=== PATIENT | male | born 1950 | race African-American/Black ===

== ENCOUNTER → 2016-10-06 | Outpatient (CLI) | payer MEDICARE, OTHER ==
[2016-03-15 10:53] VITALS: BP 125/86
[~2016-10-06] MED LIST: ALBU8.5H6 IH; AMLO5TAB2 PO; ASPI-482 PO; AZIT250T6 PO; CONTRAST GIVEN MC PRN; HYDR-2678 PO; HYDR-2762 PO; HYDR12.53 PO; IOHEXOL 300 MG/ML 75 ML VIAL IV ONE; LEVO500T38 PO; METO25TA9 PO; NYST1000 SWSW; Nicotine TD; OMEP20CA9 PO; POTA10TA PO; POTA10TA12 PO; PRED-220 PO; PRED20TA PO; PRED50TA PO; PROM118S2 PO; Promethazine Hcl/Codeine PO; SILD50TA PO; SUCR1TAB29 PO; TIOT18CA IH
[2016-10-06 11:26] LABS: CREATININE 0.7 mg/dL (0.7-1.3); GFR 135.7
--- NOTE | 2016-10-06 13:14 | RAD ---
Exam performed: CT scan of the abdomen and pelvis without and with contrast, urogram protocol Clinical Indication:Benign prostate hyperplasia Date of Service:10/06/16 comparison: None available Technique: Contiguous helical acquisitions are obtained from the lung bases to the pelvis without intravenous contrast. Agent was then administered [75 cc of Omnipaque 300] antegrade acquisitions through the abdomen were obtained in portal venous phase. Limited imaging through the abdomen and pelvis were also obtained. Sagittal and coronal reformatted images were obtained and reviewed. CT abdomen findings: The noncontrast enhanced images demonstrate no evidence of urolithiasis. Scattered atheromatous aortic calcification. There is symmetric perfusion of both kidneys with symmetric excretion via both collecting systems. Simple bilateral renal cysts with the dominant 5 cm cyst in the left superior renal pole. Bilateral collecting systems and both ureters are normal in course and caliber. No areas of abnormal narrowing or dilatation seen. No filling defect is identified. The urinary bladder is partially decompressed prostatomegaly causing mass effect on the posterior aspect of the urinary bladder. The lung bases appear essentially clear. Visualized heart is normal. The liver, spleen ,gall bladder and pancreas appears unremarkable. Mild prominence of the pancreatic duct noted. Both adrenal glands and bilateral kidneys appear normal with symmetric excretion of contrast via both kidneys. The small bowel loops appear nondilated and unremarkable. There is no retroperitoneal lymphadenopathy or mass lesions. Visualized appendix is normal. No bowel related inflammatory stranding is noted. No obvious stranding is seen in the pericecal region. CT pelvis findings: The pelvic bowel loops are nondilated and unremarkable. The urinary bladder is partially decompressed with mass effect on the posterior aspect of the urinary bladder from enlarged prostate as outlined above. Interrogation of bone windows demonstrates no obvious bony abnormality. Sagittal and coronal reformatted images were obtained and reviewed which demonstrate generalized osteopenia and mild spondylotic changes.. Impression abdomen and pelvis : 1. Prostatomegaly causing mass effect on the posterior aspect of the urinary bladder. 2. Simple bilateral renal cysts. PQRS Compliance Statement: One or more of the following individualized dose reduction techniques were utilized for this examination: 1. Automated exposure control 2. Adjustment of the mA and/or kV according to patient size 3. Use of iterative reconstruction technique
== END | disposition home or self-care (01) ==
LOC: CT 10:37
PROVIDERS: ATTEND Urology
DX: N40.1 Benign prostatic hyperplasia with lower urinary tract symptoms (principal); N28.1 Cyst of kidney, acquired
CPT/HCPCS: 36415; 74178; 82565; Q9967

== ENCOUNTER → 2016-10-09 | Outpatient (CLI) | payer MEDICARE, OTHER ==
[2016-03-15 10:53] VITALS: BP 125/86
[~2016-10-09] MED LIST changes: -CONTRAST GIVEN MC PRN; -IOHEXOL 300 MG/ML 75 ML VIAL IV ONE
[2016-10-09 16:40] LABS: CREATININE 0.7 mg/dL (0.7-1.3); GFR 135.7; POTASSIUM 4.6 mmol/L (3.5-5.1)
== END | disposition home or self-care (01) ==
LOC: LAB 15:28
PROVIDERS: ATTEND Urology
DX: Z12.5 Encounter for screening for malignant neoplasm of prostate (principal); N40.1 Benign prostatic hyperplasia with lower urinary tract symptoms
CPT/HCPCS: 36415; 80048; G0103

== ENCOUNTER 2016-10-19 15:11 | Inpatient (IN) | payer MEDICARE, OTHER ==
[~2016-10-19] VITALS: Ht 175.3 cm; Wt 96.2 kg
[2016-10-19] MEDS ORDERED: PREDNISONE 20 MG TABLET PO ONE (16:00)
[2016-10-19] MEDS ORDERED: IPRATRPIUM/ALBUTEROL 0.5/2.5MG 3 ML NEBU. NEB ONE (16:00)
--- NOTE | 2016-10-19 16:15 | RAD ---
Chest, 2 views, 10/19/2016: History: Dyspnea Comparison is made to a study from 03/14/2016. The heart size and pulmonary vascularity are normal. There is tortuosity of the thoracic aorta. There is unchanged blunting of the right lateral costophrenic angle, probably due to scarring. There is flattening of hemidiaphragms compatible with hyperexpansion due to COPD. No acute infiltrate is seen. There is a vertebral fusion anomaly or old fracture again noted in the lower thoracic spine. Moderate scattered spurs are present. IMPRESSION: 1. Right basilar scarring. 2. No acute cardiopulmonary abnormality is detected.
[2016-10-19 16:26] LABS: BASO % 0 % (0-3); EOS % 1 % (0-3); HEMATOCRIT 39.4 % (39.0-53.0); HEMOGLOBIN 12.4 g/dL (13.0-17.5); LYMPH # 1.3 x10^3/uL (1.0-4.8); LYMPH % 17 % (24-48); MEAN CORPUSCULAR HEMOGLOBIN 32 pg (25-35); MEAN CORPUSCULAR HGB CONC 32 g/dL (31-37); MEAN CORPUSCULAR VOLUME 100 fL (79-100); MONO % 6 % (0-9); NEUT % 76 % (31-73); PLATELET COUNT 202 x10^3/uL (140-400); RED BLOOD COUNT 3.94 x10^6/uL (4.30-5.70); RED CELL DISTRIBUTION WIDTH 13.4 % (11.5-14.5); WHITE BLOOD COUNT 7.6 x10^3/uL (4.0-11.0)
[2016-10-19 16:39] LABS: CALCIUM 9.9 mg/dL (8.5-10.1); CREATININE 0.7 mg/dL (0.7-1.3); GFR 135.7; POTASSIUM 4.5 mmol/L (3.5-5.1)
--- NOTE | 2016-10-19 16:46 | PHYS DOC ---
Past Medical History Past Medical History: CHF, COPD, High Cholesterol, Hypertension, Other Additional Past Medical Histor: GOUT Past Surgical History: Other Additional Past Surgical Histo: colon cancer Alcohol Use: Heavy Drug Use: None Adult General Chief Complaint Chief Complaint: SHORTNESS OF BREATH HPI HPI Patient is a 66 year old male who presents with family for acute on chronic dyspnea for the past 2 weeks that is not improving after using steroids as prescribed by his primary care doctor. He has increased cough, but no sputum changes. He has rhinorrhea. He uses home oxygen at 3 L nasal cannula. He used a nebulized treatment at approximately 1300 today with some improvement in his symptoms. He denies chest pain, hemoptysis, palpitations, lightheadedness, leg pain or swelling, fever or chills, diarrhea. Review of Systems Review of Systems Constitutional: Denies fever or chills [] Eyes: Denies change in visual acuity, redness, or eye pain [] HENT: Denies nasal congestion or sore throat [] Respiratory: Denies cough or shortness of breath [] Cardiovascular: No additional information not addressed in HPI [] GI: Denies abdominal pain, nausea, vomiting, bloody stools or diarrhea [] : Denies dysuria or hematuria [] Musculoskeletal: Denies back pain or joint pain [] Integument: Denies rash or skin lesions [] Neurologic: Denies headache, focal weakness or sensory changes [] Endocrine: Denies polyuria or polydipsia [] Current Medications Current Medications Current Medications Medications (Trade) Dose Ordered Sig/Nilo Start Time Stop Time Status Last Admin Dose Admin Albuterol/ Ipratropium (Duoneb) 3 ml 1X ONCE 10/19/16 16:00 10/19/16 16:01 DC 10/19/16 16:09 3 ML Prednisone (Prednisone) 60 mg 1X ONCE 10/19/16 16:00 10/19/16 16:01 DC 10/19/16 16:20 60 MG Allergies Allergies Allergies Coded Allergies Type Severity Reaction Last Updated Verified DELIA Inhibitors Allergy Intermediate 11/19/15 Yes Physical Exam Physical Exam Constitutional: Well developed, well nourished, no acute distress, non-toxic appearance. [] HENT: Normocephalic, atraumatic, bilateral external ears normal, oropharynx moist, no oral exudates, nose normal. [] Eyes: PERRLA, EOMI, conjunctiva normal, no discharge. [] Neck: Normal range of motion, no tenderness, supple, no stridor. [] Cardiovascular:Heart rate regular rhythm [] Lungs & Thorax: Mild bilateral wheezing, breathing through pursed lips, speaking in full sentences [] Abdomen: Bowel sounds normal, soft, no tenderness. [] Skin: Warm, dry, no erythema, no rash. [] Back: No tenderness, no CVA tenderness. [] Extremities: No tenderness, ROM intact, no edema. [] Neurologic: Alert and oriented X 3, normal motor function, normal sensory function, no focal deficits noted. [] Psychologic: Affect normal, judgement normal, mood normal. [] Current Patient Data Vital Signs Vital Signs Date Time Temp Pulse Resp B/P Pulse Ox O2 Delivery O2 Flow Rate FiO2 10/19/16 16:09 98 Nasal Cannula 4.0 10/19/16 15:44 98.5 98 42 122/76 98.5 Lab Values Laboratory Tests Test 10/19/16 16:10 10/19/16 16:15 White Blood Count 7.6x10^3/uL (4.0-11.0) Red Blood Count 3.94x10^6/uL (4.30-5.70) L Hemoglobin 12.4g/dL (13.0-17.5) L Hematocrit 39.4% (39.0-53.0) Mean Corpuscular Volume 100fL (79-100) Mean Corpuscular Hemoglobin 32pg (25-35) Mean Corpuscular Hemoglobin Concent 32g/dL (31-37) Red Cell Distribution Width 13.4% (11.5-14.5) Platelet Count 202x10^3/uL (140-400) Neutrophils (%) (Auto) 76% (31-73) H Lymphocytes (%) (Auto) 17% (24-48) L Monocytes (%) (Auto) 6% (0-9) Eosinophils (%) (Auto) 1% (0-3) Basophils (%) (Auto) 0% (0-3) Neutrophils # (Auto) 5.8x10^3uL (1.8-7.7) Lymphocytes # (Auto) 1.3x10^3/uL (1.0-4.8) Monocytes # (Auto) 0.4x10^3/uL (0.0-1.1) Eosinophils # (Auto) 0.1x10^3/uL (0.0-0.7) Basophils # (Auto) 0.0x10^3/uL (0.0-0.2) Sodium Level 146mmol/L (136-145) H Potassium Level 4.5mmol/L (3.5-5.1) Chloride Level 103mmol/L (98-107) Carbon Dioxide Level 39mmol/L (21-32) H Anion Gap 4 (6-14) L Blood Urea Nitrogen 14mg/dL (8-26) Creatinine 0.7mg/dL (0.7-1.3) Estimated GFR (Cockcroft-Gault) 135.7 Glucose Level 102mg/dL (70-99) H Calcium Level 9.9mg/dL (8.5-10.1) Influenza Type A Antigen Negative (NEGATIVE) Influenza Type B Antigen Negative (NEGATIVE) Laboratory Tests 10/19/16 16:10 Laboratory Tests 10/19/16 16:10 EKG EKG EKG as interpreted by me as normal sinus rhythm, rate 100, no ST-T changes, normal intervals, no ectopy Radiology/Procedures Radiology/Procedures Chest xray as interpreted by me with no acute cardiopulmonary disease process Course & Med Decision Making Course & Med Decision Making Pertinent Labs and Imaging studies reviewed. (See chart for details) Workup is unremarkable. He is feeling better at rest after neb. Has walking desat on baseline NC with significant increase WOB and desats to mid 80s. Discussed case with Dr. Mcdonald, who will admit. Dragon Disclaimer Dragon Disclaimer This electronic medical record was generated, in whole or in part, using a voice recognition dictation system. Departure Departure Impression: Primary Impression: COPD exacerbation Disposition: ADMITTED INPATIENT Condition: STABLE Referrals: JJ GIORDANO (PCP) Rocio COX MD Oct 19, 2016 16:46
[2016-10-19 16:47] LABS: OBC FLU VALID
[2016-10-19] MEDS ORDERED: ONDANSETRON PF 4 MG/2 ML VIAL. IV PRN (17:30)
[2016-10-19] MEDS ORDERED: CEFTRIAXONE 1GM IVPB FOR OMNI 50 ML IV ONE (17:30)
[2016-10-19] MEDS ORDERED: ACETAMINOPHEN 325 MG TABLET. PO PRN (17:30)
--- NOTE | 2016-10-19 17:35 | ACF ---
Admission Forms Criteria COPD Clinical Indications for Admission to Inpatient Care (Place 'X' for any and all applicable criteria): Admission is indicated for ANY ONE of the following (1)(2)(3): [X]I. Acute exacerbation by high-risk comorbidity (e.g., pneumonia, dysrhythmia, heart failure, pleural effusion, pneumothorax) or severe underlying COPD (e.g., steroid dependent) [X]II. Inpatient admission required rather than observation care (see Chronic Obstructive Pulmonary Disease: Observation Care) because of ANY ONE of the following: [X]a) New or pre-existing signs or symptoms of COPD (eg, dyspnea or Tachypnea at rest or with minimal activity) that persist despite outpatient and observation care treatment [ ]b) New-onset hypoxemia (room air SaO2 less than 90%, PO2 less than 60 mm Hg (8.0 kPa)) that persists despite outpatient and observation care treatment [ ]c) Worsening of pre-existing hypoxemia (eg, new or increased requirement for supplemental oxygen to maintain oxygenation at baseline level) that persists despite outpatient and observation care treatment, with oxygen treatment needs performable only in acute inpatient setting [ ]d) Hypercarbia (PCO2 greater than 40 mm Hg (5.3 kPa))-induced respiratory acidosis (pH less than 7.35) that persists despite outpatient and observation care treatment [ ]e) Supplemental oxygen or respiratory treatments for over 24 hours that are performable only in acute inpatient setting [ ]f) Chest tube placement with active evacuation (e.g., suction, drainage) (5) [ ]g) Other condition, treatment or monitoring requiring inpatient admission [ ]III. Planned invasive surgical or diagnostic procedures requiring acute- care hospitalization [ ]IV. Acute respiratory failure (e.g., uncompensated hypercarbia, severe hypoxemia) [ ]V. Severe comorbid condition (e.g., severe steroid myopathy, acute vertebral fracture) that has acutely worsened pulmonary function [ ]. Confusion state, lethargy, obtundation, stupor or coma Extended stay beyond goal length of stay may be needed for (31)(32): [ ]a ) Respiratory Failure. [ ]b) Severe or persisting hypoxemia or hypercarbia [ ]c) Severe or persistent dyspnea [ ]d) Comorbidities (e.g. chronic heart failure, atrial fibrillation with rapid response, pneumonia) [ ]e) Malnutrition The original [facility] content created by [facility] has been revised. The portions of the content which have been revised are identified through the use of italic text or in bold, and [facility] has neither reviewed nor approved the modified material. All other unmodified content is copyright [facility]. Please see references footnoted in the original [facility] edition 2016 Admission Criteria Met?: Yes JOSESITO GARDNER Oct 19, 2016 17:35
[2016-10-19] MEDS ORDERED: IPRATRPIUM/ALBUTEROL 0.5/2.5MG 3 ML NEBU. NEB SCH (20:00)
[2016-10-19] MEDS ORDERED: ALBUTEROL SULFATE 2.5 MG/3 ML NEBU. NEB PRN (21:30)
[2016-10-19] MEDS ORDERED: methylPREDNISolone SOD SUCC PF 125 MG/2 ML VIAL. IV ONE (21:30)
[2016-10-19] MEDS: ENOXAPARIN 40 MG/0.4 ML DISP.SYRIN. SQ SCH (22:23)
[2016-10-19] MEDS: PROMETH/CODEINE 6.25/10MG 5 ML SYRUP. PO PRN (22:56)
[2016-10-19 23:20] VITALS: BP 106/67
[2016-10-20 03:03] VITALS: BP 114/74
--- NOTE | 2016-10-20 06:48 | EKG ---
[facility] [address] [place] [address] Test Date: 2016-10-19 Test Time: 15:21:07 Pat Name: KATARINA JAUREGUI Department: Room: 528 1 Gender: M [employer]: : 1950 Requested By: Rocio COX Order Number: [id number] Reading MD: Bijal Worthington Measurements Intervals [place] Rate: 100 P: 77 NC: 108 QRS: 72 QRSD: 82 T: 71 QT: 326 QTc: 423 Interpretive Statements SINUS RHYTHM NO SPECIFIC ECG ABNORMALITIES RI6.01 Compared to ECG 03/12/2016 01:40:22 Sinus tachycardia no longer present Electronically Signed On 10-21-2016 20:04:27 CDT by Bijal Worthington
[2016-10-20 07:40] VITALS: BP 112/69
[2016-10-20] MEDS: PANTOPRAZOLE 40 MG TABLET. PO SCH (08:19)
[2016-10-20] MEDS: POTASSIUM CHLORIDE 10 MEQ TABLET.ER. PO SCH (08:20)
[2016-10-20] MEDS: METOPROLOL SUCC 24HR ER 25 MG TAB.ER.24H. PO SCH ×2 (08:21→09:00)
[2016-10-20] MEDS: AMLODIPINE BESYLATE 5 MG TABLET PO SCH (08:22)
[2016-10-20] MEDS: HYDROCHLOROTHIAZIDE 12.5 MG CAPSULE. PO SCH (08:23)
[2016-10-20] MEDS: ASPIRIN ENTERIC COATED 81 MG TABLET.DR. PO SCH (08:23)
[2016-10-20] MEDS: NICOTINE 7MG PATCH. TD SCH (08:24)
[2016-10-20] MEDS: methylPREDNISolone SOD SUCC PF 125 MG/2 ML VIAL. IV SCH ×3 (08:24→21:36)
[2016-10-20] MEDS ORDERED: NON FORMULARY ITEM (Tiotropium Bromide (Spiriva) 18 MCG) IH SCH (09:00)
[2016-10-20] MEDS ORDERED: POTASSIUM CHLORIDE 10 MEQ PO SCH (09:00)
[2016-10-20] MEDS: IPRATRPIUM/ALBUTEROL 0.5/2.5MG 3 ML NEBU. NEB SCH ×4 (09:07→20:14)
--- NOTE | 2016-10-20 09:42 | PDOC ---
Provider Note Provider Note [id number] acute on chronic resp fail ae of copd acute bronchitis see orders SHERI LORENZANA MD Oct 20, 2016 09:42
--- NOTE | 2016-10-20 10:22 | PDOC ---
Provider Note Provider Note Pt seen.H&P dictated. #[id number] DAMIÁN BALL MD Oct 20, 2016 10:22
[2016-10-20 10:35] VITALS: BP 135/68
--- NOTE | 2016-10-20 10:56 | CONS ---
DATE OF CONSULTATION: 10/19/2016 HISTORY OF PRESENT ILLNESS: I was asked to see this 66-year-old gentleman for [id number] respiratory failure, shortness of breath, cough, wheezing, acute exacerbation of COPD. He has history of at least 80-pack years of smoking, continues to smoke about wio-clm-i-half pack per day. He is on oxygen 3 liters per minute via nasal cannula continuously. He has been followed by Dr. Go. He has had increased shortness of breath and cough for the past few days. He has clear to yellow sputum production. He has nasal congestion. He has wheezing. He has had some fever and chills. He has gastroesophageal reflux symptoms. PAST MEDICAL HISTORY: COPD, CHF, hypercholesterolemia, hypertension, gout. ALLERGIES: DELIA INHIBITORS. MEDICATIONS: Currently, he is on Solu-Medrol 60 mg IV q. 8h., bronchodilators, Rocephin, aspirin, Lovenox, hydrochlorothiazide, hydrocodone, metoprolol, nicotine patch, potassium. SOCIAL HISTORY: History of at least 64-sqfy-tzyb smoking, continues to smoke about dvw-wbw-b-half pack per day. He used to drink. FAMILY HISTORY: There is no history of lung disease. REVIEW OF SYSTEMS: As mentioned above, other systems otherwise negative. PHYSICAL EXAMINATION: GENERAL: This is an overweight gentleman, on oxygen. VITAL SIGNS: His O2 saturation is 97%, respiratory rate 18, heart rate 84, blood pressure 112/69, temperature 99.3. HEENT: Normocephalic, atraumatic. Pupils equal, round, reactive to light. Throat is clear. Nose: There is inflamed mucosa. NECK: There is no JVD, lymphadenopathy or thyromegaly. CARDIOVASCULAR: Regular rate and rhythm. PMI is nondisplaced. CHEST: Inspection is normal. LUNGS: There are diminished breath sounds and expiratory wheezing, dullness at the bases. ABDOMEN: Soft. Bowel sounds are good. There is no mass. EXTREMITIES: There is no edema. LYMPHATICS: There is no lymphadenopathy. NEUROLOGIC: He is alert and oriented x 3. SKIN: Chronic changes. LABORATORY DATA: I reviewed the following lab data. Chest x-ray shows COPD changes, bibasilar scarring. WBC 7.6, hemoglobin 12.4, platelets 202. Sodium 146, potassium 4.5, chloride 103, CO2 of 39, glucose 102, BUN 14, creatinine 0.7. Influenza A and B negative. IMPRESSION: 1. Acute on chronic respiratory failure, multifactorial in etiology. 2. Acute exacerbation of chronic obstructive pulmonary disease. 3. Acute bronchitis. 4. Hypertension. 5. Hypercholesterolemia. 6. Tobacco habituation. 7. Allergic rhinitis. 8. Gastroesophageal reflux disease. PLAN AND RECOMMENDATIONS: 1. Titrate FiO2 to keep O2 saturation 92%. 2. I had a long discussion with him regarding smoking cessation. I have advised him to stop smoking forever. 3. Continue Solu-Medrol 60 mg IV q. 12h. 4. Bronchodilator q.i.d. p.r.n. shortness of breath. 5. Add inhaled corticosteroid. 6. Start Protonix for stress ulcer prophylaxis. 7. Lovenox for DVT prophylaxis. 8. Monitor respiratory status very closely. 9. He had a CT of the chest done in 08/2015, which did not show pulmonary embolism or lung nodule. I do recommend a low dose CT of the chest. 10. Continue oxygen. 11. Findings and recommendations were discussed with the patient. He understood and agreed to proceed with the plan. I have answered all of his questions. 12. Start Flonase. Thank you very much for allowing me to participate in care of this very nice gentleman. SHERI LORENZANA M.D. : Yecenia JOB#: [id number] / [id number]
--- NOTE | 2016-10-20 11:22 | HP ---
ADMIT DATE: 10/19/2016 PATIENT'S LOCATION: [facility]. REASON FOR ADMISSION TO THE HOSPITAL: Shortness of breath, [id number] COPD exacerbation and acute bronchitis. HISTORY OF PRESENT ILLNESS: The patient is a 66-year-old male, patient of Dr. Hernandez. He has history of chronic COPD. He is on home oxygen and he also has history of hypertension, hyperlipidemia and still smokes as well as drinking problems. The patient was seen in the Dr. Hernandez's office, was given prednisone and antibiotic did not improve and came to the Emergency Room because of worsening shortness of breath. He was found to have acute COPD with exacerbation and was given IV Solu-Medrol, IV Rocephin, DuoNeb was admitted to the hospital. PAST MEDICAL HISTORY: Multiple admissions for COPD, hypertension, diabetes, DJD of the spine, anxiety and depression. PAST SURGICAL HISTORY: Had a surgery on the colon for diverticulitis. ALLERGIES: TO DELIA INHIBITORS CAUSE ANGIOEDEMA. MEDICATIONS: He is on amlodipine 5 mg, aspirin 81, Detrol 4 mg, hydrochlorothiazide 12.5, Spiriva, oxygen 2 liters, DuoNeb and omeprazole. PERSONAL HISTORY: Smoked for 50 years, still smokes. Social alcohol. Denies any drugs. FAMILY HISTORY: Hypertension. REVIEW OF SYSTEMS: CARDIAC: No chest pain. GASTROINTESTINAL: No nausea or vomiting. NEUROLOGICAL: Weakness, cough, white phlegm and wheezing. PHYSICAL EXAMINATION: GENERAL: The patient looks weaker. VITAL SIGNS: Temperature 98, pulse 98, respirations 42, blood pressure 122/76, 98% on 3 liters. HEENT: Head is atraumatic. Pupils equal. Oral cavity: No congestion. NECK: Supple. Thyroid not enlarged. JVD not elevated. CHEST: Symmetrical. CARDIOVASCULAR: S1, S2. LUNGS: Diminished breath sounds and wheezing posterior lungs. ABDOMEN: Flat, bowel sounds present, no mass palpable. EXTERNAL GENITALIA: No Heard. RECTAL: Deferred. EXTREMITIES: No calf tenderness, no edema. Pulses 1+. NEUROLOGIC: Nonfocal deficient and moves all extremities, slightly weaker. LABORATORY DATA: Shows influenza A and B was negative. White count 7, hemoglobin 12, platelets 202. Electrolytes show sodium 146, potassium 4.5, chloride 103, bicarbonate 39, BUN 14, creatinine 0.7, glucose 102. Chest x-ray, right basilar scarring, no acute abnormality. FINAL IMPRESSION: 1. Acute chronic obstructive pulmonary disease with exacerbation. 2. Acute bronchitis. 3. Hypertension. 4. Degenerative joint disease of the cervical spine. 5. General debility. 6. Smoking. PLAN: At this time, admit to hospital, IV Rocephin, IV Solu-Medrol, DuoNeb 4 times daily, pulmonary consult, PT, OT and see how the patient's condition improves. DAMIÁN BALL MD DR: CHELE/braden JOB#: [id number] / [id number] JJ Magdaleno
[2016-10-20] MEDS ORDERED: PANTOPRAZOLE 40 MG TABLET. PO SCH (11:30)
[2016-10-20] MEDS: BUDESONIDE 0.5 MG/2 ML NEBU NEB SCH ×2 (11:55→20:14)
[2016-10-20 14:05] VITALS: BP 107/67
[2016-10-20] MEDS: PROMETH/CODEINE 6.25/10MG 5 ML SYRUP. PO PRN (15:06)
[2016-10-20] MEDS: FLUTICASONE 50MCG/NASAL SPRAY 16GM BOTTLE. NS SCH (15:15)
[2016-10-20] MEDS: CEFTRIAXONE SODIUM 1 GM in IV NORMAL SALINE 50ML 50 ML IV SCH (17:50)
[2016-10-20 19:00] VITALS: BP 110/64
[2016-10-20] MEDS: HYDROCODONE/APAP 5/325MG TABLET. PO PRN (19:41)
[2016-10-20] MEDS: ENOXAPARIN 40 MG/0.4 ML DISP.SYRIN. SQ SCH (21:37)
[2016-10-20 23:00] VITALS: BP 160/86
[2016-10-21 03:00] VITALS: BP 96/60
[2016-10-21] MEDS: methylPREDNISolone SOD SUCC PF 125 MG/2 ML VIAL. IV SCH ×3 (05:54→20:43)
[2016-10-21] MEDS: PANTOPRAZOLE 40 MG TABLET. PO SCH (05:56)
[2016-10-21 06:17] LABS: BASO % 0 % (0-3); EOS % 0 % (0-3); HEMATOCRIT 35.1 % (39.0-53.0); HEMOGLOBIN 11.3 g/dL (13.0-17.5); LYMPH # 0.5 x10^3/uL (1.0-4.8); LYMPH % 3 % (24-48); MEAN CORPUSCULAR HEMOGLOBIN 32 pg (25-35); MEAN CORPUSCULAR HGB CONC 32 g/dL (31-37); MEAN CORPUSCULAR VOLUME 99 fL (79-100); MONO % 4 % (0-9); NEUT % 92 % (31-73); PLATELET COUNT 194 x10^3/uL (140-400); RED BLOOD COUNT 3.54 x10^6/uL (4.30-5.70); RED CELL DISTRIBUTION WIDTH 13.5 % (11.5-14.5); WHITE BLOOD COUNT 15.8 x10^3/uL (4.0-11.0)
[2016-10-21 06:47] LABS: ALBUMIN 2.8 g/dL (3.4-5.0); ALBUMIN/GLOBULIN RATIO 0.6 (1.0-1.7); CALCIUM 9.5 mg/dL (8.5-10.1); CREATININE 0.6 mg/dL (0.7-1.3); GFR 162.1; TOTAL BILIRUBIN 0.3 mg/dL (0.2-1.0); TOTAL PROTEIN 7.3 g/dL (6.4-8.2)
[2016-10-21 06:52] LABS: CHOLESTEROL/HDL RATIO 2.3
[2016-10-21 07:00] VITALS: BP 122/70
[2016-10-21] MEDS: BUDESONIDE 0.5 MG/2 ML NEBU NEB SCH ×2 (07:36→18:41)
[2016-10-21] MEDS: IPRATRPIUM/ALBUTEROL 0.5/2.5MG 3 ML NEBU. NEB SCH ×4 (07:36→18:41)
[2016-10-21 08:05] LABS: PLT ESTIMATE ADEQUATE (ADEQUATE)
--- NOTE | 2016-10-21 09:04 | PDOC ---
PULMONARY PROGRESS NOTES Subjective still has sig sob, maybe slightly better. has cough, hernandez, nasal congestion Vitals Vital Signs Date Time Temp Pulse Resp B/P Pulse Ox O2 Delivery O2 Flow Rate FiO2 10/21/16 07:38 99 Nasal Cannula 3.0 10/21/16 03:00 97.6 96 18 96/60 97.6 Comments ros as mentioned as above other sys otherwise neg General: Alert, Oriented X4, No acute distress Lungs: Wheezing, Other (deminished) Cardiovascular: S1, S2 Abdomen: Soft, Non-tender Extremities: No Edema Labs Laboratory Tests Test 10/19/16 16:10 10/19/16 16:15 10/21/16 06:00 White Blood Count 7.6x10^3/uL (4.0-11.0) 15.8x10^3/uL (4.0-11.0) Red Blood Count 3.94x10^6/uL (4.30-5.70) 3.54x10^6/uL (4.30-5.70) Hemoglobin 12.4g/dL (13.0-17.5) 11.3g/dL (13.0-17.5) Hematocrit 39.4% (39.0-53.0) 35.1% (39.0-53.0) Mean Corpuscular Volume 100fL (79-100) 99fL (79-100) Mean Corpuscular Hemoglobin 32pg (25-35) 32pg (25-35) Mean Corpuscular Hemoglobin Concent 32g/dL (31-37) 32g/dL (31-37) Red Cell Distribution Width 13.4% (11.5-14.5) 13.5% (11.5-14.5) Platelet Count 202x10^3/uL (140-400) 194x10^3/uL (140-400) Neutrophils (%) (Auto) 76% (31-73) 92% (31-73) Lymphocytes (%) (Auto) 17% (24-48) 3% (24-48) Monocytes (%) (Auto) 6% (0-9) 4% (0-9) Eosinophils (%) (Auto) 1% (0-3) 0% (0-3) Basophils (%) (Auto) 0% (0-3) 0% (0-3) Neutrophils # (Auto) 5.8x10^3uL (1.8-7.7) 14.6x10^3uL (1.8-7.7) Lymphocytes # (Auto) 1.3x10^3/uL (1.0-4.8) 0.5x10^3/uL (1.0-4.8) Monocytes # (Auto) 0.4x10^3/uL (0.0-1.1) 0.7x10^3/uL (0.0-1.1) Eosinophils # (Auto) 0.1x10^3/uL (0.0-0.7) 0.0x10^3/uL (0.0-0.7) Basophils # (Auto) 0.0x10^3/uL (0.0-0.2) 0.0x10^3/uL (0.0-0.2) Sodium Level 146mmol/L (136-145) 144mmol/L (136-145) Potassium Level 4.5mmol/L (3.5-5.1) 4.0mmol/L (3.5-5.1) Chloride Level 103mmol/L (98-107) 104mmol/L (98-107) Carbon Dioxide Level 39mmol/L (21-32) 35mmol/L (21-32) Anion Gap 4 (6-14) 5 (6-14) Blood Urea Nitrogen 14mg/dL (8-26) 14mg/dL (8-26) Creatinine 0.7mg/dL (0.7-1.3) 0.6mg/dL (0.7-1.3) Estimated GFR (Cockcroft-Gault) 135.7 162.1 Glucose Level 102mg/dL (70-99) 132mg/dL (70-99) Calcium Level 9.9mg/dL (8.5-10.1) 9.5mg/dL (8.5-10.1) Influenza Type A Antigen Negative (NEGATIVE) Influenza Type B Antigen Negative (NEGATIVE) Segmented Neutrophils % 90% (35-66) Band Neutrophils % 5% (0-9) Lymphocytes % 3% (24-48) Monocytes % 2% (0-10) Platelet Estimate Adequate (ADEQUATE) BUN/Creatinine Ratio 23 (6-20) Total Bilirubin 0.3mg/dL (0.2-1.0) Aspartate Amino Transf (AST/SGOT) 16U/L (15-37) Alanine Aminotransferase (ALT/SGPT) 24U/L (16-63) Alkaline Phosphatase 65U/L (46-116) Total Protein 7.3g/dL (6.4-8.2) Albumin 2.8g/dL (3.4-5.0) Albumin/Globulin Ratio 0.6 (1.0-1.7) Triglycerides Level 31mg/dL (0-150) Cholesterol Level 162mg/dL (0-200) LDL Cholesterol, Calculated 86mg/dL (0-100) VLDL Cholesterol, Calculated 6mg/dL (0-40) HDL Cholesterol 70mg/dL (40-60) Cholesterol/HDL Ratio 2.3 Thyroid Stimulating Hormone (TSH) 0.054uIU/mL (0.358-3.74) Laboratory Tests Test 10/21/16 06:00 White Blood Count 15.8x10^3/uL (4.0-11.0) Red Blood Count 3.54x10^6/uL (4.30-5.70) Hemoglobin 11.3g/dL (13.0-17.5) Hematocrit 35.1% (39.0-53.0) Mean Corpuscular Volume 99fL (79-100) Mean Corpuscular Hemoglobin 32pg (25-35) Mean Corpuscular Hemoglobin Concent 32g/dL (31-37) Red Cell Distribution Width 13.5% (11.5-14.5) Platelet Count 194x10^3/uL (140-400) Neutrophils (%) (Auto) 92% (31-73) Lymphocytes (%) (Auto) 3% (24-48) Monocytes (%) (Auto) 4% (0-9) Eosinophils (%) (Auto) 0% (0-3) Basophils (%) (Auto) 0% (0-3) Neutrophils # (Auto) 14.6x10^3uL (1.8-7.7) Lymphocytes # (Auto) 0.5x10^3/uL (1.0-4.8) Monocytes # (Auto) 0.7x10^3/uL (0.0-1.1) Eosinophils # (Auto) 0.0x10^3/uL (0.0-0.7) Basophils # (Auto) 0.0x10^3/uL (0.0-0.2) Segmented Neutrophils % 90% (35-66) Band Neutrophils % 5% (0-9) Lymphocytes % 3% (24-48) Monocytes % 2% (0-10) Platelet Estimate Adequate (ADEQUATE) Sodium Level 144mmol/L (136-145) Potassium Level 4.0mmol/L (3.5-5.1) Chloride Level 104mmol/L (98-107) Carbon Dioxide Level 35mmol/L (21-32) Anion Gap 5 (6-14) Blood Urea Nitrogen 14mg/dL (8-26) Creatinine 0.6mg/dL (0.7-1.3) Estimated GFR (Cockcroft-Gault) 162.1 BUN/Creatinine Ratio 23 (6-20) Glucose Level 132mg/dL (70-99) Calcium Level 9.5mg/dL (8.5-10.1) Total Bilirubin 0.3mg/dL (0.2-1.0) Aspartate Amino Transf (AST/SGOT) 16U/L (15-37) Alanine Aminotransferase (ALT/SGPT) 24U/L (16-63) Alkaline Phosphatase 65U/L (46-116) Total Protein 7.3g/dL (6.4-8.2) Albumin 2.8g/dL (3.4-5.0) Albumin/Globulin Ratio 0.6 (1.0-1.7) Triglycerides Level 31mg/dL (0-150) Cholesterol Level 162mg/dL (0-200) LDL Cholesterol, Calculated 86mg/dL (0-100) VLDL Cholesterol, Calculated 6mg/dL (0-40) HDL Cholesterol 70mg/dL (40-60) Cholesterol/HDL Ratio 2.3 Thyroid Stimulating Hormone (TSH) 0.054uIU/mL (0.358-3.74) Medications Active Scripts Medications Dose Route/Sig Days Date Category [Promethazine Hcl/Codeine] 5 ML Syrup 5 Ml PO PRN Q8HRS PRN 03/15/16 Rx Klor-Con M10 (Potassium Chloride) 10 Meq Tab.er.prt 10 Meq PO DAILYWBKFT 8/10/16 Rx Levaquin (Levofloxacin) 500 Mg Tablet 500 Mg PO DAILY06 03/15/16 Rx Prednisone 20 Mg Tablet 40 Mg PO DAILY 03/15/16 Rx Prednisone 10 Mg Tablet 10 Mg PO DIRECTED 11/20/15 Rx Levaquin (Levofloxacin) 500 Mg Tablet 1 Tab PO DAILY 11/20/15 Rx Metoprolol Succinate ( Xl ) (Metoprolol Succinate) 25 Mg Tab.er.24h 25 Mg PO DAILY 11/20/15 Rx [Nicotine] 1 PATCH Patch 1 Patch TD DAILY 06/23/15 Rx Lortab 5-325 mg Tablet (Hydrocodone/Acetaminophen) 1 Each Tablet 1 Each PO QIDPRN PRN 12/13/13 Reported K-Tab (Potassium Chloride) 10 Meq Tablet.er 10 Meq PO BID 12/12/13 Rx Viagra (Sildenafil Citrate) 50 Mg Tablet 50 Mg PO PRN DAILY 10/28/13 Reported Spiriva (Tiotropium [place]) 18 Mcg Cap.w.dev 18 Mcg IH DAILY 10/28/13 Reported Omeprazole 20 Mg Capsule. 20 Mg PO DAILY 10/28/13 Reported Hydrochlorothiazide Capsule (Hydrochlorothiazide) 12.5 Mg Capsule 12.5 Mg PO DAILY 10/28/13 Reported Aspir 81 (Aspirin) 81 Mg Tablet. 81 Mg PO DAILY 10/28/13 Reported Amlodipine Besylate 5 Mg Tablet 5 Mg PO DAILY 10/28/13 Reported Albuterol Sulfate Hfa Inhaler (Albuterol Sulfate) 8.5 Gm Hfa.aer.ad 90 Mcg IH PRN EVERY 4-6H 10/28/13 Reported Comments cxr reviewed, 1. Right basilar scarring. 2. No acute cardiopulmonary abnormality is detected. Impression . IMPRESSION: 1. Acute on chronic respiratory failure, multifactorial in etiology. 2. Acute exacerbation of chronic obstructive pulmonary disease. 3. Acute bronchitis. 4. Hypertension. 5. Hypercholesterolemia. 6. Tobacco habituation. 7. Allergic rhinitis. 8. Gastroesophageal reflux disease. Plan . PLAN AND RECOMMENDATIONS: 1. Titrate FiO2 to keep O2 saturation 92%. 2. I had a long discussion with him regarding smoking cessation. I have advised him to stop smoking forever. 3. Continue Solu-Medrol 60 mg IV q. 12h. 4. Bronchodilator q.i.d. p.r.n. shortness of breath. 5. inhaled corticosteroid. 6. Protonix for stress ulcer prophylaxis. 7. Lovenox for DVT prophylaxis. 8. Monitor respiratory status very closely. 9. He had a CT of the chest done in 08/2015, which did not show pulmonary embolism or lung nodule. I do recommend a low dose CT of the chest. 10. Continue oxygen. 11. Findings and recommendations were discussed with the patient. He understood and agreed to proceed with the plan. I have answered all of his questions. 12. Flonase. 13. SHERI Sharp pt, MD Oct 21, 2016 09:04
[2016-10-21] MEDS: POTASSIUM CHLORIDE 10 MEQ TABLET.ER. PO SCH (09:10)
[2016-10-21] MEDS: ASPIRIN ENTERIC COATED 81 MG TABLET.DR. PO SCH (09:10)
[2016-10-21] MEDS: FLUTICASONE 50MCG/NASAL SPRAY 16GM BOTTLE. NS SCH (09:10)
[2016-10-21] MEDS: NICOTINE 7MG PATCH. TD SCH (09:10)
[2016-10-21] MEDS: AMLODIPINE BESYLATE 5 MG TABLET PO SCH (09:13)
[2016-10-21] MEDS: HYDROCHLOROTHIAZIDE 12.5 MG CAPSULE. PO SCH (09:13)
[2016-10-21] MEDS: METOPROLOL SUCC 24HR ER 25 MG TAB.ER.24H. PO SCH (09:17)
[2016-10-21 11:00] VITALS: BP 128/60
--- NOTE | 2016-10-21 12:16 | PDOC ---
PROGRESS NOTES Subjective Subjective feeling better ,wanting to see urology for bph Objective Objective Vital Signs Date Time Temp Pulse Resp B/P Pulse Ox O2 Delivery O2 Flow Rate FiO2 10/21/16 11:51 96 Nasal Cannula 3.0 10/21/16 09:17 94 119/73 10/21/16 07:00 97.9 22 97.9 Intake and Output 10/21/16 07:00 Intake Total 2280 ml Output Total 850 ml Balance 1430 ml Intake Oral 2280 ml Output Urine Total 850 ml # Voids 1 Physical Exam Abdomen: Normal bowel sounds, Soft Heart: Regular rate, Normal S2 Extremities: No clubbing General: Alert HEENT: Atraumatic Lungs: Clear to auscultation MUSCULOSKELETAL: No swelling Neck: Supple Neuro: Normal gait Psych/Mental Status: Mental status NL Skin: No breakdown Diagnosis Problem List Problems Medical Problems: (1) COPD exacerbation Status: Acute Assessment Assessment Problems Medical Problems: (1) COPD exacerbation Status: Acute FINAL IMPRESSION: 1. Acute chronic obstructive pulmonary disease with exacerbation. 2. Acute bronchitis. 3. Hypertension. 4. Degenerative joint disease of the cervical spine. 5. General debility. 6. Smoking. 7. BPH 8.? Hyperyroidism PLAN: ct abdomen showed enlarged prostate. will check psa, urology consult. repeat thyroid functions , TSH very low At this time, admit to hospital, IV Rocephin, IV Solu-Medrol, DuoNeb 4 pulmonary consult, PT, OT see how the patient's condition improves. Problems: Plan Plan of Care Problems Medical Problems: (1) COPD exacerbation Status: Acute Comment Review of Relevant I have reviewed the following items mario (where applicable) has been applied. Labs Laboratory Tests Test 10/21/16 06:00 White Blood Count 15.8x10^3/uL (4.0-11.0) Red Blood Count 3.54x10^6/uL (4.30-5.70) Hemoglobin 11.3g/dL (13.0-17.5) Hematocrit 35.1% (39.0-53.0) Mean Corpuscular Volume 99fL (79-100) Mean Corpuscular Hemoglobin 32pg (25-35) Mean Corpuscular Hemoglobin Concent 32g/dL (31-37) Red Cell Distribution Width 13.5% (11.5-14.5) Platelet Count 194x10^3/uL (140-400) Neutrophils (%) (Auto) 92% (31-73) Lymphocytes (%) (Auto) 3% (24-48) Monocytes (%) (Auto) 4% (0-9) Eosinophils (%) (Auto) 0% (0-3) Basophils (%) (Auto) 0% (0-3) Neutrophils # (Auto) 14.6x10^3uL (1.8-7.7) Lymphocytes # (Auto) 0.5x10^3/uL (1.0-4.8) Monocytes # (Auto) 0.7x10^3/uL (0.0-1.1) Eosinophils # (Auto) 0.0x10^3/uL (0.0-0.7) Basophils # (Auto) 0.0x10^3/uL (0.0-0.2) Segmented Neutrophils % 90% (35-66) Band Neutrophils % 5% (0-9) Lymphocytes % 3% (24-48) Monocytes % 2% (0-10) Platelet Estimate Adequate (ADEQUATE) Sodium Level 144mmol/L (136-145) Potassium Level 4.0mmol/L (3.5-5.1) Chloride Level 104mmol/L (98-107) Carbon Dioxide Level 35mmol/L (21-32) Anion Gap 5 (6-14) Blood Urea Nitrogen 14mg/dL (8-26) Creatinine 0.6mg/dL (0.7-1.3) Estimated GFR (Cockcroft-Gault) 162.1 BUN/Creatinine Ratio 23 (6-20) Glucose Level 132mg/dL (70-99) Calcium Level 9.5mg/dL (8.5-10.1) Total Bilirubin 0.3mg/dL (0.2-1.0) Aspartate Amino Transf (AST/SGOT) 16U/L (15-37) Alanine Aminotransferase (ALT/SGPT) 24U/L (16-63) Alkaline Phosphatase 65U/L (46-116) Total Protein 7.3g/dL (6.4-8.2) Albumin 2.8g/dL (3.4-5.0) Albumin/Globulin Ratio 0.6 (1.0-1.7) Triglycerides Level 31mg/dL (0-150) Cholesterol Level 162mg/dL (0-200) LDL Cholesterol, Calculated 86mg/dL (0-100) VLDL Cholesterol, Calculated 6mg/dL (0-40) HDL Cholesterol 70mg/dL (40-60) Cholesterol/HDL Ratio 2.3 Thyroid Stimulating Hormone (TSH) 0.054uIU/mL (0.358-3.74) Medications Current Medications Ceftriaxone Sodium/Sodium Chloride (Rocephin/Iv Sodium Chloride 0.9% 50ml) 50 ml @ 100 mls/hr Q24H IV Last administered on 10/20/16t 17:50; Start 10/20/16 at 17:30 Montelukast Sodium (Singulair) 10 mg QHS PO ; Start 10/21/16 at 21:00 Vitals/I & O Vital Sign - Last 24 Hours 10/20/16 10/20/16 10/20/16 10/20/16 14:05 17:04 19:00 19:41 Temp 99.7 97.9 99.7 97.9 Pulse 91 91 Resp 18 B/P 107/67 110/64 Pulse Ox 94 92 94 O2 Delivery Nasal Cannula Nasal Cannula Nasal Cannula Nasal Cannula O2 Flow Rate 3.0 3.0 3.0 3.0 10/20/16 10/20/16 10/20/16 10/20/16 20:00 20:15 20:17 20:41 Resp 18 Pulse Ox 94 O2 Delivery Nasal Cannula Nasal Cannula Nasal Cannula Nasal Cannula O2 Flow Rate 3.0 3.0 3.0 3.0 10/20/16 10/21/16 10/21/16 10/21/16 23:00 03:00 07:00 07:38 Temp 97.5 97.6 97.9 97.5 97.6 97.9 Pulse 83 96 80 Resp 18 18 22 B/P 160/86 96/60 122/70 Pulse Ox 94 95 98 99 O2 Delivery Nasal Cannula Nasal Cannula Room Air Nasal Cannula O2 Flow Rate 3.0 3.0 3.0 10/21/16 10/21/16 10/21/16 10/21/16 08:00 09:13 09:17 11:51 Pulse 94 94 B/P 119/73 119/73 Pulse Ox 96 O2 Delivery Nasal Cannula Nasal Cannula O2 Flow Rate 3.0 3.0 Intake and Output 310/20/16 10/21/16 15:00 23:00 07:00 Intake Total 1200 ml 780 ml 300 ml Output Total 400 ml 450 ml Balance 800 ml 330 ml 300 ml DAMIÁN BALL MD Oct 21, 2016 12:16
[2016-10-21 14:06] LABS: FREE T4 0.78 ng/dL (0.76-1.46)
[2016-10-21 15:00] VITALS: BP 119/67
[2016-10-21] MEDS: PROMETH/CODEINE 6.25/10MG 5 ML SYRUP. PO PRN (16:25)
[2016-10-21] MEDS: CEFTRIAXONE SODIUM 1 GM in IV NORMAL SALINE 50ML 50 ML IV SCH (16:34)
[2016-10-21] MEDS: HYDROCODONE/APAP 5/325MG TABLET. PO PRN (19:17)
[2016-10-21 19:21] VITALS: BP 138/76
[2016-10-21] MEDS: MONTELUKAST SODIUM 10 MG TABLET. PO SCH (20:43)
[2016-10-21] MEDS: ENOXAPARIN 40 MG/0.4 ML DISP.SYRIN. SQ SCH (20:44)
[2016-10-21 23:11] VITALS: BP 108/70
[2016-10-22 02:19] VITALS: BP 113/70
[2016-10-22] MEDS: methylPREDNISolone SOD SUCC PF 125 MG/2 ML VIAL. IV SCH ×2 (05:28→21:05)
[2016-10-22 05:42] LABS: THYROXINE 5.2 ug/dL (4.5-12.0)
[2016-10-22 07:00] VITALS: BP 129/78
[2016-10-22] MEDS: BUDESONIDE 0.5 MG/2 ML NEBU NEB SCH ×2 (07:22→19:58)
[2016-10-22] MEDS: IPRATRPIUM/ALBUTEROL 0.5/2.5MG 3 ML NEBU. NEB SCH ×4 (07:22→19:58)
--- NOTE | 2016-10-22 08:29 | PDOC ---
PULMONARY PROGRESS NOTES Subjective sob is better. has cough. hernandez, nasal congestion, better Vitals Vital Signs Date Time Temp Pulse Resp B/P Pulse Ox O2 Delivery O2 Flow Rate FiO2 10/22/16 07:22 97 Nasal Cannula 3.0 10/22/16 02:19 98.5 78 16 113/70 98.5 Comments ros as mentioned as above other sys otherwise neg General: Alert, Oriented X4, No acute distress Lungs: Wheezing, Other (deminished) Cardiovascular: S1, S2 Abdomen: Soft, Non-tender Extremities: No Edema Labs Laboratory Tests Test 10/21/16 06:00 10/21/16 13:15 White Blood Count 15.8x10^3/uL (4.0-11.0) Red Blood Count 3.54x10^6/uL (4.30-5.70) Hemoglobin 11.3g/dL (13.0-17.5) Hematocrit 35.1% (39.0-53.0) Mean Corpuscular Volume 99fL (79-100) Mean Corpuscular Hemoglobin 32pg (25-35) Mean Corpuscular Hemoglobin Concent 32g/dL (31-37) Red Cell Distribution Width 13.5% (11.5-14.5) Platelet Count 194x10^3/uL (140-400) Neutrophils (%) (Auto) 92% (31-73) Lymphocytes (%) (Auto) 3% (24-48) Monocytes (%) (Auto) 4% (0-9) Eosinophils (%) (Auto) 0% (0-3) Basophils (%) (Auto) 0% (0-3) Neutrophils # (Auto) 14.6x10^3uL (1.8-7.7) Lymphocytes # (Auto) 0.5x10^3/uL (1.0-4.8) Monocytes # (Auto) 0.7x10^3/uL (0.0-1.1) Eosinophils # (Auto) 0.0x10^3/uL (0.0-0.7) Basophils # (Auto) 0.0x10^3/uL (0.0-0.2) Segmented Neutrophils % 90% (35-66) Band Neutrophils % 5% (0-9) Lymphocytes % 3% (24-48) Monocytes % 2% (0-10) Platelet Estimate Adequate (ADEQUATE) Sodium Level 144mmol/L (136-145) Potassium Level 4.0mmol/L (3.5-5.1) Chloride Level 104mmol/L (98-107) Carbon Dioxide Level 35mmol/L (21-32) Anion Gap 5 (6-14) Blood Urea Nitrogen 14mg/dL (8-26) Creatinine 0.6mg/dL (0.7-1.3) Estimated GFR (Cockcroft-Gault) 162.1 BUN/Creatinine Ratio 23 (6-20) Glucose Level 132mg/dL (70-99) Hemoglobin A1c 4.6% (4.8-5.6) Calcium Level 9.5mg/dL (8.5-10.1) Total Bilirubin 0.3mg/dL (0.2-1.0) Aspartate Amino Transf (AST/SGOT) 16U/L (15-37) Alanine Aminotransferase (ALT/SGPT) 24U/L (16-63) Alkaline Phosphatase 65U/L (46-116) Total Protein 7.3g/dL (6.4-8.2) Albumin 2.8g/dL (3.4-5.0) Albumin/Globulin Ratio 0.6 (1.0-1.7) Triglycerides Level 31mg/dL (0-150) Cholesterol Level 162mg/dL (0-200) LDL Cholesterol, Calculated 86mg/dL (0-100) VLDL Cholesterol, Calculated 6mg/dL (0-40) HDL Cholesterol 70mg/dL (40-60) Cholesterol/HDL Ratio 2.3 Thyroid Stimulating Hormone (TSH) 0.054uIU/mL (0.358-3.74) 0.040uIU/mL (0.358-3.74) Free Thyroxine 0.78ng/dL (0.76-1.46) Thyroxine (T4) 5.2ug/dL (4.5-12.0) Free Triiodothyronine (T3) pg/mL 1.51pg/mL (2.18-3.98) Total Triiodothyronine 63ng/dL (71-180) Laboratory Tests Test 10/21/16 13:15 Thyroid Stimulating Hormone (TSH) 0.040uIU/mL (0.358-3.74) Free Thyroxine 0.78ng/dL (0.76-1.46) Thyroxine (T4) 5.2ug/dL (4.5-12.0) Free Triiodothyronine (T3) pg/mL 1.51pg/mL (2.18-3.98) Total Triiodothyronine 63ng/dL (71-180) Medications Active Scripts Medications Dose Route/Sig Days Date Category [Promethazine Hcl/Codeine] 5 ML Syrup 5 Ml PO PRN Q8HRS PRN 03/15/16 Rx Klor-Con M10 (Potassium Chloride) 10 Meq Tab.er.prt 10 Meq PO DAILYWBKFT 03/15/16 Rx Levaquin (Levofloxacin) 500 Mg Tablet 500 Mg PO DAILY06 03/15/16 Rx Prednisone 20 Mg Tablet 40 Mg PO DAILY 03/15/16 Rx Prednisone 10 Mg Tablet 10 Mg PO DIRECTED 11/20/15 Rx Levaquin (Levofloxacin) 500 Mg Tablet 1 Tab PO DAILY 11/20/15 Rx Metoprolol Succinate ( Xl ) (Metoprolol Succinate) 25 Mg Tab.er.24h 25 Mg PO DAILY 11/20/15 Rx [Nicotine] 1 PATCH Patch 1 Patch TD DAILY 06/23/15 Rx Lortab 5-325 mg Tablet (Hydrocodone/Acetaminophen) 1 Each Tablet 1 Each PO QIDPRN PRN 12/13/13 Reported K-Tab (Potassium Chloride) 10 Meq Tablet.er 10 Meq PO BID 12/12/13 Rx Viagra (Sildenafil Citrate) 50 Mg Tablet 50 Mg PO PRN DAILY 10/28/13 Reported Spiriva (Tiotropium [place]) 18 Mcg Cap.w.dev 18 Mcg IH DAILY 10/28/13 Reported Omeprazole 20 Mg Capsule. 20 Mg PO DAILY 10/28/13 Reported Hydrochlorothiazide Capsule (Hydrochlorothiazide) 12.5 Mg Capsule 12.5 Mg PO DAILY 10/28/13 Reported Aspir 81 (Aspirin) 81 Mg Tablet.dr 81 Mg PO DAILY 10/28/13 Reported Amlodipine Besylate 5 Mg Tablet 5 Mg PO DAILY 10/28/13 Reported Albuterol Sulfate Hfa Inhaler (Albuterol Sulfate) 8.5 Gm Hfa.aer.ad 90 Mcg IH PRN EVERY 4-6H 10/28/13 Reported Comments cxr reviewed, 1. Right basilar scarring. 2. No acute cardiopulmonary abnormality is detected. Impression . IMPRESSION: 1. Acute on chronic respiratory failure, multifactorial in etiology. 2. Acute exacerbation of chronic obstructive pulmonary disease. 3. Acute bronchitis. 4. Hypertension. 5. Hypercholesterolemia. 6. Tobacco habituation. 7. Allergic rhinitis. 8. Gastroesophageal reflux disease. Plan . PLAN AND RECOMMENDATIONS: 1. Titrate FiO2 to keep O2 saturation 92%. 2. I had a long discussion with him regarding smoking cessation. I have advised him to stop smoking forever. 3. change Solu-Medrol to 40 bid 4. Bronchodilator q.i.d. p.r.n. shortness of breath. 5. inhaled corticosteroid. 6. Protonix for stress ulcer prophylaxis. 7. Lovenox for DVT prophylaxis. 8. Monitor respiratory status very closely. 9. He had a CT of the chest done in 08/2015, which did not show pulmonary embolism or lung nodule. I do recommend a low dose CT of the chest. 10. Continue oxygen. 11. Findings and recommendations were discussed with the patient. He understood and agreed to proceed with the plan. I have answered all of his questions. 12. Waynee. 13. gabby claros w SHERI Wilson MD Oct 22, 2016 08:29
[2016-10-22] MEDS: FLUTICASONE 50MCG/NASAL SPRAY 16GM BOTTLE. NS SCH (10:11)
[2016-10-22] MEDS: NICOTINE 7MG PATCH. TD SCH (10:13)
[2016-10-22] MEDS: PANTOPRAZOLE 40 MG TABLET. PO SCH (10:13)
[2016-10-22] MEDS: ASPIRIN ENTERIC COATED 81 MG TABLET.DR. PO SCH (10:13)
[2016-10-22] MEDS: HYDROCHLOROTHIAZIDE 12.5 MG CAPSULE. PO SCH (10:14)
[2016-10-22] MEDS: POTASSIUM CHLORIDE 10 MEQ TABLET.ER. PO SCH (10:14)
[2016-10-22] MEDS: AMLODIPINE BESYLATE 5 MG TABLET PO SCH (10:14)
[2016-10-22] MEDS: METOPROLOL SUCC 24HR ER 25 MG TAB.ER.24H. PO SCH (10:15)
[2016-10-22 11:59] VITALS: BP 122/78
[2016-10-22 15:00] VITALS: BP 112/77
[2016-10-22] MEDS: CEFTRIAXONE SODIUM 1 GM in IV NORMAL SALINE 50ML 50 ML IV SCH (17:56)
[2016-10-22 19:16] VITALS: BP 104/69
[2016-10-22] MEDS: MONTELUKAST SODIUM 10 MG TABLET. PO SCH (21:05)
[2016-10-22] MEDS: ENOXAPARIN 40 MG/0.4 ML DISP.SYRIN. SQ SCH (21:05)
[2016-10-22 23:14] VITALS: BP 113/59
[2016-10-23] MEDS: PROMETH/CODEINE 6.25/10MG 5 ML SYRUP. PO PRN (02:41)
[2016-10-23 03:00] VITALS: BP 109/66
[2016-10-23] MEDS: BUDESONIDE 0.5 MG/2 ML NEBU NEB SCH ×2 (06:18→19:46)
[2016-10-23] MEDS: IPRATRPIUM/ALBUTEROL 0.5/2.5MG 3 ML NEBU. NEB SCH ×4 (06:18→19:46)
[2016-10-23 07:00] VITALS: BP 120/72
[2016-10-23] MEDS: PANTOPRAZOLE 40 MG TABLET. PO SCH (07:45)
[2016-10-23] MEDS: POTASSIUM CHLORIDE 10 MEQ TABLET.ER. PO SCH (08:52)
[2016-10-23] MEDS: FLUTICASONE 50MCG/NASAL SPRAY 16GM BOTTLE. NS SCH (08:52)
[2016-10-23] MEDS: ASPIRIN ENTERIC COATED 81 MG TABLET.DR. PO SCH (08:52)
[2016-10-23] MEDS: METOPROLOL SUCC 24HR ER 25 MG TAB.ER.24H. PO SCH (08:53)
[2016-10-23] MEDS: HYDROCHLOROTHIAZIDE 12.5 MG CAPSULE. PO SCH (08:53)
[2016-10-23] MEDS: NICOTINE 7MG PATCH. TD SCH (08:54)
[2016-10-23] MEDS: methylPREDNISolone SOD SUCC PF 125 MG/2 ML VIAL. IV SCH ×2 (08:54→20:45)
[2016-10-23] MEDS: AMLODIPINE BESYLATE 5 MG TABLET PO SCH (08:54)
--- NOTE | 2016-10-23 10:01 | PDOC ---
PROGRESS NOTES Subjective Subjective no new problems Objective Objective Vital Signs Date Time Temp Pulse Resp B/P Pulse Ox O2 Delivery O2 Flow Rate FiO2 10/23/16 08:54 82 120/72 10/23/16 08:00 Nasal Cannula 3.0 10/23/16 07:00 97.9 18 97 97.9 Intake and Output 10/23/16 07:00 Intake Total 1080 ml Output Total 1375 ml Balance -295 ml Intake Oral 1030 ml IV Total 50 ml Output Urine Total 1375 ml Physical Exam Abdomen: Normal bowel sounds, Soft Heart: Regular rate, Normal S2 Extremities: No clubbing General: Alert HEENT: Atraumatic Lungs: Clear to auscultation MUSCULOSKELETAL: No swelling Neck: Supple Neuro: Normal gait Psych/Mental Status: Mental status NL Skin: No breakdown Diagnosis Problem List Problems Medical Problems: (1) COPD exacerbation Status: Acute Assessment Assessment Problems Medical Problems: (1) COPD exacerbation Status: Acute FINAL IMPRESSION: 1. Acute chronic obstructive pulmonary disease with exacerbation. 2. Acute bronchitis. 3. Hypertension. 4. Degenerative joint disease of the cervical spine. 5. General debility. 6. Smoking. 7. BPH 8.? Hyperyroidism PLAN: repeat labs ct abdomen showed enlarged prostate. will check psa, urology consult,seen in office last month. repeat thyroid functions , TSH very low At this time, admit to hospital, IV Rocephin, IV Solu-Medrol, DuoNeb 4 pulmonary consult, PT, OT see how the patient's condition improves. Problems: Plan Plan of Care Problems Medical Problems: (1) COPD exacerbation Status: Acute Comment Review of Relevant I have reviewed the following items mario (where applicable) has been applied. Medications Current Medications Methylprednisolone Sodium Succinate (Solu-Medrol 125mg Vial) 40 mg Q12HR IV Last administered on 10/23/16t 08:54; Start 10/22/16 at 21:00 Vitals/I & O Vital Sign - Last 24 Hours 10/22/16 10/22/16 10/22/16 10/22/16 10:14 10:15 11:59 12:52 Temp 97.9 97.9 Pulse 100 100 86 Resp 18 B/P 129/78 129/78 122/78 Pulse Ox 94 97 O2 Delivery Nasal Cannula Nasal Cannula O2 Flow Rate 3.0 3.0 10/22/16 10/22/16 10/22/1617 15:00 16:38 19:16 19:34 Temp 97.9 98.3 97.9 98.3 Pulse 78 74 Resp 20 B/P 112/77 104/69 Pulse Ox 96 96 96 O2 Delivery Nasal Cannula Nasal Cannula Nasal Cannula Nasal Cannula O2 Flow Rate 3.0 3.0 3.0 3.0 10/22/16 10/22/16 10/23/16 10/23/16 19:58 23:14 03:00 06:18 Temp 98.2 98.3 98.2 98.3 Pulse 82 68 Resp B/P 113/59 109/66 Pulse Ox 96 97 96 96 O2 Delivery Nasal Cannula Nasal Cannula Nasal Cannula Nasal Cannula O2 Flow Rate 3.0 3.0 3.0 3.0 10/23/16 10/23/16 10/23/16 10/23/16 07:00 08:00 08:53 08:54 Temp 97.9 97.9 Pulse 82 82 82 Resp 18 B/P 120/72 120/72 120/72 Pulse Ox 97 O2 Delivery Nasal Cannula Nasal Cannula O2 Flow Rate 3.0 3.0 Intake and Output 10/22/16 10/22/16 10/23/16 15:00 23:00 07:00 Intake Total 300 ml 50 ml 730 ml Output Total 575 ml 800 ml Balance 300 ml -525 ml -70 ml DAMIÁN BALL MD Oct 23, 2016 10:01
[2016-10-23 11:00] VITALS: BP 125/70
--- NOTE | 2016-10-23 12:15 | PDOC ---
PULMONARY PROGRESS NOTES Subjective BETTER TODAY Vitals Vital Signs Date Time Temp Pulse Resp B/P Pulse Ox O2 Delivery O2 Flow Rate FiO2 10/23/16 11:42 Nasal Cannula 3.0 10/23/16 11:00 98.0 77 18 125/70 96 98.0 General: Alert, No acute distress Lungs: Clear, Other (deminished) Cardiovascular: S1, S2 Abdomen: Soft, Non-tender Extremities: No Edema Labs Laboratory Tests Test 10/21/16 13:15 Prostate Specific Antigen 3.95ng/mL (0.00-4.00) Thyroid Stimulating Hormone (TSH) 0.040uIU/mL (0.358-3.74) Free Thyroxine 0.78ng/dL (0.76-1.46) Thyroxine (T4) 5.2ug/dL (4.5-12.0) Free Triiodothyronine (T3) pg/mL 1.51pg/mL (2.18-3.98) Total Triiodothyronine 63ng/dL (71-180) Medications Active Scripts Medications Dose Route/Sig Days Date Category [Promethazine Hcl/Codeine] 5 ML Syrup 5 Ml PO PRN Q8HRS PRN 03/15/16 Rx Klor-Con M10 (Potassium Chloride) 10 Meq Tab.er.prt 10 Meq PO DAILYWBKFT 03/15/16 Rx Levaquin (Levofloxacin) 500 Mg Tablet 500 Mg PO DAILY06 03/15/16 Rx Prednisone 20 Mg Tablet 40 Mg PO DAILY 03/15/16 Rx Prednisone 10 Mg Tablet 10 Mg PO DIRECTED 11/20/15 Rx Levaquin (Levofloxacin) 500 Mg Tablet 1 Tab PO DAILY 11/20/15 Rx Metoprolol Succinate ( Xl ) (Metoprolol Succinate) 25 Mg Tab.er.24h 25 Mg PO DAILY 11/20/15 Rx [Nicotine] 1 PATCH Patch 1 Patch TD DAILY 06/23/15 Rx Lortab 5-325 mg Tablet (Hydrocodone/Acetaminophen) 1 Each Tablet 1 Each PO QIDPRN PRN 12/13/13 Reported K-Tab (Potassium Chloride) 10 Meq Tablet.er 10 Meq PO BID 12/12/13 Rx Viagra (Sildenafil Citrate) 50 Mg Tablet 50 Mg PO PRN DAILY 10/28/13 Reported Spiriva (Tiotropium [place]) 18 Mcg Cap.w.dev 18 Mcg IH DAILY 10/28/13 Reported Omeprazole 20 Mg Capsule.dr 20 Mg PO DAILY 10/28/13 Reported Hydrochlorothiazide Capsule (Hydrochlorothiazide) 12.5 Mg Capsule 12.5 Mg PO DAILY 10/28/13 Reported Aspir 81 (Aspirin) 81 Mg Tablet.dr 81 Mg PO DAILY 10/28/13 Reported Amlodipine Besylate 5 Mg Tablet 5 Mg PO DAILY 10/28/13 Reported Albuterol Sulfate Hfa Inhaler (Albuterol Sulfate) 8.5 Gm Hfa.aer.ad 90 Mcg IH PRN EVERY 4-6H 10/28/13 Reported Comments cxr reviewed, 1. Right basilar scarring. 2. No acute cardiopulmonary abnormality is detected. Impression . IMPRESSION: 1. Acute on chronic respiratory failure, multifactorial in etiology. 2. Acute exacerbation of chronic obstructive pulmonary disease. 3. Acute bronchitis. 4. Hypertension. 5. Hypercholesterolemia. 6. Tobacco habituation. 7. Allergic rhinitis. 8. Gastroesophageal reflux disease. Plan . RESP STATUS IS IMPROVING WORK UP FOR ENLARGED PROSTATE 02 D/C SMOKING STEROIDS t DAMION THAO MD Oct 23, 2016 12:15
--- NOTE | 2016-10-23 12:18 | RAD ---
Chest, 2 views, 10/23/2016: History: Shortness of breath, COPD Comparison is made to a study from 10/19/2016. The heart is within normal limits in size. There is tortuosity of the thoracic aorta. There is hyperexpansion of the lungs compatible with COPD. There are mild scattered parenchymal scars. There is unchanged blunting of the costophrenic angles on the right, probably due to scarring. No acute infiltrate is seen. Moderate degenerative changes are present in the spine. IMPRESSION: 1. Right basilar scarring. 2. No acute abnormality is detected with no significant change since 10/19/2016.
[2016-10-23 15:00] VITALS: BP 119/71
[2016-10-23] MEDS: CEFTRIAXONE SODIUM 1 GM in IV NORMAL SALINE 50ML 50 ML IV SCH (16:52)
[2016-10-23 19:00] VITALS: BP 103/61
[2016-10-23] MEDS: MONTELUKAST SODIUM 10 MG TABLET. PO SCH (20:44)
[2016-10-23] MEDS: TAMSULOSIN 0.4 MG CAP.ER.24H. PO SCH (20:44)
[2016-10-23] MEDS: ENOXAPARIN 40 MG/0.4 ML DISP.SYRIN. SQ SCH (21:54)
[2016-10-23] MEDS: SENNOSIDES 8.6 MG TABLET PO SCH (21:54)
[2016-10-23 23:00] VITALS: BP 102/62
[2016-10-24 03:00] VITALS: BP 104/63
[2016-10-24 04:26] LABS: BASO % 0 % (0-3); EOS % 0 % (0-3); HEMATOCRIT 36.4 % (39.0-53.0); HEMOGLOBIN 11.9 g/dL (13.0-17.5); LYMPH # 0.3 x10^3/uL (1.0-4.8); LYMPH % 2 % (24-48); MEAN CORPUSCULAR HEMOGLOBIN 33 pg (25-35); MEAN CORPUSCULAR HGB CONC 33 g/dL (31-37); MEAN CORPUSCULAR VOLUME 99 fL (79-100); MONO % 6 % (0-9); NEUT % 92 % (31-73); PLATELET COUNT 203 x10^3/uL (140-400); RED BLOOD COUNT 3.67 x10^6/uL (4.30-5.70); RED CELL DISTRIBUTION WIDTH 13.5 % (11.5-14.5); WHITE BLOOD COUNT 10.9 x10^3/uL (4.0-11.0)
[2016-10-24 04:40] LABS: CALCIUM 9.1 mg/dL (8.5-10.1); CREATININE 0.8 mg/dL (0.7-1.3); GFR 116.3; POTASSIUM 3.8 mmol/L (3.5-5.1)
[2016-10-24 07:00] VITALS: BP 115/73
[2016-10-24] MEDS: IPRATRPIUM/ALBUTEROL 0.5/2.5MG 3 ML NEBU. NEB SCH ×4 (07:07→20:46)
[2016-10-24] MEDS: BUDESONIDE 0.5 MG/2 ML NEBU NEB SCH ×2 (07:07→20:46)
[2016-10-24] MEDS: PANTOPRAZOLE 40 MG TABLET. PO SCH (08:01)
[2016-10-24] MEDS: ASPIRIN ENTERIC COATED 81 MG TABLET.DR. PO SCH (08:01)
[2016-10-24] MEDS: FLUTICASONE 50MCG/NASAL SPRAY 16GM BOTTLE. NS SCH (08:02)
[2016-10-24] MEDS: METOPROLOL SUCC 24HR ER 25 MG TAB.ER.24H. PO SCH (08:02)
[2016-10-24] MEDS: HYDROCHLOROTHIAZIDE 12.5 MG CAPSULE. PO SCH (08:03)
[2016-10-24] MEDS: POTASSIUM CHLORIDE 10 MEQ TABLET.ER. PO SCH (08:03)
[2016-10-24] MEDS: AMLODIPINE BESYLATE 5 MG TABLET PO SCH (08:03)
[2016-10-24] MEDS: methylPREDNISolone SOD SUCC PF 125 MG/2 ML VIAL. IV SCH (08:04)
[2016-10-24] MEDS: SENNOSIDES 8.6 MG TABLET PO SCH ×2 (08:05→20:31)
[2016-10-24] MEDS: NICOTINE 7MG PATCH. TD SCH (08:05)
[2016-10-24] MEDS ORDERED: PREDNISONE 10 MG TABLET PO ONE (10:00)
--- NOTE | 2016-10-24 10:04 | PDOC ---
PROGRESS NOTES Subjective Subjective feeling better Objective Objective Vital Signs Date Time Temp Pulse Resp B/P Pulse Ox O2 Delivery O2 Flow Rate FiO2 10/24/16 08:18 Nasal Cannula 2.0 10/24/16 08:03 83 115/73 10/24/16 07:08 96 10/24/16 07:00 98.0 18 98.0 Intake and Output 10/24/16 07:00 Intake Total 1420 ml Output Total 1480 ml Balance -60 ml Intake Oral 1420 ml Output Urine Total 1480 ml # Voids 2 Physical Exam Abdomen: Normal bowel sounds, Soft Heart: Regular rate, Normal S2 Extremities: No clubbing General: Alert HEENT: Atraumatic Lungs: Clear to auscultation MUSCULOSKELETAL: No swelling Neck: Supple Neuro: Normal gait Psych/Mental Status: Mental status NL Skin: No breakdown Diagnosis Problem List Problems Medical Problems: (1) COPD exacerbation Status: Acute Assessment Assessment Problems Medical Problems: (1) COPD exacerbation Status: Acute FINAL IMPRESSION: 1. Acute chronic obstructive pulmonary disease with exacerbation. 2. Acute bronchitis. 3. Hypertension. 4. Degenerative joint disease of the cervical spine. 5. General debility. 6. Smoking. 7. BPH 8.? Hyperthyroidism PLAN: Change to oral meds today. possible d/c home tomorrow. repeat labs, reviewed ,low thyroid values, may need thyroid scan out pt ct abdomen showed enlarged prostate. will check psa, urology consult,seen in office last month. repeat thyroid functions , TSH very low pulmonary consult, PT, OT Problems: Plan Plan of Care Problems Medical Problems: (1) COPD exacerbation Status: Acute Comment Review of Relevant I have reviewed the following items mario (where applicable) has been applied. Labs Laboratory Tests Test 10/24/16 03:28 White Blood Count 10.9x10^3/uL (4.0-11.0) Red Blood Count 3.67x10^6/uL (4.30-5.70) Hemoglobin 11.9g/dL (13.0-17.5) Hematocrit 36.4% (39.0-53.0) Mean Corpuscular Volume 99fL (79-100) Mean Corpuscular Hemoglobin 33pg (25-35) Mean Corpuscular Hemoglobin Concent 33g/dL (31-37) Red Cell Distribution Width 13.5% (11.5-14.5) Platelet Count 203x10^3/uL (140-400) Neutrophils (%) (Auto) 92% (31-73) Lymphocytes (%) (Auto) 2% (24-48) Monocytes (%) (Auto) 6% (0-9) Eosinophils (%) (Auto) 0% (0-3) Basophils (%) (Auto) 0% (0-3) Neutrophils # (Auto) 10.0x10^3uL (1.8-7.7) Lymphocytes # (Auto) 0.3x10^3/uL (1.0-4.8) Monocytes # (Auto) 0.7x10^3/uL (0.0-1.1) Eosinophils # (Auto) 0.0x10^3/uL (0.0-0.7) Basophils # (Auto) 0.0x10^3/uL (0.0-0.2) Sodium Level 140mmol/L (136-145) Potassium Level 3.8mmol/L (3.5-5.1) Chloride Level 100mmol/L (98-107) Carbon Dioxide Level 37mmol/L (21-32) Anion Gap 3 (6-14) Blood Urea Nitrogen 16mg/dL (8-26) Creatinine 0.8mg/dL (0.7-1.3) Estimated GFR (Cockcroft-Gault) 116.3 Glucose Level 156mg/dL (70-99) Calcium Level 9.1mg/dL (8.5-10.1) Medications Current Medications Sennosides (Senna) 8.6 mg BID PO Last administered on 10/24/16 08:05; Start at 21:00 Tamsulosin HCl (Flomax) 0.4 mg QHS PO Last administered on 10/23/16 20:44; Start 10/23/16 at 21:00 Vitals/I & O Vital Sign - Last 24 Hours 10/23/16 10/23/16 10/23/16 10/23/16 11:00 11:42 15:00 19:00 Temp 98.0 97.4 98.2 98.0 97.4 98.2 Pulse 77 90 81 Resp 18 18 20 B/P 125/70 119/71 103/61 Pulse Ox 96 96 97 O2 Delivery Room Air Nasal Cannula Room Air O2 Flow Rate 3.0 3.0 10/23/16 10/23/16 10/23/16 10/23/16 19:46 19:47 20:00 23:00 Temp 98.0 98.0 Pulse 80 Resp 18 B/P 102/62 Pulse Ox 98 98 95 O2 Delivery Nasal Cannula Nasal Cannula Nasal Cannula O2 Flow Rate 3.0 3.0 3.0 10/24/16 10/24/16 10/24/16 10/24/16 03:00 07:00 07:08 08:02 Temp 97.9 98.0 97.9 98.0 Pulse 90 83 83 Resp 20 18 B/P 104/63 115/73 115/73 Pulse Ox 96 95 96 O2 Delivery Nasal Cannula Nasal Cannula O2 Flow Rate 3.0 2.0 10/24/16 10/24/16 08:03 08:18 Pulse 83 B/P 115/73 O2 Delivery Nasal Cannula O2 Flow Rate 2.0 Intake and Output 10/23/16 10/23/16 10/24/16 15:00 23:00 07:00 Intake Total 700 ml 360 ml 360 ml Output Total 1280 ml 200 ml Balance -580 ml 360 ml 160 ml DAMIÁN BALL MD Oct 24, 2016 10:03
[2016-10-24 10:41] VITALS: BP 114/74
--- NOTE | 2016-10-24 10:43 | PDOC ---
PULMONARY PROGRESS NOTES Subjective BETTER TODAY, LESS SOA Vitals Vital Signs Date Time Temp Pulse Resp B/P Pulse Ox O2 Delivery O2 Flow Rate FiO2 10/24/16 10:41 97.6 87 18 114/74 Nasal Cannula 2.5 97.6 10/24/16 07:08 96 General: Alert, No acute distress Lungs: Clear, Other (deminished) Cardiovascular: S1, S2 Abdomen: Soft, Non-tender Extremities: No Edema Labs Laboratory Tests Test 10/24/16 03:28 White Blood Count 10.9x10^3/uL (4.0-11.0) Red Blood Count 3.67x10^6/uL (4.30-5.70) Hemoglobin 11.9g/dL (13.0-17.5) Hematocrit 36.4% (39.0-53.0) Mean Corpuscular Volume 99fL (79-100) Mean Corpuscular Hemoglobin 33pg (25-35) Mean Corpuscular Hemoglobin Concent 33g/dL (31-37) Red Cell Distribution Width 13.5% (11.5-14.5) Platelet Count 203x10^3/uL (140-400) Neutrophils (%) (Auto) 92% (31-73) Lymphocytes (%) (Auto) 2% (24-48) Monocytes (%) (Auto) 6% (0-9) Eosinophils (%) (Auto) 0% (0-3) Basophils (%) (Auto) 0% (0-3) Neutrophils # (Auto) 10.0x10^3uL (1.8-7.7) Lymphocytes # (Auto) 0.3x10^3/uL (1.0-4.8) Monocytes # (Auto) 0.7x10^3/uL (0.0-1.1) Eosinophils # (Auto) 0.0x10^3/uL (0.0-0.7) Basophils # (Auto) 0.0x10^3/uL (0.0-0.2) Sodium Level 140mmol/L (136-145) Potassium Level 3.8mmol/L (3.5-5.1) Chloride Level 100mmol/L (98-107) Carbon Dioxide Level 37mmol/L (21-32) Anion Gap 3 (6-14) Blood Urea Nitrogen 16mg/dL (8-26) Creatinine 0.8mg/dL (0.7-1.3) Estimated GFR (Cockcroft-Gault) 116.3 Glucose Level 156mg/dL (70-99) Calcium Level 9.1mg/dL (8.5-10.1) Laboratory Tests Test 10/24/16 03:28 White Blood Count 10.9x10^3/uL (4.0-11.0) Red Blood Count 3.67x10^6/uL (4.30-5.70) Hemoglobin 11.9g/dL (13.0-17.5) Hematocrit 36.4% (39.0-53.0) Mean Corpuscular Volume 99fL (79-100) Mean Corpuscular Hemoglobin 33pg (25-35) Mean Corpuscular Hemoglobin Concent 33g/dL (31-37) Red Cell Distribution Width 13.5% (11.5-14.5) Platelet Count 203x10^3/uL (140-400) Neutrophils (%) (Auto) 92% (31-73) Lymphocytes (%) (Auto) 2% (24-48) Monocytes (%) (Auto) 6% (0-9) Eosinophils (%) (Auto) 0% (0-3) Basophils (%) (Auto) 0% (0-3) Neutrophils # (Auto) 10.0x10^3uL (1.8-7.7) Lymphocytes # (Auto) 0.3x10^3/uL (1.0-4.8) Monocytes # (Auto) 0.7x10^3/uL (0.0-1.1) Eosinophils # (Auto) 0.0x10^3/uL (0.0-0.7) Basophils # (Auto) 0.0x10^3/uL (0.0-0.2) Sodium Level 140mmol/L (136-145) Potassium Level 3.8mmol/L (3.5-5.1) Chloride Level 100mmol/L (98-107) Carbon Dioxide Level 37mmol/L (21-32) Anion Gap 3 (6-14) Blood Urea Nitrogen 16mg/dL (8-26) Creatinine 0.8mg/dL (0.7-1.3) Estimated GFR (Cockcroft-Gault) 116.3 Glucose Level 156mg/dL (70-99) Calcium Level 9.1mg/dL (8.5-10.1) Medications Active Scripts Medications Dose Route/Sig Days Date Category [Promethazine Hcl/Codeine] 5 ML Syrup 5 Ml PO PRN Q8HRS PRN 03/15/16 Rx Klor-Con M10 (Potassium Chloride) 10 Meq Tab.er.prt 10 Meq PO DAILYWBKFT 03/15/16 Rx Levaquin (Levofloxacin) 500 Mg Tablet 500 Mg PO DAILY06 03/15/16 Rx Prednisone 20 Mg Tablet 40 Mg PO DAILY 03/15/16 Rx Prednisone 10 Mg Tablet 10 Mg PO DIRECTED 11/20/15 Rx Levaquin (Levofloxacin) 500 Mg Tablet 1 Tab PO DAILY 11/20/15 Rx Metoprolol Succinate ( Xl ) (Metoprolol Succinate) 25 Mg Tab.er.24h 25 Mg PO DAILY 11/20/15 Rx [Nicotine] 1 PATCH Patch 1 Patch TD DAILY 06/23/15 Rx Lortab 5-325 mg Tablet (Hydrocodone/Acetaminophen) 1 Each Tablet 1 Each PO QIDPRN PRN 12/13/13 Reported K-Tab (Potassium Chloride) 10 Meq Tablet.er 10 Meq PO BID 12/12/13 Rx Viagra (Sildenafil Citrate) 50 Mg Tablet 50 Mg PO PRN DAILY 10/28/13 Reported Spiriva (Tiotropium [place]) 18 Mcg Cap.w.dev 18 Mcg IH DAILY 10/28/13 Reported Omeprazole 20 Mg Capsule. 20 Mg PO DAILY 10/28/13 Reported Hydrochlorothiazide Capsule (Hydrochlorothiazide) 12.5 Mg Capsule 12.5 Mg PO DAILY 10/28/13 Reported Aspir 81 (Aspirin) 81 Mg Tablet. 81 Mg PO DAILY 10/28/13 Reported Amlodipine Besylate 5 Mg Tablet 5 Mg PO DAILY 10/28/13 Reported Albuterol Sulfate Hfa Inhaler (Albuterol Sulfate) 8.5 Gm Hfa.aer.ad 90 Mcg IH PRN EVERY 4-6H 10/28/13 Reported Comments cxr reviewed, 1. Right basilar scarring. 2. No acute cardiopulmonary abnormality is detected. Impression . IMPRESSION: 1. Acute on chronic respiratory failure, multifactorial in etiology. 2. Acute exacerbation of chronic obstructive pulmonary disease. 3. Acute bronchitis. 4. Hypertension. 5. Hypercholesterolemia. 6. Tobacco habituation. 7. Allergic rhinitis. 8. Gastroesophageal reflux disease. Plan . RESP STATUS IS IMPROVING, DC SMOKING POSSIBLE D/C IN AM IF CONTINUES TO IMPROVE WALK DAILY 02 STEROIDS t DAMION THAO MD Oct 24, 2016 10:43
[2016-10-24] MEDS: CEFPODOXIME PROXETIL 100 MG TABLET PO SCH ×2 (10:45→20:31)
[2016-10-24 14:39] VITALS: BP 120/84
[2016-10-24] MEDS: HYDROCODONE/APAP 5/325MG TABLET. PO PRN (15:21)
[2016-10-24 19:00] VITALS: BP 121/77
[2016-10-24] MEDS: TAMSULOSIN 0.4 MG CAP.ER.24H. PO SCH (20:31)
[2016-10-24] MEDS: PROMETH/CODEINE 6.25/10MG 5 ML SYRUP. PO PRN (20:31)
[2016-10-24] MEDS: ENOXAPARIN 40 MG/0.4 ML DISP.SYRIN. SQ SCH (20:31)
[2016-10-24] MEDS: MONTELUKAST SODIUM 10 MG TABLET. PO SCH (20:31)
[2016-10-24 22:52] VITALS: BP 126/76
[2016-10-25 03:00] VITALS: BP 104/57
[2016-10-25] MEDS: BUDESONIDE 0.5 MG/2 ML NEBU NEB SCH (06:15)
[2016-10-25] MEDS: IPRATRPIUM/ALBUTEROL 0.5/2.5MG 3 ML NEBU. NEB SCH ×2 (06:15→11:36)
[2016-10-25 07:00] VITALS: BP 110/71
[2016-10-25] MEDS: POTASSIUM CHLORIDE 10 MEQ TABLET.ER. PO SCH (08:08)
[2016-10-25] MEDS: PANTOPRAZOLE 40 MG TABLET. PO SCH (08:08)
[2016-10-25] MEDS: FLUTICASONE 50MCG/NASAL SPRAY 16GM BOTTLE. NS SCH (08:08)
[2016-10-25] MEDS: ASPIRIN ENTERIC COATED 81 MG TABLET.DR. PO SCH (08:09)
[2016-10-25] MEDS: METOPROLOL SUCC 24HR ER 25 MG TAB.ER.24H. PO SCH (08:31)
[2016-10-25] MEDS: SENNOSIDES 8.6 MG TABLET PO SCH (08:31)
[2016-10-25] MEDS: CEFPODOXIME PROXETIL 100 MG TABLET PO SCH (08:32)
[2016-10-25] MEDS: NICOTINE 7MG PATCH. TD SCH (08:32)
[2016-10-25] MEDS: AMLODIPINE BESYLATE 5 MG TABLET PO SCH (08:32)
[2016-10-25] MEDS: HYDROCHLOROTHIAZIDE 12.5 MG CAPSULE. PO SCH (08:32)
[2016-10-25] MEDS ORDERED: PREDNISONE 20 MG TABLET PO SCH (09:00)
--- NOTE | 2016-10-25 09:43 | PDOC ---
PULMONARY PROGRESS NOTES Subjective BETTER TODAY, LESS SOA Vitals Vital Signs Date Time Temp Pulse Resp B/P Pulse Ox O2 Delivery O2 Flow Rate FiO2 10/25/16 08:32 88 110/71 10/25/16 07:00 98.0 24 96 Nasal Cannula 2.5 98.0 General: Alert, No acute distress Lungs: Clear, Other (deminished) Cardiovascular: S1, S2 Abdomen: Soft, Non-tender Extremities: No Edema Labs Laboratory Tests Test 10/24/16 03:28 White Blood Count 10.9x10^3/uL (4.0-11.0) Red Blood Count 3.67x10^6/uL (4.30-5.70) Hemoglobin 11.9g/dL (13.0-17.5) Hematocrit 36.4% (39.0-53.0) Mean Corpuscular Volume 99fL (79-100) Mean Corpuscular Hemoglobin 33pg (25-35) Mean Corpuscular Hemoglobin Concent 33g/dL (31-37) Red Cell Distribution Width 13.5% (11.5-14.5) Platelet Count 203x10^3/uL (140-400) Neutrophils (%) (Auto) 92% (31-73) Lymphocytes (%) (Auto) 2% (24-48) Monocytes (%) (Auto) 6% (0-9) Eosinophils (%) (Auto) 0% (0-3) Basophils (%) (Auto) 0% (0-3) Neutrophils # (Auto) 10.0x10^3uL (1.8-7.7) Lymphocytes # (Auto) 0.3x10^3/uL (1.0-4.8) Monocytes # (Auto) 0.7x10^3/uL (0.0-1.1) Eosinophils # (Auto) 0.0x10^3/uL (0.0-0.7) Basophils # (Auto) 0.0x10^3/uL (0.0-0.2) Sodium Level 140mmol/L (136-145) Potassium Level 3.8mmol/L (3.5-5.1) Chloride Level 100mmol/L (98-107) Carbon Dioxide Level 37mmol/L (21-32) Anion Gap 3 (6-14) Blood Urea Nitrogen 16mg/dL (8-26) Creatinine 0.8mg/dL (0.7-1.3) Estimated GFR (Cockcroft-Gault) 116.3 Glucose Level 156mg/dL (70-99) Calcium Level 9.1mg/dL (8.5-10.1) Medications Active Scripts Medications Dose Route/Sig Days Date Category [Promethazine Hcl/Codeine] 5 ML Syrup 5 Ml PO PRN Q8HRS PRN 03/15/16 Rx Klor-Con M10 (Potassium Chloride) 10 Meq Tab.er.prt 10 Meq PO DAILYWBKFT 03/15/16 Rx Levaquin (Levofloxacin) 500 Mg Tablet 500 Mg PO DAILY06 03/15/16 Rx Prednisone 20 Mg Tablet 40 Mg PO DAILY 03/15/16 Rx Prednisone 10 Mg Tablet 10 Mg PO DIRECTED 11/20/15 Rx Levaquin (Levofloxacin) 500 Mg Tablet 1 Tab PO DAILY 11/20/15 Rx Metoprolol Succinate ( Xl ) (Metoprolol Succinate) 25 Mg Tab.er.24h 25 Mg PO DAILY 11/20/15 Rx [Nicotine] 1 PATCH Patch 1 Patch TD DAILY 06/23/15 Rx Lortab 5-325 mg Tablet (Hydrocodone/Acetaminophen) 1 Each Tablet 1 Each PO QIDPRN PRN 12/13/13 Reported K-Tab (Potassium Chloride) 10 Meq Tablet.er 10 Meq PO BID 12/12/13 Rx Viagra (Sildenafil Citrate) 50 Mg Tablet 50 Mg PO PRN DAILY 10/28/13 Reported Spiriva (Tiotropium [place]) 18 Mcg Cap.w.dev 18 Mcg IH DAILY 10/28/13 Reported Omeprazole 20 Mg Capsule. 20 Mg PO DAILY 10/28/13 Reported Hydrochlorothiazide Capsule (Hydrochlorothiazide) 12.5 Mg Capsule 12.5 Mg PO DAILY 10/28/13 Reported Aspir 81 (Aspirin) 81 Mg Tablet. 81 Mg PO DAILY 10/28/13 Reported Amlodipine Besylate 5 Mg Tablet 5 Mg PO DAILY 10/28/13 Reported Albuterol Sulfate Hfa Inhaler (Albuterol Sulfate) 8.5 Gm Hfa.aer.ad 90 Mcg IH PRN EVERY 4-6H 10/28/13 Reported Comments cxr reviewed, 1. Right basilar scarring. 2. No acute cardiopulmonary abnormality is detected. Impression . IMPRESSION: 1. Acute on chronic respiratory failure, multifactorial in etiology. 2. Acute exacerbation of chronic obstructive pulmonary disease. 3. Acute bronchitis. 4. Hypertension. 5. Hypercholesterolemia. 6. Tobacco habituation. 7. Allergic rhinitis. 8. Gastroesophageal reflux disease. Plan . RESP STATUS IS IMPROVING, DC SMOKING POSSIBLE D/C IN AM IF CONTINUES TO IMPROVE WALK DAILY 02 STEROIDS DAMION Veras MD Oct 25, 2016 09:43
--- NOTE | 2016-10-25 10:28 | PDOC ---
PROGRESS NOTES Subjective Subjective feeling better ,anxious to go home Objective Objective Vital Signs Date Time Temp Pulse Resp B/P Pulse Ox O2 Delivery O2 Flow Rate FiO2 10/25/16 08:32 88 110/71 10/25/16 07:00 98.0 24 96 Nasal Cannula 2.5 98.0 Intake and Output 10/25/16 07:00 Intake Total 2060 ml Output Total 1500 ml Balance 560 ml Intake Oral 2060 ml Output Urine Total 1500 ml Physical Exam Abdomen: Normal bowel sounds, Soft Heart: Regular rate, Normal S2 Extremities: No clubbing General: Alert HEENT: Atraumatic Lungs: Clear to auscultation MUSCULOSKELETAL: No swelling Neck: Supple Neuro: Normal gait Psych/Mental Status: Mental status NL Skin: No breakdown Diagnosis Problem List Problems Medical Problems: (1) COPD exacerbation Status: Acute Assessment Assessment Problems Medical Problems: (1) COPD exacerbation Status: Acute FINAL IMPRESSION: 1. Acute chronic obstructive pulmonary disease with exacerbation. 2. Acute bronchitis. 3. Hypertension. 4. Degenerative joint disease of the cervical spine. 5. General debility. 6. Smoking. 7. BPH 8.? Hyperthyroidism PLAN: Change to oral meds yesterday. d/c home today. walker for home use repeat labs, reviewed ,low thyroid values, may need thyroid scan out pt ct abdomen showed enlarged prostate. will check psa, urology consult,seen in office last month. repeat thyroid functions , TSH very low pulmonary consult, PT, OT Problems: Plan Plan of Care Problems Medical Problems: (1) COPD exacerbation Status: Acute Comment Review of Relevant I have reviewed the following items mario (where applicable) has been applied. Medications Current Medications Prednisone (Prednisone) 40 mg DAILY PO Last administered on 10/25/16t 08:31; Start 10/25/16 at 09:00 Vitals/I & O Vital Sign - Last 24 Hours 10/24/16 10/24/16 10/24/16 10/24/16 10:41 11:09 14:39 15:21 Temp 97.6 98.4 97.6 98.4 Pulse 87 96 Resp 18 18 B/P 114/74 120/84 Pulse Ox 93 O2 Delivery Nasal Cannula Nasal Cannula Nasal Cannula Room Air O2 Flow Rate 2.5 2.0 2.5 10/24/16 10/24/16 10/24/16 10/24/16 15:27 19:00 20:00 20:47 Temp 97.9 97.9 Pulse 88 Resp 18 B/P 121/77 Pulse Ox 91 95 O2 Delivery Nasal Cannula Nasal Cannula Nasal Cannula Nasal Cannula O2 Flow Rate 3.0 2.5 3.0 3.0 10/24/16 10/24/16 10/25/16 10/25/16 20:47 22:52 03:00 06:15 Temp 97.8 97.7 97.8 97.7 Pulse 88 81 Resp 20 20 B/P 126/76 104/57 Pulse Ox 95 92 93 96 O2 Delivery Nasal Cannula Nasal Cannula Nasal Cannula Nasal Cannula O2 Flow Rate 3.0 2.5 2.5 3.0 10/25/16 10/25/16 10/25/16 07:00 08:31 08:32 Temp 98.0 98.0 Pulse 88 88 88 Resp 24 B/P 110/71 110/71 110/71 Pulse Ox 96 O2 Delivery Nasal Cannula O2 Flow Rate 2.5 Intake and Output 10/24/16 10/24/16 10/25/16 15:00 23:00 07:00 Intake Total 660 ml 680 ml 720 ml Output Total 450 ml 1050 ml Balance 210 ml 680 ml -330 ml DAMIÁN BALL MD Oct 25, 2016 10:28
[2016-10-25] MEDS ORDERED: CEFP200T PO (10:30)
[2016-10-25] MEDS ORDERED: PRED50TA PO (10:31)
[2016-10-25 11:00] VITALS: BP 114/78
--- NOTE | 2016-10-26 21:23 | PDOC ---
Provider Note Provider Note Discharge summary dictated. #[id number] DAMIÁN BALL MD Oct 26, 2016 21:23
--- NOTE | 2016-10-26 21:45 | DS ---
DATE OF DISCHARGE: 10/25/2016 ATTENDING PHYSICIAN: Dr. Ball. PRIMARY PHYSICIAN: Dr. Hernandez. REASON FOR ADMISSION TO THE HOSPITAL: COPD with acute exacerbation. CONSULTATIONS: Dr. Gallegos, Pulmonology. PROCEDURES: none COMPLICATIONS: None. HOSPITAL COURSE: The patient is a 66-year-old male, patient of Dr. Hernandez, history of chronic COPD on home oxygen, nebulizer at home. Has been in and out of hospitals. Has been on high dose of prednisone in the past. He was having shortness of breath with wheezing, came to the Emergency Room, was given IV Solu-Medrol, oxygen, breathing treatments and antibiotics. Chest x-ray was negative for any acute infiltrations. The patient had low thyroid, low T4 and TSH; I am not sure if secondary to his illness, being on steroids, repeat labs as outpatient. On the whole, the patient's condition improved. He was seen by Pulmonology, Physical Therapy, and the patient was discharged on . FINAL DIAGNOSES: 1. Chronic obstructive pulmonary disease with acute exacerbation. 2. Chronic obstructive pulmonary disease with hypoxia. 3. Hypertension. 4. Benign prostatic hyperplasia. 5. Hyperlipidemia. 6. Low thyroid values 7. Smoking addiction The patient is discharged home with walker. He has oxygen at home and nebulizer at home. Tapering dose of prednisone as well as antibiotics. The patient is up-to-date on flu and pneumonia shots. Smoking counseling was done. He was given nicotine patch daily for a month. DAMIÁN BALL MD DR: CHELE/braden JOB#: [id number] / [id number] JJ Magdaleno VINAYA MD [facility]
== END 2016-10-25 13:02 | disposition home or self-care (01) | DRG 189 ==
LOC: ER 15:11 → ED HOLD 17:00 → ER 18:29 → 5 NORTH 19:56
PROVIDERS: ADMIT Internal Medicine; ATTEND Internal Medicine
DX: J96.20 Acute and chronic respiratory failure, unspecified whether with hypoxia or hypercapnia (principal); J44.0 Chronic obstructive pulmonary disease with (acute) lower respiratory infection; J44.1 Chronic obstructive pulmonary disease with (acute) exacerbation; J20.9 Acute bronchitis, unspecified; E05.90 Thyrotoxicosis, unspecified without thyrotoxic crisis or storm; E11.9 Type 2 diabetes mellitus without complications; F41.9 Anxiety disorder, unspecified; F32.9 Major depressive disorder, single episode, unspecified; I11.0 Hypertensive heart disease with heart failure; E78.5 Hyperlipidemia, unspecified; E78.00 Pure hypercholesterolemia, unspecified; I50.9 Heart failure, unspecified; J30.9 Allergic rhinitis, unspecified; K21.9 Gastro-esophageal reflux disease without esophagitis; M10.9 Gout, unspecified; M47.812 Spondylosis without myelopathy or radiculopathy, cervical region; N40.0 Benign prostatic hyperplasia without lower urinary tract symptoms; Z88.8 Allergy status to other drugs, medicaments and biological substances; Z71.6 Tobacco abuse counseling; Z85.038 Personal history of other malignant neoplasm of large intestine; Z99.81 Dependence on supplemental oxygen; Z82.49 Family history of ischemic heart disease and other diseases of the circulatory system
CPT/HCPCS: 36415; 71020; 80048; 80053; 80061; 83036; 84436; 84439; 84443; 84480; 84481; 85007; 85027; 87804; 93005; 94250; 94640; 94760; 96365; G0103; J0690; J0696; J1650; J2930; J7512; J7620; 97110; 97116; 99285-25

== ENCOUNTER → 2016-11-07 | Outpatient (CLI) | payer MEDICARE, OTHER ==
[2016-10-25 11:00] VITALS: BP 114/78
[~2016-11-07] MED LIST changes: +CEFP200T PO
--- NOTE | 2016-11-07 11:15 | RAD ---
Exam: PA and lateral chest radiograph History: Pneumonia, COPD. Comparison: 10/19/2016. Findings: Cardiac silhouette is at the upper limits of normal. Tortuosity of the aorta is seen. There is evidence of right basilar scarring, similar to previous study. There is also evidence of some volume loss involving the right lung with mild mediastinal shift to the right. No pneumothorax or pleural effusion is seen. There is a mild patchy infiltrate seen in the left lower lung field on the frontal view. This may be localized to the left lower lobe. Finding of the diaphragm is compatible with obstructive lung disease. Impression: Patchy left lower lobe infiltrate.
== END | disposition home or self-care (01) ==
LOC: RAD 10:43
PROVIDERS: ATTEND Internal Medicine
DX: J44.9 Chronic obstructive pulmonary disease, unspecified (principal); J18.9 Pneumonia, unspecified organism; R91.8 Other nonspecific abnormal finding of lung field
CPT/HCPCS: 71020

== ENCOUNTER 2016-11-26 21:14 | Inpatient (IN) | payer MEDICARE, OTHER ==
[~2016-11-26] VITALS: Ht 170.2 cm; Wt 95.3 kg
[~2016-11-26 21:14] MED LIST changes: -NYST1000 SWSW; +NYST100054 SWSW
[2016-11-26] MEDS ORDERED: ALBUTEROL SULFATE 2.5 MG/3 ML NEBU. ONE (21:26)
[2016-11-26] MEDS ORDERED: IPRATRPIUM/ALBUTEROL 0.5/2.5MG 3 ML NEBU. ONE (21:27)
[2016-11-26 21:38] LABS: BASO % 0 % (0-3); EOS % 0 % (0-3); HEMATOCRIT 39.5 % (39.0-53.0); HEMOGLOBIN 12.9 g/dL (13.0-17.5); LYMPH # 0.8 x10^3/uL (1.0-4.8); LYMPH % 6 % (24-48); MEAN CORPUSCULAR HEMOGLOBIN 33 pg (25-35); MEAN CORPUSCULAR HGB CONC 33 g/dL (31-37); MEAN CORPUSCULAR VOLUME 100 fL (79-100); MONO % 6 % (0-9); NEUT % 88 % (31-73); PLATELET COUNT 327 x10^3/uL (140-400); RED BLOOD COUNT 3.96 x10^6/uL (4.30-5.70); RED CELL DISTRIBUTION WIDTH 13.9 % (11.5-14.5); WHITE BLOOD COUNT 14.4 x10^3/uL (4.0-11.0)
[2016-11-26] MEDS ORDERED: methylPREDNISolone SOD SUCC PF 125 MG/2 ML VIAL. IV ONE (21:45)
[2016-11-26] MEDS ORDERED: fentaNYL PF VIAL 100 MCG/2 ML VIAL IV PRN (21:45)
[2016-11-26 21:52] LABS: CALCIUM 9.5 mg/dL (8.5-10.1); CREATININE 0.8 mg/dL (0.7-1.3); GFR 116.3; POTASSIUM 4.2 mmol/L (3.5-5.1)
[2016-11-26 21:58] LABS: PLT ESTIMATE ADEQUATE (ADEQUATE)
--- NOTE | 2016-11-26 22:11 | PHYS DOC ---
Past Medical History Past Medical History: CHF, COPD, High Cholesterol, Hypertension, Other Additional Past Medical Histor: GOUT Past Surgical History: Other Additional Past Surgical Histo: colon cancer Alcohol Use: Heavy Drug Use: None Adult General Chief Complaint Chief Complaint: DYSPNEA/RESPIRATOY DISTRESS HPI HPI Patient is a 66 year old male with COPD who presents by EMS for respiratory distress. Notes dyspnea for the past week or so. He got home from [facility] today after 1 week admit. States he had prednisone, levaquin, and nebs there. He also had a CT chest with contrast. States he is taking home meds as prescribed and using nebulizer at home. Had progressive return of dyspnea and worsening of cough since home despite nebs and chronic home NC at 3-4L. He denies changes in sputum color or amount. He denies chest pain, hemoptysis, leg pain or swelling, abdominal pain, n/v, f/c, myalgia, rhinorrhea. EMS placed him on CPAP due to respiratory distress at home. Review of Systems Review of Systems Constitutional: Denies fever or chills [] Eyes: Denies change in visual acuity, redness, or eye pain [] HENT: Denies nasal congestion or sore throat [] Respiratory: Has cough and shortness of breath [] Cardiovascular: No additional information not addressed in HPI [] GI: Denies abdominal pain, nausea, vomiting, bloody stools or diarrhea [] : Denies dysuria or hematuria [] Musculoskeletal: Denies back pain or joint pain [] Integument: Denies rash or skin lesions [] Neurologic: Denies headache, focal weakness or sensory changes [] Endocrine: Denies polyuria or polydipsia [] Current Medications Current Medications Current Medications Medications (Trade) Dose Ordered Sig/Nilo Start Time Stop Time Status Last Admin Dose Admin Albuterol Sulfate (Ventolin Neb Soln) 2.5 mg STK-MED ONCE 11/26/16 21:26 11/26/16 21:27 DC Albuterol/ Ipratropium (Duoneb) 3 ml STK-MED ONCE 11/26/16 21:27 11/26/16 21:28 DC Fentanyl Citrate (Fentanyl 2ml Vial) 25 mcg PRN Q15MIN PRN 11/26/16 21:45 11/27/16 21:44 11/26/16 21:44 25 MCG Methylprednisolone Sodium Succinate (Solu-Medrol 125mg Vial) 125 mg 1X ONCE 11/26/16 21:45 11/26/16 21:46 DC 11/26/16 21:44 125 MG Allergies Allergies Allergies Coded Allergies Type Severity Reaction Last Updated Verified DELIA Inhibitors Allergy Intermediate 11/19/15 Yes Physical Exam Physical Exam Constitutional: Well developed, well nourished, mild distress, non-toxic appearance. [] HENT: Normocephalic, atraumatic, bilateral external ears normal, oropharynx moist, no oral exudates, nose normal. [] Eyes: PERRLA, EOMI. [] Neck: Normal range of motion, supple, no stridor. [] Cardiovascular: Regular tachycardia [] Lungs & Thorax: Diminished bilaterally with faint wheezing, slightly increased work of breathing. BiPAP in place [] Abdomen: Bowel sounds normal, soft, no tenderness. [] Skin: Warm, dry, no erythema, no rash. [] Back: Normal range of motion. [] Extremities: No tenderness, ROM intact, 2+ lower extremity edema bilaterally, compression stockings in place, no palpable cord. [] Neurologic: Alert and oriented X 3, normal motor function, normal sensory function, no focal deficits noted. [] Psychologic: Affect normal, judgement normal, mood normal. [] Current Patient Data Vital Signs Vital Signs Date Time Temp Pulse Resp B/P Pulse Ox O2 Delivery O2 Flow Rate FiO2 11/26/16 21:45 99 Nasal Cannula 4.0 11/26/16 21:44 28 11/26/16 21:26 98.6 136 163/93 98.6 Lab Values Laboratory Tests Test 11/26/16 21:15 White Blood Count 14.4x10^3/uL (4.0-11.0) H Red Blood Count 3.96x10^6/uL (4.30-5.70) L Hemoglobin 12.9g/dL (13.0-17.5) L Hematocrit 39.5% (39.0-53.0) Mean Corpuscular Volume 100fL (79-100) Mean Corpuscular Hemoglobin 33pg (25-35) Mean Corpuscular Hemoglobin Concent 33g/dL (31-37) Red Cell Distribution Width 13.9% (11.5-14.5) Platelet Count 327x10^3/uL (140-400) Neutrophils (%) (Auto) 88% (31-73) H Lymphocytes (%) (Auto) 6% (24-48) L Monocytes (%) (Auto) 6% (0-9) Eosinophils (%) (Auto) 0% (0-3) Basophils (%) (Auto) 0% (0-3) Neutrophils # (Auto) 12.6x10^3uL (1.8-7.7) H Lymphocytes # (Auto) 0.8x10^3/uL (1.0-4.8) L Monocytes # (Auto) 0.9x10^3/uL (0.0-1.1) Eosinophils # (Auto) 0.0x10^3/uL (0.0-0.7) Basophils # (Auto) 0.0x10^3/uL (0.0-0.2) Segmented Neutrophils % 91% (35-66) H Band Neutrophils % 1% (0-9) Lymphocytes % 4% (24-48) L Monocytes % 4% (0-10) Platelet Estimate Adequate (ADEQUATE) Sodium Level 145mmol/L (136-145) Potassium Level 4.2mmol/L (3.5-5.1) Chloride Level 100mmol/L (98-107) Carbon Dioxide Level 43mmol/L (21-32) H Anion Gap 2 (6-14) L Blood Urea Nitrogen 18mg/dL (8-26) Creatinine 0.8mg/dL (0.7-1.3) Estimated GFR (Cockcroft-Gault) 116.3 Glucose Level 154mg/dL (70-99) H Calcium Level 9.5mg/dL (8.5-10.1) Troponin I Quantitative < 0.017ng/mL (0.000-0.055) RV-Dph-T-Type Natriuretic Peptide 36pg/mL (0-124) Laboratory Tests 11/26/16 21:15 Laboratory Tests 11/26/16 21:15 EKG EKG EKG as interpreted by me as sinus tachycardia, rate 1:30, no ST-T changes, normal intervals, no ectopy Radiology/Procedures Radiology/Procedures Chest xray as interpreted by me with no acute cardiopulmonary disease process Course & Med Decision Making Course & Med Decision Making Pertinent Labs and Imaging studies reviewed. (See chart for details) He was changed to BiPAP upon arrival here. He was speaking in sentences and felt comfortable on BiPAP. ABG shows acute on chronic resp acidosis that is well compensated, so gave trial off of BiPAP. He did well for a short time, then was placed back on BiPAP due to increasing respiratory effort and dyspnea. He then was comfortable again. Workup is otherwise unremarkable. Levaquin and steroid given for COPD exacerbation. He will be admitted for acute on chronic respiratory failure. Discussed case with Dr. Mcdonald, who will admit. Neurology consult placed. Dragon Disclaimer Dragon Disclaimer This electronic medical record was generated, in whole or in part, using a voice recognition dictation system. Critical Care Time Critical care time was 40 minutes exclusive of procedures. Departure Departure Impression: Primary Impression: Respiratory failure Additional Impression: COPD exacerbation Disposition: ADMITTED INPATIENT Condition: CRITICAL Referrals: JJ GIORDANO (PCP) Problem Qualifiers Primary Impression: Respiratory failure Chronicity: acute on chronic Respiratory failure complication: hypoxia and hypercapnia Qualified Code: J96.21 - Acute and chronic respiratory failure with hypoxia Rocio COX MD Nov 26, 2016 22:11
[2016-11-26] MEDS ORDERED: LEVOFLOXACIN PER PHARMACY MC PRN (22:30)
[2016-11-26] MEDS ORDERED: ONDANSETRON PF 4 MG/2 ML VIAL. IV PRN (22:30)
[2016-11-26] MEDS ORDERED: IV NORMAL SALINE 1000ML BAG 1,000 ML IV SCH (22:30)
[2016-11-26] MEDS ORDERED: ACETAMINOPHEN 325 MG TABLET. PO PRN (22:30)
--- NOTE | 2016-11-26 22:54 | ACF ---
Admission Forms Criteria RESPIRATORY FAILURE [facility] Clinical Indications for Admission to Inpatient Care (Place 'X' for any and all applicable criteria): Hospital admission is needed for appropriate care of the patient because of acute respiratory failure or insufficiency as indicated by ANY ONE of the following(1)(2)(3)(4)(5)(6)(7)(8): [X]I. Mechanical ventilation needed (acute invasive or noninvasive) [ ]II. Severe ventilation deficit as indicated by ANY ONE of the following (9) [ ]a) Respiratory acidosis (pH less than 7.32 and partial pressure of carbon dioxide greater than 40 mm Hg (5.3 kPa)) [ ]b) Partial pressure of carbon dioxide greater than 44 mm Hg (5.9 kPa ) (new) [ ]c) Airflow measurements less than 25% of predicted (eg, peak expiratory flow rate less than 100 L/minute) [ ]d) Forced vital capacity less than 15 mL/kg of ideal body weight, or 50% decrease in vital capacity from baseline [ ]III. Noncardiac pulmonary edema not resolving with rapid emergency treatment (8) [ ]IV. Severe respiratory distress as indicated by ANY ONE of the following: [ ]a) Severe tachypnea (respiratory rate greater than 30, greater than 45 for 6-month-old, greater than 60 for ) [ ]b) Severe hypoxemia (partial pressure of oxygen less than 50 mm Hg ( 6.7 kPa) on greater than 50% oxygen or partial pressure of oxygen to FIO2 ratio less than 200) [ ]c) Mental status deterioration from respiratory disease [ ]V. Airway obstruction or inadequate protection [A](10)(11) The original [employer] content created by [employer] has been revised. The portions of the content which have been revised are identified through the use of italic text or in bold, and [employer] has neither reviewed nor approved the modified material. All other unmodified content is copyright [employer]. Please see references footnoted in the original [employer] edition 2016 Admission Criteria Met?: Yes ESTEBAN SOMMER Nov 26, 2016 22:54
[2016-11-26 23:20] VITALS: BP 135/82
[2016-11-27] VITALS (11 sets, daily range): BP systolic 96–132; BP diastolic 56–79
--- NOTE | 2016-11-27 00:24 | EKG ---
[facility] [address] [place] [address] Test Date: 2016-11-26 Test Time: 21:16:16 Pat Name: KATARINA JAUREGUI Department: Room: 105 1 Gender: Male Scale Installer: : 1950 Requested By: Rocio COX Order Number: [id number] Reading MD: Rod Montez Measurements Intervals [place] Rate: 130 P: 73 SC: 86 QRS: 86 QRSD: 96 T: 59 QT: 278 QTc: 415 Interpretive Statements SINUS TACHYCARDIA BASELINE ARTIFACT NON-SPECIFIC ST/T CHANGES Electronically Signed On 11-28-2016 15:38:19 CDT by Rod Montez
[2016-11-27] MEDS: fentaNYL PF VIAL 100 MCG/2 ML VIAL IV PRN ×2 (00:35→06:27)
[2016-11-27 06:09] LABS: BASE EXCESS COOX 14 mmol/L (-3-3); FIO2 COOX 36; HCO3 COOX 44 mmol/L (21-28); PCO2 COOX 90 mmHg (35-46); PH COOX 7.31 (7.35-7.45); PO2 COOX 106 mmHg (65-108); SAT O2 COOX 97 % (92-99)
[2016-11-27] MEDS ORDERED: IPRATRPIUM/ALBUTEROL 0.5/2.5MG 3 ML NEBU. NEB SCH (08:00)
--- NOTE | 2016-11-27 08:35 | RAD ---
Portable chest, 11/26/2016: History: Dyspnea Comparison is made to a study from 11/07/2016. The AP view is rotated with lordotic patient positioning. The heart size and pulmonary vascularity are within normal limits. There is tortuosity of the thoracic aorta. There is chronic blunting of the right lateral costophrenic angle, likely due to scarring. No definite pulmonary infiltrate is seen. IMPRESSION: 1. Right basilar chronic pleural thickening compatible with scarring. 2. Suboptimal exam demonstrating no acute abnormality.
[2016-11-27 08:44] LABS: HCO3 ABG 41 mmol/L (21-28); PH ABG 7.33 (7.35-7.45); PO2 ABG 82 mmHg (65-108); SAT O2 ABG 95 % (92-99)
[2016-11-27 09:04] LABS: FIO2 ABG 36; PCO2 ABG 79 mmHg (35-46)
[2016-11-27] MEDS: POTASSIUM CHLORIDE 10 MEQ TABLET.ER. PO SCH ×3 (10:00→17:31)
[2016-11-27] MEDS: METOPROLOL SUCC 24HR ER 25 MG TAB.ER.24H. PO SCH (10:00)
[2016-11-27] MEDS: HYDROCHLOROTHIAZIDE 12.5 MG CAPSULE. PO SCH (10:00)
--- NOTE | 2016-11-27 10:02 | PDOC ---
Provider Note Provider Note Pt seen,H&P dictated. #[id number] DAMIÁN BALL MD Nov 27, 2016 10:02
[2016-11-27] MEDS: methylPREDNISolone SOD SUCC PF 125 MG/2 ML VIAL. IV SCH ×3 (10:16→21:50)
[2016-11-27] MEDS: ASPIRIN ENTERIC COATED 81 MG TABLET.DR. PO SCH (10:16)
[2016-11-27] MEDS: amLODIPine BESYLATE 5 MG TABLET PO SCH (10:17)
[2016-11-27] MEDS ORDERED: FUROSEMIDE 40 MG/4 ML VIAL. IVP ONE (10:30)
--- NOTE | 2016-11-27 10:32 | PDOC ---
Provider Note Provider Note dictated LEE WALKER MD Nov 27, 2016 10:32
[2016-11-27] MEDS: ENOXAPARIN 40 MG/0.4 ML SYRINGE. SQ SCH (10:41)
[2016-11-27] MEDS: PANTOPRAZOLE 40 MG TABLET.DR. PO SCH (10:42)
[2016-11-27] MEDS: NICOTINE 7MG PATCH. TD SCH (11:03)
--- NOTE | 2016-11-27 12:10 | CONS ---
DATE OF CONSULTATION: PULMONARY CONSULTATION ATTENDING PHYSICIAN: Dr. Mcdonald. REASON FOR CONSULTATION: Respiratory distress. HISTORY OF PRESENT ILLNESS: The patient is very well known to us. He is a 66-year-old male with history of end-stage COPD with chronic respiratory failure, was recently discharged from after he was admitted for a week for a COPD exacerbation and respiratory tract infection. The patient was discharged on oral Levaquin and oral prednisone. He was brought back to the hospital with complaint of increasing dyspnea. He also had some lower extremity swelling. Has a mild nonproductive cough. No fever, no chills, no chest pains. No headache, no nausea, vomiting, or diarrhea. The chest x-ray was reviewed. He has chronic pleural thickening on the right lower lobe. No obvious pneumonia seen. His arterial blood gases were abnormal with a pH of 7.31, pCO2 ---- and pO2 106 on 36% FIO2, was placed on BiPAP and now , pCO2 of 79, pO2 82 with a bicarbonate of 41 on 36% FIO2. He feels comfortable. PAST MEDICAL HISTORY: History of end-stage COPD with chronic respiratory failure with recently quit tobacco 3 weeks ago, history of dyslipidemia, hypertension, CHF, gout, and colon cancer. PAST SURGICAL HISTORY: No recent surgeries. ALLERGIES: DELIA INHIBITORS. MEDICATIONS: All reviewed as listed in the MRAD including DuoNebs, steroids, and Levaquin. REVIEW OF SYSTEMS: Twelve-point systems obtained, pertinent positives discussed in history of present illness, otherwise noncontributory. All systems that were negative were reviewed as well. SOCIAL HISTORY: Has a long history of tobacco use for 35-40 years. PHYSICAL EXAMINATION: GENERAL: He is comfortable. VITAL SIGNS: Blood pressure 121/73, pulse ox is 99% on 4 liters, afebrile. HEENT: Sclerae nonicteric. NECK: Supple. LUNGS: With faint expiratory wheezes. CARDIOVASCULAR: Regular rate and rhythm. ABDOMEN: Soft, obese. EXTREMITIES: Bilateral pitting edema. LABORATORY DATA: Reviewed. ABGs as discussed in history of present illness. BUN is 18, creatinine 0.8. White cell count 14.4, hemoglobin 12.9 and platelets 327. IMPRESSION: 1. Pjply-qm-wgkzlki hypercapnic respiratory failure secondary to acute exacerbation of chronic obstructive pulmonary disease. 2. Acute exacerbation of chronic obstructive pulmonary disease triggered by qmnuv-je-jcddcrm cor pulmonale. 3. Abnormal chest x-ray with chronic right pleural thickening. No evidence of congestive heart failure. 4. Lower extremity edema related to qotqx-lu-hiyjzpw cor pulmonale. RECOMMENDATIONS: 1. Continue with present BiPAP qhs and p.r.n. during the day. 2. Avoid hyperoxia. I will reduce the oxygen down to 2 liters and repeat ABGs in few hours. 3. Continue with DuoNeb. 4. Continue with steroids. 5. DVT prophylaxis with Lovenox. 6. Continue with Levaquin as initiated in the ER. 7. The patient can be transferred to the floor. Discussed with RN and RT. cct 37 min LEE WALKER MD DR: ELMA/braden JOB#: [id number] / [id number] CHIRAG
[2016-11-27] MEDS: IPRATRPIUM/ALBUTEROL 0.5/2.5MG 3 ML NEBU. NEB SCH ×3 (12:33→19:52)
[2016-11-27 13:17] LABS: HCO3 ABG 41 mmol/L (21-28); PH ABG 7.44 (7.35-7.45); SAT O2 ABG 80 % (92-99)
[2016-11-27 13:31] LABS: FIO2 ABG 21; PO2 ABG < 42 mmHg (65-108)
--- NOTE | 2016-11-27 14:17 | HP ---
ADMIT DATE: 11/26/2016 PATIENT LOCATION: [facility] REASON FOR ADMISSION TO THE HOSPITAL: COPD with acute exacerbation. HISTORY OF PRESENT ILLNESS: The patient is a 66-year-old male, patient know to us with history of COPD. The patient was admitted to [facility] last week. In fact, he was discharged after 5-6 days at and he was discharged yesterday, Sunday, around noon time. By the evening, he got progressively worse with shortness of breath as well as pain in the back of the shoulders, came to the Emergency Room. He was very tight in the chest, labored, and was put on BiPAP, was admitted to the ICU. The patient states he had a CT scan not too long ago in the . We will try to get the records. PAST MEDICAL HISTORY: History of severe COPD and states he is on oxygen 24 hours daily, has a breathing machine at home, history of hypertension, hyperlipidemia, diastolic heart failure, gout, colon cancer. PAST SURGICAL HISTORY: Had abdominal surgery for colon cancer, part of the colon removed. He also had DJD of the cervical spine. ALLERGIES: DELIA INHIBITORS CAUSING ANGIOEDEMA. MEDICATIONS AT HOME: The patient is on amlodipine 5 mg daily, aspirin 81 mg daily, hydrochlorothiazide 12.5 daily, hydrocodone 5/325 q. 6, metoprolol 25 mg daily, omeprazole 20 mg daily, potassium 10 mEq twice daily, Spiriva 18 mcg daily once a day inhaler, Nicoderm patch 1 daily, Phenergan with codeine, cough syrup. He was on tapering dose of prednisone and antibiotic Vantin. He has oxygen 3 liters and he also has DuoNeb 4 times daily. PERSONAL HISTORY: He continues to smoke, one-third of pack smoked for at least 30-40 years. Denies alcohol. Denies street drugs or use of pain medications. REVIEW OF SYMPTOMS: RESPIRATORY: The patient says he has short of breath, but the patient is eating his breakfast pretty good without any shortness of breath. CHEST: No pain. LUNGS: No sputum. GASTROINTESTINAL: No nausea or vomiting. Rest of 14-system was reviewed and negative. PHYSICAL EXAMINATION: VITAL SIGNS: At the time of admission shows a temperature 98, pulse of 136, respirations 28, blood pressure 163/93, 100% on BiPAP. HEENT: Head is atraumatic. Pupils equal. Oral cavity: No congestion. NECK: Supple. Thyroid not enlarged. JVD not elevated. CHEST: COPD pattern. CARDIOVASCULAR: S1, S2. RESPIRATORY: Wheezing posterior lungs. ABDOMEN: Soft. No mass palpable. Scar of previous surgery. EXTERNAL GENITALIA: No Heard. RECTAL: Deferred. EXTREMITIES: No calf tenderness, no edema. Pulses 1+. NEUROLOGIC: Cranial nerves intact. Power 5/5 in all extremities. LABORATORY DATA: Shows a white count of 14, hemoglobin 13, platelets 327. Electrolytes show sodium 145, potassium 4.2, chloride 100, bicarbonate 43, BUN 18, creatinine 0.8, glucose 154. BNP, troponin was negative. Blood gas shows pH of 7.31, pCO2 of 90, pO2 of 106, bicarbonate 44, base 14, FiO2 36, 97% saturation. Chest x-ray, scarring, no acute infiltrates. EKG done, report is pending. FINAL IMPRESSION: 1. Chronic obstructive pulmonary disease with acute exacerbation. 2. Acute respiratory failure requiring BiPAP. 3. Hypertension. 4. Hyperlipidemia. 5. Smoking history. 6. History of colon cancer in the past and the patient was recently discharged yesterday from , had an extensive workup done including CT scan. Plan at this time to admit to hospital, placed on BiPAP, oxygen, IV Levaquin and DuoNeb 4 times daily, IV Solu-Medrol and80 mg q. 8 hours, get the reports from . Pulmonary consult and continue DVT prophylaxis with Lovenox. DAMIÁN BALL MD DR: CHELE/braden JOB#: [id number] / [id number] JJ Magdaleno
[2016-11-27] MEDS: PROMETH/CODEINE 6.25/10MG 5 ML SYRUP. PO PRN (21:50)
[2016-11-28] VITALS (7 sets, daily range): BP systolic 100–136; BP diastolic 52–80
[2016-11-28] MEDS: ALBUTEROL SULFATE 2.5 MG/3 ML NEBU. NEB PRN ×2 (00:05→03:05)
[2016-11-28] MEDS: PANTOPRAZOLE 40 MG TABLET.DR. PO SCH (06:11)
[2016-11-28] MEDS: PROMETH/CODEINE 6.25/10MG 5 ML SYRUP. PO PRN (06:11)
[2016-11-28] MEDS: methylPREDNISolone SOD SUCC PF 125 MG/2 ML VIAL. IV SCH ×3 (06:11→20:13)
[2016-11-28 07:15] LABS: BASO % 0 % (0-3); EOS % 0 % (0-3); HEMATOCRIT 35.9 % (39.0-53.0); HEMOGLOBIN 11.3 g/dL (13.0-17.5); LYMPH # 0.2 x10^3/uL (1.0-4.8); LYMPH % 2 % (24-48); MEAN CORPUSCULAR HEMOGLOBIN 32 pg (25-35); MEAN CORPUSCULAR HGB CONC 31 g/dL (31-37); MEAN CORPUSCULAR VOLUME 101 fL (79-100); MONO % 5 % (0-9); NEUT % 93 % (31-73); PLATELET COUNT 256 x10^3/uL (140-400); RED BLOOD COUNT 3.54 x10^6/uL (4.30-5.70); RED CELL DISTRIBUTION WIDTH 13.7 % (11.5-14.5); WHITE BLOOD COUNT 16.4 x10^3/uL (4.0-11.0)
[2016-11-28 07:24] LABS: CALCIUM 9.1 mg/dL (8.5-10.1); CREATININE 0.7 mg/dL (0.7-1.3); GFR 135.7; POTASSIUM 3.7 mmol/L (3.5-5.1)
[2016-11-28] MEDS: IPRATRPIUM/ALBUTEROL 0.5/2.5MG 3 ML NEBU. NEB SCH ×4 (08:57→19:37)
[2016-11-28] MEDS ORDERED: NON FORMULARY ITEM (Tiotropium Bromide (Spiriva) 18 MCG) IH SCH (09:00)
[2016-11-28] MEDS: METOPROLOL SUCC 24HR ER 25 MG TAB.ER.24H. PO SCH (09:00)
[2016-11-28] MEDS: POTASSIUM CHLORIDE 10 MEQ TABLET.ER. PO SCH (09:14)
[2016-11-28] MEDS: ASPIRIN ENTERIC COATED 81 MG TABLET.DR. PO SCH (09:15)
[2016-11-28] MEDS: NICOTINE 7MG PATCH. TD SCH (09:16)
[2016-11-28] MEDS: amLODIPine BESYLATE 5 MG TABLET PO SCH (09:16)
[2016-11-28] MEDS: HYDROCHLOROTHIAZIDE 12.5 MG CAPSULE. PO SCH (09:16)
--- NOTE | 2016-11-28 09:49 | PDOC ---
PROGRESS NOTES Subjective Subjective feels better today Objective Objective Vital Signs Date Time Temp Pulse Resp B/P Pulse Ox O2 Delivery O2 Flow Rate FiO2 11/28/16 09:16 96 116/72 11/28/16 08:40 92 Nasal Cannula 2.0 11/28/16 04:00 98.3 22 98.3 Intake and Output 11/28/16 07:00 Intake Total 540 ml Output Total 501 ml Balance 39 ml Intake Oral 540 ml Output Urine Total 500 ml Stool Total 1 ml Physical Exam Abdomen: Normal bowel sounds, Soft Heart: Regular rate, Normal S1 Extremities: No clubbing General: Alert, Cooperative Lungs: Other (wheezing lungs) MUSCULOSKELETAL: No swelling Neck: Supple Neuro: Normal speech Psych/Mental Status: Mental status NL Skin: No breakdown Diagnosis Problem List Problems Medical Problems: (1) COPD exacerbation Status: Acute (2) Respiratory failure Status: Acute Assessment Assessment Problems Medical Problems: (1) COPD exacerbation Status: Acute (2) Respiratory failure Status: Acute FINAL IMPRESSION: 1. Chronic obstructive pulmonary disease with acute exacerbation. 2. Acute respiratory failure requiring BiPAP. 3. Hypertension. 4. Hyperlipidemia. 5. Smoking history. 6. History of colon cancer. PLAN: solumedrol tid iv duoneb qid+prn iv levaquin cxr -ve Bipap prn patient was recently discharged yesterday from , had an extensive workup done including CT scan. Plan at this time to admit to hospital, placed on BiPAP, oxygen, IV Levaquin and DuoNeb 4 times daily, IV Solu-Medrol and80 mg q. 8 hours, get the reports from . Pulmonary consult and continue DVT prophylaxis with Lovenox. Problems: Plan Plan of Care Problems Medical Problems: (1) COPD exacerbation Status: Acute (2) Respiratory failure Status: Acute Comment Review of Relevant I have reviewed the following items mario (where applicable) has been applied. Labs Laboratory Tests Test 11/27/16 12:54 11/28/16 06:35 O2 Saturation 80% (92-99) Arterial Blood pH 7.44 (7.35-7.45) Arterial Blood pCO2 at Patient Temp 61mmHg (35-46) Arterial Blood pO2 at Patient Temp < 42mmHg (65-108) Arterial Blood HCO3 41mmol/L (21-28) Arterial Blood Base Excess 14mmol/L (-3-3) FiO2 21 White Blood Count 16.4x10^3/uL (4.0-11.0) Red Blood Count 3.54x10^6/uL (4.30-5.70) Hemoglobin 11.3g/dL (13.0-17.5) Hematocrit 35.9% (39.0-53.0) Mean Corpuscular Volume 101fL (79-100) Mean Corpuscular Hemoglobin 32pg (25-35) Mean Corpuscular Hemoglobin Concent 31g/dL (31-37) Red Cell Distribution Width 13.7% (11.5-14.5) Platelet Count 256x10^3/uL (140-400) Neutrophils (%) (Auto) 93% (31-73) Lymphocytes (%) (Auto) 2% (24-48) Monocytes (%) (Auto) 5% (0-9) Eosinophils (%) (Auto) 0% (0-3) Basophils (%) (Auto) 0% (0-3) Neutrophils # (Auto) 15.3x10^3uL (1.8-7.7) Lymphocytes # (Auto) 0.2x10^3/uL (1.0-4.8) Monocytes # (Auto) 0.9x10^3/uL (0.0-1.1) Eosinophils # (Auto) 0.0x10^3/uL (0.0-0.7) Basophils # (Auto) 0.0x10^3/uL (0.0-0.2) Sodium Level 142mmol/L (136-145) Potassium Level 3.7mmol/L (3.5-5.1) Chloride Level 100mmol/L (98-107) Carbon Dioxide Level 40mmol/L (21-32) Anion Gap 2 (6-14) Blood Urea Nitrogen 20mg/dL (8-26) Creatinine 0.7mg/dL (0.7-1.3) Estimated GFR (Cockcroft-Gault) 135.7 Glucose Level 142mg/dL (70-99) Calcium Level 9.1mg/dL (8.5-10.1) Medications Current Medications Albuterol Sulfate (Ventolin Neb Soln) 2.5 mg PRN Q4HRS PRN NEB SHORTNESS OF BREATH Last administered on 11/28/16 03:05; Start 11/28/16 at 00:15 Albuterol/ Ipratropium (Duoneb) 3 ml RTQID NEB Last administered on 11/28/16 08:57; Start 11/27/16 at 12:00 Amlodipine Besylate (Norvasc) 5 mg DAILY PO Last administered on 11/28/16 09: 16; Start 11/27/16 at 10:00 Aspirin (Ecotrin) 81 mg DAILY PO Last administered on 11/28/16 09:15; Start at 10:00 Enoxaparin Sodium (Lovenox 40mg Syringe) 40 mg Q24H SQ ; Start 11/27/16 at 11:00 Furosemide (Lasix) 40 mg 1X ONCE IVP Last administered on 11/27/16 10:58; Start 11/27/16 at 10:30; Stop 11/27/16 at 10:34; Status DC Hydrochlorothiazide (Microzide) 12.5 mg DAILY PO Last administered on 09:16; Start 11/27/16 at 10:00 Metoprolol Succinate (Toprol Xl) 25 mg DAILY PO ; Start 11/27/16 at 10:00 Nicotine (Nicoderm Cq 7mg) 1 patch DAILY TD Last administered on 11/28/16 09: 16; Start 11/27/16 at 10:00 Non-Formulary Medication 18 mcg DAILY IH ; Start 11/28/16 at 09:00; Stop at 09:00; Status DC Pantoprazole Sodium (Protonix) 40 mg DAILYAC PO Last administered on 11/28/16 06:11; Start 11/27/16 at 11:30 Potassium Chloride (Klor-Con) 10 meq BIDWMEALS PO Last administered on 17:31; Start 11/27/16 at 10:00; Stop 11/27/16 at 18:30; Status DC Potassium Chloride (Klor-Con) 10 meq DAILYWBKFT PO Last administered on 09:14; Start 11/27/16 at 10:00 Vitals/I & O Vital Sign - Last 24 Hours 11/27/16 11/27/16 11/27/16 11/27/16 10:17 11:00 12:33 15:00 Temp 98.4 98.1 98.4 98.1 Pulse 91 93 89 Resp 20 B/P 121/73 126/73 132/79 Pulse Ox 94 95 O2 Delivery Nasal Cannula Nasal Cannula Nasal Cannula O2 Flow Rate 2.0 2.0 2.0 11/27/16 11/27/16 11/27/16 11/27/16 15:20 19:00 19:54 20:14 Temp 98.3 98.3 Pulse 88 Resp 18 B/P 122/76 Pulse Ox 96 94 94 O2 Delivery Nasal Cannula Nasal Cannula Nasal Cannula O2 Flow Rate 2.0 2.0 2.0 2.0 11/27/16 11/28/16 11/28/16 11/28/16 23:00 00:01 03:04 04:00 Temp 98.3 98.3 98.3 98.3 Pulse 86 88 Resp B/P 98/56 112/73 Pulse Ox 96 96 99 O2 Delivery Nasal Cannula BiPAP/CPAP BiPAP/CPAP Nasal Cannula O2 Flow Rate 2.0 2.0 11/28/16 11/28/16 11/28/16 05:23 08:40 09:16 Pulse 96 B/P 116/72 Pulse Ox 92 O2 Delivery BiPAP/CPAP Nasal Cannula O2 Flow Rate 2.0 Intake and Output 11/27/16 11/27/16 11/28/16 15:00 23:00 07:00 Intake Total 360 ml 180 ml Output Total 501 ml Balance -141 ml 180 ml DAMIÁN BALL MD Nov 28, 2016 09:49
[2016-11-28] MEDS: ENOXAPARIN 40 MG/0.4 ML SYRINGE. SQ SCH (11:00)
--- NOTE | 2016-11-28 15:11 | RAD ---
Exam: PA and lateral chest radiograph History: COPD. Comparison: 11/26/2016. Findings: Cardiomediastinal silhouette is within normal limits for size. Bilateral lung nance are free of focal infiltrate. No pleural effusion is seen. Chronic right basilar pleural thickening/scarring is similar to previous study. Emphysematous changes of lungs are seen. Impression: No acute cardiopulmonary process.
[2016-11-28] MEDS: HYDROCODONE/APAP 5/325MG TABLET. PO PRN (15:15)
--- NOTE | 2016-11-28 15:33 | PDOC ---
PULMONARY PROGRESS NOTES Subjective pt feels better Vitals Vital Signs Date Time Temp Pulse Resp B/P Pulse Ox O2 Delivery O2 Flow Rate FiO2 11/28/16 15:15 Nasal Cannula 3.0 11/28/16 13:56 98.9 87 21 100/52 97 98.9 ROS: No Nausea, No Chest Pain General: Alert, No acute distress Lungs: Other (poor airflow no crackles) Cardiovascular: S1, S2 Abdomen: Soft, Non-tender Neuro Exam: Alert Extremities: No Edema Skin: Warm Labs Laboratory Tests Test 11/26/16 21:15 11/26/16 21:39 11/27/16 01:11 11/27/16 08:55 White Blood Count 14.4x10^3/uL (4.0-11.0) Red Blood Count 3.96x10^6/uL (4.30-5.70) Hemoglobin 12.9g/dL (13.0-17.5) Hematocrit 39.5% (39.0-53.0) Mean Corpuscular Volume 100fL (79-100) Mean Corpuscular Hemoglobin 33pg (25-35) Mean Corpuscular Hemoglobin Concent 33g/dL (31-37) Red Cell Distribution Width 13.9% (11.5-14.5) Platelet Count 327x10^3/uL (140-400) Neutrophils (%) (Auto) 88% (31-73) Lymphocytes (%) (Auto) 6% (24-48) Monocytes (%) (Auto) 6% (0-9) Eosinophils (%) (Auto) 0% (0-3) Basophils (%) (Auto) 0% (0-3) Neutrophils # (Auto) 12.6x10^3uL (1.8-7.7) Lymphocytes # (Auto) 0.8x10^3/uL (1.0-4.8) Monocytes # (Auto) 0.9x10^3/uL (0.0-1.1) Eosinophils # (Auto) 0.0x10^3/uL (0.0-0.7) Basophils # (Auto) 0.0x10^3/uL (0.0-0.2) Segmented Neutrophils % 91% (35-66) Band Neutrophils % 1% (0-9) Lymphocytes % 4% (24-48) Monocytes % 4% (0-10) Platelet Estimate Adequate (ADEQUATE) Sodium Level 145mmol/L (136-145) Potassium Level 4.2mmol/L (3.5-5.1) Chloride Level 100mmol/L (98-107) Carbon Dioxide Level 43mmol/L (21-32) Anion Gap 2 (6-14) Blood Urea Nitrogen 18mg/dL (8-26) Creatinine 0.8mg/dL (0.7-1.3) Estimated GFR (Cockcroft-Gault) 116.3 Glucose Level 154mg/dL (70-99) Calcium Level 9.5mg/dL (8.5-10.1) Troponin I Quantitative < 0.017ng/mL (0.000-0.055) FG-Pca-Y-Type Natriuretic Peptide 36pg/mL (0-124) O2 Saturation 97% (92-99) 95% (92-99) Arterial Blood pH 7.31 (7.35-7.45) 7.33 (7.35-7.45) Arterial Blood pCO2 at Patient Temp 90mmHg (35-46) 79mmHg (35-46) Arterial Blood pO2 at Patient Temp 106mmHg (65-108) 82mmHg (65-108) Arterial Blood HCO3 44mmol/L (21-28) 41mmol/L (21-28) Arterial Blood Base Excess 14mmol/L (-3-3) 12mmol/L (-3-3) FiO2 36 36 Nasal Screen MRSA (PCR) Negative (Negative) Test 11/27/16 12:54 11/28/16 06:35 O2 Saturation 80% (92-99) Arterial Blood pH 7.44 (7.35-7.45) Arterial Blood pCO2 at Patient Temp 61mmHg (35-46) Arterial Blood pO2 at Patient Temp < 42mmHg (65-108) Arterial Blood HCO3 41mmol/L (21-28) Arterial Blood Base Excess 14mmol/L (-3-3) FiO2 21 White Blood Count 16.4x10^3/uL (4.0-11.0) Red Blood Count 3.54x10^6/uL (4.30-5.70) Hemoglobin 11.3g/dL (13.0-17.5) Hematocrit 35.9% (39.0-53.0) Mean Corpuscular Volume 101fL (79-100) Mean Corpuscular Hemoglobin 32pg (25-35) Mean Corpuscular Hemoglobin Concent 31g/dL (31-37) Red Cell Distribution Width 13.7% (11.5-14.5) Platelet Count 256x10^3/uL (140-400) Neutrophils (%) (Auto) 93% (31-73) Lymphocytes (%) (Auto) 2% (24-48) Monocytes (%) (Auto) 5% (0-9) Eosinophils (%) (Auto) 0% (0-3) Basophils (%) (Auto) 0% (0-3) Neutrophils # (Auto) 15.3x10^3uL (1.8-7.7) Lymphocytes # (Auto) 0.2x10^3/uL (1.0-4.8) Monocytes # (Auto) 0.9x10^3/uL (0.0-1.1) Eosinophils # (Auto) 0.0x10^3/uL (0.0-0.7) Basophils # (Auto) 0.0x10^3/uL (0.0-0.2) Sodium Level 142mmol/L (136-145) Potassium Level 3.7mmol/L (3.5-5.1) Chloride Level 100mmol/L (98-107) Carbon Dioxide Level 40mmol/L (21-32) Anion Gap 2 (6-14) Blood Urea Nitrogen 20mg/dL (8-26) Creatinine 0.7mg/dL (0.7-1.3) Estimated GFR (Cockcroft-Gault) 135.7 Glucose Level 142mg/dL (70-99) Calcium Level 9.1mg/dL (8.5-10.1) Laboratory Tests Test 11/28/16 06:35 White Blood Count 16.4x10^3/uL (4.0-11.0) Red Blood Count 3.54x10^6/uL (4.30-5.70) Hemoglobin 11.3g/dL (13.0-17.5) Hematocrit 35.9% (39.0-53.0) Mean Corpuscular Volume 101fL (79-100) Mean Corpuscular Hemoglobin 32pg (25-35) Mean Corpuscular Hemoglobin Concent 31g/dL (31-37) Red Cell Distribution Width 13.7% (11.5-14.5) Platelet Count 256x10^3/uL (140-400) Neutrophils (%) (Auto) 93% (31-73) Lymphocytes (%) (Auto) 2% (24-48) Monocytes (%) (Auto) 5% (0-9) Eosinophils (%) (Auto) 0% (0-3) Basophils (%) (Auto) 0% (0-3) Neutrophils # (Auto) 15.3x10^3uL (1.8-7.7) Lymphocytes # (Auto) 0.2x10^3/uL (1.0-4.8) Monocytes # (Auto) 0.9x10^3/uL (0.0-1.1) Eosinophils # (Auto) 0.0x10^3/uL (0.0-0.7) Basophils # (Auto) 0.0x10^3/uL (0.0-0.2) Sodium Level 142mmol/L (136-145) Potassium Level 3.7mmol/L (3.5-5.1) Chloride Level 100mmol/L (98-107) Carbon Dioxide Level 40mmol/L (21-32) Anion Gap 2 (6-14) Blood Urea Nitrogen 20mg/dL (8-26) Creatinine 0.7mg/dL (0.7-1.3) Estimated GFR (Cockcroft-Gault) 135.7 Glucose Level 142mg/dL (70-99) Calcium Level 9.1mg/dL (8.5-10.1) Medications Active Scripts Medications Dose Route/Sig Days Date Category Prednisone 50 Mg Tablet 1 Tab PO DAILY 10/25/16 Rx Cefpodoxime Proxetil 200 Mg Tablet 1 Tab PO BID 10/25/16 Rx [Promethazine Hcl/Codeine] 5 ML Syrup 5 Ml PO PRN Q8HRS PRN 03/15/16 Rx Klor-Con M10 (Potassium Chloride) 10 Meq Tab.er.prt 10 Meq PO DAILYWBKFT 03/15/16 Rx Prednisone 20 Mg Tablet 40 Mg PO DAILY 03/15/16 Rx Metoprolol Succinate ( Xl ) (Metoprolol Succinate) 25 Mg Tab.er.24h 25 Mg PO DAILY 11/20/15 Rx [Nicotine] 1 PATCH Patch 1 Patch TD DAILY 06/23/15 Rx Lortab 5-325 mg Tablet (Hydrocodone/Acetaminophen) 1 Each Tablet 1 Each PO QIDPRN PRN 12/13/13 Reported K-Tab (Potassium Chloride) 10 Meq Tablet.er 10 Meq PO BID 12/12/13 Rx Viagra (Sildenafil Citrate) 50 Mg Tablet 50 Mg PO PRN DAILY 10/28/13 Reported Spiriva (Tiotropium Sabin) 18 Mcg Cap.w.dev 18 Mcg IH DAILY 10/28/13 Reported Omeprazole 20 Mg Capsule. 20 Mg PO DAILY 10/28/13 Reported Hydrochlorothiazide Capsule (Hydrochlorothiazide) 12.5 Mg Capsule 12.5 Mg PO DAILY 10/28/13 Reported Aspir 81 (Aspirin) 81 Mg Tablet. 81 Mg PO DAILY 10/28/13 Reported Amlodipine Besylate 5 Mg Tablet 5 Mg PO DAILY 10/28/13 Reported Albuterol Sulfate Hfa Inhaler (Albuterol Sulfate) 8.5 Gm Hfa.aer.ad 90 Mcg IH PRN EVERY 4-6H 10/28/13 Reported Impression . 1. Vuoqa-qi-ttcnveb hypercapnic respiratory failure secondary to acute exacerbation of chronic obstructive pulmonary disease. 2. Acute exacerbation of chronic obstructive pulmonary disease triggered by kyuzz-yt-nbhpqzc cor pulmonale. 3. Abnormal chest x-ray with chronic right pleural thickening. No evidence of congestive heart failure. 4. Lower extremity edema related to cyygo-jj-ilhmtqi cor pulmonale. Plan . answered lots of questions pt to avoid salt 1. Continue with present BiPAP qhs and p.r.n. during the day. 2. Avoid hyperoxia. 3. Continue with DuoNeb. 4. Continue with steroids. 5. DVT prophylaxis with Lovenox. 6. may d/c antibx soon DAMION THAO MD Nov 28, 2016 15:33
[2016-11-28] MEDS: ALPRAZolam 0.25 MG TABLET PO PRN (17:09)
[2016-11-28] MEDS: AZELASTINE NASAL SPRAY 30ML BOTTLE. NS SCH (20:13)
[2016-11-29 03:00] VITALS: BP 112/65
[2016-11-29] MEDS: HYDROCODONE/APAP 5/325MG TABLET. PO PRN ×3 (04:22→20:24)
[2016-11-29] MEDS: methylPREDNISolone SOD SUCC PF 125 MG/2 ML VIAL. IV SCH (05:38)
[2016-11-29 06:19] LABS: BASO % 0 % (0-3); EOS % 0 % (0-3); HEMATOCRIT 35.9 % (39.0-53.0); HEMOGLOBIN 11.4 g/dL (13.0-17.5); LYMPH # 0.2 x10^3/uL (1.0-4.8); LYMPH % 1 % (24-48); MEAN CORPUSCULAR HEMOGLOBIN 33 pg (25-35); MEAN CORPUSCULAR HGB CONC 32 g/dL (31-37); MEAN CORPUSCULAR VOLUME 102 fL (79-100); MONO % 6 % (0-9); NEUT % 93 % (31-73); PLATELET COUNT 259 x10^3/uL (140-400); RED BLOOD COUNT 3.51 x10^6/uL (4.30-5.70); RED CELL DISTRIBUTION WIDTH 14.1 % (11.5-14.5)
[2016-11-29 06:36] LABS: CALCIUM 9.4 mg/dL (8.5-10.1); CREATININE 0.7 mg/dL (0.7-1.3); GFR 135.7; POTASSIUM 3.9 mmol/L (3.5-5.1)
[2016-11-29] MEDS: IPRATRPIUM/ALBUTEROL 0.5/2.5MG 3 ML NEBU. NEB SCH ×4 (07:19→18:07)
[2016-11-29 07:55] VITALS: BP 124/76
[2016-11-29] MEDS: HYDROCHLOROTHIAZIDE 12.5 MG CAPSULE. PO SCH (08:34)
[2016-11-29] MEDS: amLODIPine BESYLATE 5 MG TABLET PO SCH (08:34)
[2016-11-29] MEDS: METOPROLOL SUCC 24HR ER 25 MG TAB.ER.24H. PO SCH (08:34)
[2016-11-29] MEDS: ASPIRIN ENTERIC COATED 81 MG TABLET.DR. PO SCH (08:34)
[2016-11-29] MEDS: PANTOPRAZOLE 40 MG TABLET.DR. PO SCH (08:34)
[2016-11-29] MEDS: AZELASTINE NASAL SPRAY 30ML BOTTLE. NS SCH ×2 (08:35→20:24)
[2016-11-29] MEDS: POTASSIUM CHLORIDE 10 MEQ TABLET.ER. PO SCH (08:35)
[2016-11-29] MEDS: NICOTINE 7MG PATCH. TD SCH (08:35)
--- NOTE | 2016-11-29 09:59 | PDOC ---
PROGRESS NOTES Subjective Subjective feeling better, leg swelling Objective Objective Vital Signs Date Time Temp Pulse Resp B/P Pulse Ox O2 Delivery O2 Flow Rate FiO2 11/29/16 08:34 81 124/76 11/29/16 08:15 Nasal Cannula 2.0 11/29/16 07:55 98.1 18 97 98.1 Intake and Output 11/29/16 06:59 Intake Total 850 ml Output Total 800 ml Balance 50 ml Intake Oral 750 ml IV Total 100 ml Output Urine Total 800 ml # Voids 2 Physical Exam Abdomen: Normal bowel sounds, Soft Heart: Regular rate, Normal S1 Extremities: No clubbing General: Alert, Cooperative Lungs: Other (wheezing lungs) MUSCULOSKELETAL: No swelling Neck: Supple Neuro: Normal speech Psych/Mental Status: Mental status NL Skin: No breakdown Diagnosis Problem List Problems Medical Problems: (1) COPD exacerbation Status: Acute (2) Respiratory failure Status: Acute Assessment Assessment Problems Medical Problems: (1) COPD exacerbation Status: Acute (2) Respiratory failure Status: Acute FINAL IMPRESSION:edema legs 1. Chronic obstructive pulmonary disease with acute exacerbation. 2. Acute respiratory failure requiring BiPAP. 3. Hypertension. 4. Hyperlipidemia. 5. Smoking history. 6. History of colon cancer. PLAN:inc Hctz to 25 mg solumedrol tid iv , dec to 40 mg duoneb qid+prn iv levaquin cxr -ve Bipap prn snu screen. patient was recently discharged yesterday from , had an extensive workup done including CT scan. Plan at this time to admit to hospital, placed on BiPAP, oxygen, IV Levaquin and DuoNeb 4 times daily, IV Solu-Medrol and80 mg q. 8 hours, get the reports from . Pulmonary consult and continue DVT prophylaxis with Lovenox. Problems: Plan Plan of Care Problems Medical Problems: (1) COPD exacerbation Status: Acute (2) Respiratory failure Status: Acute Comment Review of Relevant I have reviewed the following items mario (where applicable) has been applied. Labs Laboratory Tests Test 11/29/16 05:40 White Blood Count 16.0x10^3/uL (4.0-11.0) Red Blood Count 3.51x10^6/uL (4.30-5.70) Hemoglobin 11.4g/dL (13.0-17.5) Hematocrit 35.9% (39.0-53.0) Mean Corpuscular Volume 102fL (79-100) Mean Corpuscular Hemoglobin 33pg (25-35) Mean Corpuscular Hemoglobin Concent 32g/dL (31-37) Red Cell Distribution Width 14.1% (11.5-14.5) Platelet Count 259x10^3/uL (140-400) Neutrophils (%) (Auto) 93% (31-73) Lymphocytes (%) (Auto) 1% (24-48) Monocytes (%) (Auto) 6% (0-9) Eosinophils (%) (Auto) 0% (0-3) Basophils (%) (Auto) 0% (0-3) Neutrophils # (Auto) 14.9x10^3uL (1.8-7.7) Lymphocytes # (Auto) 0.2x10^3/uL (1.0-4.8) Monocytes # (Auto) 0.9x10^3/uL (0.0-1.1) Eosinophils # (Auto) 0.0x10^3/uL (0.0-0.7) Basophils # (Auto) 0.0x10^3/uL (0.0-0.2) Sodium Level 144mmol/L (136-145) Potassium Level 3.9mmol/L (3.5-5.1) Chloride Level 102mmol/L (98-107) Carbon Dioxide Level 41mmol/L (21-32) Anion Gap 1 (6-14) Blood Urea Nitrogen 20mg/dL (8-26) Creatinine 0.7mg/dL (0.7-1.3) Estimated GFR (Cockcroft-Gault) 135.7 Glucose Level 131mg/dL (70-99) Calcium Level 9.4mg/dL (8.5-10.1) Medications Current Medications Alprazolam (Xanax) 0.25 mg PRN Q8HRS PRN PO ANXIETY / AGITATION Last administered on 11/28/16 17:09; Start 11/28/16 at 17:00 Azelastine HCl (Astelin) 2 spray BID NS Last administered on 11/29/16 08:35; Start 11/28/16 at 21:00 Vitals/I & O Vital Sign - Last 24 Hours 11/28/16 11/28/16 11/28/16 4/25/17 11:00 12:55 13:56 15:00 Temp 98.9 98.9 98.9 98.9 98.9 98.9 Pulse 87 87 83 Resp 21 21 20 B/P 100/52 100/52 110/63 Pulse Ox 97 98 97 95 O2 Delivery Nasal Cannula Nasal Cannula Nasal Cannula Nasal Cannula O2 Flow Rate 2.0 2.0 2.0 2.0 11/28/16 11/28/16 11/28/16 11/28/16 15:09 15:15 19:00 19:40 Temp 97.5 97.5 Pulse 96 Resp 18 B/P 126/71 Pulse Ox 96 96 O2 Delivery Nasal Cannula Nasal Cannula Nasal Cannula Nasal Cannula O2 Flow Rate 2.0 3.0 2.0 2.0 11/28/16 11/28/16 11/28/16 11/29/16 20:00 20:00 23:00 01:03 Temp 98.1 98.1 Pulse 97 Resp B/P 136/80 Pulse Ox 94 95 O2 Delivery Nasal Cannula Nasal Cannula BiPAP/CPAP O2 Flow Rate 2.0 2.0 2.0 11/29/16 11/29/16 11/29/16 11/29/16 03:00 03:00 04:22 05:22 Temp 97.5 97.5 Pulse 76 Resp 18 B/P 112/65 Pulse Ox 94 94 94 O2 Delivery BiPAP/CPAP BiPAP/CPAP Nasal Cannula Nasal Cannula O2 Flow Rate 2.0 2.0 11/29/16 11/29/16 11/29/16 11/29/16 07:19 07:55 08:15 08:34 Temp 98.1 98.1 Pulse 81 81 Resp 18 B/P 124/76 124/76 Pulse Ox 96 97 O2 Delivery Nasal Cannula Nasal Cannula Nasal Cannula O2 Flow Rate 2.0 2.0 2.0 11/29/16 08:34 Pulse 81 B/P 124/76 Intake and Output 11/28/16 11/28/16 11/29/16 14:59 22:59 06:59 Intake Total 500 ml 250 ml 100 ml Output Total 800 ml Balance 500 ml 250 ml -700 ml DAMIÁN BALL MD Nov 29, 2016 09:59
[2016-11-29 10:58] VITALS: BP 110/65
[2016-11-29] MEDS: ENOXAPARIN 40 MG/0.4 ML SYRINGE. SQ SCH (11:00)
[2016-11-29] MEDS: methylPREDNISolone SOD SUCC PF 40 MG/ML VIAL. IV SCH ×2 (13:45→20:24)
[2016-11-29 14:47] VITALS: BP 126/76
--- NOTE | 2016-11-29 17:38 | PDOC ---
PULMONARY PROGRESS NOTES Subjective pt feels better Vitals Vital Signs Date Time Temp Pulse Resp B/P Pulse Ox O2 Delivery O2 Flow Rate FiO2 11/29/16 16:11 Nasal Cannula 2.0 11/29/16 14:50 98 11/29/16 14:47 99.1 88 20 126/76 99.1 ROS: No Nausea, No Chest Pain General: Alert, No acute distress Lungs: Other (poor airflow no crackles) Cardiovascular: S1, S2 Abdomen: Soft, Non-tender Neuro Exam: Alert Extremities: No Edema Skin: Warm Labs Laboratory Tests Test 11/28/16 06:35 11/29/16 05:40 White Blood Count 16.4x10^3/uL (4.0-11.0) 16.0x10^3/uL (4.0-11.0) Red Blood Count 3.54x10^6/uL (4.30-5.70) 3.51x10^6/uL (4.30-5.70) Hemoglobin 11.3g/dL (13.0-17.5) 11.4g/dL (13.0-17.5) Hematocrit 35.9% (39.0-53.0) 35.9% (39.0-53.0) Mean Corpuscular Volume 101fL (79-100) 102fL (79-100) Mean Corpuscular Hemoglobin 32pg (25-35) 33pg (25-35) Mean Corpuscular Hemoglobin Concent 31g/dL (31-37) 32g/dL (31-37) Red Cell Distribution Width 13.7% (11.5-14.5) 14.1% (11.5-14.5) Platelet Count 256x10^3/uL (140-400) 259x10^3/uL (140-400) Neutrophils (%) (Auto) 93% (31-73) 93% (31-73) Lymphocytes (%) (Auto) 2% (24-48) 1% (24-48) Monocytes (%) (Auto) 5% (0-9) 6% (0-9) Eosinophils (%) (Auto) 0% (0-3) 0% (0-3) Basophils (%) (Auto) 0% (0-3) 0% (0-3) Neutrophils # (Auto) 15.3x10^3uL (1.8-7.7) 14.9x10^3uL (1.8-7.7) Lymphocytes # (Auto) 0.2x10^3/uL (1.0-4.8) 0.2x10^3/uL (1.0-4.8) Monocytes # (Auto) 0.9x10^3/uL (0.0-1.1) 0.9x10^3/uL (0.0-1.1) Eosinophils # (Auto) 0.0x10^3/uL (0.0-0.7) 0.0x10^3/uL (0.0-0.7) Basophils # (Auto) 0.0x10^3/uL (0.0-0.2) 0.0x10^3/uL (0.0-0.2) Sodium Level 142mmol/L (136-145) 144mmol/L (136-145) Potassium Level 3.7mmol/L (3.5-5.1) 3.9mmol/L (3.5-5.1) Chloride Level 100mmol/L (98-107) 102mmol/L (98-107) Carbon Dioxide Level 40mmol/L (21-32) 41mmol/L (21-32) Anion Gap 2 (6-14) 1 (6-14) Blood Urea Nitrogen 20mg/dL (8-26) 20mg/dL (8-26) Creatinine 0.7mg/dL (0.7-1.3) 0.7mg/dL (0.7-1.3) Estimated GFR (Cockcroft-Gault) 135.7 135.7 Glucose Level 142mg/dL (70-99) 131mg/dL (70-99) Calcium Level 9.1mg/dL (8.5-10.1) 9.4mg/dL (8.5-10.1) Laboratory Tests Test 11/29/16 05:40 White Blood Count 16.0x10^3/uL (4.0-11.0) Red Blood Count 3.51x10^6/uL (4.30-5.70) Hemoglobin 11.4g/dL (13.0-17.5) Hematocrit 35.9% (39.0-53.0) Mean Corpuscular Volume 102fL (79-100) Mean Corpuscular Hemoglobin 33pg (25-35) Mean Corpuscular Hemoglobin Concent 32g/dL (31-37) Red Cell Distribution Width 14.1% (11.5-14.5) Platelet Count 259x10^3/uL (140-400) Neutrophils (%) (Auto) 93% (31-73) Lymphocytes (%) (Auto) 1% (24-48) Monocytes (%) (Auto) 6% (0-9) Eosinophils (%) (Auto) 0% (0-3) Basophils (%) (Auto) 0% (0-3) Neutrophils # (Auto) 14.9x10^3uL (1.8-7.7) Lymphocytes # (Auto) 0.2x10^3/uL (1.0-4.8) Monocytes # (Auto) 0.9x10^3/uL (0.0-1.1) Eosinophils # (Auto) 0.0x10^3/uL (0.0-0.7) Basophils # (Auto) 0.0x10^3/uL (0.0-0.2) Sodium Level 144mmol/L (136-145) Potassium Level 3.9mmol/L (3.5-5.1) Chloride Level 102mmol/L (98-107) Carbon Dioxide Level 41mmol/L (21-32) Anion Gap 1 (6-14) Blood Urea Nitrogen 20mg/dL (8-26) Creatinine 0.7mg/dL (0.7-1.3) Estimated GFR (Cockcroft-Gault) 135.7 Glucose Level 131mg/dL (70-99) Calcium Level 9.4mg/dL (8.5-10.1) Medications Active Scripts Medications Dose Route/Sig Days Date Category Prednisone 50 Mg Tablet 1 Tab PO DAILY 10/25/16 Rx Cefpodoxime Proxetil 200 Mg Tablet 1 Tab PO BID 10/25/16 Rx [Promethazine Hcl/Codeine] 5 ML Syrup 5 Ml PO PRN Q8HRS PRN 03/15/16 Rx Klor-Con M10 (Potassium Chloride) 10 Meq Tab.er.prt 10 Meq PO DAILYWBKFT 03/15/16 Rx Prednisone 20 Mg Tablet 40 Mg PO DAILY 03/15/16 Rx Metoprolol Succinate ( Xl ) (Metoprolol Succinate) 25 Mg Tab.er.24h 25 Mg PO DAILY 11/20/15 Rx [Nicotine] 1 PATCH Patch 1 Patch TD DAILY 06/23/15 Rx Lortab 5-325 mg Tablet (Hydrocodone/Acetaminophen) 1 Each Tablet 1 Each PO QIDPRN PRN 12/13/13 Reported K-Tab (Potassium Chloride) 10 Meq Tablet.er 10 Meq PO BID 12/12/13 Rx Viagra (Sildenafil Citrate) 50 Mg Tablet 50 Mg PO PRN DAILY 10/28/13 Reported Spiriva (Tiotropium [place]) 18 Mcg Cap.w.dev 18 Mcg IH DAILY 10/28/13 Reported Omeprazole 20 Mg Capsule. 20 Mg PO DAILY 10/28/13 Reported Hydrochlorothiazide Capsule (Hydrochlorothiazide) 12.5 Mg Capsule 12.5 Mg PO DAILY 10/28/13 Reported Aspir 81 (Aspirin) 81 Mg Tablet. 81 Mg PO DAILY 10/28/13 Reported Amlodipine Besylate 5 Mg Tablet 5 Mg PO DAILY 10/28/13 Reported Albuterol Sulfate Hfa Inhaler (Albuterol Sulfate) 8.5 Gm Hfa.aer.ad 90 Mcg IH PRN EVERY 4-6H 10/28/13 Reported Impression . 1. Rpsuj-in-innqyzj hypercapnic respiratory failure secondary to acute exacerbation of chronic obstructive pulmonary disease. 2. Acute exacerbation of chronic obstructive pulmonary disease triggered by [id number] cor pulmonale. 3. Abnormal chest x-ray with chronic right pleural thickening. No evidence of congestive heart failure. 4. Lower extremity edema related to hyazr-py-kphkbwp cor pulmonale. Plan . PT FEELS BETTER LESS SOA CONTINUE THE SAME, D/C ANTIBX 1. Continue with present BiPAP qhs and p.r.n. during the day. 2. Avoid hyperoxia. 3. Continue with DuoNeb. 4. Continue with steroids. 5. DVT prophylaxis with Lovenox. DAMION THAO MD Nov 29, 2016 17:38
[2016-11-29 19:00] VITALS: BP 124/72
[2016-11-29 23:00] VITALS: BP 128/83
[2016-11-30 03:00] VITALS: BP 122/75
[2016-11-30] MEDS: PANTOPRAZOLE 40 MG TABLET.DR. PO SCH (05:08)
[2016-11-30] MEDS: HYDROCODONE/APAP 5/325MG TABLET. PO PRN ×2 (05:08→20:05)
[2016-11-30] MEDS: ALPRAZolam 0.25 MG TABLET PO PRN (05:08)
[2016-11-30] MEDS: methylPREDNISolone SOD SUCC PF 40 MG/ML VIAL. IV SCH ×3 (05:09→22:26)
[2016-11-30 07:00] VITALS: BP 145/76
[2016-11-30] MEDS: IPRATRPIUM/ALBUTEROL 0.5/2.5MG 3 ML NEBU. NEB SCH ×4 (07:48→20:34)
[2016-11-30] MEDS: HYDROCHLOROTHIAZIDE 25 MG TABLET PO SCH (09:17)
[2016-11-30] MEDS: ASPIRIN ENTERIC COATED 81 MG TABLET.DR. PO SCH (09:17)
[2016-11-30] MEDS: NICOTINE 7MG PATCH. TD SCH (09:18)
[2016-11-30] MEDS: METOPROLOL SUCC 24HR ER 25 MG TAB.ER.24H. PO SCH (09:18)
[2016-11-30] MEDS: AZELASTINE NASAL SPRAY 30ML BOTTLE. NS SCH ×2 (09:18→20:04)
[2016-11-30] MEDS: POTASSIUM CHLORIDE 10 MEQ TABLET.ER. PO SCH (09:18)
[2016-11-30] MEDS: amLODIPine BESYLATE 5 MG TABLET PO SCH (09:18)
--- NOTE | 2016-11-30 09:49 | PDOC ---
PROGRESS NOTES Subjective Subjective c/o neck pain and shoulder muscle spasm Objective Objective Vital Signs Date Time Temp Pulse Resp B/P Pulse Ox O2 Delivery O2 Flow Rate FiO2 11/30/16 09:18 93 145/76 11/30/16 07:50 98 Nasal Cannula 2.0 11/30/16 07:00 98.1 18 98.1 Intake and Output 11/30/16 07:00 Intake Total 1280 ml Output Total 1200 ml Balance 80 ml Intake Oral 1280 ml Output Urine Total 1200 ml # Voids 3 # Bowel Movements 1 Physical Exam Abdomen: Normal bowel sounds, Soft Heart: Regular rate, Normal S1 Extremities: No clubbing General: Alert, Cooperative Lungs: Other (wheezing lungs) MUSCULOSKELETAL: No swelling, Other (cervical spine muscle spasm) Neck: Supple Neuro: Normal speech Psych/Mental Status: Mental status NL Skin: No breakdown Diagnosis Problem List Problems Medical Problems: (1) COPD exacerbation Status: Acute (2) Respiratory failure Status: Acute Assessment Assessment Problems Medical Problems: (1) COPD exacerbation Status: Acute (2) Respiratory failure Status: Acute FINAL IMPRESSION: Neck pain ,ch disc disease edema legs 1. Chronic obstructive pulmonary disease with acute exacerbation. 2. Acute respiratory failure requiring BiPAP. 3. Hypertension. 4. Hyperlipidemia. 5. Smoking history. 6. History of colon cancer. PLAN: MRI cervical spine. pain clinic consult epidural shots?. inc Hctz to 25 mg solumedrol tid iv , dec to 40 mg duoneb qid+prn iv levaquin cxr -ve Bipap prn snu screen. May need BIPAP machine for home use. patient was recently discharged yesterday from , had an extensive workup done including CT scan. Plan at this time to admit to hospital, placed on BiPAP, oxygen, IV Levaquin and DuoNeb 4 times daily, IV Solu-Medrol and80 mg q. 8 hours, get the reports from . Pulmonary consult and continue DVT prophylaxis with Lovenox. Problems: Plan Plan of Care Problems Medical Problems: (1) COPD exacerbation Status: Acute (2) Respiratory failure Status: Acute Comment Review of Relevant I have reviewed the following items mario (where applicable) has been applied. Medications Current Medications Hydrochlorothiazide (Hydrodiuril) 25 mg DAILY PO Last administered on t 09:17; Start 11/30/16 at 09:00 Methylprednisolone Sodium Succinate (Solu-Medrol 40mg Vial) 40 mg Q8HRS IV Last administered on 11/30/16 05:09; Start 11/29/16 at 14:00 Vitals/I & O Vital Sign - Last 24 Hours 11/29/16 11/29/16 11/29/16 11/29/16 10:56 10:58 14:47 14:50 Temp 97.5 99.1 97.5 99.1 Pulse 82 88 Resp 20 20 B/P 110/65 126/76 Pulse Ox 97 97 97 98 O2 Delivery Nasal Cannula Nasal Cannula Nasal Cannula Nasal Cannula O2 Flow Rate 2.0 2.0 2.0 2.0 11/29/16 11/29/16 11/29/16 11/29/16 16:11 18:08 19:00 19:55 Temp 98.2 98.2 Pulse 91 Resp 18 B/P 124/72 Pulse Ox 90 O2 Delivery Nasal Cannula Nasal Cannula Nasal Cannula Nasal Cannula O2 Flow Rate 2.0 2.0 2.0 2.0 11/29/16 11/29/16 11/29/16 11/30/16 19:55 20:24 23:00 00:38 Temp 97.5 97.5 Pulse 87 Resp 18 B/P 128/83 Pulse Ox 98 90 95 O2 Delivery Nasal Cannula Nasal Cannula BiPAP/CPAP O2 Flow Rate 2.0 2.0 2.0 11/30/16 11/30/16 11/30/16 11/30/16 03:00 03:24 05:08 06:08 Temp 96.8 96.8 Pulse 71 Resp 18 B/P 122/75 Pulse Ox 96 96 96 O2 Delivery BiPAP/CPAP BiPAP/CPAP Nasal Cannula Nasal Cannula O2 Flow Rate 2.0 2.0 11/30/16 11/30/16 11/30/16 11/30/16 07:00 07:50 09:18 09:18 Temp 98.1 98.1 Pulse 93 93 93 Resp 18 B/P 145/76 145/76 145/76 Pulse Ox 95 98 O2 Delivery Room Air Nasal Cannula O2 Flow Rate 2.0 Intake and Output 11/29/16 11/29/16 11/30/16 15:00 23:00 07:00 Intake Total 720 ml 560 ml Output Total 150 ml 150 ml 900 ml Balance 570 ml 410 ml -900 ml DAMIÁN BALL MD Nov 30, 2016 09:49
[2016-11-30] MEDS: ENOXAPARIN 40 MG/0.4 ML SYRINGE. SQ SCH (11:00)
[2016-11-30 11:30] VITALS: BP 141/75
[2016-11-30] MEDS ORDERED: GADOBUTROL 10 MMOL/10 ML VIAL IV ONE (12:45)
--- NOTE | 2016-11-30 13:09 | PDOC ---
SUBJECTIVE Subjective shortness of breath and neck pain OBJECTIVE Objective 66 y.o. male with shortness of breath and neck pain Vital Signs Vital Signs Date Time Temp Pulse Resp B/P Pulse Ox O2 Delivery O2 Flow Rate FiO2 11/30/16 11:30 97.9 82 18 141/75 95 Nasal Cannula 97.9 11/30/16 11:28 97 Nasal Cannula 2.0 11/30/16 09:18 93 145/76 11/30/16 09:18 93 145/76 11/30/16 08:30 Nasal Cannula 2.0 11/30/16 07:50 98 Nasal Cannula 2.0 11/30/16 07:00 98.1 93 18 145/76 95 Room Air 98.1 11/30/16 06:08 96 Nasal Cannula 2.0 11/30/16 05:08 96 Nasal Cannula 2.0 11/30/16 03:24 BiPAP/CPAP 11/30/16 03:00 96.8 71 18 122/75 96 BiPAP/CPAP 96.8 11/30/16 00:38 95 BiPAP/CPAP 11/29/16 23:00 97.5 87 18 128/83 90 Nasal Cannula 2.0 97.5 11/29/16 20:24 98 Nasal Cannula 2.0 11/29/16 19:55 2.0 11/29/16 19:55 Nasal Cannula 2.0 11/29/16 19:00 98.2 91 18 124/72 90 Nasal Cannula 2.0 98.2 11/29/16 18:08 Nasal Cannula 2.0 11/29/16 16:11 Nasal Cannula 2.0 11/29/16 14:50 98 Nasal Cannula 2.0 11/29/16 14:47 99.1 88 20 126/76 97 Nasal Cannula 2.0 99.1 I & O Intake and Output 11/30/16 07:00 Intake Total 1280 ml Output Total 1200 ml Balance 80 ml Intake Oral 1280 ml Output Urine Total 1200 ml # Voids 3 # Bowel Movements 1 ASSESSMENT/PLAN Assessment/Plan Chronic neck pain with MRI showing DDD multi levels-control with oral analgesics as inpatient. May pursue [facility] as outpt. if desired Shoulder pain - REC: P.T. Problems: JOANNA GUTIERREZ MD Nov 30, 2016 13:09
--- NOTE | 2016-11-30 13:09 | RAD ---
PROCEDURE Cervical spine MRI with and without contrast. HISTORY Pain. TECHNIQUE Multiplanar and multi sequence magnetic resonance imaging of the cervical spine was performed prior to and following the administration 10 cc Gadavist intravenous contrast. COMPARISON CT dated 12/11/2013 an MRI dated 02/15/2007. FINDINGS The exam is limited due to motion. There is straightening of cervical lordosis. There is minimal retrolisthesis of C3 on C4. There is chronic mild decreased vertebral body height at C5 and C6. There prominent associated Schmorl's nodes at these levels. There is endplate remodeling with disc space narrowing and Schmorl's node formation at multiple additional levels. No spinal cord lesion is seen, with evaluation limited due to motion. No enhancing lesion is seen. The skullbase and posterior fossa are unremarkable. At C2-C3, there is a minimal disc bulge and endplate remodeling. There is mild facet arthropathy. There is mild left foraminal stenosis. At C3-C4, there is a right lateral predominant disc bulge and endplate remodeling. There is right uncovertebral arthropathy. There is moderate right foraminal stenosis. There is flattening of the ventral aspect of the spinal cord with mild central canal stenosis measuring 8.9 mm in anterior-posterior dimension. At C4-C5, there is a minimal disc bulge and endplate remodeling. There is uncovertebral arthropathy. There is mild facet arthropathy. There is mild bilateral foraminal stenosis. There is flattening of the ventral aspect of the spinal cord with no significant central canal stenosis. At C5-C6, there is a left posterior lateral predominant disc bulge and endplate remodeling. There is mild left facet arthropathy. There is uncovertebral arthropathy. There is no stenosis. At C6-C7, there is a diffuse disc bulge and endplate osteophytosis. There is uncovertebral arthropathy. There is moderate right and umie-ac-acdizdvu left foraminal stenosis. IMPRESSION 1. Limited exam due to motion. 2. Multilevel degenerative change throughout the cervical spine, resulting in stenosis as described above. Electronically signed by: Danii Hendricks (Nov 30, 2016 13:08:04)
[2016-11-30 14:10] LABS: PCO2 ABG 61 mmHg (35-46)
[2016-11-30 15:36] VITALS: BP 117/68
[2016-11-30 19:00] VITALS: BP 137/71
--- NOTE | 2016-11-30 20:02 | PDOC ---
PULMONARY PROGRESS NOTES Subjective pt feels better Vitals Vital Signs Date Time Temp Pulse Resp B/P Pulse Ox O2 Delivery O2 Flow Rate FiO2 11/30/16 16:34 97 Nasal Cannula 2.0 11/30/16 15:36 98.6 78 16 117/68 98.6 ROS: No Nausea, No Chest Pain General: Alert, No acute distress Lungs: Other (poor airflow no crackles) Cardiovascular: S1, S2 Abdomen: Soft, Non-tender Neuro Exam: Alert Extremities: No Edema Skin: Warm Labs Laboratory Tests Test 11/29/16 05:40 White Blood Count 16.0x10^3/uL (4.0-11.0) Red Blood Count 3.51x10^6/uL (4.30-5.70) Hemoglobin 11.4g/dL (13.0-17.5) Hematocrit 35.9% (39.0-53.0) Mean Corpuscular Volume 102fL (79-100) Mean Corpuscular Hemoglobin 33pg (25-35) Mean Corpuscular Hemoglobin Concent 32g/dL (31-37) Red Cell Distribution Width 14.1% (11.5-14.5) Platelet Count 259x10^3/uL (140-400) Neutrophils (%) (Auto) 93% (31-73) Lymphocytes (%) (Auto) 1% (24-48) Monocytes (%) (Auto) 6% (0-9) Eosinophils (%) (Auto) 0% (0-3) Basophils (%) (Auto) 0% (0-3) Neutrophils # (Auto) 14.9x10^3uL (1.8-7.7) Lymphocytes # (Auto) 0.2x10^3/uL (1.0-4.8) Monocytes # (Auto) 0.9x10^3/uL (0.0-1.1) Eosinophils # (Auto) 0.0x10^3/uL (0.0-0.7) Basophils # (Auto) 0.0x10^3/uL (0.0-0.2) Sodium Level 144mmol/L (136-145) Potassium Level 3.9mmol/L (3.5-5.1) Chloride Level 102mmol/L (98-107) Carbon Dioxide Level 41mmol/L (21-32) Anion Gap 1 (6-14) Blood Urea Nitrogen 20mg/dL (8-26) Creatinine 0.7mg/dL (0.7-1.3) Estimated GFR (Cockcroft-Gault) 135.7 Glucose Level 131mg/dL (70-99) Calcium Level 9.4mg/dL (8.5-10.1) Medications Active Scripts Medications Dose Route/Sig Days Date Category Prednisone 50 Mg Tablet 1 Tab PO DAILY 10/25/16 Rx Cefpodoxime Proxetil 200 Mg Tablet 1 Tab PO BID 10/25/16 Rx [Promethazine Hcl/Codeine] 5 ML Syrup 5 Ml PO PRN Q8HRS PRN 03/15/16 Rx Klor-Con M10 (Potassium Chloride) 10 Meq Tab.er.prt 10 Meq PO DAILYWBKFT 03/15/16 Rx Prednisone 20 Mg Tablet 40 Mg PO DAILY 03/15/16 Rx Metoprolol Succinate ( Xl ) (Metoprolol Succinate) 25 Mg Tab.er.24h 25 Mg PO DAILY 11/20/15 Rx [Nicotine] 1 PATCH Patch 1 Patch TD DAILY 06/23/15 Rx Lortab 5-325 mg Tablet (Hydrocodone/Acetaminophen) 1 Each Tablet 1 Each PO QIDPRN PRN 12/13/13 Reported K-Tab (Potassium Chloride) 10 Meq Tablet.er 10 Meq PO BID 12/12/13 Rx Viagra (Sildenafil Citrate) 50 Mg Tablet 50 Mg PO PRN DAILY 10/28/13 Reported Spiriva (Tiotropium [place]) 18 Mcg Cap.w.dev 18 Mcg IH DAILY 10/28/13 Reported Omeprazole 20 Mg Capsule. 20 Mg PO DAILY 10/28/13 Reported Hydrochlorothiazide Capsule (Hydrochlorothiazide) 12.5 Mg Capsule 12.5 Mg PO DAILY 10/28/13 Reported Aspir 81 (Aspirin) 81 Mg Tablet. 81 Mg PO DAILY 10/28/13 Reported Amlodipine Besylate 5 Mg Tablet 5 Mg PO DAILY 10/28/13 Reported Albuterol Sulfate Hfa Inhaler (Albuterol Sulfate) 8.5 Gm Hfa.aer.ad 90 Mcg IH PRN EVERY 4-6H 10/28/13 Reported Impression . 1. Fyipb-bb-rxtszre hypercapnic respiratory failure secondary to acute exacerbation of chronic obstructive pulmonary disease. 2. Acute exacerbation of chronic obstructive pulmonary disease triggered by fqbmv-yh-tmhpzju cor pulmonale. 3. Abnormal chest x-ray with chronic right pleural thickening. No evidence of congestive heart failure. 4. Lower extremity edema related to [id number]-vd-[id number] cor pulmonale. Plan . PT FEELS BETTER LESS SOA, OK TO D/C IN AM FOLLOW UP IN OFFICE, MAY BENEFIT FROM PUL REHAB CONTINUE THE SAME, D/C ANTIBX 1. Continue with present BiPAP qhs and p.r.n. during the day. 2. Avoid hyperoxia. 3. Continue with DuoNeb. 4. Continue with steroids. 5. DVT prophylaxis with Lovenox. DAMION THAO MD Nov 30, 2016 20:02
[2016-11-30 23:00] VITALS: BP 108/66
[2016-12-01 03:00] VITALS: BP 111/71
[2016-12-01] MEDS: PANTOPRAZOLE 40 MG TABLET.DR. PO SCH (06:14)
[2016-12-01 06:18] LABS: BASO % 0 % (0-3); EOS % 0 % (0-3); HEMATOCRIT 36.1 % (39.0-53.0); HEMOGLOBIN 11.5 g/dL (13.0-17.5); LYMPH # 0.2 x10^3/uL (1.0-4.8); LYMPH % 1 % (24-48); MEAN CORPUSCULAR HEMOGLOBIN 33 pg (25-35); MEAN CORPUSCULAR HGB CONC 32 g/dL (31-37); MEAN CORPUSCULAR VOLUME 102 fL (79-100); MONO % 6 % (0-9); NEUT % 92 % (31-73); PLATELET COUNT 249 x10^3/uL (140-400); RED BLOOD COUNT 3.54 x10^6/uL (4.30-5.70); RED CELL DISTRIBUTION WIDTH 13.6 % (11.5-14.5); WHITE BLOOD COUNT 13.9 x10^3/uL (4.0-11.0)
[2016-12-01 06:42] LABS: BLOOD UREA NITROGEN 19 mg/dL (8-26); CALCIUM 9.2 mg/dL (8.5-10.1); CARBON DIOXIDE 43 mmol/L (21-32); CHLORIDE 98 mmol/L (98-107); CREATININE 0.7 mg/dL (0.7-1.3); GFR 135.7; GLUCOSE 150 mg/dL (70-99); POTASSIUM 4.2 mmol/L (3.5-5.1); SODIUM 139 mmol/L (136-145)
[2016-12-01 07:48] VITALS: BP 118/70
[2016-12-01] MEDS: IPRATRPIUM/ALBUTEROL 0.5/2.5MG 3 ML NEBU. NEB SCH ×5 (08:13→20:07)
[2016-12-01] MEDS: AZELASTINE NASAL SPRAY 30ML BOTTLE. NS SCH ×2 (09:00→21:00)
--- NOTE | 2016-12-01 09:07 | PDOC ---
Provider Note Provider Note Med Onc consult 1. Compression fractures - ordered skeletal survey, SPEP, TAMIR, free light chains 2. Anemia - labs ordered see dictation MANDY SOL MD Dec 01, 2016 09:07
[2016-12-01] MEDS: POTASSIUM CHLORIDE 10 MEQ TABLET.ER. PO SCH (09:42)
[2016-12-01] MEDS: ASPIRIN ENTERIC COATED 81 MG TABLET.DR. PO SCH (09:43)
[2016-12-01] MEDS: HYDROCHLOROTHIAZIDE 25 MG TABLET PO SCH (09:43)
[2016-12-01] MEDS: amLODIPine BESYLATE 5 MG TABLET PO SCH (09:44)
[2016-12-01] MEDS: predniSONE 10 MG TABLET PO SCH (09:45)
[2016-12-01] MEDS: METOPROLOL SUCC 24HR ER 25 MG TAB.ER.24H. PO SCH (09:46)
[2016-12-01] MEDS: NICOTINE 7MG PATCH. TD SCH (09:47)
--- NOTE | 2016-12-01 10:33 | PDOC ---
PROGRESS NOTES Subjective Subjective swelling lower extremities,gaining weight Objective Objective Vital Signs Date Time Temp Pulse Resp B/P Pulse Ox O2 Delivery O2 Flow Rate FiO2 12/01/16 09:46 76 118/70 12/01/16 08:13 98 Nasal Cannula 3.0 12/01/16 07:48 97.9 18 97.9 Intake and Output 12/01/16 07:00 Intake Total 480 ml Output Total 775 ml Balance -295 ml Intake Oral 480 ml Output Urine Total 775 ml # Voids 2 Physical Exam Abdomen: Normal bowel sounds, Soft Heart: Regular rate, Normal S1 Extremities: No clubbing General: Alert, Cooperative Lungs: Other (wheezing lungs) MUSCULOSKELETAL: No swelling, Other (cervical spine muscle spasm) Neck: Supple Neuro: Normal speech Psych/Mental Status: Mental status NL Skin: No breakdown COMMENT 2+ edema lower legs Diagnosis Problem List Problems Medical Problems: (1) COPD exacerbation Status: Acute (2) Respiratory failure Status: Acute Assessment Assessment Problems Medical Problems: (1) COPD exacerbation Status: Acute (2) Respiratory failure Status: Acute FINAL IMPRESSION: diastolic heart failure Neck pain ,ch disc disease edema legs 1. Chronic obstructive pulmonary disease with acute exacerbation. 2. Acute respiratory failure requiring BiPAP. 3. Hypertension. 4. Hyperlipidemia. 5. Smoking history. 6. History of colon cancer. PLAN:ECHO for LVF. hematology consult r/o myeloma MRI cervical spine c4-5 mild compression and DJD. pain clinic consult epidural shots?. IV lasix+pot. venous doppler legs today solumedrol tid iv , prednisone to 40 mg duoneb qid+prn /dc levaquin cxr -ve Bipap prn snu screen. May need BIPAP machine for home use. Problems: Plan Plan of Care Problems Medical Problems: (1) COPD exacerbation Status: Acute (2) Respiratory failure Status: Acute Comment Review of Relevant I have reviewed the following items mario (where applicable) has been applied. Labs Laboratory Tests Test 12/01/16 06:00 White Blood Count 13.9x10^3/uL (4.0-11.0) Red Blood Count 3.54x10^6/uL (4.30-5.70) Hemoglobin 11.5g/dL (13.0-17.5) Hematocrit 36.1% (39.0-53.0) Mean Corpuscular Volume 102fL (79-100) Mean Corpuscular Hemoglobin 33pg (25-35) Mean Corpuscular Hemoglobin Concent 32g/dL (31-37) Red Cell Distribution Width 13.6% (11.5-14.5) Platelet Count 249x10^3/uL (140-400) Neutrophils (%) (Auto) 92% (31-73) Lymphocytes (%) (Auto) 1% (24-48) Monocytes (%) (Auto) 6% (0-9) Eosinophils (%) (Auto) 0% (0-3) Basophils (%) (Auto) 0% (0-3) Neutrophils # (Auto) 12.9x10^3uL (1.8-7.7) Lymphocytes # (Auto) 0.2x10^3/uL (1.0-4.8) Monocytes # (Auto) 0.9x10^3/uL (0.0-1.1) Eosinophils # (Auto) 0.0x10^3/uL (0.0-0.7) Basophils # (Auto) 0.0x10^3/uL (0.0-0.2) Sodium Level 139mmol/L (136-145) Potassium Level 4.2mmol/L (3.5-5.1) Chloride Level 98mmol/L (98-107) Carbon Dioxide Level 43mmol/L (21-32) Anion Gap (6-14) Blood Urea Nitrogen 19mg/dL (8-26) Creatinine 0.7mg/dL (0.7-1.3) Estimated GFR (Cockcroft-Gault) 135.7 Glucose Level 150mg/dL (70-99) Calcium Level 9.2mg/dL (8.5-10.1) Medications Current Medications Gadobutrol (Gadavist) 9 mmol 1X ONCE IV Last administered on 11/30/16 12:59; Start 11/30/16 at 12:45; Stop 11/30/16 at 12:46; Status DC Prednisone (Prednisone) 50 mg DAILY PO Last administered on 12/01/16 09:45; Start 12/01/16 at 09:00 Vitals/I & O Vital Sign - Last 24 Hours 11/30/16 11/30/16 11/30/16 11/30/16 11:28 11:30 15:36 16:34 Temp 97.9 98.6 97.9 98.6 Pulse 82 78 Resp 18 16 B/P 141/75 117/68 Pulse Ox 97 95 93 97 O2 Delivery Nasal Cannula Nasal Cannula Nasal Cannula Nasal Cannula O2 Flow Rate 2.0 2.0 2.0 11/30/16 11/30/16 11/30/16 11/30/16 19:00 20:00 20:05 20:33 Temp 97.9 97.9 Pulse 81 Resp 18 20 B/P 137/71 Pulse Ox 93 97 96 O2 Delivery Nasal Cannula Nasal Cannula Nasal Cannula Nasal Cannula O2 Flow Rate 2.0 2.0 2.0 2.0 11/30/16 11/30/16 12/01/16 12/01/16 21:05 23:00 03:00 07:48 Temp 97.7 97.5 97.9 97.7 97.5 97.9 Pulse 79 86 76 Resp 18 18 18 18 B/P 108/66 111/71 118/70 Pulse Ox 97 97 97 96 O2 Delivery Nasal Cannula Nasal Cannula Nasal Cannula Nasal Cannula O2 Flow Rate 2.0 2.0 2.0 2.0 12/01/16 12/01/16 12/01/16 08:13 09:44 09:46 Pulse 76 76 B/P 118/70 118/70 Pulse Ox 98 O2 Delivery Nasal Cannula O2 Flow Rate 3.0 Intake and Output 11/30/16 11/30/16 12/01/16 15:00 23:00 07:00 Intake Total 480 ml Output Total 400 ml 375 ml Balance 480 ml -400 ml -375 ml DAMIÁN BALL MD Dec 01, 2016 10:33
[2016-12-01 10:37] VITALS: BP 113/69
[2016-12-01] MEDS ORDERED: POTASSIUM CHLORIDE 20 MEQ TABLET.ER. PO ONE (11:00)
[2016-12-01 11:43] LABS: % SAT IRON 58 % (15-34); IRON,SERUM 149 ug/dL (65-175)
[2016-12-01 11:53] LABS: FOLATE 9.14 ng/ml (3.2-20.0)
--- NOTE | 2016-12-01 12:36 | PDOC2 ---
NELIA ARANA [employer]PERVIS[employer] 12/01/16 1236: CARDIAC CONSULT DATE OF CONSULT Date of Consult DATE: 12/01/16 TIME: 12:20 REASON FOR CONSULT Reason for Consult: CHF REFERRING PHYSICIAN Referring Physician: Harry SOURCE Source: Chart review, Patient HISTORY OF PRESENT ILLNESS HISTORY OF PRESENT ILLNESS This is a 66 yo AA male admitted for complains of SOA. Reports that he has been SOA in the last 1-2 weeks and has been having increasing productive cough with white sputum. He is positive for orthopnea and his legs have became more swollen. Denies any chest pain, palpitations or dizziness. Verbalized compliance with his medications. Denies any prior VTE, CAD but significant for COPD and did no quit smoking tobacco till 2 weeks ago. He uses O2 consistely at home about 3 L but does not use any CPAP device and is not known for any diagnosis of sleep apnea. Complins of back pain but no leg pain in relation to his leg swelling. PAST MEDICAL HISTORY Past Medical History Cardiovascular: HTN, Hyperlipidemia, Cor Pulmonale, CHF, NSVT Pulmonary: COPD (with home O2) CENTRAL NERVOUS SYSTEM: Other (no pertinent hx) GI: GERD, hiatal hernia Heme/Onc: Cancer (colon), Anemia Hepatobiliary: No pertinent hx Psych: Addictions Musculoskeletal: Osteoarthritis, Other (chronic neck pain), compression fractures Rheumatologic: Gout Infectious disease: No pertinent hx ENT: No pertinent hx Renal/: Left renal cyst Endocrine: No pertinent hx Dermatology: No pertinent hx PAST SURGICAL HISTORY Past Surgical History: Colon Resection FAMILY HISTORY Family History noncontributory SOCIAL HISTORY Social History Smoke: 1 pack per day ALCOHOL: heavy Drugs: None Lives: with Family CURRENT MEDICATIONS CURRENT MEDICATIONS Current Medications Medications (Trade) Dose Ordered Sig/Nilo Route PRN Reason Start Time Stop Time Status Last Admin Dose Admin Prednisone (Prednisone) 50 mg DAILY PO 12/01/16 09:00 12/01/16 09:45 Gadobutrol (Gadavist) 9 mmol 1X ONCE IV 11/30/16 12:45 11/30/16 12:46 DC 11/30/16 12:59 ALLERGIES ALLERGIES: Coded Allergies: DELIA Inhibitors (Verified Allergy, Intermediate, 11/19/15) ROS Review of System 14 point ROS evaluated with pertinent positives noted per HPI PHYSICAL EXAM General: Alert, Oriented X3, Cooperative, No acute distress HEENT: Atraumatic, Mucous membr. moist/pink Lungs: Other (diminished bases with faint diffuse wheeze) Extremities: No cyanosis, Other (3+ bilateral LE pitting edema) Skin: No breakdown, No significant lesion Neuro: Normal speech, Sensation intact Psych/Mental Status: Mental status NL, Other (irritable) MUSCULOSKELETAL: Osteoarthritic changes both hands VITALS VITALS Vital Signs Date Time Temp Pulse Resp B/P Pulse Ox O2 Delivery O2 Flow Rate FiO2 12/01/16 10:37 98.1 74 18 113/69 98 Nasal Cannula 2.0 98.1 LABS Lab: Laboratory Tests Test 12/01/16 06:00 12/01/16 10:55 White Blood Count 13.9x10^3/uL (4.0-11.0) Red Blood Count 3.54x10^6/uL (4.30-5.70) Hemoglobin 11.5g/dL (13.0-17.5) Hematocrit 36.1% (39.0-53.0) Mean Corpuscular Volume 102fL (79-100) Mean Corpuscular Hemoglobin 33pg (25-35) Mean Corpuscular Hemoglobin Concent 32g/dL (31-37) Red Cell Distribution Width 13.6% (11.5-14.5) Platelet Count 249x10^3/uL (140-400) Neutrophils (%) (Auto) 92% (31-73) Lymphocytes (%) (Auto) 1% (24-48) Monocytes (%) (Auto) 6% (0-9) Eosinophils (%) (Auto) 0% (0-3) Basophils (%) (Auto) 0% (0-3) Neutrophils # (Auto) 12.9x10^3uL (1.8-7.7) Lymphocytes # (Auto) 0.2x10^3/uL (1.0-4.8) Monocytes # (Auto) 0.9x10^3/uL (0.0-1.1) Eosinophils # (Auto) 0.0x10^3/uL (0.0-0.7) Basophils # (Auto) 0.0x10^3/uL (0.0-0.2) Sodium Level 139mmol/L (136-145) Potassium Level 4.2mmol/L (3.5-5.1) Chloride Level 98mmol/L (98-107) Carbon Dioxide Level 43mmol/L (21-32) Anion Gap (6-14) Blood Urea Nitrogen 19mg/dL (8-26) Creatinine 0.7mg/dL (0.7-1.3) Estimated GFR (Cockcroft-Gault) 135.7 Glucose Level 150mg/dL (70-99) Calcium Level 9.2mg/dL (8.5-10.1) Reticulocyte Count (auto) 0.7% (0.5-2.5) Iron Level 149ug/dL (65-175) Total Iron Binding Capacity 259ug/dL (250-450) Iron Saturation 58% (15-34) Ferritin 392ng/mL (26-388) Vitamin B12 Level 478pg/mL (247-911) Serum Folate 9.14ng/ml (3.2-20.0) ECHOCARDIOGRAM ECHOCARDIOGRAM <Conclusion> Technically difficult study. Lumason echo contrast used. The left ventricular systolic function is normal. The Ejection Fraction is estimated at 65-70%. There is normal LV segmental wall motion. Trace tricuspid valve regurgitation. There is no evidence of significant pericardial effusion. DATE: 11/18/15 3329 ASSESSMENT/PLAN ASSESSMENT/PLAN 1. AECOPD/Cor pulmonale: pulmonary following. Improved. 2. Acute respiratory failure: mainly pulmonary involvement with notable moderate pulmonary HTN. Suspect sleep apnea. EF and wall motion normal. Pro NT BNP 36 suggesting no acute CHF 3. HTN: controlled 4. HLP 5. Macrocytic anemia with hx of heavy ETOH use. Hemonc following 6. Tobaccoism: quit 2 weeks ago 7. Probable venous insufficiency 8. Secondary hypothyroidism? low levels on T3 and TSH on 10/2016, defer to PCP Recommendations 1. Smoking cessation. Currently denies ETOH 2. Follow pulmonary recommendations 3. Compression stockings 4. Agree with low dose lasix therapy 5. No further cardiac testing at this time Problems: MONTSE STONE MD 12/01/16 190: CARDIAC CONSULT ALLERGIES ALLERGIES: Coded Allergies: DELIA Inhibitors (Verified Allergy, Intermediate, 11/19/15) ASSESSMENT/PLAN ASSESSMENT/PLAN Patient seen and examined. Agree with above nurse practitioner noted. 66-year-old male has been admitted to the hospital with COPD exacerbation. He was noted to have lower extremity edema and therefore cardiology was consulted for possible heart failure. Patient at baseline has had significant progressive dyspnea. He denies any chest pain. On examination he does have significant 2-3+ pitting edema bilaterally. There is incongruence between his physical exam and laboratory studies with a BNP of less than 100. Patient likely has venous insufficiency and mild acute on chronic diastolic heart failure. Agree with gentle diuresis. Outpatient evaluation for venous reflux studies. Supportive care from a cardiac standpoint. We will follow along. Problems: NELIA ARANA APRN Dec 01, 2016 12:36 MONTSE STONE MD Dec 01, 2016 19:02
--- NOTE | 2016-12-01 13:25 | RAD ---
Bilateral lower extremity venous ultrasound, 12/01/2016 History: Bilateral leg swelling Duplex evaluation of the deep veins in the lower extremities was performed including grayscale, color-flow and spectral Doppler analysis. The femoral and popliteal veins demonstrate normal compressibility and normal responses to distal augmentation maneuvers. Color imaging of those vessels shows no evidence of intraluminal clot. The visualized deep veins in both calves are patent. IMPRESSION: There is no sonographic evidence of deep vein thrombosis in either lower extremity.
[2016-12-01] MEDS: FUROSEMIDE 20 MG/2 ML VIAL. IVP SCH ×2 (13:45→16:24)
[2016-12-01] MEDS: ENOXAPARIN 40 MG/0.4 ML SYRINGE. SQ SCH (13:48)
--- NOTE | 2016-12-01 13:59 | RAD ---
Metastatic skeletal survey, 12/01/2016: History: Vertebral compression fractures Multiple views of the bony skeleton were obtained. There is generalized bony demineralization. The following findings are delineated. 1. An AP view of the chest reveals an old healed fracture of the left sixth rib posteriorly. No destructive bony lesion is seen. There is pleural-parenchymal scarring in the right base. 2. A lateral view of the skull demonstrates several small venous lakes. No definite destructive lesion is seen. 3. AP and lateral views of the cervical spine demonstrates mild loss of height of the C5 and C6 vertebral bodies. There are moderate scattered degenerative changes. No bone destruction is evident. Calcific plaquing is present at the carotid bifurcations. 4. AP and lateral views of the thoracic and lumbar spine demonstrate mild loss of height of multiple thoracic vertebral bodies, of indeterminate ages. There is a severe old vertebral compression fracture at approximately the T9 level. There are moderate scattered spurs. No destructive bony lesion is seen. 5. AP view of the pelvis reveals no fracture or destructive bony lesion. 6. AP views of both femurs and lower legs reveal no fracture or destructive bony lesion. There are scattered arterial calcifications. There is a wire-like radiopaque foreign body in the soft tissues along the medial aspect of the right lower leg. 7. AP views of both humeri and forearms reveal patchy bony demineralization. No focal destructive process is seen. IMPRESSION: 1. Demineralization. 2. Numerous vertebral compression deformities of indeterminate ages. 3. No destructive bony lesion is delineated.
[2016-12-01 14:50] VITALS: BP 121/75
--- NOTE | 2016-12-01 15:06 | CARD ---
APPROVED REPORT EXAM: Two-dimensional and M-mode echocardiogram with Doppler and color Doppler. Other Information Quality : AverageHR: 73bpm Rhythm : NSR INDICATION Congestive Heart Failure 2D DIMENSIONS RVDd2.9 (2.9-3.5cm)Left Atrium(2D)2.7 (1.6-4.0cm) IVSd0.8 (0.7-1.1cm)Aortic Root(2D)2.8 (2.0-3.7cm) LVDd5.7 (3.9-5.9cm)LVOT Diameter2.2 (1.8-2.4cm) PWd0.9 (0.7-1.1cm)LVDs3.9 (2.5-4.0cm) FS (%) 31.9 %SV96.2 ml LVEF(%)59.3 (>50%) Aortic Valve AoV Peak Baljinder.144.8cm/sAoV VTI24.4cm AO Peak GR.8.4mmHgLVOT Peak Baljinder.119.3cm/s LVOT VTI 23.34cmAO Mean GR.4mmHg USAMA (VMAX)3.76ox7OAV (VTI)3.57cm2 Mitral Valve MV E Dwasknab16.7cm/sMV DECEL NQAG795pg MV A Ifrgkdsv75.3cm/sMV RVG31ze E/A Ratio0.9MVA (PHT)3.66cm2 TDI E/Lateral E'5.7E/Medial E'8.6 Tricuspid Valve TR P. Gvjniaez559si/sRAP RUGOIKAQ79nuIg TR Peak Gr.35yyOgQNDU23ijVb LEFT VENTRICLE The left ventricle is normal size. There is normal left ventricular wall thickness. Left ventricle sy stolic function is grossly normal.The Ejection Fraction is 55-60%. Wall motion is grossly normal, ove rall not well visualized. Transmitral Doppler flow pattern is Grade I-abnormal relaxation pattern. Th ere is no ventricular septal defect visualized. RIGHT VENTRICLE The right ventricle is normal size. The right ventricular systolic function is normal. ATRIA The left atrium size is normal. The right atrium size is normal. The interatrial septum is intact wit h no evidence for an atrial septal defect or patent foramen ovale as noted on 2-D or Doppler imaging. AORTIC VALVE The aortic valve is not well visualized but appears to be functioning normally by Doppler interrogati on. Doppler and Color Flow revealed no significant aortic regurgitation. There is no significant aort ic valvular stenosis. MITRAL VALVE Not well visualized. There is no mitral valve stenosis. Doppler and Color Flow revealed no mitral srikanth ve regurgitation noted. TRICUSPID VALVE The tricuspid valve is normal in structure and function. Doppler and Color Flow revealed trace tricus pid regurgitation. The PA pressure was estimated at 43 mmHg. There is mild pulmonary hypertension. Th ere is no tricuspid valve stenosis. PULMONIC VALVE The pulmonic valve is not well visualized but appears to be functioning normally by Doppler interroga tion. Doppler and Color Flow revealed no pulmonic valvular regurgitation. There is no pulmonic valvul ar stenosis. GREAT VESSELS The aortic root is normal in size. The ascending aorta is normal in size. The IVC is dilated and rosa apses <50% with inspiration. PERICARDIAL EFFUSION There is no pleural effusion. There is no evidence of significant pericardial effusion. Critical Notification Critical Value: No <Conclusion> Left ventricle systolic function is grossly normal.The Ejection Fraction is 55-60%. Wall motion is grossly normal, overall not well visualized. Doppler and Color Flow revealed trace tricuspid regurgitation. The PA pressure was estimated at 43 mm Hg. There is mild pulmonary hypertension.
[2016-12-01 17:07] LABS: ALBUMIN 2.7 g/dL (3.4-5.0); DIRECT BILIRUBIN 0.1 mg/dL (0.0-0.2); TOTAL BILIRUBIN 0.4 mg/dL (0.2-1.0); TOTAL PROTEIN 5.9 g/dL (6.4-8.2)
[2016-12-01] MEDS: HYDROCODONE/APAP 5/325MG TABLET. PO PRN (19:42)
[2016-12-01 19:44] VITALS: BP 114/80
[2016-12-01] MEDS ORDERED: ONDANSETRON PF 4 MG/2 ML VIAL. IV PRN (21:00)
[2016-12-01 23:47] VITALS: BP 122/76
--- NOTE | 2016-12-02 01:01 | CONS ---
DATE OF CONSULTATION: 12/01/2016 REQUESTING PHYSICIAN: Dr. Salas Mcdonald. REASON FOR CONSULTATION: Compression fractures, anemia and to evaluate for multiple myeloma. HISTORY OF PRESENT ILLNESS: The patient is a 66-year-old -[place] gentleman who has a history of COPD and he was admitted to [facility] on 11/26/2016 with worsening shortness of breath and he was admitted for management of acute exacerbation of COPD. He also reported having back pain and hence he underwent cervical spine MRI on 11/30/2016 that revealed chronic mild compression deformities of C5 and C6. Degenerative changes have slightly progressed. In addition, he was noted to have anemia with a hemoglobin of 12.9 on 11/26/2016 and hence I was consulted for further evaluation of possible multiple myeloma. The patient denies any loss of weight or loss of appetite. No fevers, chills or night sweats. No hematemesis, melena, hematochezia. No hemoptysis or hematuria. PAST MEDICAL HISTORY: COPD. He is on oxygen 24 hours a day, hypertension, hyperlipidemia, diastolic heart failure, gout, history of colon cancer in 1996. PAST SURGICAL HISTORY: Colon cancer surgery. No history of chemotherapy. SOCIAL HISTORY: He started smoking at the age of 11. He quit smoking in November 2016. He has smoked 1-1/2 pack a day on an average. FAMILY HISTORY: Negative for multiple myeloma. REVIEW OF SYSTEMS: A 14-point review of system was performed. Pertinent positives are mentioned in the history of present illness. Rest of the system review is negative. PHYSICAL EXAMINATION: GENERAL APPEARANCE: The patient is a 66-year-old -[place] gentleman who is in no acute cardiorespiratory distress. VITAL SIGNS: Blood pressure 113/69, temperature 98.1. HEENT: Head, atraumatic, normocephalic. Eyes, no icterus. NECK: Supple. CHEST: Bilaterally symmetrical. No crepitations or rhonchi heard. HEART: S1, S2 normal. ABDOMEN: Soft, nontender. CENTRAL NERVOUS SYSTEM: No focal neurological deficits. LYMPHATICS: No lymphadenopathy. SKIN: No rashes. PSYCHOLOGIC: Mood and affect are appropriate. MUSCULOSKELETAL: No joint effusions. LABORATORY DATA: WBC 13.9, hemoglobin 11.5, platelet count 249, reticulocyte count 0.7. Creatinine 0.7, calcium 9.2, iron 149, TIBC 259, iron saturation 58, ferritin 392, B12 of 478, folic acid 9.14. RADIOLOGICAL STUDIES: Cervical spine MRI on 11/30/2016 revealed chronic mild compression deformities of C5 and C6. Metastatic series on 12/01/2016 revealed numerous vertebral compression deformities of indeterminate age. There is no evidence of destructive bone lesions. There is evidence of demineralization. Ultrasound of the lower extremity on 12/01/2016 is negative for DVT. IMPRESSION AND PLAN: 1. Multiple spine compression deformities. There is no evidence of destructive lesions noted. In view of associated anemia and his complaints of back pain, I will proceed with further workup for multiple myeloma. I will obtain serum protein electrophoresis, serum free light chains and immunofixation. If the above results are negative, then I would not pursue with a bone marrow biopsy. If there are any further abnormalities, then a bone marrow biopsy would be helpful. 2. Exacerbation of chronic obstructive pulmonary disease, management per Pulmonary Medicine. 3. Colon cancer in 1996. There is no clinical evidence of recurrence. He has had a CT scan of the abdomen and pelvis on 10/06/2016, was negative for malignancy. He has evidence of prostatomegaly. Chest x-ray on 10/26/2016 does not reveal any evidence of metastatic disease. I discussed with Dr. Mcdonald. MANDY SOL MD DR: JOE/braden JOB#: [id number] / [id number] [place]
[2016-12-02] MEDS: PROMETH/CODEINE 6.25/10MG 5 ML SYRUP. PO PRN (03:22)
[2016-12-02 03:59] VITALS: BP 92/61
[2016-12-02] MEDS: PANTOPRAZOLE 40 MG TABLET.DR. PO SCH (06:26)
[2016-12-02 07:00] VITALS: BP 105/66
[2016-12-02] MEDS: IPRATRPIUM/ALBUTEROL 0.5/2.5MG 3 ML NEBU. NEB SCH ×4 (08:24→19:33)
[2016-12-02] MEDS: POTASSIUM CHLORIDE 20 MEQ TABLET.ER. PO SCH (08:41)
[2016-12-02] MEDS: FUROSEMIDE 20 MG/2 ML VIAL. IVP SCH (08:41)
[2016-12-02] MEDS: ASPIRIN ENTERIC COATED 81 MG TABLET.DR. PO SCH (08:41)
[2016-12-02] MEDS: amLODIPine BESYLATE 5 MG TABLET PO SCH (08:42)
[2016-12-02] MEDS: HYDROCHLOROTHIAZIDE 25 MG TABLET PO SCH (08:42)
[2016-12-02] MEDS: NICOTINE 7MG PATCH. TD SCH (08:43)
[2016-12-02] MEDS: METOPROLOL SUCC 24HR ER 25 MG TAB.ER.24H. PO SCH (08:43)
[2016-12-02] MEDS: predniSONE 10 MG TABLET PO SCH (08:43)
[2016-12-02] MEDS: AZELASTINE NASAL SPRAY 30ML BOTTLE. NS SCH ×2 (08:52→20:26)
[2016-12-02] MEDS: HYDROCODONE/APAP 5/325MG TABLET. PO PRN ×2 (08:55→20:26)
[2016-12-02 10:42] VITALS: BP 98/61
[2016-12-02] MEDS: ENOXAPARIN 40 MG/0.4 ML SYRINGE. SQ SCH (11:00)
--- NOTE | 2016-12-02 11:58 | PDOC ---
IM PROGRESS NOTES- Subjective Subjective No dyspnea,dizziness.still has nausea. Objective Vitals Vital Signs Date Time Temp Pulse Resp B/P Pulse Ox O2 Delivery O2 Flow Rate FiO2 12/02/16 11:43 Nasal Cannula 3.0 12/02/16 11:29 94 12/02/16 10:42 98.2 77 20 98/61 98.2 Input & Output Intake and Output 12/02/16 07:00 Intake Total 720 ml Output Total 3150 ml Balance -2430 ml Intake Oral 720 ml Output Urine Total 3150 ml # Voids 2 # Bowel Movements 1 Physical Exam Physical Exam General appearance - alert,ill appearing, and in moderate distress and oriented to person, place, and time Mental Status - alert, oriented to person, place, and time, affect appropriate to mood Head - normal Chest - decreased air entry Heart - S1 and S2 normal Abdomen - soft, nontender, nondistended, no masses or organomegaly Neurological - alert and oriented Musculoskeletal - no muscular tenderness noted Extremities - no pedal edema Skin - warm and dry Labs Laboratory Tests Test 12/01/16 06:00 12/01/16 10:55 White Blood Count 13.9x10^3/uL (4.0-11.0) Red Blood Count 3.54x10^6/uL (4.30-5.70) Hemoglobin 11.5g/dL (13.0-17.5) Hematocrit 36.1% (39.0-53.0) Mean Corpuscular Volume 102fL (79-100) Mean Corpuscular Hemoglobin 33pg (25-35) Mean Corpuscular Hemoglobin Concent 32g/dL (31-37) Red Cell Distribution Width 13.6% (11.5-14.5) Platelet Count 249x10^3/uL (140-400) Neutrophils (%) (Auto) 92% (31-73) Lymphocytes (%) (Auto) 1% (24-48) Monocytes (%) (Auto) 6% (0-9) Eosinophils (%) (Auto) 0% (0-3) Basophils (%) (Auto) 0% (0-3) Neutrophils # (Auto) 12.9x10^3uL (1.8-7.7) Lymphocytes # (Auto) 0.2x10^3/uL (1.0-4.8) Monocytes # (Auto) 0.9x10^3/uL (0.0-1.1) Eosinophils # (Auto) 0.0x10^3/uL (0.0-0.7) Basophils # (Auto) 0.0x10^3/uL (0.0-0.2) Sodium Level 139mmol/L (136-145) Potassium Level 4.2mmol/L (3.5-5.1) Chloride Level 98mmol/L (98-107) Carbon Dioxide Level 43mmol/L (21-32) Anion Gap (6-14) Blood Urea Nitrogen 19mg/dL (8-26) Creatinine 0.7mg/dL (0.7-1.3) Estimated GFR (Cockcroft-Gault) 135.7 Glucose Level 150mg/dL (70-99) Calcium Level 9.2mg/dL (8.5-10.1) Reticulocyte Count (auto) 0.7% (0.5-2.5) Iron Level 149ug/dL (65-175) Total Iron Binding Capacity 259ug/dL (250-450) Iron Saturation 58% (15-34) Ferritin 392ng/mL (26-388) Total Bilirubin 0.4mg/dL (0.2-1.0) Direct Bilirubin 0.1mg/dL (0.0-0.2) Aspartate Amino Transf (AST/SGOT) 20U/L (15-37) Alanine Aminotransferase (ALT/SGPT) 56U/L (16-63) Alkaline Phosphatase 119U/L (46-116) Total Protein 5.9g/dL (6.4-8.2) Albumin 2.7g/dL (3.4-5.0) Vitamin B12 Level 478pg/mL (247-911) Serum Folate 9.14ng/ml (3.2-20.0) Meds Current Medications Ondansetron HCl (Zofran) 4 mg PRN Q6HRS PRN IV NAUSEA/VOMITING; Start 12/01/16 at 21:00 Potassium Chloride (Klor-Con) 20 meq [id number] PO Last administered on t 08:41; Start 12/02/16 at 08:00 Assessment Assessment Problems Medical Problems: (1) COPD exacerbation Status: Acute (2) Respiratory failure Status: Acute FINAL IMPRESSION: diastolic heart failure Neck pain ,ch disc disease edema legs 1. Chronic obstructive pulmonary disease with acute exacerbation. 2. Acute respiratory failure requiring BiPAP. 3. Hypertension. 4. Hyperlipidemia. 5. Smoking history. 6. History of colon cancer. PLAN:ECHO for LVF. hematology consult r/o myeloma MRI cervical spine c4-5 mild compression and DJD. pain clinic consult epidural shots?. IV lasix+pot. venous doppler legs today solumedrol tid iv , prednisone to 40 mg duoneb qid+prn /dc levaquin cxr -ve Bipap prn snu screen. May need BIPAP machine for home use. Nausea- IV Zofran. Hypotension- BP 92/61- monitor. Plan Plan For more details regarding further plans, please refer to the orders. ZARINA DAVILA MD Dec 02, 2016 11:58
--- NOTE | 2016-12-02 12:03 | PDOC ---
Provider Note Provider Note Noted BP. Will stop amlodipine and lasix IVP for now Start lasix 40mg daily tomorrow. Compression socks. Supportive care. Would not diurese aggressively at this time. MONTSE STONE MD Dec 02, 2016 12:03
[2016-12-02] MEDS: ALPRAZolam 0.25 MG TABLET PO PRN (13:32)
[2016-12-02 13:35] LABS: GLUCOSE 167 mg/dL (70-99)
[2016-12-02 13:36] LABS: BLOOD UREA NITROGEN 20 mg/dL (8-26); CARBON DIOXIDE > 45 mmol/L (21-32); CHLORIDE 96 mmol/L (98-107); CREATININE 0.8 mg/dL (0.7-1.3); GFR 116.3; POTASSIUM 3.4 mmol/L (3.5-5.1); SODIUM 141 mmol/L (136-145)
[2016-12-02 15:00] VITALS: BP 87/42
[2016-12-02 19:00] VITALS: BP 112/69
[2016-12-02 23:00] VITALS: BP 119/70
--- NOTE | 2016-12-03 00:10 | CONS ---
DATE OF CONSULTATION: 12/01/2016 REASON FOR CONSULTATION: Cervical spine compression fracture. HISTORY OF PRESENT ILLNESS: The patient is a pleasant 66-year-old man who was admitted to the hospital for an exacerbation of COPD. While in the hospital, he complained of significant neck pain along with pain in his shoulders and an MRI of the cervical spine was obtained and I was consulted. The patient gives a long history of problems with neck pain. He says the pain is in the posterior neck. It is on both sides. He also notices pain in both of his shoulders. The pain is increased with activities. It is decreased with rest. He feels that he is never pain free and would like a stronger pain medication. PAST MEDICAL HISTORY: History of severe COPD and relates that he take oxygen 24 hours per day. History of hypertension, hyperlipidemia, cardiac history, gout, history of colon cancer. PAST SURGICAL HISTORY: Includes abdominal surgery for colon cancer. MEDICATIONS: See the MRAD. They are noncontributory. ALLERGIES: DELIA inhibitors which are associated with angioedema. PERSONAL HISTORY: He is a smoker, a third of a pack per day for the last 30-40 years. Denies alcohol use. REVIEW OF SYSTEMS: A 12-point was performed and the pertinent findings involved his shortness of breath and problems of COPD. PHYSICAL EXAMINATION: GENERAL: He is supine in bed. Head of bed is elevated about 30 degrees. He is alert, pleasant and cooperative, sitting at the bedside. MUSCULOSKELETAL: With palpation over the posterior cervical region, there was mild tenderness in both cervical paraspinal muscles with slightly restricted range of motion in all directions. NEUROLOGICAL: His strength was 5/5 in upper and lower extremities bilaterally. His sensory examination was unremarkable in both lower extremities bilaterally to light touch. Reflexes were trace and symmetric without pathologic reflexes. There was full range of motion of upper and lower extremities bilaterally. LABORATORY DATA: I reviewed an MRI of the cervical spine. On that study, there is evidence of mild chronic compression fracture of C5 and C6. I did not see significant central canal stenosis at any level although there was mild flattening of the ventral aspect of the spinal cord at C4-C5 and a mild central canal stenosis at C3-C4. There is moderately severe diffuse cervical spondylosis. ASSESSMENT AND PLAN: This patient had cervical spondylosis and pain. I do not see a surgical problem. I would recommend his treatment with physical therapy and/or cervical epidural steroid injection. I see that he has been seen by the pain clinic and I agree with that recommendation. Additionally, the patient may require a long-term analgesic pain medicine that help him control his neck pain. I discussed all this with him. I appreciate very much you asking me to see him. LETITIA IGNACIO MD DR: CARMEN/braden JOB#: [id number] / [id number]
[2016-12-03] MEDS: HYDROCODONE/APAP 5/325MG TABLET. PO PRN ×3 (02:51→14:23)
[2016-12-03 03:00] VITALS: BP 101/65
[2016-12-03] MEDS: IPRATRPIUM/ALBUTEROL 0.5/2.5MG 3 ML NEBU. NEB SCH ×4 (05:25→20:07)
[2016-12-03 07:00] VITALS: BP_SYST 92; BP_SYST 96; BP_DIAS 56; BP_DIAS 57
[2016-12-03] MEDS: ASPIRIN ENTERIC COATED 81 MG TABLET.DR. PO SCH (07:44)
[2016-12-03] MEDS: POTASSIUM CHLORIDE 20 MEQ TABLET.ER. PO SCH ×3 (07:44→17:06)
[2016-12-03] MEDS: PANTOPRAZOLE 40 MG TABLET.DR. PO SCH (07:44)
[2016-12-03] MEDS: predniSONE 10 MG TABLET PO SCH (07:44)
[2016-12-03] MEDS: ALPRAZolam 0.25 MG TABLET PO PRN (07:45)
[2016-12-03] MEDS: NICOTINE 7MG PATCH. TD SCH (07:45)
[2016-12-03] MEDS: FUROSEMIDE 40 MG TABLET. PO SCH (09:00)
[2016-12-03] MEDS: METOPROLOL SUCC 24HR ER 25 MG TAB.ER.24H. PO SCH (09:00)
[2016-12-03] MEDS: HYDROCHLOROTHIAZIDE 25 MG TABLET PO SCH (09:00)
[2016-12-03 09:55] LABS: BASO % 0 % (0-3); EOS % 0 % (0-3); HEMATOCRIT 36.9 % (39.0-53.0); HEMOGLOBIN 12.2 g/dL (13.0-17.5); LYMPH # 0.5 x10^3/uL (1.0-4.8); LYMPH % 3 % (24-48); MEAN CORPUSCULAR HEMOGLOBIN 33 pg (25-35); MEAN CORPUSCULAR HGB CONC 33 g/dL (31-37); MEAN CORPUSCULAR VOLUME 100 fL (79-100); MONO % 6 % (0-9); NEUT % 91 % (31-73); PLATELET COUNT 221 x10^3/uL (140-400); RED BLOOD COUNT 3.69 x10^6/uL (4.30-5.70); RED CELL DISTRIBUTION WIDTH 13.8 % (11.5-14.5); WHITE BLOOD COUNT 16.4 x10^3/uL (4.0-11.0)
[2016-12-03 10:18] LABS: ALBUMIN 2.6 g/dL (3.4-5.0); ALBUMIN/GLOBULIN RATIO 0.8 (1.0-1.7); ALK PHOS 84 U/L (46-116); ALT (SGPT) 48 U/L (16-63); AST (SGOT) 19 U/L (15-37); BLOOD UREA NITROGEN 19 mg/dL (8-26); BUN/CREATININE RATIO 32 (6-20); CALCIUM 8.8 mg/dL (8.5-10.1); CARBON DIOXIDE 43 mmol/L (21-32); CHLORIDE 96 mmol/L (98-107); CREATININE 0.6 mg/dL (0.7-1.3); GFR 162.1; GLUCOSE 183 mg/dL (70-99); POTASSIUM 3.4 mmol/L (3.5-5.1); SODIUM 137 mmol/L (136-145); TOTAL BILIRUBIN 0.6 mg/dL (0.2-1.0); TOTAL PROTEIN 5.9 g/dL (6.4-8.2)
[2016-12-03 11:00] VITALS: BP 109/66
[2016-12-03] MEDS: ENOXAPARIN 40 MG/0.4 ML SYRINGE. SQ SCH (11:00)
[2016-12-03] MEDS: AZELASTINE NASAL SPRAY 30ML BOTTLE. NS SCH ×2 (11:20→20:58)
--- NOTE | 2016-12-03 12:52 | PDOC ---
IM PROGRESS NOTES- Subjective Subjective No dyspnea,dizziness. Nausea better.c/o back pain,leg pain.Pain meds not helping. Objective Vitals Vital Signs Date Time Temp Pulse Resp B/P Pulse Ox O2 Delivery O2 Flow Rate FiO2 12/03/16 11:19 94 Nasal Cannula 3.0 12/03/16 11:00 97.5 104 20 109/66 97.5 Input & Output Intake and Output 12/03/16 07:00 Intake Total 540 ml Output Total 900 ml Balance -360 ml Intake Oral 540 ml Output Urine Total 900 ml # Voids 2 # Bowel Movements 2 Physical Exam Physical Exam General appearance - alert,ill appearing, and in mild distress and oriented to person, place, and time Mental Status - alert, oriented to person, place, and time, affect appropriate to mood Head - normal Chest - decreased air entry Heart - S1 and S2 normal Abdomen - soft, nontender, nondistended, no masses or organomegaly Neurological - alert and oriented Musculoskeletal - Lss pine tenderness- more on rt side Extremities - ++ pedal edema Skin - warm and dry Labs Laboratory Tests Test 12/02/16 12:40 12/03/16 09:45 Sodium Level 141mmol/L (136-145) 137mmol/L (136-145) Potassium Level 3.4mmol/L (3.5-5.1) 3.4mmol/L (3.5-5.1) Chloride Level 96mmol/L (98-107) 96mmol/L (98-107) Carbon Dioxide Level > 45mmol/L (21-32) 43mmol/L (21-32) Anion Gap (6-14) (6-14) Blood Urea Nitrogen 20mg/dL (8-26) 19mg/dL (8-26) Creatinine 0.8mg/dL (0.7-1.3) 0.6mg/dL (0.7-1.3) Estimated GFR (Cockcroft-Gault) 116.3 162.1 Glucose Level 167mg/dL (70-99) 183mg/dL (70-99) Calcium Level 9.0mg/dL (8.5-10.1) 8.8mg/dL (8.5-10.1) White Blood Count 16.4x10^3/uL (4.0-11.0) Red Blood Count 3.69x10^6/uL (4.30-5.70) Hemoglobin 12.2g/dL (13.0-17.5) Hematocrit 36.9% (39.0-53.0) Mean Corpuscular Volume 100fL (79-100) Mean Corpuscular Hemoglobin 33pg (25-35) Mean Corpuscular Hemoglobin Concent 33g/dL (31-37) Red Cell Distribution Width 13.8% (11.5-14.5) Platelet Count 221x10^3/uL (140-400) Neutrophils (%) (Auto) 91% (31-73) Lymphocytes (%) (Auto) 3% (24-48) Monocytes (%) (Auto) 6% (0-9) Eosinophils (%) (Auto) 0% (0-3) Basophils (%) (Auto) 0% (0-3) Neutrophils # (Auto) 14.8x10^3uL (1.8-7.7) Lymphocytes # (Auto) 0.5x10^3/uL (1.0-4.8) Monocytes # (Auto) 1.0x10^3/uL (0.0-1.1) Eosinophils # (Auto) 0.1x10^3/uL (0.0-0.7) Basophils # (Auto) 0.0x10^3/uL (0.0-0.2) BUN/Creatinine Ratio 32 (6-20) Total Bilirubin 0.6mg/dL (0.2-1.0) Aspartate Amino Transf (AST/SGOT) 19U/L (15-37) Alanine Aminotransferase (ALT/SGPT) 48U/L (16-63) Alkaline Phosphatase 84U/L (46-116) Total Protein 5.9g/dL (6.4-8.2) Albumin 2.6g/dL (3.4-5.0) Albumin/Globulin Ratio 0.8 (1.0-1.7) Laboratory Tests Test 12/03/16 09:45 White Blood Count 16.4x10^3/uL (4.0-11.0) Red Blood Count 3.69x10^6/uL (4.30-5.70) Hemoglobin 12.2g/dL (13.0-17.5) Hematocrit 36.9% (39.0-53.0) Mean Corpuscular Volume 100fL (79-100) Mean Corpuscular Hemoglobin 33pg (25-35) Mean Corpuscular Hemoglobin Concent 33g/dL (31-37) Red Cell Distribution Width 13.8% (11.5-14.5) Platelet Count 221x10^3/uL (140-400) Neutrophils (%) (Auto) 91% (31-73) Lymphocytes (%) (Auto) 3% (24-48) Monocytes (%) (Auto) 6% (0-9) Eosinophils (%) (Auto) 0% (0-3) Basophils (%) (Auto) 0% (0-3) Neutrophils # (Auto) 14.8x10^3uL (1.8-7.7) Lymphocytes # (Auto) 0.5x10^3/uL (1.0-4.8) Monocytes # (Auto) 1.0x10^3/uL (0.0-1.1) Eosinophils # (Auto) 0.1x10^3/uL (0.0-0.7) Basophils # (Auto) 0.0x10^3/uL (0.0-0.2) Sodium Level 137mmol/L (136-145) Potassium Level 3.4mmol/L (3.5-5.1) Chloride Level 96mmol/L (98-107) Carbon Dioxide Level 43mmol/L (21-32) Anion Gap (6-14) Blood Urea Nitrogen 19mg/dL (8-26) Creatinine 0.6mg/dL (0.7-1.3) Estimated GFR (Cockcroft-Gault) 162.1 BUN/Creatinine Ratio 32 (6-20) Glucose Level 183mg/dL (70-99) Calcium Level 8.8mg/dL (8.5-10.1) Total Bilirubin 0.6mg/dL (0.2-1.0) Aspartate Amino Transf (AST/SGOT) 19U/L (15-37) Alanine Aminotransferase (ALT/SGPT) 48U/L (16-63) Alkaline Phosphatase 84U/L (46-116) Total Protein 5.9g/dL (6.4-8.2) Albumin 2.6g/dL (3.4-5.0) Albumin/Globulin Ratio 0.8 (1.0-1.7) Meds Current Medications Furosemide (Lasix) 40 mg DAILY PO ; Start 12/03/16 at 09:00 Potassium Chloride (Klor-Con) 20 meq BIDWMEALS PO Last administered on t 11:19; Start 12/03/16 at 11:00 Assessment Assessment Problems Medical Problems: (1) COPD exacerbation Status: Acute (2) Respiratory failure Status: Acute FINAL IMPRESSION: diastolic heart failure Neck pain ,ch disc disease edema legs 1. Chronic obstructive pulmonary disease with acute exacerbation. 2. Acute respiratory failure requiring BiPAP. 3. Hypertension. 4. Hyperlipidemia. 5. Smoking history. 6. History of colon cancer. PLAN:ECHO for LVF. hematology consult r/o myeloma MRI cervical spine c4-5 mild compression and DJD. pain clinic consult epidural shots?. IV lasix+pot. venous doppler legs today solumedrol tid iv , prednisone to 40 mg duoneb qid+prn /dc levaquin cxr -ve Bipap prn snu screen. May need BIPAP machine for home use. Nausea- IV Zofran. Hypotension- improving. Hypokalemia- K 3.4- replace. D/w - hold off on diuretics and gave IV fluids yesterday . Back,leg pain- consult . Plan Plan For more details regarding further plans, please refer to the orders. ZARINA DAVILA MD Dec 03, 2016 12:52
--- NOTE | 2016-12-03 14:20 | PDOC ---
PULMONARY PROGRESS NOTES Subjective pt feels better Vitals Vital Signs Date Time Temp Pulse Resp B/P Pulse Ox O2 Delivery O2 Flow Rate FiO2 12/03/16 12:19 94 Nasal Cannula 3.0 12/03/16 11:00 97.5 104 20 109/66 97.5 ROS: No Nausea, No Chest Pain General: Alert, No acute distress Lungs: Other (poor airflow no crackles) Cardiovascular: S1, S2 Abdomen: Soft, Non-tender Neuro Exam: Alert Extremities: No Edema Skin: Warm Labs Laboratory Tests Test 12/02/16 12:40 12/03/16 09:45 Sodium Level 141mmol/L (136-145) 137mmol/L (136-145) Potassium Level 3.4mmol/L (3.5-5.1) 3.4mmol/L (3.5-5.1) Chloride Level 96mmol/L (98-107) 96mmol/L (98-107) Carbon Dioxide Level > 45mmol/L (21-32) 43mmol/L (21-32) Anion Gap (6-14) (6-14) Blood Urea Nitrogen 20mg/dL (8-26) 19mg/dL (8-26) Creatinine 0.8mg/dL (0.7-1.3) 0.6mg/dL (0.7-1.3) Estimated GFR (Cockcroft-Gault) 116.3 162.1 Glucose Level 167mg/dL (70-99) 183mg/dL (70-99) Calcium Level 9.0mg/dL (8.5-10.1) 8.8mg/dL (8.5-10.1) White Blood Count 16.4x10^3/uL (4.0-11.0) Red Blood Count 3.69x10^6/uL (4.30-5.70) Hemoglobin 12.2g/dL (13.0-17.5) Hematocrit 36.9% (39.0-53.0) Mean Corpuscular Volume 100fL (79-100) Mean Corpuscular Hemoglobin 33pg (25-35) Mean Corpuscular Hemoglobin Concent 33g/dL (31-37) Red Cell Distribution Width 13.8% (11.5-14.5) Platelet Count 221x10^3/uL (140-400) Neutrophils (%) (Auto) 91% (31-73) Lymphocytes (%) (Auto) 3% (24-48) Monocytes (%) (Auto) 6% (0-9) Eosinophils (%) (Auto) 0% (0-3) Basophils (%) (Auto) 0% (0-3) Neutrophils # (Auto) 14.8x10^3uL (1.8-7.7) Lymphocytes # (Auto) 0.5x10^3/uL (1.0-4.8) Monocytes # (Auto) 1.0x10^3/uL (0.0-1.1) Eosinophils # (Auto) 0.1x10^3/uL (0.0-0.7) Basophils # (Auto) 0.0x10^3/uL (0.0-0.2) BUN/Creatinine Ratio 32 (6-20) Total Bilirubin 0.6mg/dL (0.2-1.0) Aspartate Amino Transf (AST/SGOT) 19U/L (15-37) Alanine Aminotransferase (ALT/SGPT) 48U/L (16-63) Alkaline Phosphatase 84U/L (46-116) Total Protein 5.9g/dL (6.4-8.2) Albumin 2.6g/dL (3.4-5.0) Albumin/Globulin Ratio 0.8 (1.0-1.7) Laboratory Tests Test 12/03/16 09:45 White Blood Count 16.4x10^3/uL (4.0-11.0) Red Blood Count 3.69x10^6/uL (4.30-5.70) Hemoglobin 12.2g/dL (13.0-17.5) Hematocrit 36.9% (39.0-53.0) Mean Corpuscular Volume 100fL (79-100) Mean Corpuscular Hemoglobin 33pg (25-35) Mean Corpuscular Hemoglobin Concent 33g/dL (31-37) Red Cell Distribution Width 13.8% (11.5-14.5) Platelet Count 221x10^3/uL (140-400) Neutrophils (%) (Auto) 91% (31-73) Lymphocytes (%) (Auto) 3% (24-48) Monocytes (%) (Auto) 6% (0-9) Eosinophils (%) (Auto) 0% (0-3) Basophils (%) (Auto) 0% (0-3) Neutrophils # (Auto) 14.8x10^3uL (1.8-7.7) Lymphocytes # (Auto) 0.5x10^3/uL (1.0-4.8) Monocytes # (Auto) 1.0x10^3/uL (0.0-1.1) Eosinophils # (Auto) 0.1x10^3/uL (0.0-0.7) Basophils # (Auto) 0.0x10^3/uL (0.0-0.2) Sodium Level 137mmol/L (136-145) Potassium Level 3.4mmol/L (3.5-5.1) Chloride Level 96mmol/L (98-107) Carbon Dioxide Level 43mmol/L (21-32) Anion Gap (6-14) Blood Urea Nitrogen 19mg/dL (8-26) Creatinine 0.6mg/dL (0.7-1.3) Estimated GFR (Cockcroft-Gault) 162.1 BUN/Creatinine Ratio 32 (6-20) Glucose Level 183mg/dL (70-99) Calcium Level 8.8mg/dL (8.5-10.1) Total Bilirubin 0.6mg/dL (0.2-1.0) Aspartate Amino Transf (AST/SGOT) 19U/L (15-37) Alanine Aminotransferase (ALT/SGPT) 48U/L (16-63) Alkaline Phosphatase 84U/L (46-116) Total Protein 5.9g/dL (6.4-8.2) Albumin 2.6g/dL (3.4-5.0) Albumin/Globulin Ratio 0.8 (1.0-1.7) Medications Active Scripts Medications Dose Route/Sig Days Date Category Prednisone 50 Mg Tablet 1 Tab PO DAILY 10/25/16 Rx Cefpodoxime Proxetil 200 Mg Tablet 1 Tab PO BID 10/25/16 Rx [Promethazine Hcl/Codeine] 5 ML Syrup 5 Ml PO PRN Q8HRS PRN 03/15/16 Rx Klor-Con M10 (Potassium Chloride) 10 Meq Tab.er.prt 10 Meq PO DAILYWBKFT 03/15/16 Rx Prednisone 20 Mg Tablet 40 Mg PO DAILY 03/15/16 Rx Metoprolol Succinate ( Xl ) (Metoprolol Succinate) 25 Mg Tab.er.24h 25 Mg PO DAILY 11/20/15 Rx [Nicotine] 1 PATCH Patch 1 Patch TD DAILY 06/23/15 Rx Lortab 5-325 mg Tablet (Hydrocodone/Acetaminophen) 1 Each Tablet 1 Each PO QIDPRN PRN 12/13/13 Reported K-Tab (Potassium Chloride) 10 Meq Tablet.er 10 Meq PO BID 12/12/13 Rx Viagra (Sildenafil Citrate) 50 Mg Tablet 50 Mg PO PRN DAILY 10/28/13 Reported Spiriva (Tiotropium [place]) 18 Mcg Cap.w.dev 18 Mcg IH DAILY 10/28/13 Reported Omeprazole 20 Mg Capsule.dr 20 Mg PO DAILY 10/28/13 Reported Hydrochlorothiazide Capsule (Hydrochlorothiazide) 12.5 Mg Capsule 12.5 Mg PO DAILY 10/28/13 Reported Aspir 81 (Aspirin) 81 Mg Tablet.dr 81 Mg PO DAILY 10/28/13 Reported Amlodipine Besylate 5 Mg Tablet 5 Mg PO DAILY 10/28/13 Reported Albuterol Sulfate Hfa Inhaler (Albuterol Sulfate) 8.5 Gm Hfa.aer.ad 90 Mcg IH PRN EVERY 4-6H 10/28/13 Reported Impression . 1. Onvxx-dy-pcbezbq hypercapnic respiratory failure secondary to acute exacerbation of chronic obstructive pulmonary disease. 2. Acute exacerbation of chronic obstructive pulmonary disease triggered by yceyj-in-qiyrstn cor pulmonale. 3. Abnormal chest x-ray with chronic right pleural thickening. No evidence of congestive heart failure. 4. Lower extremity edema related to iilmk-dl-jlnqveo cor pulmonale. Plan . PT FEELS BETTER LESS SOA, OK TO D/C FROM PULMONARY STANDPOINT SLEEP STUDY OUTPT FOLLOW UP IN OFFICE, MAY BENEFIT FROM PUL REHAB CONTINUE THE SAME, D/C ANTIBX 1. Continue with present BiPAP qhs and p.r.n. during the day. 2. Avoid hyperoxia. 3. Continue with DuoNeb. 4. Continue with steroids. 5. DVT prophylaxis with Lovenox. DAMION THAO MD Dec 03, 2016 14:20
[2016-12-03] MEDS: PROMETH/CODEINE 6.25/10MG 5 ML SYRUP. PO PRN (14:23)
[2016-12-03 15:00] VITALS: BP 100/66
[2016-12-03] MEDS: CALCIUM CARBONATE 500 MG TAB.CHEW PO PRN ×2 (17:05→23:31)
[2016-12-03 19:00] VITALS: BP 112/74
[2016-12-03 23:00] VITALS: BP 99/66
[2016-12-04] MEDS: CALCIUM CARBONATE 500 MG TAB.CHEW PO PRN ×2 (02:58→13:13)
[2016-12-04 04:09] LABS: ALBUMIN 2.5 g/dL (3.4-5.0); ALBUMIN/GLOBULIN RATIO 0.7 (1.0-1.7); CALCIUM 9.2 mg/dL (8.5-10.1); CREATININE 0.7 mg/dL (0.7-1.3); GFR 135.7; POTASSIUM 3.8 mmol/L (3.5-5.1); TOTAL BILIRUBIN 0.5 mg/dL (0.2-1.0); TOTAL PROTEIN 6.1 g/dL (6.4-8.2)
[2016-12-04] MEDS: PANTOPRAZOLE 40 MG TABLET.DR. PO SCH (06:13)
[2016-12-04] MEDS: IPRATRPIUM/ALBUTEROL 0.5/2.5MG 3 ML NEBU. NEB SCH ×2 (06:24→12:18)
[2016-12-04 07:00] VITALS: BP 125/73
[2016-12-04] MEDS: HYDROCODONE/APAP 5/325MG TABLET. PO PRN (07:27)
[2016-12-04] MEDS: ALBUTEROL SULFATE 2.5 MG/3 ML NEBU. NEB PRN (08:05)
[2016-12-04] MEDS: POTASSIUM CHLORIDE 20 MEQ TABLET.ER. PO SCH ×2 (08:37)
[2016-12-04] MEDS: HYDROCHLOROTHIAZIDE 25 MG TABLET PO SCH (08:37)
[2016-12-04] MEDS: predniSONE 10 MG TABLET PO SCH (08:37)
[2016-12-04] MEDS: ASPIRIN ENTERIC COATED 81 MG TABLET.DR. PO SCH (08:38)
[2016-12-04] MEDS: FUROSEMIDE 40 MG TABLET. PO SCH (08:38)
[2016-12-04] MEDS: NICOTINE 7MG PATCH. TD SCH (08:39)
[2016-12-04] MEDS: AZELASTINE NASAL SPRAY 30ML BOTTLE. NS SCH (08:39)
[2016-12-04] MEDS: METOPROLOL SUCC 24HR ER 25 MG TAB.ER.24H. PO SCH (08:45)
--- NOTE | 2016-12-04 09:33 | PDOC ---
PROGRESS NOTES Subjective Subjective c/c - f/u of compression deformities Objective Objective Vital Signs Date Time Temp Pulse Resp B/P Pulse Ox O2 Delivery O2 Flow Rate FiO2 12/04/16 08:45 44 12/04/16 08:44 Nasal Cannula 2.0 12/04/16 08:05 95 12/04/16 07:27 20 12/03/16 23:00 98.0 99/66 98.0 Intake and Output 12/04/16 07:00 Intake Total 2810 ml Output Total 2175 ml Balance 635 ml Intake Oral 2810 ml Output Urine Total 2175 ml # Voids 5 Physical Exam Heart: Normal S1, Normal S2 General: Alert, Oriented X3 Lungs: Clear to auscultation Assessment Assessment Problems Medical Problems: (1) COPD exacerbation Status: Acute (2) Respiratory failure Status: Acute IMPRESSION AND PLAN: 1. Multiple spine compression deformities. There is no evidence of destructive lesions noted. In view of associated anemia and his complaints of back pain, I will proceed with further workup for multiple myeloma. I will obtain serum protein electrophoresis, serum free light chains and immunofixation. If the above results are negative, then I would not pursue with a bone marrow biopsy. If there are any further abnormalities, then a bone marrow biopsy would be helpful. He has been on steroids for COPD which could be the likely etiology. Results still pending. 2. Exacerbation of chronic obstructive pulmonary disease, management per Pulmonary Medicine. 3. Colon cancer in 1996. There is no clinical evidence of recurrence. He has had a CT scan of the abdomen and pelvis on 10/06/2016, was negative for malignancy. He has evidence of prostatomegaly. Chest x-ray on 10/26/2016 does not reveal any evidence of metastatic disease. 4. Anemia - Iron/B12 unremarkable. I discussed with Dr. Mcdonald. Comment Review of Relevant I have reviewed the following items mario (where applicable) has been applied. Labs Laboratory Tests Test 12/02/16 12:40 12/03/16 09:45 12/04/16 03:23 Sodium Level 141mmol/L (136-145) 137mmol/L (136-145) 138mmol/L (136-145) Potassium Level 3.4mmol/L (3.5-5.1) 3.4mmol/L (3.5-5.1) 3.8mmol/L (3.5-5.1) Chloride Level 96mmol/L (98-107) 96mmol/L (98-107) 99mmol/L (98-107) Carbon Dioxide Level > 45mmol/L (21-32) 43mmol/L (21-32) 41mmol/L (21-32) Anion Gap (6-14) (6-14) -2 (6-14) Blood Urea Nitrogen 20mg/dL (8-26) 19mg/dL (8-26) 15mg/dL (8-26) Creatinine 0.8mg/dL (0.7-1.3) 0.6mg/dL (0.7-1.3) 0.7mg/dL (0.7-1.3) Estimated GFR (Cockcroft-Gault) 116.3 162.1 135.7 Glucose Level 167mg/dL (70-99) 183mg/dL (70-99) 85mg/dL (70-99) Calcium Level 9.0mg/dL (8.5-10.1) 8.8mg/dL (8.5-10.1) 9.2mg/dL (8.5-10.1) White Blood Count 16.4x10^3/uL (4.0-11.0) Red Blood Count 3.69x10^6/uL (4.30-5.70) Hemoglobin 12.2g/dL (13.0-17.5) Hematocrit 36.9% (39.0-53.0) Mean Corpuscular Volume 100fL (79-100) Mean Corpuscular Hemoglobin 33pg (25-35) Mean Corpuscular Hemoglobin Concent 33g/dL (31-37) Red Cell Distribution Width 13.8% (11.5-14.5) Platelet Count 221x10^3/uL (140-400) Neutrophils (%) (Auto) 91% (31-73) Lymphocytes (%) (Auto) 3% (24-48) Monocytes (%) (Auto) 6% (0-9) Eosinophils (%) (Auto) 0% (0-3) Basophils (%) (Auto) 0% (0-3) Neutrophils # (Auto) 14.8x10^3uL (1.8-7.7) Lymphocytes # (Auto) 0.5x10^3/uL (1.0-4.8) Monocytes # (Auto) 1.0x10^3/uL (0.0-1.1) Eosinophils # (Auto) 0.1x10^3/uL (0.0-0.7) Basophils # (Auto) 0.0x10^3/uL (0.0-0.2) BUN/Creatinine Ratio 32 (6-20) 21 (6-20) Total Bilirubin 0.6mg/dL (0.2-1.0) 0.5mg/dL (0.2-1.0) Aspartate Amino Transf (AST/SGOT) 19U/L (15-37) 18U/L (15-37) Alanine Aminotransferase (ALT/SGPT) 48U/L (16-63) 39U/L (16-63) Alkaline Phosphatase 84U/L (46-116) 91U/L (46-116) Total Protein 5.9g/dL (6.4-8.2) 6.1g/dL (6.4-8.2) Albumin 2.6g/dL (3.4-5.0) 2.5g/dL (3.4-5.0) Albumin/Globulin Ratio 0.8 (1.0-1.7) 0.7 (1.0-1.7) Laboratory Tests Test 12/03/16 09:45 12/04/16 03:23 White Blood Count 16.4x10^3/uL (4.0-11.0) Red Blood Count 3.69x10^6/uL (4.30-5.70) Hemoglobin 12.2g/dL (13.0-17.5) Hematocrit 36.9% (39.0-53.0) Mean Corpuscular Volume 100fL (79-100) Mean Corpuscular Hemoglobin 33pg (25-35) Mean Corpuscular Hemoglobin Concent 33g/dL (31-37) Red Cell Distribution Width 13.8% (11.5-14.5) Platelet Count 221x10^3/uL (140-400) Neutrophils (%) (Auto) 91% (31-73) Lymphocytes (%) (Auto) 3% (24-48) Monocytes (%) (Auto) 6% (0-9) Eosinophils (%) (Auto) 0% (0-3) Basophils (%) (Auto) 0% (0-3) Neutrophils # (Auto) 14.8x10^3uL (1.8-7.7) Lymphocytes # (Auto) 0.5x10^3/uL (1.0-4.8) Monocytes # (Auto) 1.0x10^3/uL (0.0-1.1) Eosinophils # (Auto) 0.1x10^3/uL (0.0-0.7) Basophils # (Auto) 0.0x10^3/uL (0.0-0.2) Sodium Level 137mmol/L (136-145) 138mmol/L (136-145) Potassium Level 3.4mmol/L (3.5-5.1) 3.8mmol/L (3.5-5.1) Chloride Level 96mmol/L (98-107) 99mmol/L (98-107) Carbon Dioxide Level 43mmol/L (21-32) 41mmol/L (21-32) Anion Gap (6-14) -2 (6-14) Blood Urea Nitrogen 19mg/dL (8-26) 15mg/dL (8-26) Creatinine 0.6mg/dL (0.7-1.3) 0.7mg/dL (0.7-1.3) Estimated GFR (Cockcroft-Gault) 162.1 135.7 BUN/Creatinine Ratio 32 (6-20) 21 (6-20) Glucose Level 183mg/dL (70-99) 85mg/dL (70-99) Calcium Level 8.8mg/dL (8.5-10.1) 9.2mg/dL (8.5-10.1) Total Bilirubin 0.6mg/dL (0.2-1.0) 0.5mg/dL (0.2-1.0) Aspartate Amino Transf (AST/SGOT) 19U/L (15-37) 18U/L (15-37) Alanine Aminotransferase (ALT/SGPT) 48U/L (16-63) 39U/L (16-63) Alkaline Phosphatase 84U/L (46-116) 91U/L (46-116) Total Protein 5.9g/dL (6.4-8.2) 6.1g/dL (6.4-8.2) Albumin 2.6g/dL (3.4-5.0) 2.5g/dL (3.4-5.0) Albumin/Globulin Ratio 0.8 (1.0-1.7) 0.7 (1.0-1.7) Medications Current Medications Albuterol Sulfate (Ventolin Neb Soln) 2.5 mg STK-MED ONCE .ROUTE ; Start at 21:26; Stop 11/26/16 at 21:27; Status DC Albuterol/ Ipratropium (Duoneb) 3 ml STK-MED ONCE .ROUTE ; Start 11/26/16 at 21: 27; Stop 11/26/16 at 21:28; Status DC Methylprednisolone Sodium Succinate (Solu-Medrol 125mg Vial) 125 mg 1X ONCE IV Last administered on 11/26/16 21:44; Start 11/26/16 at 21:45; Stop 11/26/16 at 21:46; Status DC Fentanyl Citrate (Fentanyl 2ml Vial) 25 mcg PRN Q15MIN PRN IV PAIN GREATER THAN 3/10 Last administered on 11/26/16 21:44; Start 11/26/16 at 21:45; Stop at 18:28; Status DC Ondansetron HCl (Zofran) 4 mg PRN Q8HRS PRN IV NAUSEA/VOMITING; Start 11/26/16 at 22:30; Stop 11/27/16 at 22:29; Status DC Fentanyl Citrate 50 mcg 50 mcg PRN Q2HR PRN IV PAIN Last administered on 06:27; Start 11/26/16 at 22:30; Stop 11/27/16 at 22:29; Status DC Sodium Chloride (Iv Sodium Chloride 0.9% 1000ml Bag) 1,000 ml @ 75 mls/hr [id number] IV Last administered on 11/27/16 00:18; Start 11/26/16 at 22:30; Stop 11/27/16 at 10:43; Status DC Acetaminophen (Tylenol) 650 mg PRN Q4HRS PRN PO FEVER; Start 11/26/16 at 22:30 ; Stop 11/27/16 at 22:29; Status DC Albuterol/ Ipratropium (Duoneb) 3 ml RTQID NEB Last administered on 11/27/16 08:29; Start 11/27/16 at 08:00; Stop 11/27/16 at 09:39; Status DC Levofloxacin/ Dextrose 1 each 1 each PRN DAILY PRN MC SEE COMMENTS; Start 11/26 at 22:30; Stop 11/30/16 at 12:52; Status DC Levofloxacin/ Dextrose (LEVAQUIN 500mg PREMIX) 100 ml @ 100 mls/hr Q24H IV Last administered on 11/28/16 23:11; Start 11/26/16 at 23:00; Stop 11/29/16 at 14:14; Status DC Methylprednisolone Sodium Succinate (Solu-Medrol 125mg Vial) 80 mg Q8HRS IV Last administered on 11/29/16 05:38; Start 11/27/16 at 09:15; Stop 11/29/16 at 09:58; Status DC Amlodipine Besylate (Norvasc) 5 mg DAILY PO Last administered on 12/02/16 08: 42; Start 11/27/16 at 10:00; Stop 12/02/16 at 12:03; Status DC Aspirin (Ecotrin) 81 mg DAILY PO Last administered on 12/04/16 08:38; Start at 10:00 Hydrochlorothiazide (Microzide) 12.5 mg DAILY PO Last administered on 08:34; Start 11/27/16 at 10:00; Stop 11/29/16 at 09:58; Status DC Acetaminophen/ Hydrocodone Bitart (Lortab 5/325) 1 tab QIDPRN PRN PO PAIN Last administered on 12/04/16 07:27; Start 11/27/16 at 09:15 Metoprolol Succinate (Toprol Xl) 25 mg DAILY PO Last administered on 12/02/16 08:43; Start 11/27/16 at 10:00 Potassium Chloride (Klor-Con) 10 meq DAILYWBKFT PO Last administered on 09:42; Start 11/27/16 at 10:00; Stop 12/01/16 at 10:33; Status DC Pantoprazole Sodium (Protonix) 40 mg DAILYAC PO Last administered on 12/04/16 06:13; Start 11/27/16 at 11:30 Potassium Chloride (Klor-Con) 10 meq BIDWMEALS PO Last administered on 17:31; Start 11/27/16 at 10:00; Stop 11/27/16 at 18:30; Status DC Non-Formulary Medication 18 mcg DAILY IH ; Start 11/28/16 at 09:00; Stop at 09:00; Status DC Nicotine (Nicoderm Cq 7mg) 1 patch DAILY TD Last administered on 12/04/16 08:39 ; Start 11/27/16 at 10:00 Promethazine HCl/ Codeine (Phenergan With Codeine) 5 ml PRN Q8HRS PRN PO COUGH Last administered on 12/03/16 14:23; Start 11/27/16 at 09:45 Albuterol/ Ipratropium (Duoneb) 3 ml RTQID NEB Last administered on 12/04/16 06 :24; Start 11/27/16 at 12:00 Enoxaparin Sodium (Lovenox 40mg Syringe) 40 mg Q24H SQ Last administered on 13:48; Start 11/27/16 at 11:00 Furosemide (Lasix) 40 mg 1X ONCE IVP Last administered on 11/27/16 10:58; Start 11/27/16 at 10:30; Stop 11/27/16 at 10:34; Status DC Albuterol Sulfate (Ventolin Neb Soln) 2.5 mg PRN Q4HRS PRN NEB SHORTNESS OF BREATH Last administered on 12/04/16 08:05; Start 11/28/16 at 00:15 Alprazolam (Xanax) 0.25 mg PRN Q8HRS PRN PO ANXIETY / AGITATION Last administered on 12/03/16 07:45; Start 11/28/16 at 17:00 Azelastine HCl (Astelin) 2 spray BID NS Last administered on 12/04/16 08:39; Start 11/28/16 at 21:00 Hydrochlorothiazide (Hydrodiuril) 25 mg DAILY PO Last administered on 12/04/16 08:37; Start 11/30/16 at 09:00 Methylprednisolone Sodium Succinate (Solu-Medrol 40mg Vial) 40 mg Q8HRS IV Last administered on 11/30/16 22:26; Start 11/29/16 at 14:00; Stop 11/30/16 at 23:00; Status DC Prednisone (Prednisone) 50 mg DAILY PO Last administered on 12/04/16 08:37; Start 12/01/16 at 09:00 Gadobutrol (Gadavist) 9 mmol 1X ONCE IV Last administered on 11/30/16 12:59; Start 11/30/16 at 12:45; Stop 11/30/16 at 12:46; Status DC Furosemide (Lasix) 20 mg BID92 IVP Last administered on 12/02/16 08:41; Start 12/01/16 at 11:00; Stop 12/02/16 at 12:03; Status DC Potassium Chloride (Klor-Con) 20 meq DAILYWBKFT PO Last administered on 08:37; Start 12/02/16 at 08:00 Potassium Chloride (Klor-Con) 20 meq 1X ONCE PO Last administered on 13:46; Start 12/01/16 at 11:00; Stop 12/01/16 at 11:01; Status DC Ondansetron HCl (Zofran) 4 mg PRN Q6HRS PRN IV NAUSEA/VOMITING; Start 12/01/16 at 21:00 Furosemide (Lasix) 40 mg DAILY PO Last administered on 12/04/16 08:38; Start at 09:00 Potassium Chloride (Klor-Con) 20 meq BIDWMEALS PO Last administered on 08:37; Start 12/03/16 at 11:00 Calcium Carbonate/ Glycine (Tums) 500 mg PRN AFTMEALHC PRN PO INDIGESTION Last administered on 12/04/16 02:58; Start 12/03/16 at 17:00 Active Scripts Active Prednisone 50 Mg Tablet 1 Tab PO DAILY Cefpodoxime Proxetil 200 Mg Tablet 1 Tab PO BID [Promethazine Hcl/Codeine] 5 ML Syrup 5 Ml PO PRN Q8HRS PRN Klor-Con M10 (Potassium Chloride) 10 Meq Tab.er.prt 10 Meq PO DAILYWBKFT Prednisone 20 Mg Tablet 40 Mg PO DAILY Metoprolol Succinate ( Xl ) (Metoprolol Succinate) 25 Mg Tab.er.24h 25 Mg PO DAILY [Nicotine] 1 PATCH Patch 1 Patch TD DAILY K-Tab (Potassium Chloride) 10 Meq Tablet.er 10 Meq PO BID Reported Lortab 5-325 mg Tablet (Hydrocodone/Acetaminophen) 1 Each Tablet 1 Each PO QIDPRN PRN Viagra (Sildenafil Citrate) 50 Mg Tablet 50 Mg PO PRN DAILY Spiriva (Tiotropium [place]) 18 Mcg Cap.w.dev 18 Mcg IH DAILY Omeprazole 20 Mg Capsule. 20 Mg PO DAILY Hydrochlorothiazide Capsule (Hydrochlorothiazide) 12.5 Mg Capsule 12.5 Mg PO DAILY Aspir 81 (Aspirin) 81 Mg Tablet. 81 Mg PO DAILY Amlodipine Besylate 5 Mg Tablet 5 Mg PO DAILY Albuterol Sulfate Hfa Inhaler (Albuterol Sulfate) 8.5 Gm Hfa.aer.ad 90 Mcg IH PRN EVERY 4-6H Vitals/I & O Vital Sign - Last 24 Hours 12/03/16 12/03/16 12/03/16 12/03/16 10:49 11:00 11:19 14:23 Temp 97.5 97.5 Pulse 104 Resp 20 B/P 109/66 Pulse Ox 94 93 94 94 O2 Delivery Nasal Cannula Nasal Cannula Nasal Cannula Nasal Cannula O2 Flow Rate 3.0 2.0 3.0 3.0 12/03/16 12/03/16 12/03/16 12/03/16 15:00 15:13 15:23 19:00 Temp 97.8 97.7 97.8 97.7 Pulse 97 87 Resp 20 20 B/P 100/66 112/74 Pulse Ox 97 100 100 94 O2 Delivery Nasal Cannula Nasal Cannula Nasal Cannula O2 Flow Rate 2.0 3.0 2.0 12/03/16 12/03/16 12/03/16 12/03/16 20:00 20:07 21:36 21:48 Pulse Ox 97 100 O2 Delivery Nasal Cannula Nasal Cannula BiPAP/CPAP O2 Flow Rate 2.0 2.0 3.0 12/03/16 12/03/16 12/04/16 12/04/16 21:49 23:00 06:28 07:27 Temp 98.0 98.0 Pulse 83 Resp 20 20 B/P 99/66 Pulse Ox 99 97 97 O2 Delivery Nasal Cannula Nasal Cannula Nasal Cannula O2 Flow Rate 3.0 2.0 2.0 2.0 12/04/16 12/04/16 12/04/16 08:05 08:44 08:45 Pulse 44 Pulse Ox 95 O2 Delivery Nasal Cannula Nasal Cannula O2 Flow Rate 2.0 2.0 Intake and Output 12/03/16 12/03/16 12/04/16 15:00 23:00 07:00 Intake Total 900 ml 1200 ml 710 ml Output Total 425 ml 1750 ml Balance 900 ml 775 ml -1040 ml MANDY SOL MD December 04, 2016 09:33
--- NOTE | 2016-12-04 09:48 | PDOC ---
PULMONARY PROGRESS NOTES Subjective pt feels better Vitals Vital Signs Date Time Temp Pulse Resp B/P Pulse Ox O2 Delivery O2 Flow Rate FiO2 12/04/16 08:45 44 12/04/16 08:44 Nasal Cannula 2.0 12/04/16 08:05 95 12/04/16 07:27 20 12/04/16 07:00 98.1 125/73 98.1 ROS: No Nausea, No Chest Pain General: Alert, No acute distress Lungs: Other (poor airflow no crackles) Cardiovascular: S1, S2 Abdomen: Soft, Non-tender Neuro Exam: Alert Extremities: No Edema Skin: Warm Labs Laboratory Tests Test 12/02/16 12:40 12/03/16 09:45 12/04/16 03:23 Sodium Level 141mmol/L (136-145) 137mmol/L (136-145) 138mmol/L (136-145) Potassium Level 3.4mmol/L (3.5-5.1) 3.4mmol/L (3.5-5.1) 3.8mmol/L (3.5-5.1) Chloride Level 96mmol/L (98-107) 96mmol/L (98-107) 99mmol/L (98-107) Carbon Dioxide Level > 45mmol/L (21-32) 43mmol/L (21-32) 41mmol/L (21-32) Anion Gap (6-14) (6-14) -2 (6-14) Blood Urea Nitrogen 20mg/dL (8-26) 19mg/dL (8-26) 15mg/dL (8-26) Creatinine 0.8mg/dL (0.7-1.3) 0.6mg/dL (0.7-1.3) 0.7mg/dL (0.7-1.3) Estimated GFR (Cockcroft-Gault) 116.3 162.1 135.7 Glucose Level 167mg/dL (70-99) 183mg/dL (70-99) 85mg/dL (70-99) Calcium Level 9.0mg/dL (8.5-10.1) 8.8mg/dL (8.5-10.1) 9.2mg/dL (8.5-10.1) White Blood Count 16.4x10^3/uL (4.0-11.0) Red Blood Count 3.69x10^6/uL (4.30-5.70) Hemoglobin 12.2g/dL (13.0-17.5) Hematocrit 36.9% (39.0-53.0) Mean Corpuscular Volume 100fL (79-100) Mean Corpuscular Hemoglobin 33pg (25-35) Mean Corpuscular Hemoglobin Concent 33g/dL (31-37) Red Cell Distribution Width 13.8% (11.5-14.5) Platelet Count 221x10^3/uL (140-400) Neutrophils (%) (Auto) 91% (31-73) Lymphocytes (%) (Auto) 3% (24-48) Monocytes (%) (Auto) 6% (0-9) Eosinophils (%) (Auto) 0% (0-3) Basophils (%) (Auto) 0% (0-3) Neutrophils # (Auto) 14.8x10^3uL (1.8-7.7) Lymphocytes # (Auto) 0.5x10^3/uL (1.0-4.8) Monocytes # (Auto) 1.0x10^3/uL (0.0-1.1) Eosinophils # (Auto) 0.1x10^3/uL (0.0-0.7) Basophils # (Auto) 0.0x10^3/uL (0.0-0.2) BUN/Creatinine Ratio 32 (6-20) 21 (6-20) Total Bilirubin 0.6mg/dL (0.2-1.0) 0.5mg/dL (0.2-1.0) Aspartate Amino Transf (AST/SGOT) 19U/L (15-37) 18U/L (15-37) Alanine Aminotransferase (ALT/SGPT) 48U/L (16-63) 39U/L (16-63) Alkaline Phosphatase 84U/L (46-116) 91U/L (46-116) Total Protein 5.9g/dL (6.4-8.2) 6.1g/dL (6.4-8.2) Albumin 2.6g/dL (3.4-5.0) 2.5g/dL (3.4-5.0) Albumin/Globulin Ratio 0.8 (1.0-1.7) 0.7 (1.0-1.7) Laboratory Tests Test 12/04/16 03:23 Sodium Level 138mmol/L (136-145) Potassium Level 3.8mmol/L (3.5-5.1) Chloride Level 99mmol/L (98-107) Carbon Dioxide Level 41mmol/L (21-32) Anion Gap -2 (6-14) Blood Urea Nitrogen 15mg/dL (8-26) Creatinine 0.7mg/dL (0.7-1.3) Estimated GFR (Cockcroft-Gault) 135.7 BUN/Creatinine Ratio 21 (6-20) Glucose Level 85mg/dL (70-99) Calcium Level 9.2mg/dL (8.5-10.1) Total Bilirubin 0.5mg/dL (0.2-1.0) Aspartate Amino Transf (AST/SGOT) 18U/L (15-37) Alanine Aminotransferase (ALT/SGPT) 39U/L (16-63) Alkaline Phosphatase 91U/L (46-116) Total Protein 6.1g/dL (6.4-8.2) Albumin 2.5g/dL (3.4-5.0) Albumin/Globulin Ratio 0.7 (1.0-1.7) Medications Active Scripts Medications Dose Route/Sig Days Date Category Prednisone 50 Mg Tablet 1 Tab PO DAILY 10/25/16 Rx Cefpodoxime Proxetil 200 Mg Tablet 1 Tab PO BID 10/25/16 Rx [Promethazine Hcl/Codeine] 5 ML Syrup 5 Ml PO PRN Q8HRS PRN 03/15/16 Rx Klor-Con M10 (Potassium Chloride) 10 Meq Tab.er.prt 10 Meq PO DAILYWBKFT 03/15/16 Rx Prednisone 20 Mg Tablet 40 Mg PO DAILY 03/15/16 Rx Metoprolol Succinate ( Xl ) (Metoprolol Succinate) 25 Mg Tab.er.24h 25 Mg PO DAILY 11/20/15 Rx [Nicotine] 1 PATCH Patch 1 Patch TD DAILY 06/23/15 Rx Lortab 5-325 mg Tablet (Hydrocodone/Acetaminophen) 1 Each Tablet 1 Each PO QIDPRN PRN 12/13/13 Reported K-Tab (Potassium Chloride) 10 Meq Tablet.er 10 Meq PO BID 12/12/13 Rx Viagra (Sildenafil Citrate) 50 Mg Tablet 50 Mg PO PRN DAILY 10/28/13 Reported Spiriva (Tiotropium [place]) 18 Mcg Cap.w.dev 18 Mcg IH DAILY 10/28/13 Reported Omeprazole 20 Mg Capsule.dr 20 Mg PO DAILY 10/28/13 Reported Hydrochlorothiazide Capsule (Hydrochlorothiazide) 12.5 Mg Capsule 12.5 Mg PO DAILY 10/28/13 Reported Aspir 81 (Aspirin) 81 Mg Tablet.dr 81 Mg PO DAILY 10/28/13 Reported Amlodipine Besylate 5 Mg Tablet 5 Mg PO DAILY 10/28/13 Reported Albuterol Sulfate Hfa Inhaler (Albuterol Sulfate) 8.5 Gm Hfa.aer.ad 90 Mcg IH PRN EVERY 4-6H 10/28/13 Reported Impression . 1. Xrmqm-[id number] hypercapnic respiratory failure secondary to acute exacerbation of chronic obstructive pulmonary disease. 2. Acute exacerbation of chronic obstructive pulmonary disease triggered by [id number] cor pulmonale. 3. Abnormal chest x-ray with chronic right pleural thickening. No evidence of congestive heart failure. 4. Lower extremity edema related to [id number] cor pulmonale. Plan . PT FEELS BETTER LESS SOA, OK TO D/C FROM PULMONARY STANDPOINT SLEEP STUDY OUTPT FOLLOW UP IN OFFICE, MAY BENEFIT FROM PUL REHAB 2. Avoid hyperoxia. 3. Continue with DuoNeb. 4. Continue with steroids. 5. DVT prophylaxis with Lovenox. LEE WALKER MD December 04, 2016 09:48
--- NOTE | 2016-12-04 10:12 | PDOC ---
PROGRESS NOTES Subjective Subjective GERD symptoms Objective Objective Vital Signs Date Time Temp Pulse Resp B/P Pulse Ox O2 Delivery O2 Flow Rate FiO2 12/04/16 08:45 44 12/04/16 08:44 Nasal Cannula 2.0 12/04/16 08:05 95 12/04/16 07:27 20 12/04/16 07:00 98.1 125/73 98.1 Intake and Output 12/04/16 07:00 Intake Total 2810 ml Output Total 2175 ml Balance 635 ml Intake Oral 2810 ml Output Urine Total 2175 ml # Voids 5 Physical Exam Abdomen: Normal bowel sounds, Soft Heart: Normal S1, Normal S2 Extremities: No cyanosis, Other (3+ bilateral LE pitting edema) General: Alert, Oriented X3 HEENT: Atraumatic, Mucous membr. moist/pink Lungs: Clear to auscultation MUSCULOSKELETAL: Osteoarthritic changes both hands Neck: Supple Neuro: Normal speech, Sensation intact Psych/Mental Status: Mental status NL, Other (irritable) Skin: No breakdown, No significant lesion COMMENT 1+ edema lower legs Diagnosis Problem List Problems Medical Problems: (1) COPD exacerbation Status: Acute (2) Respiratory failure Status: Acute Assessment Assessment Problems Medical Problems: (1) COPD exacerbation Status: Acute (2) Respiratory failure Status: Acute FINAL IMPRESSION: diastolic heart failure, ECHO 60 % ejf, pul htn Neck pain ,ch disc disease edema legs improving 1. Chronic obstructive pulmonary disease with acute exacerbation. 2. Acute respiratory failure requiring BiPAP. 3. Hypertension. 4. Hyperlipidemia. 5. Smoking history. 6. History of colon cancer. PLAN:ECHO for LVF 60 5 ejf. hematology consult r/o myeloma, so far neg MRI cervical spine c4-5 mild compression and DJD. pain clinic consult epidural shots?. po lasix+pot. venous doppler legs neg for dvt prednisone to 50 mg, taper dosed evry 3 days duoneb qid+prn dc levaquin cxr -ve Bipap prn snu screen. May need BIPAP machine for home use. Problems: Plan Plan of Care Problems Medical Problems: (1) COPD exacerbation Status: Acute (2) Respiratory failure Status: Acute Comment Review of Relevant I have reviewed the following items mario (where applicable) has been applied. Labs Laboratory Tests Test 12/04/16 03:23 Sodium Level 138mmol/L (136-145) Potassium Level 3.8mmol/L (3.5-5.1) Chloride Level 99mmol/L (98-107) Carbon Dioxide Level 41mmol/L (21-32) Anion Gap -2 (6-14) Blood Urea Nitrogen 15mg/dL (8-26) Creatinine 0.7mg/dL (0.7-1.3) Estimated GFR (Cockcroft-Gault) 135.7 BUN/Creatinine Ratio 21 (6-20) Glucose Level 85mg/dL (70-99) Calcium Level 9.2mg/dL (8.5-10.1) Total Bilirubin 0.5mg/dL (0.2-1.0) Aspartate Amino Transf (AST/SGOT) 18U/L (15-37) Alanine Aminotransferase (ALT/SGPT) 39U/L (16-63) Alkaline Phosphatase 91U/L (46-116) Total Protein 6.1g/dL (6.4-8.2) Albumin 2.5g/dL (3.4-5.0) Albumin/Globulin Ratio 0.7 (1.0-1.7) Medications Current Medications Calcium Carbonate/ Glycine (Tums) 500 mg PRN AFTMEALHC PRN PO INDIGESTION Last administered on 12/04/16 02:58; Start 12/03/16 at 17:00 Potassium Chloride (Klor-Con) 20 meq BIDWMEALS PO Last administered on 08:37; Start 12/03/16 at 11:00 Vitals/I & O Vital Sign - Last 24 Hours 12/03/16 12/03/16 12/03/16 12/03/16 10:49 11:00 11:19 14:23 Temp 97.5 97.5 Pulse 104 Resp 20 B/P 109/66 Pulse Ox 94 93 94 94 O2 Delivery Nasal Cannula Nasal Cannula Nasal Cannula Nasal Cannula O2 Flow Rate 3.0 2.0 3.0 3.0 12/03/16 12/03/16 12/03/16 12/03/16 15:00 15:13 15:23 19:00 Temp 97.8 97.7 97.8 97.7 Pulse 97 87 Resp 20 20 B/P 100/66 112/74 Pulse Ox 97 100 100 94 O2 Delivery Nasal Cannula Nasal Cannula Nasal Cannula O2 Flow Rate 2.0 3.0 2.0 12/03/16 12/03/16 12/03/16 12/03/16 20:00 20:07 21:36 21:48 Pulse Ox 97 100 O2 Delivery Nasal Cannula Nasal Cannula BiPAP/CPAP O2 Flow Rate 2.0 2.0 3.0 12/03/16 12/03/16 12/04/16 12/04/16 21:49 23:00 06:28 07:00 Temp 98.0 98.1 98.0 98.1 Pulse 83 44 Resp 20 20 B/P 99/66 125/73 Pulse Ox 99 97 91 O2 Delivery Nasal Cannula Nasal Cannula Nasal Cannula O2 Flow Rate 3.0 2.0 2.0 2.0 12/04/16 12/04/16 12/04/16 12/04/16 07:27 08:05 08:44 08:45 Pulse 44 Resp 20 Pulse Ox 97 95 O2 Delivery Nasal Cannula Nasal Cannula Nasal Cannula O2 Flow Rate 2.0 2.0 2.0 Intake and Output 12/03/16 12/03/16 12/04/16 15:00 23:00 07:00 Intake Total 900 ml 1200 ml 710 ml Output Total 425 ml 1750 ml Balance 900 ml 775 ml -1040 ml DAMIÁN BALL MD December 04, 2016 10:12
--- NOTE | 2016-12-04 10:18 | PDOC ---
Provider Note Provider Note Discharge summary dictated. #[id number] DAMIÁN BALL MD December 04, 2016 10:18
[2016-12-04] MEDS ORDERED: LIDOCAINE (700MG/PATCH) PATCH. TD SCH (10:30)
[2016-12-04] MEDS: ENOXAPARIN 40 MG/0.4 ML SYRINGE. SQ SCH (11:39)
[2016-12-04 15:24] LABS: KAPPA LAMBDA RATIO 11.18 (0.26-1.65)
--- NOTE | 2016-12-04 21:38 | DS ---
DATE OF DISCHARGE: 12/04/2016 PATIENT'S LOCATION: [facility]. REASON FOR ADMISSION TO THE HOSPITAL: COPD with acute exacerbation. CONSULTATIONS: Dr. Go, Pulmonology; Dr. Montez, Cardiology; Dr. Maynard, Hematology; Dr. Lott, Neurosurgery. PROCEDURES DONE: 1. Echocardiogram. 2. Venous Doppler. 3. MRI of the cervical spine. HOSPITAL COURSE: The patient is a 66-year-old male with history of chronic COPD on home oxygen, has been in and out of the hospital; he actually was discharged from in the morning and came to [place]. He was there for a week and when he came in, he was short of breath. He was CO2 retention with acute respiratory failure. He was placed on BiPAP, was admitted to the ICU, was seen by Pulmonology, was given IV Solu-Medrol, Levaquin, oxygen and breathing treatment. The patient's condition improved. He was weaned off BiPAP and his pCO2 was coming down. The patient was having lot of neck pain, had MRI of the cervical spine which shows C5 and C6, there is a disk bulge, osteophyte and mild compression of the C5 vertebra and C6 vertebra and patient was seen by Neurosurgery and Pain clinic. Neurosurgery does not feel any surgical intervention needed. Pain clinic recommended epidural shots if things does not improve down the road. The patient was seen by Hematology to make sure there is no underlying skeletal disease causing the problem. The patient had a serum protein electrophoresis as well as the urine electrophoresis, so the results are still pending. He had a skeletal survey which shows some compression deformities of the C5-C6 as well as T9. The patient had swelling in lower extremities, had a Doppler that was negative for DVT, had echocardiogram, shows good ejection fraction 60% with slight increase in pulmonary hypertension secondary to COPD. On the whole, patient's condition improved. It was felt that he could be discharged to [facility] level for rehabilitation and pulmonary rehabilitation and then probably go home, they will be going for 1-2 weeks. FINAL DIAGNOSES: 1. Acute chronic obstructive pulmonary disease with exacerbation. 2. Acute respiratory failure with CO2 retention with respiratory acidosis. 3. Right heart failure secondary to cor pulmonale. 4. C5-C6 degenerative joint disease spine as well as some mild compression. 5. Hypertension. 6. Smoking correction. 7. History of colon cancer in the remote, 20 years ago. PLAN: At this time, this patient was [facility], See MRAD for discharge medications. His intermission coordinator prognosis is poor secondary to end-stage lung disease. DAMIÁN BALL MD DR: CHELE/braden JOB#: [id number] / [id number] JJ Magdaleno
--- NOTE | 2016-12-05 08:55 | CONS ---
DATE OF CONSULTATION: 12/04/2016 ATTENDING PHYSICIAN: Dr. Mcdonald. The patient was seen at the request of Dr. Mcdonald for rehab evaluation. HISTORY OF PRESENT ILLNESS: This is a 66-year-old male with chronic obstructive pulmonary disease, oxygen dependent, was admitted to [facility] a week prior to the present hospitalization on 11/26/2016 and discharged home on 11/25/2016. He had increasing shortness of breath as well as pain in his shoulder blade area, was admitted through the Emergency Room. He felt very tight in his chest with labored breathing and he was put on BiPAP and admitted to ICU. The patient needs a BiPAP for home use, but he has never gone through sleep study to get one. Also with known hypertension, hyperlipidemia, diastolic heart failure, gouty arthritis, carcinoma of colon, status post surgery, part of the colon removed. He had radiological studies, which revealed degenerative disk disease and degenerative joint disease of cervical vertebrae and chronic mild compression deformities of C5 and C6. He also has had mild central canal spinal stenosis at C3-C4 and moderate to mild neural foraminal compromise at several levels. The patient denies any tingling or numbness sensation in the extremities. His main complaint is shoulder blade area pain and swelling of his feet and legs and shortness of breath with continued cough and expectoration. He is being transferred to [facility] for continued care. PHYSICAL EXAMINATION: The patient on physical examination today revealed a middle-aged male. He is in moderate distress from his shortness of breath, using oxygen by nasal cannula. The patient had pain with limited movements of his cervical spine ____ spasm and tenderness to palpation over cervical paraspinal and posterior shoulder girdle muscles. He had 5/5 grade muscle strength in his extremities. Deep tendon reflexes are 1-2+ and symmetrical with absent ankle jerks. He had equal perception of touch and pinprick sensation bilaterally. He gets tired easily, but he is independent with bed mobility and transfers and walks using a roller walker. He had significant edema of his feet and legs. No calf tenderness noted. ASSESSMENT: Mobility and self-care limitation in a patient with chronic obstructive pulmonary disease with recent exacerbation, chronic neck and shoulder area pain without ____ cervical or thoracic radiculopathy with some degree of cervical spinal stenosis, congestive heart failure, history of hypertension, hyperlipidemia, gouty arthritis, carcinoma of colon, status post partial resection. RECOMMENDATIONS: Agree with the plan for transfer to penitentiary care unit for continued care ____ to help ease his foot and leg edema. Dr. Mcdonald, I appreciate asking me to participate in the care of this interesting patient. I will be glad to follow him with you as needed for the rehabilitation. GRIFFIN RODRIGUEZ MD DR: KANG/rbaden JOB#: [id number] / [id number]
[2016-12-06 08:28] LABS: ALPHA 1 0.1 g/dL (0.0-0.4); ALPHA 2 0.5 g/dL (0.4-1.0); BETA 0.8 g/dL (0.7-1.3); GAMMA 1.2 g/dL (0.4-1.8); M-SPIKE 0.7 g/dL (Not Observed); PROTEIN TOTAL 5.6 g/dL (6.0-8.5)
[2016-12-06 08:28] LABS: IMMUNOGLOBULIN A 100 mg/dL (61-437); IMMUNOGLOBULIN G 1219 mg/dL (700-1600); IMMUNOGLOBULIN M 26 mg/dL (20-172)
== END 2016-12-04 13:20 | DRG 189 ==
LOC: ER 21:14 → 1 WEST ICU 22:10 → 5 NORTH 11-27 11:20
PROVIDERS: ADMIT Internal Medicine; ATTEND Internal Medicine
PROC: 5A09357 Assistance with Respiratory Ventilation, Less than 24 Consecutive Hours, Continuous Positive Airway Pressure (ICD-10-PCS; principal; 2016-11-26)
DX: J96.22 Acute and chronic respiratory failure with hypercapnia (principal); J44.1 Chronic obstructive pulmonary disease with (acute) exacerbation; E87.2 Acidosis; M48.50XA Collapsed vertebra, not elsewhere classified, site unspecified, initial encounter for fracture; I47.2 Ventricular tachycardia; E78.5 Hyperlipidemia, unspecified; E78.00 Pure hypercholesterolemia, unspecified; D53.9 Nutritional anemia, unspecified; F17.210 Nicotine dependence, cigarettes, uncomplicated; G89.29 Other chronic pain; I11.0 Hypertensive heart disease with heart failure; I27.2 Other secondary pulmonary hypertension; I27.81 Cor pulmonale (chronic); M10.9 Gout, unspecified; K21.9 Gastro-esophageal reflux disease without esophagitis; N40.0 Benign prostatic hyperplasia without lower urinary tract symptoms; M47.812 Spondylosis without myelopathy or radiculopathy, cervical region; M19.90 Unspecified osteoarthritis, unspecified site; M54.9 Dorsalgia, unspecified; Z85.038 Personal history of other malignant neoplasm of large intestine; Z99.81 Dependence on supplemental oxygen
CPT/HCPCS: 36415; 36600; 71010; 71020; 72156; 77075; 80048; 80053; 80076; 82607; 82728; 82746; 82805; 83520; 83540; 83550; 83880; 84165; 84484; 85007; 85027; 85045; 86334; 87641; 93005; 93306; 93970; 94250; 94640; 94644; 94660; 94760; 96374; 96375; A9585; J1650; J1940; J1956; J2920; J2930; J3010; J7030; J7512; J7620; 97110; 97116; 97530; 97535; 99291-25

== ENCOUNTER 2017-06-29 12:02 | Inpatient (IN) | payer MEDICARE, OTHER ==
[~2017-06-29] VITALS: Ht 172.7 cm; Wt 85.0 kg
[~2017-06-29 12:02] MED LIST changes: -LEVO500T38 PO; +LEVO500T59 PO; +METO-239 PO; -METO25TA9 PO; -SUCR1TAB29 PO; +SUCR1TAB35 PO
[2017-06-29] MEDS ORDERED: FUROSEMIDE 40 MG/4 ML VIAL. IVP ONE (12:30)
[2017-06-29] MEDS ORDERED: IPRATRPIUM/ALBUTEROL 0.5/2.5MG 3 ML NEBU. NEB ONE ×3 (12:30)
[2017-06-29] MEDS ORDERED: NITROGLYCERIN OINT 1 GM PACKET. TP ONE (12:30)
[2017-06-29] MEDS ORDERED: ONDANSETRON PF 4 MG/2 ML VIAL. IV ONE (12:30)
[2017-06-29] MEDS ORDERED: ASPIRIN CHEWABLE 81 MG TABLET. PO ONE (12:30)
[2017-06-29] MEDS ORDERED: methylPREDNISolone SOD SUCC PF 125 MG/2 ML VIAL. IV ONE (12:30)
--- NOTE | 2017-06-29 12:31 | EKG ---
[facility] [address] [place] [address] Test Date: 2017-06-29 Test Time: 12:12:37 Pat Name: YAMILET JAUREGUI Department: Room: Gender: M Equal Opportunity Assistant: : [id number] Requested By: EDITH HURTADO Order Number: [id number] Reading MD: Dennis Luis Measurements Intervals Beatrice Rate: 106 P: MD: QRS: 69 QRSD: 90 T: 70 QT: 332 QTc: 443 Interpretive Statements SINUS TACHYCARDIA Electronically Signed On 07-09-2017 14:11:30 LOG YARD DERRICK OPERATOR by Dennis Luis
--- NOTE | 2017-06-29 12:37 | RAD ---
EXAM: Chest one view. HISTORY: Shortness of breath. COMPARISON: 12/01/2016. FINDINGS: A frontal view of the chest is obtained. Blunting of the right costophrenic angle appears chronic and likely represent scarring. Hyperinflation suggests chronic obstructive pulmonary disease. There are no confluent infiltrates. There is no pneumothorax or clear pleural effusion. The heart is not enlarged. IMPRESSION: 1. Stable right basilar scarring. Correlate for chronic obstructive pulmonary disease.
[2017-06-29 12:38] LABS: BASO % 0 % (0-3); EOS % 3 % (0-3); HEMATOCRIT 42.6 % (39.0-53.0); HEMOGLOBIN 13.7 g/dL (13.0-17.5); LYMPH # 1.7 x10^3/uL (1.0-4.8); LYMPH % 20 % (24-48); MEAN CORPUSCULAR HEMOGLOBIN 31 pg (25-35); MEAN CORPUSCULAR HGB CONC 32 g/dL (31-37); MEAN CORPUSCULAR VOLUME 97 fL (79-100); MONO % 8 % (0-9); NEUT % 69 % (31-73); PLATELET COUNT 238 x10^3/uL (140-400); RED BLOOD COUNT 4.41 x10^6/uL (4.30-5.70); RED CELL DISTRIBUTION WIDTH 13.4 % (11.5-14.5); WHITE BLOOD COUNT 8.6 x10^3/uL (4.0-11.0)
[2017-06-29 12:51] LABS: CALCIUM 10.1 mg/dL (8.5-10.1); CREATININE 0.7 mg/dL (0.7-1.3); GFR 135.7; POTASSIUM 3.6 mmol/L (3.5-5.1)
[2017-06-29 13:04] LABS: ALBUMIN/GLOBULIN RATIO 0.5 (1.0-1.7); TOTAL PROTEIN 9.5 g/dL (6.4-8.2)
[2017-06-29] MEDS ORDERED: ACETAMINOPHEN 325 MG TABLET. PO PRN (13:15)
[2017-06-29] MEDS ORDERED: ONDANSETRON PF 4 MG/2 ML VIAL. IV PRN (13:15)
[2017-06-29] MEDS ORDERED: fentaNYL PF VIAL 100 MCG/2 ML VIAL IV PRN (13:15)
[2017-06-29] MEDS ORDERED: NITROGLYCERIN SUBLINGUAL 0.4 MG BOTTLE OF 25. SL PRN (13:15)
[2017-06-29 13:26] LABS: TOTAL BILIRUBIN 0.2 mg/dL (0.2-1.0)
[2017-06-29 15:30] VITALS: BP 108/67
[2017-06-29] MEDS: IPRATRPIUM/ALBUTEROL 0.5/2.5MG 3 ML NEBU. NEB SCH ×2 (16:49→20:20)
[2017-06-29 17:03] LABS: HCO3 ABG 37 mmol/L (21-28); PH ABG 7.24 (7.35-7.45); PO2 ABG 62 mmHg (65-108); SAT O2 ABG 88 % (92-99)
[2017-06-29 17:21] LABS: PCO2 ABG 88 mmHg (35-46)
[2017-06-29] MEDS ORDERED: NON FORMULARY ITEM (Sildenafil Citrate (Viagra) 50 MG) PO SCH (18:30)
--- NOTE | 2017-06-29 18:30 | PDOC ---
PULMONARY PROGRESS NOTES Vitals Vital Signs Date Time Temp Pulse Resp B/P (MAP) Pulse Ox O2 Delivery O2 Flow Rate FiO2 06/29/17 18:00 92 06/29/17 17:54 Nasal Cannula 4.0 06/29/17 15:30 97.8 101 20 108/67 (81) 97.8 General: Alert, No acute distress Lungs: Other Cardiovascular: S1, S2 Abdomen: Soft, Non-tender Extremities: No Edema Labs Laboratory Tests Test 06/29/17 12:25 06/29/17 16:50 White Blood Count 8.6 x10^3/uL (4.0-11.0) Red Blood Count 4.41 x10^6/uL (4.30-5.70) Hemoglobin 13.7 g/dL (13.0-17.5) Hematocrit 42.6 % (39.0-53.0) Mean Corpuscular Volume 97 fL (79-100) Mean Corpuscular Hemoglobin 31 pg (25-35) Mean Corpuscular Hemoglobin Concent 32 g/dL (31-37) Red Cell Distribution Width 13.4 % (11.5-14.5) Platelet Count 238 x10^3/uL (140-400) Neutrophils (%) (Auto) 69 % (31-73) Lymphocytes (%) (Auto) 20 % (24-48) Monocytes (%) (Auto) 8 % (0-9) Eosinophils (%) (Auto) 3 % (0-3) Basophils (%) (Auto) 0 % (0-3) Neutrophils # (Auto) 6.0 x10^3uL (1.8-7.7) Lymphocytes # (Auto) 1.7 x10^3/uL (1.0-4.8) Monocytes # (Auto) 0.7 x10^3/uL (0.0-1.1) Eosinophils # (Auto) 0.2 x10^3/uL (0.0-0.7) Basophils # (Auto) 0.0 x10^3/uL (0.0-0.2) Sodium Level 140 mmol/L (136-145) Potassium Level 3.6 mmol/L (3.5-5.1) Chloride Level 101 mmol/L (98-107) Carbon Dioxide Level 36 mmol/L (21-32) Anion Gap 3 (6-14) Blood Urea Nitrogen 12 mg/dL (8-26) Creatinine 0.7 mg/dL (0.7-1.3) Estimated GFR (Cockcroft-Gault) 135.7 BUN/Creatinine Ratio 17 (6-20) Glucose Level 126 mg/dL (70-99) Lactic Acid Level 1.4 mmol/L (0.4-2.0) Calcium Level 10.1 mg/dL (8.5-10.1) Total Bilirubin 0.2 mg/dL (0.2-1.0) Aspartate Amino Transf (AST/SGOT) 21 U/L (15-37) Alanine Aminotransferase (ALT/SGPT) 25 U/L (16-63) Alkaline Phosphatase 98 U/L (46-116) Troponin I Quantitative < 0.017 ng/mL (0.000-0.055) UR-Aks-I-Type Natriuretic Peptide 14 pg/mL (0-124) Total Protein 9.5 g/dL (6.4-8.2) Albumin 3.0 g/dL (3.4-5.0) Albumin/Globulin Ratio 0.5 (1.0-1.7) O2 Saturation 88 % (92-99) Arterial Blood pH 7.24 (7.35-7.45) Arterial Blood pCO2 at Patient Temp 88 mmHg (35-46) Arterial Blood pO2 at Patient Temp 62 mmHg (65-108) Arterial Blood HCO3 37 mmol/L (21-28) Arterial Blood Base Excess 6 mmol/L (-3-3) FiO2 3 lpm nc Laboratory Tests Test 06/29/17 12:25 06/29/17 16:50 White Blood Count 8.6 x10^3/uL (4.0-11.0) Red Blood Count 4.41 x10^6/uL (4.30-5.70) Hemoglobin 13.7 g/dL (13.0-17.5) Hematocrit 42.6 % (39.0-53.0) Mean Corpuscular Volume 97 fL (79-100) Mean Corpuscular Hemoglobin 31 pg (25-35) Mean Corpuscular Hemoglobin Concent 32 g/dL (31-37) Red Cell Distribution Width 13.4 % (11.5-14.5) Platelet Count 238 x10^3/uL (140-400) Neutrophils (%) (Auto) 69 % (31-73) Lymphocytes (%) (Auto) 20 % (24-48) Monocytes (%) (Auto) 8 % (0-9) Eosinophils (%) (Auto) 3 % (0-3) Basophils (%) (Auto) 0 % (0-3) Neutrophils # (Auto) 6.0 x10^3uL (1.8-7.7) Lymphocytes # (Auto) 1.7 x10^3/uL (1.0-4.8) Monocytes # (Auto) 0.7 x10^3/uL (0.0-1.1) Eosinophils # (Auto) 0.2 x10^3/uL (0.0-0.7) Basophils # (Auto) 0.0 x10^3/uL (0.0-0.2) Sodium Level 140 mmol/L (136-145) Potassium Level 3.6 mmol/L (3.5-5.1) Chloride Level 101 mmol/L (98-107) Carbon Dioxide Level 36 mmol/L (21-32) Anion Gap 3 (6-14) Blood Urea Nitrogen 12 mg/dL (8-26) Creatinine 0.7 mg/dL (0.7-1.3) Estimated GFR (Cockcroft-Gault) 135.7 BUN/Creatinine Ratio 17 (6-20) Glucose Level 126 mg/dL (70-99) Lactic Acid Level 1.4 mmol/L (0.4-2.0) Calcium Level 10.1 mg/dL (8.5-10.1) Total Bilirubin 0.2 mg/dL (0.2-1.0) Aspartate Amino Transf (AST/SGOT) 21 U/L (15-37) Alanine Aminotransferase (ALT/SGPT) 25 U/L (16-63) Alkaline Phosphatase 98 U/L (46-116) Troponin I Quantitative < 0.017 ng/mL (0.000-0.055) NK-Soy-L-Type Natriuretic Peptide 14 pg/mL (0-124) Total Protein 9.5 g/dL (6.4-8.2) Albumin 3.0 g/dL (3.4-5.0) Albumin/Globulin Ratio 0.5 (1.0-1.7) O2 Saturation 88 % (92-99) Arterial Blood pH 7.24 (7.35-7.45) Arterial Blood pCO2 at Patient Temp 88 mmHg (35-46) Arterial Blood pO2 at Patient Temp 62 mmHg (65-108) Arterial Blood HCO3 37 mmol/L (21-28) Arterial Blood Base Excess 6 mmol/L (-3-3) FiO2 3 lpm nc Medications Active Scripts Medications Dose Route/Sig Max Daily Dose Days Date Category Prednisone 50 Mg Tablet 1 Tab PO DAILY 10/25/16 Rx Cefpodoxime Proxetil 200 Mg Tablet 1 Tab PO BID 10/25/16 Rx [Promethazine Hcl/Codeine] 5 ML Syrup 5 Ml PO PRN Q8HRS PRN 03/15/16 Rx Klor-Con M10 (Potassium Chloride) 10 Meq Tab.er.prt 10 Meq PO DAILYWBKFT 03/15/16 Rx Prednisone 20 Mg Tablet 40 Mg PO DAILY 03/15/16 Rx Metoprolol Succinate ( Xl ) (Metoprolol Succinate) 25 Mg Tab.er.24h 25 Mg PO DAILY 11/20/15 Rx [Nicotine] 1 PATCH Patch 1 Patch TD DAILY 06/23/15 Rx Lortab 5-325 mg Tablet (Hydrocodone/Acetaminophen) 1 Each Tablet 1 Each PO QIDPRN PRN 12/13/13 Reported K-Tab (Potassium Chloride) 10 Meq Tablet.er 10 Meq PO BID 12/12/13 Rx Viagra (Sildenafil Citrate) 50 Mg Tablet 50 Mg PO PRN DAILY 10/28/13 Reported Spiriva (Tiotropium [place]) 18 Mcg Cap.w.dev 18 Mcg IH DAILY 10/28/13 Reported Omeprazole 20 Mg Capsule. 20 Mg PO DAILY 10/28/13 Reported Hydrochlorothiazide Capsule (Hydrochlorothiazide) 12.5 Mg Capsule 12.5 Mg PO DAILY 10/28/13 Reported Aspir 81 (Aspirin) 81 Mg Tablet. 81 Mg PO DAILY 10/28/13 Reported Amlodipine Besylate 5 Mg Tablet 5 Mg PO DAILY 10/28/13 Reported Albuterol Sulfate Hfa Inhaler (Albuterol Sulfate) 8.5 Gm Hfa.aer.ad 90 Mcg IH PRN EVERY 4-6H 10/28/13 Reported Impression . a/c resp failure aecopd see DAMION Cordon MD Jun 29, 2017 18:30
[2017-06-29] MEDS ORDERED: ALBUTEROL SULFATE 2.5 MG/3 ML NEBU. NEB PRN (18:45)
[2017-06-29 18:52] VITALS: BP 111/71
[2017-06-29] MEDS ORDERED: PROMETH/CODEINE 6.25/10MG 5 ML SYRUP. PO PRN (19:00)
[2017-06-29] MEDS: ENOXAPARIN 40 MG/0.4 ML SYRINGE. SQ SCH (20:39)
--- NOTE | 2017-06-29 20:54 | CONS ---
DATE OF CONSULTATION: 06/29/2017 ATTENDING PHYSICIAN: Salas Mcdonald MD REASON FOR CONSULTATION: The patient seen in pulmonary consultation at the request of Dr. Mcdonald for increasing shortness of air, respiratory failure requiring noninvasive ventilation with BiPAP. HISTORY OF PRESENT ILLNESS: The patient is a 66-year-old well known to me and continues to smoke. He also has underlying hypertension, colon cancer, presented with a 2-3 day history of increasing shortness of breath. He ate some ham yesterday for Thanksgiving. Lower extremity edema. No cough productive of discolored sputum. He is normally on 2 liters of oxygen at home, 3 with exertion. He continues to smoke. No chest pain. No pressure. No fever, chills or night sweats. PAST MEDICAL HISTORY: Chronic respiratory failure, COPD of the emphysematous type, hypertension, colon cancer and alcoholism. PAST SURGICAL HISTORY: No recent major surgeries. MEDICATIONS: List was reviewed. ALLERGIES: DELIA INHIBITORS. SOCIAL HISTORY: He continues to smoke. REVIEW OF SYSTEMS: As indicated above, otherwise, a 10-point system was reviewed and negative. CURRENT MEDICATION: List was likewise reviewed. PHYSICAL EXAMINATION: VITAL SIGNS: Stable. O2 saturation was greater than 92%. He is currently on BiPAP. HEENT: Eyes, the sclerae were nonicteric. NECK: Jugular venous distention was elevated. LUNGS: Crackles bilaterally with no wheezes. CARDIOVASCULAR: Regular rate and rhythm with S1, S2, no S3. ABDOMEN: Soft, nontender and nondistended. EXTREMITIES: No clubbing, cyanosis, some edema. NEUROLOGIC: The patient was awake, alert and following commands. A detailed neuro exam was not performed. LABORATORY DATA: Reviewed. White count was normal. Hemoglobin and hematocrit were normal. Platelet count was not elevated. BNP was 14. Albumin was 3.0. Arterial blood gas; pH of 7.24, PaCO2 88 and pO2 62. IMPRESSION: 1. Acute on chronic respiratory failure. 2. Acute exacerbation of chronic obstructive pulmonary disease. 3. Chest x-ray was reviewed. There was no evidence of vascular congestion. PLAN: 1. Continue BiPAP. 2. Steroids and antibiotics. 3. DVT prophylaxis. 4. Nebulized treatments. I do appreciate the privilege in sharing in the patient's care. Total cumulative critical care time of 35 minutes. DAMION THAO MD DR: Travon JOB#: [id number] / [id number]
[2017-06-29] MEDS ORDERED: POTASSIUM CHLORIDE 10 MEQ PO SCH (21:00)
[2017-06-29] MEDS: methylPREDNISolone SOD SUCC PF 125 MG/2 ML VIAL. IV SCH (21:30)
[2017-06-29 23:00] VITALS: BP 99/67
[2017-06-30] VITALS (7 sets, daily range): BP systolic 86–119; BP diastolic 49–71
[2017-06-30 05:03] LABS: BASO % 0 % (0-3); EOS % 0 % (0-3); HEMATOCRIT 37.6 % (39.0-53.0); HEMOGLOBIN 12.1 g/dL (13.0-17.5); LYMPH # 0.6 x10^3/uL (1.0-4.8); LYMPH % 7 % (24-48); MEAN CORPUSCULAR HEMOGLOBIN 32 pg (25-35); MEAN CORPUSCULAR HGB CONC 32 g/dL (31-37); MEAN CORPUSCULAR VOLUME 98 fL (79-100); MONO % 4 % (0-9); NEUT % 89 % (31-73); PLATELET COUNT 216 x10^3/uL (140-400); RED BLOOD COUNT 3.86 x10^6/uL (4.30-5.70); RED CELL DISTRIBUTION WIDTH 13.5 % (11.5-14.5); WHITE BLOOD COUNT 8.3 x10^3/uL (4.0-11.0)
[2017-06-30] MEDS: methylPREDNISolone SOD SUCC PF 125 MG/2 ML VIAL. IV SCH ×3 (05:27→20:35)
[2017-06-30 05:45] LABS: ALBUMIN 2.6 g/dL (3.4-5.0); ALBUMIN/GLOBULIN RATIO 0.4 (1.0-1.7); GFR 89.9; POTASSIUM 5.2 mmol/L (3.5-5.1); TOTAL BILIRUBIN 0.2 mg/dL (0.2-1.0); TOTAL PROTEIN 8.4 g/dL (6.4-8.2)
--- NOTE | 2017-06-30 06:28 | PHYS DOC ---
Past Medical History Past Medical History: Cancer, CHF, COPD, High Cholesterol, Hypertension, Other Additional Past Medical Histor: GOUT, COLON CA, ENLARGED PROSTATE Past Surgical History: Colectomy Additional Past Surgical Histo: colon cancer Alcohol Use: Heavy Drug Use: None Adult General Chief Complaint Chief Complaint: SHORTNESS OF BREATH HPI HPI Patient is a 66 year old gentleman who has a history significant for hypertension, CHF, COPD who presents here today complaining of shortness of breath that's been progressing for the last 3 days. Patient denies any history of diabetes liver kidney pals. Patient denies any history of coronary disease. Patient has no prior abdominal or chest surgeries. Patient reports that he has had a history of colon surgery in this incident past and admits to having a colon resection over 10 years ago. Patient presents here today secondary to a productive cough that is blood-tinged. Patient reports usually uses 3 L of O2 by nasal cannula at home. Upon arrival to the ER the patient's pulse ox was 74% on 3 L. Patient was pretty tachypneic upon arrival to the ER as well. Patient has any fevers shakes chills. Patient has a nausea vomiting or diarrhea. Patient has any abdominal pain or chest discomfort other than some reproducible pain when he takes a deep breath in or coughs. Patient denies any lower extremity edema. Patient denies any orthopnea or PND. Patient does admit to increased dyspnea on exertion. Patient's primary care physician is Dr. Giordano. Review of systems: Constitutional: Denies fever or chills Eyes: Denies change in visual acuity, redness, or eye pain HENT: Denies nasal congestion or sore throat Respiratory: Complains shortness of breath All other systems were reviewed and found to be within normal limits, except as documented in this note. Physical exam: Constitutional: Well developed, well nourished, moderate to severe respiratory distress upon arrival with accessory muscle use., non-toxic appearance. HENT: Normocephalic, atraumatic, bilateral external ears normal, nose normal. Eyes: PERRLA, EOMI, conjunctiva normal, no discharge. Neck: Normal range of motion, no tenderness, supple, no stridor. Cardiovascular: Tachycardic Lungs & Thorax: Diffuse inspiratory and expiratory wheezing with diminished breath sounds bilaterally. No rales. Positive sternocleidomastoid muscle use. Tachypnea. Abdomen: No abdominal distention. Skin: Warm, dry, no erythema, no rash. Back: Normal spinal curvature Extremities: No tenderness, no cyanosis, no clubbing, ROM intact, no edema. Neurologic: Alert and oriented X 3, normal motor function, normal sensory function, no focal deficits noted. Psychologic: Affect normal, judgement normal, mood normal. Patient's ER physical exam was most unremarkable: Significant dyspnea upon arrival. Patient's pulse ox was 74% upon arrival to the ER which is hypoxic. Upon increasing him from 3 L to 4 L to patient's pulse ox became 88-90%. Patient did report he felt much better after the increased O2 supplied to him. EKG reveals: Sinus tach with nonspecific ST-T wave abnormalities. No evidence of ST elevation [place]. As interpreted by ER physician. Chest x-ray as interpreted by ER physician reveals: Normal heart size. Question infiltrate left lower lobe. ABG reveals pH of 7.24. PCO2 of 88. PO2 of 62. Bicarbonate 37. This seems consistent with a picture of respiratory acidosis. Assessment and plan: 1. COPD exacerbation with acute on chronic respiratory acidosis. This is a 4- year-old gentleman with history significant for CHF and COPD who presents here today complaining of increasing shortness of breath with a blood-tinged productive cough. Patient's chest x-rays approval for possible pneumonia. Patient's symptoms are consistent with an acute exacerbation of chronic bronchitis with possible early infiltrate on his x-ray. Upon arrival to the ER the patient was extremely tachypneic. The patient's pulse ox was 74% on 3 L nasal cannula which is his baseline O2. Patient with increased to 4 L with resultant pulse ox of 88% with significant improvement in patient's symptoms. While in the ER patient received multiple albuterol and Atrovent treatments. Patient received IV SoluMedrol. Patient was started on empiric antibiotics and his symptoms and the possibility of pneumonia. Patient's ABG at 4:50 PM reveals a pH of 7.24 PCO2 of 88. Given the patient's clinical presentation, and a significant improvement that he's had on the increased O2 to 4 L and improving he's had with sign Medrol and DuoNeb's I feel that we can hold off BiPAP at this time and see how he does over the course of the evening. Patient reports that he feels significantly improved and is able speak in full sentences after the treatment. Given his history to of 88 I feel that this is likely an improvement from his presentation. We did not get an ABG unfortunately upon his arrival to the ER so unable to assess the trend of his PCO2. Patient's been monitored in the ED for several hours after arrival and continues to do well. Patient initially was for the ICU however given his significant improvement and feel the patient can be downgraded to GMf/telemetry. Case has been discussed with Dr. Montgomery and he requested admission to Dr. cunha service with consultation to Dr. De. Critical care time of 35 minutes were utilizing a treatment and management of this patient's COPD and respiratory failure. Possible pneumonia, respiratory acidosis. Current Medications Current Medications Current Medications Medications (Trade) Dose Ordered Sig/Nilo Start Time Stop Time Status Last Admin Dose Admin Albuterol/ Ipratropium (Duoneb) 3 ml 1X ONCE 06/29/17 12:30 06/29/17 12:31 DC 06/29/17 13:28 3 ML Aspirin (Children'S Aspirin) 324 mg 1X ONCE 06/29/17 12:30 06/29/17 12:31 DC 06/29/17 12:37 243 MG Furosemide (Lasix) 40 mg 1X ONCE 06/29/17 12:30 06/29/17 12:31 DC Methylprednisolone Sodium Succinate (SOLU-Medrol 125MG VIAL) 125 mg 1X ONCE 06/29/17 12:30 06/29/17 12:31 DC 06/29/17 12:39 125 MG Nitroglycerin (Nitro-Bid Oint) 1 inch 1X ONCE 06/29/17 12:30 06/29/17 12:31 DC 06/29/17 12:43 1 INCH Ondansetron HCl (Zofran) 4 mg 1X ONCE 06/29/17 12:30 06/29/17 12:31 DC 06/29/17 12:38 4 MG Allergies Allergies Allergies Coded Allergies Type Severity Reaction Last Updated Verified DELIA Inhibitors Allergy Intermediate 11/19/15 Yes Current Patient Data Vital Signs Vital Signs Date Time Temp Pulse Resp B/P (MAP) Pulse Ox O2 Delivery O2 Flow Rate FiO2 06/29/17 12:43 95 95/66 06/29/17 12:40 26 95 Nasal Cannula 4.0 06/29/17 12:10 98.6 98.6 Lab Values Laboratory Tests Test 06/29/17 12:25 White Blood Count 8.6 x10^3/uL (4.0-11.0) Red Blood Count 4.41 x10^6/uL (4.30-5.70) Hemoglobin 13.7 g/dL (13.0-17.5) Hematocrit 42.6 % (39.0-53.0) Mean Corpuscular Volume 97 fL (79-100) Mean Corpuscular Hemoglobin 31 pg (25-35) Mean Corpuscular Hemoglobin Concent 32 g/dL (31-37) Red Cell Distribution Width 13.4 % (11.5-14.5) Platelet Count 238 x10^3/uL (140-400) Neutrophils (%) (Auto) 69 % (31-73) Lymphocytes (%) (Auto) 20 % (24-48) L Monocytes (%) (Auto) 8 % (0-9) Eosinophils (%) (Auto) 3 % (0-3) Basophils (%) (Auto) 0 % (0-3) Neutrophils # (Auto) 6.0 x10^3uL (1.8-7.7) Lymphocytes # (Auto) 1.7 x10^3/uL (1.0-4.8) Monocytes # (Auto) 0.7 x10^3/uL (0.0-1.1) Eosinophils # (Auto) 0.2 x10^3/uL (0.0-0.7) Basophils # (Auto) 0.0 x10^3/uL (0.0-0.2) Sodium Level 140 mmol/L (136-145) Potassium Level 3.6 mmol/L (3.5-5.1) Chloride Level 101 mmol/L (98-107) Carbon Dioxide Level 36 mmol/L (21-32) H Anion Gap 3 (6-14) L Blood Urea Nitrogen 12 mg/dL (8-26) Creatinine 0.7 mg/dL (0.7-1.3) Estimated GFR (Cockcroft-Gault) 135.7 BUN/Creatinine Ratio 17 (6-20) Glucose Level 126 mg/dL (70-99) H Lactic Acid Level 1.4 mmol/L (0.4-2.0) Calcium Level 10.1 mg/dL (8.5-10.1) Total Bilirubin 0.2 mg/dL (0.2-1.0) Aspartate Amino Transferase (AST) 21 U/L (15-37) Alanine Aminotransferase (ALT) 25 U/L (16-63) Alkaline Phosphatase 98 U/L (46-116) Troponin I Quantitative < 0.017 ng/mL (0.000-0.055) JF-Ogy-F-Type Natriuretic Peptide 14 pg/mL (0-124) Total Protein 9.5 g/dL (6.4-8.2) H Albumin 3.0 g/dL (3.4-5.0) L Albumin/Globulin Ratio 0.5 (1.0-1.7) L Laboratory Tests 06/29/17 12:25 Laboratory Tests 06/29/17 12:25 EKG EKG [] Radiology/Procedures Radiology/Procedures [] Course & Med Decision Making Course & Med Decision Making Pertinent Labs and Imaging studies reviewed. (See chart for details) [] Dragon Disclaimer Dragon Disclaimer This electronic medical record was generated, in whole or in part, using a voice recognition dictation system. Departure Departure Impression: Primary Impression: Respiratory failure Additional Impressions: LLL pneumonia COPD exacerbation Disposition: ADMITTED INPATIENT Admitting Physician: Yoon Montgomery Condition: GUARDED Referrals: JJ GIORDANO (PCP) Problem Qualifiers EDITH HURTADO MD Jun 30, 2017 06:28
[2017-06-30] MEDS ORDERED: POTASSIUM CHLORIDE 10 MEQ TABLET.ER. PO SCH (08:00)
[2017-06-30] MEDS: IPRATRPIUM/ALBUTEROL 0.5/2.5MG 3 ML NEBU. NEB SCH ×4 (08:13→19:34)
[2017-06-30] MEDS: PANTOPRAZOLE 40 MG TABLET.DR. PO SCH (08:35)
[2017-06-30] MEDS: ASPIRIN ENTERIC COATED 81 MG TABLET.DR. PO SCH (08:35)
[2017-06-30] MEDS: NICOTINE 7MG PATCH. TD SCH (08:35)
[2017-06-30] MEDS: hydroCHLOROthiazide 12.5 MG CAPSULE PO SCH (08:41)
[2017-06-30] MEDS: amLODIPine BESYLATE 5 MG TABLET PO SCH (08:41)
[2017-06-30] MEDS: METOPROLOL SUCC 24HR ER 25 MG TAB.ER.24H. PO SCH (08:42)
[2017-06-30 09:03] LABS: PLT ESTIMATE ADEQUATE (ADEQUATE)
--- NOTE | 2017-06-30 09:15 | CONS ---
DATE OF CONSULTATION: 06/30/2017 REASON FOR CONSULTATION: Dyspnea. HISTORY OF PRESENT ILLNESS: The patient is a pleasant 66-year-old man who comes into the hospital in the setting of progressive dyspnea over the course of the last 3-4 days. Of note, he was admitted to the hospital in November of 2016 with a COPD exacerbation with acute hypercapnic respiratory failure, at which time he underwent cardiac evaluation for lower extremity edema. His evaluation at that time did not reveal any significant cardiac pathology and he was suspected to have venous insufficiency and treated conservatively. The patient currently denies any chest pain, but has had progressive sinus symptoms and cough and some blood tinged sputum, which ultimately worsened and upon arrival to the ER, he was noted to be hypoxic with a pulse ox of 79%. His ABG was consistent with respiratory acidosis with a pCO2 about 88%. The patient then subsequently was started on BiPAP therapy and has improved overnight. His initial EKG did not reveal any acute pathology. PAST MEDICAL HISTORY: 1. COPD. 2. Hypertension. 3. Dyslipidemia. 4. Possible prior history of nonsustained ventricular tachycardia. 5. GERD and hiatal hernia. 6. Colon cancer and history of anemia. FAMILY HISTORY: Noncontributory. SOCIAL HISTORY: The patient continues to smoke. 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 Denies any illicit drug use. ALLERGIES: To DELIA INHIBITORS. CURRENT CARDIOVASCULAR MEDICATIONS: Amlodipine 5 mg daily, aspirin 81 mg daily, hydrochlorothiazide 12.5 mg daily, metoprolol 25 mg daily. REVIEW OF SYSTEMS: Negative for 10 out of 14 systems reviewed, unless otherwise mentioned above in HPI. PHYSICAL EXAMINATION: VITAL SIGNS: Afebrile, 78, 22, 86/49. BiPAP settings 98% on 16/6 of BiPAP. GENERAL: He is alert and oriented, in mild distress from tachypnea. HEAD AND NECK: Unremarkable. CARDIAC: Regular rate and rhythm without any murmurs, rubs or gallops. Distant heart sounds. LUNGS: Severely decreased breath sounds bilaterally. ABDOMEN: Soft, nontender, nondistended. EXTREMITIES: No significant clubbing, cyanosis or edema with 2+ radial and 1+ dorsalis pedis pulses. NEUROLOGIC: No focal deficits. MUSCULOSKELETAL: No obvious trauma. DIAGNOSTIC STUDIES: Labs: Potassium 5.2, creatinine 1.0, cardiac enzymes negative x 3. Chest x-ray reveals mild scarring and consistent with a history of COPD, otherwise no significant edema. Echocardiogram from November 2016 reveals normal LV systolic function without any significant regurgitation and minimal pulmonary hypertension. IMPRESSION: 1. Acute exacerbation of chronic obstructive pulmonary disease with hypercapnic respiratory failure. 2.. Minimal dyslipidemia. RECOMMENDATIONS: 1. At the present time, I agree with holding his diuretic, hydrochlorothiazide as well as his metoprolol. Continue to monitor given his hypotension. 2. Treatment of COPD per primary team. 3. No aggressive cardiac testing necessary at this time in light of the fact that he has no significant EKG changes and negative biomarkers. His BNP is within normal limits, not consistent with any acute heart failure. Thank you for this consultation. MONTSE STONE MD DR: JENNIFER/braden JOB#: [id number] / [id number] [place]
--- NOTE | 2017-06-30 12:33 | PDOC ---
Provider Note Provider Note Pt seen.H&P dictated. #[id number] DAMIÁN BALL MD Jun 30, 2017 12:33
--- NOTE | 2017-06-30 13:09 | HP ---
ADMIT DATE: 06/29/2017 ATTENDING PHYSICIAN: Dr. Ball. PRIMARY CARE PHYSICIAN: Dr. Hernandez. PATIENT LOCATION: 506. REASON FOR ADMISSION TO THE HOSPITAL: Shortness of breath, COPD with exacerbation. HISTORY OF PRESENT ILLNESS: The patient is a 66-year-old male, patient of Dr. Hernandez, who has a history of COPD, hypertension and hyperlipidemia and he was having shortness of breath. He came to the Emergency Room. Chest x-ray was negative, with slightly CO2 retention. He was given breathing treatment. The patient is on oxygen 3 L at home. His pulse ox was 74% on 3 liters and he was admitted to the hospital with acute exacerbation of COPD. PAST MEDICAL HISTORY: History of COPD, hypertension, hyperlipidemia, colon cancer, mild CHF, prostate problems and gout. PAST SURGICAL HISTORY: Colon surgery for colon cancer. ALLERGIES: ALLERGY TO DELIA INHIBITORS, CAUSES A COUGH. MEDICATIONS AT HOME: The patient is on DuoNebs 4 times daily, he is on amlodipine 5 mg daily, aspirin 81 mg daily, hydrochlorothiazide 12.5 daily, hydrocodone for pain, metoprolol 25 mg daily, omeprazole 20 mg daily, potassium 10 mEq twice a day, Viagra p.r.n., Spiriva 18 mcg daily, NicoDerm patch and promethazine with codeine. PERSONAL HISTORY: He smoked for 40 years, still smokes 2-3 cigarettes daily. Denies alcohol. He is on chronic pain medications. He is up-to-date on flu and pneumonia shots. REVIEW OF SYMPTOMS: CONSTITUTIONAL: He has a cough. Had developed a boil on the right side of the neck, has some green phlegm and sinus problems. GASTROINTESTINAL: No nausea or vomiting. NEUROLOGIC: No weakness. The rest of the 14 systems was reviewed and negative. PHYSICAL EXAMINATION: VITAL SIGNS: On examination, at the time of admission, shows a temperature 98, pulse 112, respirations 26, blood pressure 136/79 and 74% on 3 liters. HEENT: Head is atraumatic. Pupils equal. Oral cavity, slight congestion. NECK: Supple. Thyroid not enlarged. JVD not elevated. There is a small boil on the right side of the neck, which is 1 cm. CHEST: Symmetrical, COPD pattern. CARDIOVASCULAR: S1, S2. LUNGS: Diminished breath sounds, occasional wheezing. ABDOMEN: Soft. Bowel sounds present. No mass palpable. EXTERNAL GENITALIA: No Heard. RECTAL: Deferred. EXTREMITIES: No calf tenderness. No edema. Pulses are 1+. NEUROLOGICAL EXAMINATION: Cranial nerves are intact. Power 5/5 in the extremities. LABORATORY DATA: Shows a white count of 8, hemoglobin 13 and platelets 238,000. Electrolytes show sodium 140, potassium 3.6, chloride 101, bicarbonate 36, BUN 12 and creatinine 0.7. LFTs were normal. BNP was 14. Lactic acid 1.4. Troponin was negative. Blood gas shows pH of 7.24, pCO2 of 88, saturation 88 on 3 liters and bicarbonate is 37. Chest x-ray, scarring, no acute infiltrations. EKG negative for ischemia. FINAL IMPRESSION: 1. Acute chronic obstructive pulmonary disease with exacerbation. 2. Small boil on the right side of the neck. 3. Sinusitis. 4. History of colon cancer, hypertension and hyperlipidemia. 5. Actively smoking. PLAN: Plan at this time was to admit to the hospital, IV Levaquin, oxygen, breathing treatments, DuoNebs, IV Solu-Medrol, DVT prevention and see how the patient's condition improves and again counseling was done about stop smoking. The patient is up-to-date on flu and pneumonia shots. The patient is placed on BiPAP at the present time and that is helping him in his breathing. DAMIÁN BALL MD DR: CHELE/braden JOB#: [id number] / [id number] JJ Magdaleno
--- NOTE | 2017-06-30 14:52 | PDOC ---
PULMONARY PROGRESS NOTES Subjective PT OFF BIPAP FEELS BETTER LESS SOA Vitals Vital Signs Date Time Temp Pulse Resp B/P (MAP) Pulse Ox O2 Delivery O2 Flow Rate FiO2 06/30/17 11:38 100 06/30/17 11:37 BiPAP/CPAP 06/30/17 11:00 97.7 82 20 114/68 (83) 12.0 97.7 ROS: No Nausea, No Chest Pain, No Abdominal Pain, No Increase Cough General: Alert, No acute distress Lungs: Clear, Crackles Cardiovascular: S1, S2 Abdomen: Soft, Non-tender Neuro Exam: Alert Extremities: No Edema Skin: Warm Labs Laboratory Tests Test 06/29/17 12:25 06/29/17 16:50 06/29/17 19:00 06/30/17 01:10 White Blood Count 8.6 x10^3/uL (4.0-11.0) Red Blood Count 4.41 x10^6/uL (4.30-5.70) Hemoglobin 13.7 g/dL (13.0-17.5) Hematocrit 42.6 % (39.0-53.0) Mean Corpuscular Volume 97 fL (79-100) Mean Corpuscular Hemoglobin 31 pg (25-35) Mean Corpuscular Hemoglobin Concent 32 g/dL (31-37) Red Cell Distribution Width 13.4 % (11.5-14.5) Platelet Count 238 x10^3/uL (140-400) Neutrophils (%) (Auto) 69 % (31-73) Lymphocytes (%) (Auto) 20 % (24-48) Monocytes (%) (Auto) 8 % (0-9) Eosinophils (%) (Auto) 3 % (0-3) Basophils (%) (Auto) 0 % (0-3) Neutrophils # (Auto) 6.0 x10^3uL (1.8-7.7) Lymphocytes # (Auto) 1.7 x10^3/uL (1.0-4.8) Monocytes # (Auto) 0.7 x10^3/uL (0.0-1.1) Eosinophils # (Auto) 0.2 x10^3/uL (0.0-0.7) Basophils # (Auto) 0.0 x10^3/uL (0.0-0.2) Sodium Level 140 mmol/L (136-145) Potassium Level 3.6 mmol/L (3.5-5.1) Chloride Level 101 mmol/L (98-107) Carbon Dioxide Level 36 mmol/L (21-32) Anion Gap 3 (6-14) Blood Urea Nitrogen 12 mg/dL (8-26) Creatinine 0.7 mg/dL (0.7-1.3) Estimated GFR (Cockcroft-Gault) 135.7 BUN/Creatinine Ratio 17 (6-20) Glucose Level 126 mg/dL (70-99) Lactic Acid Level 1.4 mmol/L (0.4-2.0) Calcium Level 10.1 mg/dL (8.5-10.1) Total Bilirubin 0.2 mg/dL (0.2-1.0) Aspartate Amino Transf (AST/SGOT) 21 U/L (15-37) Alanine Aminotransferase (ALT/SGPT) 25 U/L (16-63) Alkaline Phosphatase 98 U/L (46-116) Troponin I Quantitative < 0.017 ng/mL (0.000-0.055) < 0.017 ng/mL (0.000-0.055) < 0.017 ng/mL (0.000-0.055) CG-Buk-K-Type Natriuretic Peptide 14 pg/mL (0-124) Total Protein 9.5 g/dL (6.4-8.2) Albumin 3.0 g/dL (3.4-5.0) Albumin/Globulin Ratio 0.5 (1.0-1.7) O2 Saturation 88 % (92-99) Arterial Blood pH 7.24 (7.35-7.45) Arterial Blood pCO2 at Patient Temp 88 mmHg (35-46) Arterial Blood pO2 at Patient Temp 62 mmHg (65-108) Arterial Blood HCO3 37 mmol/L (21-28) Arterial Blood Base Excess 6 mmol/L (-3-3) FiO2 3 lpm nc Test 06/30/17 03:50 White Blood Count 8.3 x10^3/uL (4.0-11.0) Red Blood Count 3.86 x10^6/uL (4.30-5.70) Hemoglobin 12.1 g/dL (13.0-17.5) Hematocrit 37.6 % (39.0-53.0) Mean Corpuscular Volume 98 fL (79-100) Mean Corpuscular Hemoglobin 32 pg (25-35) Mean Corpuscular Hemoglobin Concent 32 g/dL (31-37) Red Cell Distribution Width 13.5 % (11.5-14.5) Platelet Count 216 x10^3/uL (140-400) Neutrophils (%) (Auto) 89 % (31-73) Lymphocytes (%) (Auto) 7 % (24-48) Monocytes (%) (Auto) 4 % (0-9) Eosinophils (%) (Auto) 0 % (0-3) Basophils (%) (Auto) 0 % (0-3) Neutrophils # (Auto) 7.3 x10^3uL (1.8-7.7) Lymphocytes # (Auto) 0.6 x10^3/uL (1.0-4.8) Monocytes # (Auto) 0.3 x10^3/uL (0.0-1.1) Eosinophils # (Auto) 0.0 x10^3/uL (0.0-0.7) Basophils # (Auto) 0.0 x10^3/uL (0.0-0.2) Segmented Neutrophils % 84 % (35-66) Band Neutrophils % 5 % (0-9) Lymphocytes % 9 % (24-48) Monocytes % 2 % (0-10) Platelet Estimate Adequate (ADEQUATE) Sodium Level 139 mmol/L (136-145) Potassium Level 5.2 mmol/L (3.5-5.1) Chloride Level 103 mmol/L (98-107) Carbon Dioxide Level 36 mmol/L (21-32) Anion Gap 0 (6-14) Blood Urea Nitrogen 22 mg/dL (8-26) Creatinine 1.0 mg/dL (0.7-1.3) Estimated GFR (Cockcroft-Gault) 89.9 BUN/Creatinine Ratio 22 (6-20) Glucose Level 119 mg/dL (70-99) Calcium Level 9.0 mg/dL (8.5-10.1) Total Bilirubin 0.2 mg/dL (0.2-1.0) Aspartate Amino Transf (AST/SGOT) 16 U/L (15-37) Alanine Aminotransferase (ALT/SGPT) 22 U/L (16-63) Alkaline Phosphatase 85 U/L (46-116) Total Protein 8.4 g/dL (6.4-8.2) Albumin 2.6 g/dL (3.4-5.0) Albumin/Globulin Ratio 0.4 (1.0-1.7) Laboratory Tests Test 06/29/17 16:50 06/29/17 19:00 06/30/17 01:10 06/30/17 03:50 O2 Saturation 88 % (92-99) Arterial Blood pH 7.24 (7.35-7.45) Arterial Blood pCO2 at Patient Temp 88 mmHg (35-46) Arterial Blood pO2 at Patient Temp 62 mmHg (65-108) Arterial Blood HCO3 37 mmol/L (21-28) Arterial Blood Base Excess 6 mmol/L (-3-3) FiO2 3 lpm nc Troponin I Quantitative < 0.017 ng/mL (0.000-0.055) < 0.017 ng/mL (0.000-0.055) White Blood Count 8.3 x10^3/uL (4.0-11.0) Red Blood Count 3.86 x10^6/uL (4.30-5.70) Hemoglobin 12.1 g/dL (13.0-17.5) Hematocrit 37.6 % (39.0-53.0) Mean Corpuscular Volume 98 fL (79-100) Mean Corpuscular Hemoglobin 32 pg (25-35) Mean Corpuscular Hemoglobin Concent 32 g/dL (31-37) Red Cell Distribution Width 13.5 % (11.5-14.5) Platelet Count 216 x10^3/uL (140-400) Neutrophils (%) (Auto) 89 % (31-73) Lymphocytes (%) (Auto) 7 % (24-48) Monocytes (%) (Auto) 4 % (0-9) Eosinophils (%) (Auto) 0 % (0-3) Basophils (%) (Auto) 0 % (0-3) Neutrophils # (Auto) 7.3 x10^3uL (1.8-7.7) Lymphocytes # (Auto) 0.6 x10^3/uL (1.0-4.8) Monocytes # (Auto) 0.3 x10^3/uL (0.0-1.1) Eosinophils # (Auto) 0.0 x10^3/uL (0.0-0.7) Basophils # (Auto) 0.0 x10^3/uL (0.0-0.2) Segmented Neutrophils % 84 % (35-66) Band Neutrophils % 5 % (0-9) Lymphocytes % 9 % (24-48) Monocytes % 2 % (0-10) Platelet Estimate Adequate (ADEQUATE) Sodium Level 139 mmol/L (136-145) Potassium Level 5.2 mmol/L (3.5-5.1) Chloride Level 103 mmol/L (98-107) Carbon Dioxide Level 36 mmol/L (21-32) Anion Gap 0 (6-14) Blood Urea Nitrogen 22 mg/dL (8-26) Creatinine 1.0 mg/dL (0.7-1.3) Estimated GFR (Cockcroft-Gault) 89.9 BUN/Creatinine Ratio 22 (6-20) Glucose Level 119 mg/dL (70-99) Calcium Level 9.0 mg/dL (8.5-10.1) Total Bilirubin 0.2 mg/dL (0.2-1.0) Aspartate Amino Transf (AST/SGOT) 16 U/L (15-37) Alanine Aminotransferase (ALT/SGPT) 22 U/L (16-63) Alkaline Phosphatase 85 U/L (46-116) Total Protein 8.4 g/dL (6.4-8.2) Albumin 2.6 g/dL (3.4-5.0) Albumin/Globulin Ratio 0.4 (1.0-1.7) Medications Active Scripts Medications Dose Route/Sig Max Daily Dose Days Date Category Prednisone 50 Mg Tablet 1 Tab PO DAILY 10/25/16 Rx Cefpodoxime Proxetil 200 Mg Tablet 1 Tab PO BID 10/25/16 Rx [Promethazine Hcl/Codeine] 5 ML Syrup 5 Ml PO PRN Q8HRS PRN 03/15/16 Rx Klor-Con M10 (Potassium Chloride) 10 Meq Tab.er.prt 10 Meq PO DAILYWBKFT 03/15/16 Rx Prednisone 20 Mg Tablet 40 Mg PO DAILY 03/15/16 Rx Metoprolol Succinate ( Xl ) (Metoprolol Succinate) 25 Mg Tab.er.24h 25 Mg PO DAILY 11/20/15 Rx [Nicotine] 1 PATCH Patch 1 Patch TD DAILY 06/23/15 Rx Lortab 5-325 mg Tablet (Hydrocodone/Acetaminophen) 1 Each Tablet 1 Each PO QIDPRN PRN 12/13/13 Reported K-Tab (Potassium Chloride) 10 Meq Tablet.er 10 Meq PO BID 12/12/13 Rx Viagra (Sildenafil Citrate) 50 Mg Tablet 50 Mg PO PRN DAILY 10/28/13 Reported Spiriva (Tiotropium [place]) 18 Mcg Cap.w.dev 18 Mcg IH DAILY 10/28/13 Reported Omeprazole 20 Mg Capsule.dr 20 Mg PO DAILY 10/28/13 Reported Hydrochlorothiazide Capsule (Hydrochlorothiazide) 12.5 Mg Capsule 12.5 Mg PO DAILY 10/28/13 Reported Aspir 81 (Aspirin) 81 Mg Tablet.dr 81 Mg PO DAILY 10/28/13 Reported Amlodipine Besylate 5 Mg Tablet 5 Mg PO DAILY 10/28/13 Reported Albuterol Sulfate Hfa Inhaler (Albuterol Sulfate) 8.5 Gm Hfa.aer.ad 90 Mcg IH PRN EVERY 4-6H 10/28/13 Reported Impression . 1. Acute on chronic respiratory failure. 2. Acute exacerbation of chronic obstructive pulmonary disease. 3. Chest x-ray was reviewed. There was no evidence of vascular congestion. 4. Tobacco dependence Plan . see oders pt instructed on d/c smoking 1. PRN BiPAP. 2. Steroids and antibiotics. 3. DVT prophylaxis. 4. Nebulized treatments. DAMION THAO MD Jun 30, 2017 14:52
[2017-06-30] MEDS ORDERED: SODIUM CHLORIDE 0.65% NASAL SPRAY 45ML BOTTLE. NS PRN ×2 (17:45)
[2017-06-30] MEDS: HYDROcodone/APAP 5/325MG 1 TAB TABLET PO PRN (20:34)
[2017-06-30] MEDS: LACTOBACILLUS RHAMNOSUS GG 1 CAPSULE. PO SCH (20:34)
[2017-06-30] MEDS: ENOXAPARIN 40 MG/0.4 ML SYRINGE. SQ SCH (20:35)
[2017-07-01 03:00] VITALS: BP 114/68
[2017-07-01 06:04] LABS: BASO % 0 % (0-3); EOS % 0 % (0-3); HEMATOCRIT 38.4 % (39.0-53.0); HEMOGLOBIN 12.2 g/dL (13.0-17.5); LYMPH # 0.6 x10^3/uL (1.0-4.8); LYMPH % 4 % (24-48); MEAN CORPUSCULAR HEMOGLOBIN 31 pg (25-35); MEAN CORPUSCULAR HGB CONC 32 g/dL (31-37); MEAN CORPUSCULAR VOLUME 97 fL (79-100); MONO % 7 % (0-9); NEUT % 89 % (31-73); PLATELET COUNT 233 x10^3/uL (140-400); RED BLOOD COUNT 3.96 x10^6/uL (4.30-5.70)
[2017-07-01] MEDS: methylPREDNISolone SOD SUCC PF 125 MG/2 ML VIAL. IV SCH ×2 (06:07→20:51)
[2017-07-01 06:12] LABS: CALCIUM 9.3 mg/dL (8.5-10.1); CREATININE 0.7 mg/dL (0.7-1.3); GFR 135.7; POTASSIUM 4.3 mmol/L (3.5-5.1)
[2017-07-01 07:00] VITALS: BP 115/72
[2017-07-01] MEDS: IPRATRPIUM/ALBUTEROL 0.5/2.5MG 3 ML NEBU. NEB SCH ×4 (07:41→19:52)
[2017-07-01] MEDS: hydroCHLOROthiazide 12.5 MG CAPSULE PO SCH ×2 (08:11→08:18)
[2017-07-01] MEDS: LACTOBACILLUS RHAMNOSUS GG 1 CAPSULE. PO SCH ×2 (08:12→20:50)
[2017-07-01] MEDS: PANTOPRAZOLE 40 MG TABLET.DR. PO SCH (08:12)
[2017-07-01] MEDS: NICOTINE 7MG PATCH. TD SCH (08:12)
[2017-07-01] MEDS: METOPROLOL SUCC 24HR ER 25 MG TAB.ER.24H. PO SCH (08:12)
[2017-07-01] MEDS: ASPIRIN ENTERIC COATED 81 MG TABLET.DR. PO SCH (08:12)
[2017-07-01] MEDS: amLODIPine BESYLATE 5 MG TABLET PO SCH (08:17)
[2017-07-01] MEDS ORDERED: NON FORMULARY ITEM (Tiotropium Bromide (Spiriva) 18 MCG) IH SCH (09:00)
--- NOTE | 2017-07-01 10:12 | PDOC ---
PULMONARY PROGRESS NOTES Subjective PT OFF BIPAP FEELS BETTER LESS SOA Vitals Vital Signs Date Time Temp Pulse Resp B/P (MAP) Pulse Ox O2 Delivery O2 Flow Rate FiO2 07/01/17 08:17 87 115/72 07/01/17 08:00 Nasal Cannula 3.0 07/01/17 07:41 95 07/01/17 07:00 97.9 20 97.9 ROS: No Nausea, No Chest Pain, No Abdominal Pain, No Increase Cough General: Alert, No acute distress Lungs: Clear, Crackles Cardiovascular: S1, S2 Abdomen: Soft, Non-tender Neuro Exam: Alert Extremities: No Edema Skin: Warm Labs Laboratory Tests Test 06/29/17 12:25 06/29/17 16:50 06/29/17 19:00 06/30/17 01:10 White Blood Count 8.6 x10^3/uL (4.0-11.0) Red Blood Count 4.41 x10^6/uL (4.30-5.70) Hemoglobin 13.7 g/dL (13.0-17.5) Hematocrit 42.6 % (39.0-53.0) Mean Corpuscular Volume 97 fL (79-100) Mean Corpuscular Hemoglobin 31 pg (25-35) Mean Corpuscular Hemoglobin Concent 32 g/dL (31-37) Red Cell Distribution Width 13.4 % (11.5-14.5) Platelet Count 238 x10^3/uL (140-400) Neutrophils (%) (Auto) 69 % (31-73) Lymphocytes (%) (Auto) 20 % (24-48) Monocytes (%) (Auto) 8 % (0-9) Eosinophils (%) (Auto) 3 % (0-3) Basophils (%) (Auto) 0 % (0-3) Neutrophils # (Auto) 6.0 x10^3uL (1.8-7.7) Lymphocytes # (Auto) 1.7 x10^3/uL (1.0-4.8) Monocytes # (Auto) 0.7 x10^3/uL (0.0-1.1) Eosinophils # (Auto) 0.2 x10^3/uL (0.0-0.7) Basophils # (Auto) 0.0 x10^3/uL (0.0-0.2) Sodium Level 140 mmol/L (136-145) Potassium Level 3.6 mmol/L (3.5-5.1) Chloride Level 101 mmol/L (98-107) Carbon Dioxide Level 36 mmol/L (21-32) Anion Gap 3 (6-14) Blood Urea Nitrogen 12 mg/dL (8-26) Creatinine 0.7 mg/dL (0.7-1.3) Estimated GFR (Cockcroft-Gault) 135.7 BUN/Creatinine Ratio 17 (6-20) Glucose Level 126 mg/dL (70-99) Lactic Acid Level 1.4 mmol/L (0.4-2.0) Calcium Level 10.1 mg/dL (8.5-10.1) Total Bilirubin 0.2 mg/dL (0.2-1.0) Aspartate Amino Transf (AST/SGOT) 21 U/L (15-37) Alanine Aminotransferase (ALT/SGPT) 25 U/L (16-63) Alkaline Phosphatase 98 U/L (46-116) Troponin I Quantitative < 0.017 ng/mL (0.000-0.055) < 0.017 ng/mL (0.000-0.055) < 0.017 ng/mL (0.000-0.055) LL-Lnv-O-Type Natriuretic Peptide 14 pg/mL (0-124) Total Protein 9.5 g/dL (6.4-8.2) Albumin 3.0 g/dL (3.4-5.0) Albumin/Globulin Ratio 0.5 (1.0-1.7) O2 Saturation 88 % (92-99) Arterial Blood pH 7.24 (7.35-7.45) Arterial Blood pCO2 at Patient Temp 88 mmHg (35-46) Arterial Blood pO2 at Patient Temp 62 mmHg (65-108) Arterial Blood HCO3 37 mmol/L (21-28) Arterial Blood Base Excess 6 mmol/L (-3-3) FiO2 3 lpm nc Test 06/30/17 03:50 07/01/17 05:10 White Blood Count 8.3 x10^3/uL (4.0-11.0) 14.0 x10^3/uL (4.0-11.0) Red Blood Count 3.86 x10^6/uL (4.30-5.70) 3.96 x10^6/uL (4.30-5.70) Hemoglobin 12.1 g/dL (13.0-17.5) 12.2 g/dL (13.0-17.5) Hematocrit 37.6 % (39.0-53.0) 38.4 % (39.0-53.0) Mean Corpuscular Volume 98 fL (79-100) 97 fL (79-100) Mean Corpuscular Hemoglobin 32 pg (25-35) 31 pg (25-35) Mean Corpuscular Hemoglobin Concent 32 g/dL (31-37) 32 g/dL (31-37) Red Cell Distribution Width 13.5 % (11.5-14.5) 13.0 % (11.5-14.5) Platelet Count 216 x10^3/uL (140-400) 233 x10^3/uL (140-400) Neutrophils (%) (Auto) 89 % (31-73) 89 % (31-73) Lymphocytes (%) (Auto) 7 % (24-48) 4 % (24-48) Monocytes (%) (Auto) 4 % (0-9) 7 % (0-9) Eosinophils (%) (Auto) 0 % (0-3) 0 % (0-3) Basophils (%) (Auto) 0 % (0-3) 0 % (0-3) Neutrophils # (Auto) 7.3 x10^3uL (1.8-7.7) 12.5 x10^3uL (1.8-7.7) Lymphocytes # (Auto) 0.6 x10^3/uL (1.0-4.8) 0.6 x10^3/uL (1.0-4.8) Monocytes # (Auto) 0.3 x10^3/uL (0.0-1.1) 0.9 x10^3/uL (0.0-1.1) Eosinophils # (Auto) 0.0 x10^3/uL (0.0-0.7) 0.0 x10^3/uL (0.0-0.7) Basophils # (Auto) 0.0 x10^3/uL (0.0-0.2) 0.0 x10^3/uL (0.0-0.2) Segmented Neutrophils % 84 % (35-66) Band Neutrophils % 5 % (0-9) Lymphocytes % 9 % (24-48) Monocytes % 2 % (0-10) Platelet Estimate Adequate (ADEQUATE) Sodium Level 139 mmol/L (136-145) 140 mmol/L (136-145) Potassium Level 5.2 mmol/L (3.5-5.1) 4.3 mmol/L (3.5-5.1) Chloride Level 103 mmol/L (98-107) 103 mmol/L (98-107) Carbon Dioxide Level 36 mmol/L (21-32) 34 mmol/L (21-32) Anion Gap 0 (6-14) 3 (6-14) Blood Urea Nitrogen 22 mg/dL (8-26) 17 mg/dL (8-26) Creatinine 1.0 mg/dL (0.7-1.3) 0.7 mg/dL (0.7-1.3) Estimated GFR (Cockcroft-Gault) 89.9 135.7 BUN/Creatinine Ratio 22 (6-20) Glucose Level 119 mg/dL (70-99) 123 mg/dL (70-99) Calcium Level 9.0 mg/dL (8.5-10.1) 9.3 mg/dL (8.5-10.1) Total Bilirubin 0.2 mg/dL (0.2-1.0) Aspartate Amino Transf (AST/SGOT) 16 U/L (15-37) Alanine Aminotransferase (ALT/SGPT) 22 U/L (16-63) Alkaline Phosphatase 85 U/L (46-116) Total Protein 8.4 g/dL (6.4-8.2) Albumin 2.6 g/dL (3.4-5.0) Albumin/Globulin Ratio 0.4 (1.0-1.7) Laboratory Tests Test 07/01/17 05:10 White Blood Count 14.0 x10^3/uL (4.0-11.0) Red Blood Count 3.96 x10^6/uL (4.30-5.70) Hemoglobin 12.2 g/dL (13.0-17.5) Hematocrit 38.4 % (39.0-53.0) Mean Corpuscular Volume 97 fL (79-100) Mean Corpuscular Hemoglobin 31 pg (25-35) Mean Corpuscular Hemoglobin Concent 32 g/dL (31-37) Red Cell Distribution Width 13.0 % (11.5-14.5) Platelet Count 233 x10^3/uL (140-400) Neutrophils (%) (Auto) 89 % (31-73) Lymphocytes (%) (Auto) 4 % (24-48) Monocytes (%) (Auto) 7 % (0-9) Eosinophils (%) (Auto) 0 % (0-3) Basophils (%) (Auto) 0 % (0-3) Neutrophils # (Auto) 12.5 x10^3uL (1.8-7.7) Lymphocytes # (Auto) 0.6 x10^3/uL (1.0-4.8) Monocytes # (Auto) 0.9 x10^3/uL (0.0-1.1) Eosinophils # (Auto) 0.0 x10^3/uL (0.0-0.7) Basophils # (Auto) 0.0 x10^3/uL (0.0-0.2) Sodium Level 140 mmol/L (136-145) Potassium Level 4.3 mmol/L (3.5-5.1) Chloride Level 103 mmol/L (98-107) Carbon Dioxide Level 34 mmol/L (21-32) Anion Gap 3 (6-14) Blood Urea Nitrogen 17 mg/dL (8-26) Creatinine 0.7 mg/dL (0.7-1.3) Estimated GFR (Cockcroft-Gault) 135.7 Glucose Level 123 mg/dL (70-99) Calcium Level 9.3 mg/dL (8.5-10.1) Medications Active Scripts Medications Dose Route/Sig Max Daily Dose Days Date Category Prednisone 50 Mg Tablet 1 Tab PO DAILY 10/25/16 Rx Cefpodoxime Proxetil 200 Mg Tablet 1 Tab PO BID 10/25/16 Rx [Promethazine Hcl/Codeine] 5 ML Syrup 5 Ml PO PRN Q8HRS PRN 03/15/16 Rx Klor-Con M10 (Potassium Chloride) 10 Meq Tab.er.prt 10 Meq PO DAILYWBKFT 03/15/16 Rx Prednisone 20 Mg Tablet 40 Mg PO DAILY 03/15/16 Rx Metoprolol Succinate ( Xl ) (Metoprolol Succinate) 25 Mg Tab.er.24h 25 Mg PO DAILY 11/20/15 Rx [Nicotine] 1 PATCH Patch 1 Patch TD DAILY 06/23/15 Rx Lortab 5-325 mg Tablet (Hydrocodone/Acetaminophen) 1 Each Tablet 1 Each PO QIDPRN PRN 12/13/13 Reported K-Tab (Potassium Chloride) 10 Meq Tablet.er 10 Meq PO BID 12/12/13 Rx Viagra (Sildenafil Citrate) 50 Mg Tablet 50 Mg PO PRN DAILY 10/28/13 Reported Spiriva (Tiotropium [place]) 18 Mcg Cap.w.dev 18 Mcg IH DAILY 10/28/13 Reported Omeprazole 20 Mg Capsule. 20 Mg PO DAILY 10/28/13 Reported Hydrochlorothiazide Capsule (Hydrochlorothiazide) 12.5 Mg Capsule 12.5 Mg PO DAILY 10/28/13 Reported Aspir 81 (Aspirin) 81 Mg Tablet.dr 81 Mg PO DAILY 10/28/13 Reported Amlodipine Besylate 5 Mg Tablet 5 Mg PO DAILY 10/28/13 Reported Albuterol Sulfate Hfa Inhaler (Albuterol Sulfate) 8.5 Gm Hfa.aer.ad 90 Mcg IH PRN EVERY 4-6H 10/28/13 Reported Impression . 1. Acute on chronic respiratory failure. 2. Acute exacerbation of chronic obstructive pulmonary disease. 3. Chest x-ray was reviewed. There was no evidence of vascular congestion. 4. Tobacco dependence Plan . PT BETTER CONTINUE THE SAME pt instructed on d/c smoking 1. PRN BiPAP. 2. Steroids and antibiotics. 3. DVT prophylaxis. 4. Nebulized treatments. DAMION THAO MD Jul 01, 2017 10:12
[2017-07-01 11:09] VITALS: BP 116/56
--- NOTE | 2017-07-01 11:21 | PDOC ---
PROGRESS NOTES Subjective Subjective feels better today, boil rt neck Objective Objective Vital Signs Date Time Temp Pulse Resp B/P (MAP) Pulse Ox O2 Delivery O2 Flow Rate FiO2 07/01/17 11:16 Nasal Cannula 3.0 07/01/17 11:09 98.1 89 20 116/56 (76) 91 98.1 Intake and Output 07/01/17 07:00 Intake Total 880 ml Output Total 1050 ml Balance -170 ml Intake Oral 880 ml Output Urine Total 1050 ml Physical Exam Abdomen: Normal bowel sounds, Soft Heart: Regular rate, Normal S1, Normal S2 Extremities: No clubbing General: Alert, Cooperative HEENT: Atraumatic Lungs: Clear to auscultation MUSCULOSKELETAL: Osteoarthritic changes both hands Neck: Supple Neuro: Normal speech Psych/Mental Status: Mental status NL Skin: Other (boil 1 cm rt neck) Diagnosis Problem List Problems Medical Problems: (1) COPD exacerbation Status: Acute (2) Respiratory failure Status: Acute Assessment Assessment Problems Medical Problems: (1) COPD exacerbation Status: Acute (2) Respiratory failure Status: Acute FINAL IMPRESSION: 1. Acute chronic obstructive pulmonary disease with exacerbation. 2. Small boil on the right side of the neck. 3. Sinusitis. 4. History of colon cancer, hypertension and hyperlipidemia. 5. Actively smoking. PLAN: improving iv steroids for copd surgical consult for boil for I&D smoking counseling done/nicoderm patch Plan at this time was to admit to the hospital, IV Levaquin, oxygen, breathing treatments, DuoNebs, IV Solu-Medrol, DVT prevention and see how the patient's condition improves and again counseling was done about stop smoking. The patient is up-to-date on flu and pneumonia shots. The patient is placed on BiPAP at the present time and that is helping him in his breathing. Problems: Plan Plan of Care Problems Medical Problems: (1) COPD exacerbation Status: Acute (2) Respiratory failure Status: Acute Comment Review of Relevant I have reviewed the following items mario (where applicable) has been applied. Labs Laboratory Tests Test 07/01/17 05:10 White Blood Count 14.0 x10^3/uL (4.0-11.0) Red Blood Count 3.96 x10^6/uL (4.30-5.70) Hemoglobin 12.2 g/dL (13.0-17.5) Hematocrit 38.4 % (39.0-53.0) Mean Corpuscular Volume 97 fL (79-100) Mean Corpuscular Hemoglobin 31 pg (25-35) Mean Corpuscular Hemoglobin Concent 32 g/dL (31-37) Red Cell Distribution Width 13.0 % (11.5-14.5) Platelet Count 233 x10^3/uL (140-400) Neutrophils (%) (Auto) 89 % (31-73) Lymphocytes (%) (Auto) 4 % (24-48) Monocytes (%) (Auto) 7 % (0-9) Eosinophils (%) (Auto) 0 % (0-3) Basophils (%) (Auto) 0 % (0-3) Neutrophils # (Auto) 12.5 x10^3uL (1.8-7.7) Lymphocytes # (Auto) 0.6 x10^3/uL (1.0-4.8) Monocytes # (Auto) 0.9 x10^3/uL (0.0-1.1) Eosinophils # (Auto) 0.0 x10^3/uL (0.0-0.7) Basophils # (Auto) 0.0 x10^3/uL (0.0-0.2) Sodium Level 140 mmol/L (136-145) Potassium Level 4.3 mmol/L (3.5-5.1) Chloride Level 103 mmol/L (98-107) Carbon Dioxide Level 34 mmol/L (21-32) Anion Gap 3 (6-14) Blood Urea Nitrogen 17 mg/dL (8-26) Creatinine 0.7 mg/dL (0.7-1.3) Estimated GFR (Cockcroft-Gault) 135.7 Glucose Level 123 mg/dL (70-99) Calcium Level 9.3 mg/dL (8.5-10.1) Medications Current Medications Albuterol/ Ipratropium (Duoneb) 3 ml RTQID NEB Last administered on 07/01/17 11:14; Start 06/30/17 at 16:00 Lactobacillus Rhamnosus (Culturelle) 1 cap BID PO Last administered on 08:12; Start 06/30/17 at 21:00 Non-Formulary Medication 18 mcg DAILY IH ; Start 07/01/17 at 09:00; Stop 07/01 at 09:00; Status DC Sodium Chloride (Saline Mist Nasal) 1 lelia PRN Q1HR PRN NS NASAL CONGESTION Last administered on 06/30/17t 20:34; Start 06/30/17 at 17:45 Sodium Chloride (Saline Mist Nasal) 1 lelia PRN Q1HR PRN NS NASAL CONGESTION; Start 06/30/17 at 17:45; Status UNV Vitals/I & O Vital Sign - Last 24 Hours 06/30/17 06/30/17 06/30/17 06/30/17 11:37 11:38 15:00 15:06 Temp 97.9 97.9 Pulse 87 Resp 20 B/P (MAP) 119/71 (87) Pulse Ox 100 100 91 O2 Delivery BiPAP/CPAP Nasal Cannula Nasal Cannula O2 Flow Rate 12.0 3.0 06/30/17 06/30/17 06/30/17 06/30/17 19:00 19:36 19:36 20:34 Temp 98.7 98.7 Pulse 86 B/P (MAP) 97/58 (71) Pulse Ox 90 88 88 O2 Delivery Nasal Cannula Nasal Cannula Nasal Cannula Nasal Cannula O2 Flow Rate 3.0 2.0 3.0 2.0 06/30/17 06/30/17 07/01/17 07/01/17 21:34 22:49 03:00 07:00 Temp 98.3 98.3 97.9 98.3 98.3 97.9 Pulse 101 89 87 Resp 20 20 B/P (MAP) 105/57 (73) 114/68 (83) 115/72 (86) Pulse Ox 88 92 93 95 O2 Delivery Nasal Cannula Nasal Cannula Nasal Cannula Nasal Cannula O2 Flow Rate 2.0 2.0 3.0 3.0 07/01/17 07/01/17 07/01/17 07/01/17 07:41 08:00 08:12 08:17 Pulse 87 87 B/P (MAP) 115/72 115/72 Pulse Ox 95 O2 Delivery Nasal Cannula Nasal Cannula O2 Flow Rate 3.0 3.0 07/01/17 07/01/17 11:09 11:16 Temp 98.1 98.1 Pulse 89 Resp 20 B/P (MAP) 116/56 (76) Pulse Ox 91 O2 Delivery Nasal Cannula Nasal Cannula O2 Flow Rate 3.0 3.0 Intake and Output 06/30/17 06/30/17 07/01/17 15:00 23:00 07:00 Intake Total 520 ml 360 ml Output Total 250 ml 200 ml 600 ml Balance 270 ml -200 ml -240 ml DAMIÁN BALL MD Jul 01, 2017 11:21
[2017-07-01 15:00] VITALS: BP 104/59
[2017-07-01] MEDS: HYDROcodone/APAP 5/325MG 1 TAB TABLET PO PRN (16:38)
[2017-07-01 19:00] VITALS: BP 111/68
[2017-07-01 23:00] VITALS: BP 96/56
[2017-07-02 03:24] VITALS: BP 115/73
[2017-07-02 07:00] VITALS: BP 113/65
[2017-07-02] MEDS: IPRATRPIUM/ALBUTEROL 0.5/2.5MG 3 ML NEBU. NEB SCH ×4 (08:01→20:08)
[2017-07-02] MEDS: methylPREDNISolone SOD SUCC PF 125 MG/2 ML VIAL. IV SCH (09:00)
--- NOTE | 2017-07-02 09:37 | PDOC ---
PULMONARY PROGRESS NOTES Subjective FEELS BETTER Vitals Vital Signs Date Time Temp Pulse Resp B/P (MAP) Pulse Ox O2 Delivery O2 Flow Rate FiO2 07/02/17 07:15 97 Nasal Cannula 3.0 07/02/17 07:00 97.9 70 19 113/65 (81) 97.9 ROS: No Nausea, No Chest Pain, No Abdominal Pain, No Increase Cough General: Alert, No acute distress Lungs: Other (poor air entry) Cardiovascular: S1, S2 Abdomen: Soft, Non-tender Neuro Exam: Alert Extremities: No Edema Skin: Warm Labs Laboratory Tests Test 07/01/17 05:10 White Blood Count 14.0 x10^3/uL (4.0-11.0) Red Blood Count 3.96 x10^6/uL (4.30-5.70) Hemoglobin 12.2 g/dL (13.0-17.5) Hematocrit 38.4 % (39.0-53.0) Mean Corpuscular Volume 97 fL (79-100) Mean Corpuscular Hemoglobin 31 pg (25-35) Mean Corpuscular Hemoglobin Concent 32 g/dL (31-37) Red Cell Distribution Width 13.0 % (11.5-14.5) Platelet Count 233 x10^3/uL (140-400) Neutrophils (%) (Auto) 89 % (31-73) Lymphocytes (%) (Auto) 4 % (24-48) Monocytes (%) (Auto) 7 % (0-9) Eosinophils (%) (Auto) 0 % (0-3) Basophils (%) (Auto) 0 % (0-3) Neutrophils # (Auto) 12.5 x10^3uL (1.8-7.7) Lymphocytes # (Auto) 0.6 x10^3/uL (1.0-4.8) Monocytes # (Auto) 0.9 x10^3/uL (0.0-1.1) Eosinophils # (Auto) 0.0 x10^3/uL (0.0-0.7) Basophils # (Auto) 0.0 x10^3/uL (0.0-0.2) Sodium Level 140 mmol/L (136-145) Potassium Level 4.3 mmol/L (3.5-5.1) Chloride Level 103 mmol/L (98-107) Carbon Dioxide Level 34 mmol/L (21-32) Anion Gap 3 (6-14) Blood Urea Nitrogen 17 mg/dL (8-26) Creatinine 0.7 mg/dL (0.7-1.3) Estimated GFR (Cockcroft-Gault) 135.7 Glucose Level 123 mg/dL (70-99) Calcium Level 9.3 mg/dL (8.5-10.1) Medications Active Scripts Medications Dose Route/Sig Max Daily Dose Days Date Category Prednisone 50 Mg Tablet 1 Tab PO DAILY 10/25/16 Rx Cefpodoxime Proxetil 200 Mg Tablet 1 Tab PO BID 10/25/16 Rx [Promethazine Hcl/Codeine] 5 ML Syrup 5 Ml PO PRN Q8HRS PRN 03/15/16 Rx Klor-Con M10 (Potassium Chloride) 10 Meq Tab.er.prt 10 Meq PO DAILYWBKFT 03/15/16 Rx Prednisone 20 Mg Tablet 40 Mg PO DAILY 03/15/16 Rx Metoprolol Succinate ( Xl ) (Metoprolol Succinate) 25 Mg Tab.er.24h 25 Mg PO DAILY 11/20/15 Rx [Nicotine] 1 PATCH Patch 1 Patch TD DAILY 06/23/15 Rx Lortab 5-325 mg Tablet (Hydrocodone/Acetaminophen) 1 Each Tablet 1 Each PO QIDPRN PRN 12/13/13 Reported K-Tab (Potassium Chloride) 10 Meq Tablet.er 10 Meq PO BID 12/12/13 Rx Viagra (Sildenafil Citrate) 50 Mg Tablet 50 Mg PO PRN DAILY 10/28/13 Reported Spiriva (Tiotropium Ahmeek) 18 Mcg Cap.w.dev 18 Mcg IH DAILY 10/28/13 Reported Omeprazole 20 Mg Capsule.dr 20 Mg PO DAILY 10/28/13 Reported Hydrochlorothiazide Capsule (Hydrochlorothiazide) 12.5 Mg Capsule 12.5 Mg PO DAILY 10/28/13 Reported Aspir 81 (Aspirin) 81 Mg Tablet.dr 81 Mg PO DAILY 10/28/13 Reported Amlodipine Besylate 5 Mg Tablet 5 Mg PO DAILY 10/28/13 Reported Albuterol Sulfate Hfa Inhaler (Albuterol Sulfate) 8.5 Gm Hfa.aer.ad 90 Mcg IH PRN EVERY 4-6H 10/28/13 Reported Impression . 1. Acute on chronic hypercapnic respiratory failure. clinically better 2. Acute exacerbation of chronic obstructive pulmonary disease. 3. Chest x-ray was reviewed. There was no evidence of vascular congestion. 4. Tobacco dependence Plan . PT BETTER pt instructed on d/c smoking 1. PRN BiPAP. 2. Steroids taper/ antibiotics. 3. DVT prophylaxis. 4. Nebulized treatments. 5. repeat ABG today LEE WALKER MD Jul 02, 2017 09:37
--- NOTE | 2017-07-02 10:07 | PDOC ---
PROGRESS NOTES Subjective Subjective feeling good Objective Objective Vital Signs Date Time Temp Pulse Resp B/P (MAP) Pulse Ox O2 Delivery O2 Flow Rate FiO2 07/02/17 08:00 Nasal Cannula 3.0 07/02/17 07:15 97 07/02/17 07:00 97.9 70 19 113/65 (81) 97.9 Intake and Output 07/02/17 07:00 Intake Total 800 ml Output Total 900 ml Balance -100 ml Intake Oral 700 ml IV Total 100 ml Output Urine Total 900 ml # Bowel Movements 2 Physical Exam Abdomen: Normal bowel sounds, Soft Heart: Regular rate, Normal S1, Normal S2 Extremities: No clubbing General: Alert, Cooperative HEENT: Atraumatic Lungs: Clear to auscultation MUSCULOSKELETAL: Osteoarthritic changes both hands Neck: Supple Neuro: Normal speech Psych/Mental Status: Mental status NL Skin: Other (boil 1 cm rt neck) COMMENT boil neck Diagnosis Problem List Problems Medical Problems: (1) COPD exacerbation Status: Acute (2) Respiratory failure Status: Acute Assessment Assessment Problems Medical Problems: (1) COPD exacerbation Status: Acute (2) Respiratory failure Status: Acute FINAL IMPRESSION: 1. Acute chronic obstructive pulmonary disease with exacerbation. 2. Small boil on the right side of the neck. 3. Sinusitis. 4. History of colon cancer, hypertension and hyperlipidemia. 5. Actively smoking. PLAN: I&D today. improving po steroids for copd. home tomorrow. surgical consult for boil for I&D smoking counseling done/nicoderm patch Plan at this time was to admit to the hospital, IV Levaquin, oxygen, breathing treatments, DuoNebs, IV Solu-Medrol, DVT prevention and see how the patient's condition improves and again counseling was done about stop smoking. The patient is up-to-date on flu and pneumonia shots. The patient is placed on BiPAP at the present time and that is helping him in his breathing. Problems: Plan Plan of Care Problems Medical Problems: (1) COPD exacerbation Status: Acute (2) Respiratory failure Status: Acute Comment Review of Relevant I have reviewed the following items mario (where applicable) has been applied. Medications Current Medications Methylprednisolone Sodium Succinate (SOLU-Medrol 125MG VIAL) 60 mg BID IV Last administered on 07/01/17t 20:51; Start 07/01/17 at 21:00 Vitals/I & O Vital Sign - Last 24 Hours 07/01/17 07/01/17 07/01/17 07/01/17 11:09 11:16 15:00 16:20 Temp 98.1 97.9 98.1 97.9 Pulse 89 82 Resp 20 20 B/P (MAP) 116/56 (76) 104/59 (74) Pulse Ox 91 93 92 O2 Delivery Nasal Cannula Nasal Cannula Nasal Cannula Nasal Cannula O2 Flow Rate 3.0 3.0 3.0 3.0 07/01/17 07/01/17 07/01/17 07/01/17 16:38 17:38 19:00 19:52 Temp 97.6 97.6 Pulse 78 Resp 20 B/P (MAP) 111/68 (82) Pulse Ox 97 94 O2 Delivery Nasal Cannula Nasal Cannula Nasal Cannula Nasal Cannula O2 Flow Rate 3.0 07/01/17 07/01/17 07/02/17 07/02/17 20:50 23:00 03:24 07:00 Temp 97.0 97.8 97.9 97.0 97.8 97.9 Pulse 83 78 70 Resp 20 20 19 B/P (MAP) 96/56 (69) 115/73 (87) 113/65 (81) Pulse Ox 96 94 97 O2 Delivery Nasal Cannula Nasal Cannula Nasal Cannula Nasal Cannula O2 Flow Rate 3.0 07/02/17 07/02/17 07:15 08:00 Pulse Ox 97 O2 Delivery Nasal Cannula Nasal Cannula O2 Flow Rate 3.0 3.0 Intake and Output 07/01/17 07/01/17 07/02/17 15:00 23:00 07:00 Intake Total 350 ml 450 ml Output Total 200 ml 300 ml 400 ml Balance 150 ml 150 ml -400 ml DAMIÁN BALL MD Jul 02, 2017 10:07
[2017-07-02] MEDS ORDERED: LIDOCAINE 1%/EPI 1:100,000 20 ML VIAL. ONE (10:29)
[2017-07-02] MEDS ORDERED: LIDOCAINE 1%/EPI 1:100,000 20 ML VIAL. INJ ONE (10:44)
--- NOTE | 2017-07-02 11:05 | PDOC ---
SURGICAL PROGRESS NOTE Subjective Op Note: surgeon........................................Sandeep Pre op diag...................................Mass right neck Post op diag.................................same Anesthesia..................................1% Lidocaine with epi Procedure....................................excision tumor right neck Blood loss...................................5cc Fluids.........................................none Drains........................................none Condition...................................satisfactory Vital Signs Vital Signs Date Time Temp Pulse Resp B/P (MAP) Pulse Ox O2 Delivery O2 Flow Rate FiO2 07/02/17 08:00 Nasal Cannula 3.0 07/02/17 07:15 97 07/02/17 07:00 97.9 70 19 113/65 (81) 97.9 I&O Intake and Output 07/02/17 06:59 Intake Total 800 ml Output Total 900 ml Balance -100 ml Intake Oral 700 ml IV Total 100 ml Output Urine Total 900 ml # Bowel Movements 2 Labs Laboratory Tests Test 07/01/17 05:10 White Blood Count 14.0 x10^3/uL (4.0-11.0) Red Blood Count 3.96 x10^6/uL (4.30-5.70) Hemoglobin 12.2 g/dL (13.0-17.5) Hematocrit 38.4 % (39.0-53.0) Mean Corpuscular Volume 97 fL (79-100) Mean Corpuscular Hemoglobin 31 pg (25-35) Mean Corpuscular Hemoglobin Concent 32 g/dL (31-37) Red Cell Distribution Width 13.0 % (11.5-14.5) Platelet Count 233 x10^3/uL (140-400) Neutrophils (%) (Auto) 89 % (31-73) Lymphocytes (%) (Auto) 4 % (24-48) Monocytes (%) (Auto) 7 % (0-9) Eosinophils (%) (Auto) 0 % (0-3) Basophils (%) (Auto) 0 % (0-3) Neutrophils # (Auto) 12.5 x10^3uL (1.8-7.7) Lymphocytes # (Auto) 0.6 x10^3/uL (1.0-4.8) Monocytes # (Auto) 0.9 x10^3/uL (0.0-1.1) Eosinophils # (Auto) 0.0 x10^3/uL (0.0-0.7) Basophils # (Auto) 0.0 x10^3/uL (0.0-0.2) Sodium Level 140 mmol/L (136-145) Potassium Level 4.3 mmol/L (3.5-5.1) Chloride Level 103 mmol/L (98-107) Carbon Dioxide Level 34 mmol/L (21-32) Anion Gap 3 (6-14) Blood Urea Nitrogen 17 mg/dL (8-26) Creatinine 0.7 mg/dL (0.7-1.3) Estimated GFR (Cockcroft-Gault) 135.7 Glucose Level 123 mg/dL (70-99) Calcium Level 9.3 mg/dL (8.5-10.1) Problem List Problems Medical Problems: (1) COPD exacerbation Status: Acute (2) Respiratory failure Status: Acute Problems: ALMA EVANS MD Jul 02, 2017 11:05
[2017-07-02 11:53] LABS: HCO3 ABG 40 mmol/L (21-28); PH ABG 7.38 (7.35-7.45); PO2 ABG 78 mmHg (65-108); SAT O2 ABG 96 % (92-99)
[2017-07-02 11:54] LABS: PCO2 ABG 69 mmHg (35-46)
--- NOTE | 2017-07-02 12:00 | OP ---
DATE OF SURGERY: INDICATIONS: I was asked to see this patient by Dr. Mcdonald because of a mass of the right neck. The patient states that it has resolved, but is still there and is not tender. He had been placed on antibiotics also. As there was no evidence of infection, we were not going to drain the abscess, but he wanted it removed and I thought it could be removed without difficulties and as such we proceeded. SURGEON: Aguilar Evans MD PREOPERATIVE DIAGNOSIS: Mass, right neck. POSTOPERATIVE DIAGNOSIS: Mass, right neck. ANESTHESIA: 1% lidocaine with epinephrine. PROCEDURE: Excision mass, right neck. TECHNIQUE: Under local anesthesia using 1% lidocaine with epinephrine, we anesthetized the area around this 3 cm mass. The mass was 3 cm, but to get around it the incision had to be a little more. We followed the skin lines, made a fusiform incision, taking the skin, the mass and the deeper structures in the subcutaneous. We did this with a 15 blade. We then used Metzenbaum scissors to cut away the mass from the underlying structures, making certain not to injure the veins and other vessels there. The mass was completely then sent to the lab and removed totally. The resultant defect bled, but was controlled with pressure as the patient had refused Lovenox. The 4-0 Vicryl interrupted sutures were used to approximate the deeper structures and 5-0 nylon was used to close the skin. The procedure was then terminated as sterile dressings were applied. BLOOD LOSS: Probably 3-5 mL. FLUIDS GIVEN: None. DRAINS: None. CONDITION OF THE PATIENT: Satisfactory as he is returned to his room. AGUILAR EVANS MD DR: JENNA/nts JOB#: [id number] / [id number] Salas Martin MD [facility]
[2017-07-02] MEDS: DOXYCYCLINE HYCLATE 100 MG TABLET PO SCH ×2 (12:40→21:10)
[2017-07-02] MEDS: METOPROLOL SUCC 24HR ER 25 MG TAB.ER.24H. PO SCH (12:40)
[2017-07-02] MEDS: LACTOBACILLUS RHAMNOSUS GG 1 CAPSULE. PO SCH ×2 (12:40→21:10)
[2017-07-02] MEDS: HYDROcodone/APAP 5/325MG 1 TAB TABLET PO PRN ×3 (12:41→23:26)
[2017-07-02] MEDS: hydroCHLOROthiazide 12.5 MG CAPSULE PO SCH (12:41)
[2017-07-02] MEDS: ASPIRIN ENTERIC COATED 81 MG TABLET.DR. PO SCH (12:41)
[2017-07-02] MEDS: amLODIPine BESYLATE 5 MG TABLET PO SCH (12:41)
[2017-07-02] MEDS: PANTOPRAZOLE 40 MG TABLET.DR. PO SCH (12:41)
[2017-07-02] MEDS: NICOTINE 7MG PATCH. TD SCH (12:41)
[2017-07-02 15:00] VITALS: BP 94/68
[2017-07-02 19:00] VITALS: BP 91/62
--- NOTE | 2017-07-02 19:02 | CONS ---
DATE OF CONSULTATION: HISTORY OF PRESENT ILLNESS: The patient was admitted to the hospital, has a long history of chronic obstructive pulmonary disease and other medical problems. Dr. Mcdonald called me because he had an abscess of his right neck. Apparently, this had ruptured and had a cyst or something there for a while. He states it was not bothering him now and I thought it did not need to be drained. It was about 1 x 3 cm in size, soft, not infected and there was no drainage. He wished to have it removed and being on antibiotic, we proceed to totally excise the area. The chest was clear with decreased breath sounds and he does have chronic obstructive pulmonary disease, and heart was unremarkable. The mass was about 1 x 3 cm in the transverse area of the mid right lower neck. You could tell whatever was going on was resolving, there was no tenderness, no pain and no drainage. Per conversation with him, he decided he wanted to have it removed as draining it would not treat it and it had already drained. As such, we will proceed. He understands the risks, has refused Lovenox and therefore bleeding should not be a problem. We will proceed. IMPRESSION: Mass, right neck, chronic obstructive pulmonary disease and possible hypertension and possible arteriosclerotic heart disease. ALMA EVANS MD DR: JENNA/braden JOB#: [id number] / [id number] [place]
[2017-07-02 22:49] VITALS: BP 93/58
[2017-07-02] MEDS ORDERED: MAG HYDROX/ALUMINUM HYD/SIMETH 30 ML ORAL.SUSP PO PRN (23:45)
[2017-07-03 03:00] VITALS: BP 92/52
[2017-07-03 07:00] VITALS: BP 89/57
[2017-07-03] MEDS: IPRATRPIUM/ALBUTEROL 0.5/2.5MG 3 ML NEBU. NEB SCH ×2 (07:49→11:11)
[2017-07-03] MEDS: PANTOPRAZOLE 40 MG TABLET.DR. PO SCH (08:52)
[2017-07-03] MEDS: LACTOBACILLUS RHAMNOSUS GG 1 CAPSULE. PO SCH (08:52)
[2017-07-03] MEDS: ASPIRIN ENTERIC COATED 81 MG TABLET.DR. PO SCH (08:53)
[2017-07-03] MEDS: amLODIPine BESYLATE 5 MG TABLET PO SCH (08:53)
[2017-07-03] MEDS: hydroCHLOROthiazide 12.5 MG CAPSULE PO SCH (08:53)
[2017-07-03] MEDS: METOPROLOL SUCC 24HR ER 25 MG TAB.ER.24H. PO SCH (08:54)
[2017-07-03] MEDS: NICOTINE 7MG PATCH. TD SCH (08:55)
[2017-07-03] MEDS: DOXYCYCLINE HYCLATE 100 MG TABLET PO SCH (08:55)
[2017-07-03] MEDS ORDERED: predniSONE 20 MG TABLET PO SCH (09:00)
--- NOTE | 2017-07-03 10:16 | PDOC ---
PROGRESS NOTES Subjective Subjective did not sleep well,had mass removed from neck yesterday Objective Objective Vital Signs Date Time Temp Pulse Resp B/P (MAP) Pulse Ox O2 Delivery O2 Flow Rate FiO2 07/03/17 08:54 76 89/57 07/03/17 07:51 98 Nasal Cannula 3.0 07/03/17 07:00 98.6 20 98.6 Intake and Output 07/03/17 07:00 Intake Total 920 ml Output Total 1200 ml Balance -280 ml Intake Oral 920 ml Output Urine Total 1200 ml # Bowel Movements 1 Physical Exam Abdomen: Normal bowel sounds, Soft Heart: Regular rate, Normal S1, Normal S2 Extremities: No clubbing General: Alert, Cooperative HEENT: Atraumatic Lungs: Clear to auscultation MUSCULOSKELETAL: Osteoarthritic changes both hands Neck: Supple Neuro: Normal speech Psych/Mental Status: Mental status NL Skin: Other (boil 1 cm rt neck) COMMENT dressing neck Diagnosis Problem List Problems Medical Problems: (1) COPD exacerbation Status: Acute (2) Respiratory failure Status: Acute Assessment Assessment Problems Medical Problems: (1) COPD exacerbation Status: Acute (2) Respiratory failure Status: Acute FINAL IMPRESSION: 1. Acute chronic obstructive pulmonary disease with exacerbation. 2. Small boil on the right side of the neck. 3. Sinusitis. 4. History of colon cancer, hypertension and hyperlipidemia. 5. Actively smoking. PLAN: d/c home today on prednisone 50 mg daily, doxycycine 100 mg po bid x7 days mass removed from neck 3 cm yesterday. po steroids for copd. home tomorrow. surgical consult for boil for I&D smoking counseling done/NicoDerm patch The patient is up-to-date on flu and pneumonia shots. Problems: Plan Plan of Care Problems Medical Problems: (1) COPD exacerbation Status: Acute (2) Respiratory failure Status: Acute Comment Review of Relevant I have reviewed the following items mario (where applicable) has been applied. Labs Laboratory Tests Test 07/02/17 12:00 O2 Saturation 96 % (92-99) Arterial Blood pH 7.38 (7.35-7.45) Arterial Blood pCO2 at Patient Temp 69 mmHg (35-46) Arterial Blood pO2 at Patient Temp 78 mmHg (65-108) Arterial Blood HCO3 40 mmol/L (21-28) Arterial Blood Base Excess 12 mmol/L (-3-3) FiO2 32.0 Medications Current Medications Al Hydroxide/Mg Hydroxide (Mylanta Plus Xs) 30 ml PRN Q2HR PRN PO HEARTBURN / GAS Last administered on 07/02/17 23:38; Start 07/02/17 at 23:45 Doxycycline Hyclate (Vibra-Tab) 100 mg BID PO Last administered on 07/03/17 08:55; Start 07/02/17 at 11:00 Lidocaine/ Epinephrine (Xylocaine 1%-Epi 1:100,000) 20 ml STK-MED ONCE .ROUTE ; Start 07/02/17 at 10:29; Stop 07/02/17 at 12:45; Status DC Lidocaine/ Epinephrine (Xylocaine 1%-Epi 1:100,000) 20 ml STK-MED ONCE INJ Last administered on 07/02/17 10:44; Start 07/02/17 at 10:44; Stop 07/02/17 at 10:46; Status DC Prednisone (Prednisone) 50 mg DAILY PO Last administered on 07/03/17 08:54; Start 07/03/17 at 09:00 Vitals/I & O Vital Sign - Last 24 Hours 07/02/17 07/02/17 07/02/17 07/02/17 11:48 12:40 12:41 12:41 Pulse 70 70 B/P (MAP) 113/65 113/65 O2 Delivery Nasal Cannula Nasal Cannula O2 Flow Rate 3.0 07/02/17 07/02/17 07/02/17 07/02/17 15:00 15:16 17:46 19:00 Temp 98.6 98.6 98.6 98.6 Pulse 73 80 Resp 18 18 B/P (MAP) 94/68 (77) 91/62 (72) Pulse Ox 98 97 O2 Delivery Nasal Cannula Nasal Cannula Nasal Cannula Nasal Cannula O2 Flow Rate 4.0 3.0 4.0 07/02/17 07/02/17 07/02/17 07/02/17 20:00 20:09 22:49 23:26 Temp 98.4 98.4 Pulse 82 Resp 18 18 B/P (MAP) 93/58 (70) Pulse Ox 98 94 94 O2 Delivery Nasal Cannula Nasal Cannula Nasal Cannula Nasal Cannula O2 Flow Rate 3.0 3.0 4.0 4.0 07/03/17 07/03/17 07/03/17 07/03/17 00:26 03:00 07:00 07:51 Temp 97.9 98.6 97.9 98.6 Pulse 68 76 Resp 18 20 20 B/P (MAP) 92/52 (65) 89/57 (68) Pulse Ox 94 90 94 98 O2 Delivery Nasal Cannula Nasal Cannula Nasal Cannula Nasal Cannula O2 Flow Rate 4.0 4.0 4.0 3.0 07/03/17 07/03/17 08:53 08:54 Pulse 76 76 B/P (MAP) 89/57 89/57 Intake and Output 07/02/17 07/02/17 07/03/17 15:00 23:00 07:00 Intake Total 920 ml Output Total 700 ml 500 ml Balance 220 ml -500 ml DAMIÁN BALL MD Jul 03, 2017 10:16
[2017-07-03] MEDS ORDERED: DOXY100C2 PO (10:19)
--- NOTE | 2017-07-03 10:28 | PDOC ---
SURGICAL PROGRESS NOTE Subjective POD #1 Doing well with dressing in tact and wound without compilation. Likely home today per the medical team. I will follow ing the office or make house call to followup in 7-10 days. Patient informed and will let me know if he can not get to the office. Vital Signs Vital Signs Date Time Temp Pulse Resp B/P (MAP) Pulse Ox O2 Delivery O2 Flow Rate FiO2 07/03/17 08:54 76 89/57 07/03/17 07:51 98 Nasal Cannula 3.0 07/03/17 07:00 98.6 20 98.6 I&O Intake and Output 07/03/17 07:00 Intake Total 920 ml Output Total 1200 ml Balance -280 ml Intake Oral 920 ml Output Urine Total 1200 ml # Bowel Movements 1 Labs Laboratory Tests Test 07/02/17 12:00 O2 Saturation 96 % (92-99) Arterial Blood pH 7.38 (7.35-7.45) Arterial Blood pCO2 at Patient Temp 69 mmHg (35-46) Arterial Blood pO2 at Patient Temp 78 mmHg (65-108) Arterial Blood HCO3 40 mmol/L (21-28) Arterial Blood Base Excess 12 mmol/L (-3-3) FiO2 32.0 Laboratory Tests Test 07/02/17 12:00 O2 Saturation 96 % (92-99) Arterial Blood pH 7.38 (7.35-7.45) Arterial Blood pCO2 at Patient Temp 69 mmHg (35-46) Arterial Blood pO2 at Patient Temp 78 mmHg (65-108) Arterial Blood HCO3 40 mmol/L (21-28) Arterial Blood Base Excess 12 mmol/L (-3-3) FiO2 32.0 Problem List Problems Medical Problems: (1) COPD exacerbation Status: Acute (2) Respiratory failure Status: Acute Problems: ALMA EVANS MD Jul 03, 2017 10:28
[2017-07-03 10:57] VITALS: BP 100/56
--- NOTE | 2017-07-03 11:37 | PDOC ---
PULMONARY PROGRESS NOTES Subjective FEELS BETTER Vitals Vital Signs Date Time Temp Pulse Resp B/P (MAP) Pulse Ox O2 Delivery O2 Flow Rate FiO2 07/03/17 11:12 Nasal Cannula 3.0 07/03/17 10:57 98.5 90 20 100/56 (71) 95 98.5 ROS: No Nausea, No Chest Pain, No Abdominal Pain, No Increase Cough General: Alert, No acute distress Lungs: Other (poor air entry) Cardiovascular: S1, S2 Abdomen: Soft, Non-tender Neuro Exam: Alert Extremities: No Edema Skin: Warm Labs Laboratory Tests Test 07/02/17 12:00 O2 Saturation 96 % (92-99) Arterial Blood pH 7.38 (7.35-7.45) Arterial Blood pCO2 at Patient Temp 69 mmHg (35-46) Arterial Blood pO2 at Patient Temp 78 mmHg (65-108) Arterial Blood HCO3 40 mmol/L (21-28) Arterial Blood Base Excess 12 mmol/L (-3-3) FiO2 32.0 Laboratory Tests Test 07/02/17 12:00 O2 Saturation 96 % (92-99) Arterial Blood pH 7.38 (7.35-7.45) Arterial Blood pCO2 at Patient Temp 69 mmHg (35-46) Arterial Blood pO2 at Patient Temp 78 mmHg (65-108) Arterial Blood HCO3 40 mmol/L (21-28) Arterial Blood Base Excess 12 mmol/L (-3-3) FiO2 32.0 Medications Active Scripts Medications Dose Route/Sig Max Daily Dose Days Date Category Prednisone 50 Mg Tablet 1 Tab PO DAILY 10/25/16 Rx Cefpodoxime Proxetil 200 Mg Tablet 1 Tab PO BID 10/25/16 Rx [Promethazine Hcl/Codeine] 5 ML Syrup 5 Ml PO PRN Q8HRS PRN 03/15/16 Rx Klor-Con M10 (Potassium Chloride) 10 Meq Tab.er.prt 10 Meq PO DAILYWBKFT 03/15/16 Rx Prednisone 20 Mg Tablet 40 Mg PO DAILY 03/15/16 Rx Metoprolol Succinate ( Xl ) (Metoprolol Succinate) 25 Mg Tab.er.24h 25 Mg PO DAILY 11/20/15 Rx [Nicotine] 1 PATCH Patch 1 Patch TD DAILY 06/23/15 Rx Lortab 5-325 mg Tablet (Hydrocodone/Acetaminophen) 1 Each Tablet 1 Each PO QIDPRN PRN 12/13/13 Reported K-Tab (Potassium Chloride) 10 Meq Tablet.er 10 Meq PO BID 12/12/13 Rx Viagra (Sildenafil Citrate) 50 Mg Tablet 50 Mg PO PRN DAILY 10/28/13 Reported Spiriva (Tiotropium [address]) 18 Mcg Cap.w.dev 18 Mcg IH DAILY 10/28/13 Reported Omeprazole 20 Mg Capsule.dr 20 Mg PO DAILY 10/28/13 Reported Hydrochlorothiazide Capsule (Hydrochlorothiazide) 12.5 Mg Capsule 12.5 Mg PO DAILY 10/28/13 Reported Aspir 81 (Aspirin) 81 Mg Tablet.dr 81 Mg PO DAILY 10/28/13 Reported Amlodipine Besylate 5 Mg Tablet 5 Mg PO DAILY 10/28/13 Reported Albuterol Sulfate Hfa Inhaler (Albuterol Sulfate) 8.5 Gm Hfa.aer.ad 90 Mcg IH PRN EVERY 4-6H 10/28/13 Reported Impression . 1. Acute on chronic hypercapnic respiratory failure. clinically better 2. Acute exacerbation of chronic obstructive pulmonary disease. 3. Chest x-ray was reviewed. There was no evidence of vascular congestion. 4. Tobacco dependence Plan . PT BETTER pt instructed on d/c smoking 1. PRN BiPAP. 2. Steroids taper/ antibiotics. 3. DVT prophylaxis. 4. Nebulized treatments. 5. repeat ABG compensated. ok with dc home LEE WALKER MD Jul 03, 2017 11:37
--- NOTE | 2017-07-03 13:52 | PATHOLOGY ---
PATHOLOGY REPORT * * * * * * * * FINAL DIAGNOSIS: Skin and subcutaneous tissue, right neck mass excision: - Follicular cyst, infundibular type, ruptured, with acute and chronic inflammation and focal foreign body giant cell reaction. (JPM:varinder; 07/03/2017) COMMENT: There is no evidence of malignancy. REPORT ELECTRONICALLY SIGNED BY: Enoch Lentz M.D. DATE/TIME: 07/03/2017 13:51 * * * * * * * * GROSS PATHOLOGY: Received in formalin labeled "Yamilet Jauregui, right neck mass," is a 2.9 x 1.0 x 0.4 cm ellipse of skin displaying a dark cortes and irregularly contoured epidermal surface. The margins are inked black. The specimen is sectioned into seven pieces and entirely submitted in cassettes A1 through A3, with the bisected tips placed in cassette A3. (DAC; 07/02/2017) INITIAL CPT CODE(S): A; 60647 Professional services performed [place] [facility] [place] [address] Technical services performed by [facility] at [address] [place] [address]. SPECIMEN(S) RECEIVED: A.Neck mass, right side CLINICAL HISTORY: Neck mass PATIENT: YAMILET JAUREGUI /AGE: 2 1950 (Age: 66) PATIENT #: [id number] ALT CASE #: SPECIMEN COLLECTION DATE: 07/02/2017 SPECIMEN RECEIVED DATE: 07/02/2017 [facility] - [address] [place] [address] - PHONE: [phone] * * * END OF REPORT * * *
--- NOTE | 2017-07-08 10:48 | PDOC ---
Provider Note Provider Note Discharge summary dictated. #[id number] DAMIÁN BALL MD Jul 08, 2017 10:48
--- NOTE | 2017-07-08 19:13 | DS ---
DATE OF DISCHARGE: 07/03/2017 REASON FOR ADMISSION TO THE HOSPITAL: Acute respiratory failure, COPD with exacerbation. CONSULTATIONS: 1. Dr. Go. 2. Dr. Hopkins. 3. Dr. Montez. PROCEDURES DONE: Mass in the right neck, had an excision done, which is 3 cm. HOSPITAL COURSE: The patient is a 66-year-old male, patient of Dr. Hernandez, history of chronic COPD, came with acute respiratory failure and he had hypercapnic respiratory failure, pCO2 88, pH 7.24. The patient was placed on BiPAP and his condition improved. Repeat blood gas shows pH of 7.38, pCO2 came down to 70 and he was given IV Solu-Medrol, IV antibiotic doxycycline and he had a mass in the right side of the neck, which is 3 cm, seen by Surgery, had excision done and it shows a follicular cyst, which was ruptured and the patient was feeling better, was discharged. FINAL DIAGNOSES: 1. Chronic obstructive pulmonary disease with acute exacerbation. 2. Hypercapnic respiratory failure. 3. Mass in the right side of the neck, which is a ruptured cyst, which was excised. 4. Hypertension. 5. Hyperlipidemia. 6. Smoking addiction. 7. History of colon cancer. The patient had a flu shot and up to date on pneumonia shot, smoking counseling was done. Discharged on prednisone 50 mg daily, doxycycline 100 mg twice daily for 7 days. Follow with PCP, Dr. Hernandez in 1 week. DAMIÁN BALL MD DR: CHELE/braden JOB#: [id number] / [id number] CHIRAG
== END 2017-07-03 13:17 | disposition home health service (06) | DRG 166 ==
LOC: ER 12:02 → 1 WEST ICU 12:53 → 5 NORTH 15:06
PROVIDERS: ADMIT Internal Medicine; ATTEND Internal Medicine
PROC: 5A09357 Assistance with Respiratory Ventilation, Less than 24 Consecutive Hours, Continuous Positive Airway Pressure (ICD-10-PCS; 2017-06-29)
PROC: 5A09357 Assistance with Respiratory Ventilation, Less than 24 Consecutive Hours, Continuous Positive Airway Pressure (ICD-10-PCS; 2017-06-30)
PROC: 0JB40ZZ Excision of Right Neck Subcutaneous Tissue and Fascia, Open Approach (ICD-10-PCS; principal; 2017-07-02 10:30)
DX: J44.1 Chronic obstructive pulmonary disease with (acute) exacerbation (principal); J96.22 Acute and chronic respiratory failure with hypercapnia; I11.0 Hypertensive heart disease with heart failure; J18.9 Pneumonia, unspecified organism; I50.9 Heart failure, unspecified; Z99.81 Dependence on supplemental oxygen; L02.12 Furuncle of neck; E78.00 Pure hypercholesterolemia, unspecified; E78.5 Hyperlipidemia, unspecified; F17.200 Nicotine dependence, unspecified, uncomplicated; K21.9 Gastro-esophageal reflux disease without esophagitis; M10.9 Gout, unspecified; N40.0 Benign prostatic hyperplasia without lower urinary tract symptoms; J32.9 Chronic sinusitis, unspecified; Z85.038 Personal history of other malignant neoplasm of large intestine; Z88.8 Allergy status to other drugs, medicaments and biological substances; Z90.49 Acquired absence of other specified parts of digestive tract; Z71.6 Tobacco abuse counseling
CPT/HCPCS: 36415; 36600; 71010; 80048; 80053; 82805; 83605; 83880; 84484; 85007; 85025; 88304; 93005; 94250; 94640; 94660; 94760; 96374; 96375; J1956; J2405; J2930; J3490; J7512; J7613; J7620; 99291-25

== ENCOUNTER 2019-04-27 08:28 | Inpatient (IN) | payer MEDICARE ==
[~2019-04-27] VITALS: Ht 160 cm; Wt 93.0 kg
[~2019-04-27 08:28] MED LIST changes: +ALBU2.5V8 NEB; +ALPR0.5T6 PO; +AMLO5TAB10 PO; -AMLO5TAB2 PO; +BUDE10.2 IH; +DOXY100C2 PO; +DOXY100T PO; +ERGO500027 PO; +FINA5TAB4 PO; +FLUT100B IH; +FURO40TA4 PO; +GABA-585 PO; +GUAI600T47 PO; -HYDR-2762 PO; +HYDR-2765 PO; -HYDR12.53 PO; +HYDR12.575 PO; +IPRA3AMP29 NEB; +METH125V IV; +Nicotine 14MG TD; +OMEP20CA10 PO; -OMEP20CA9 PO; +POTA20TA4 PO; +POTA20TA82 PO; -PROM118S2 PO; +PROM118S5 PO; +PROM118S9 PO; +TAMS0.4C97 PO
[2019-04-27] MEDS ORDERED: IV NORMAL SALINE 1000ML BAG 1,000 ML IV SCH (08:36)
--- NOTE | 2019-04-27 08:41 | PHYS DOC ---
Past Medical History Past Medical History: Cancer, CHF, COPD, High Cholesterol, Hypertension, Other Additional Past Medical Histor: GOUT, COLON CA, ENLARGED PROSTATE Past Surgical History: Colectomy Additional Past Surgical Histo: colon cancer Smoking: Cigarettes Alcohol Use: Sober Drug Use: None Adult General Chief Complaint Chief Complaint: SHORTNESS OF BREATH HPI HPI Patient is a 68-year-old male who presents to the emergency department via EMS for increasing shortness of breath. He has a history of chronic advanced COPD, and states he has been having increasing shortness of breath over the past few days. He took a nebulizer at home and was given 2 by EMS. When he moved over to the EMS [facility], EMS reported that his oxygen saturations decreased and he was placed on CPAP. He has been on BiPAP here in at this facility in the past, and was recently discharged about 2 weeks ago from the hospital for another COPD exacerbation. He reports some pain across his upper back, associated with coughing, but denies any chest pain. He denies any numbness or weakness. He has not had any fevers or chills. He has had some trace hemoptysis, with some sli ghtly blood-tinged sputum. There are no alleviating or exacerbating factors to his symptoms otherwise. Review of Systems Review of Systems Constitutional: Denies fever or chills [] Eyes: Denies change in visual acuity, redness, or eye pain [] HENT: Denies nasal congestion or sore throat [] Respiratory: No additional information not addressed in HPI [] Cardiovascular: The patient denies any shortness of breath, chest pain, palpitations, or orthopnea [] GI: Denies abdominal pain, nausea, vomiting, bloody stools or diarrhea [] : Denies dysuria or hematuria [] Musculoskeletal: Denies lower back pain or joint pain [] Integument: Denies rash or skin lesions [] Neurologic: Denies headache, focal weakness or sensory changes [] Endocrine: Denies polyuria or polydipsia [] All other systems were reviewed and found to be within normal limits, except as documented in this note. Current Medications Current Medications Current Medications Medications (Trade) Dose Ordered Sig/Nilo Start Time Stop Time Status Last Admin Dose Admin Acetaminophen (Tylenol) 1,000 mg 1X ONCE 04/27/19 09:45 04/27/19 09:54 DC 04/27/19 10:01 1,000 MG Albuterol/ Ipratropium (Duoneb) 3 ml 1X ONCE 04/27/19 08:45 04/27/19 08:46 DC 04/27/19 09:00 3 ML Methylprednisolone Sodium Succinate (SOLU-Medrol 125MG VIAL) 125 mg 1X ONCE 04/27/19 08:45 04/27/19 08:46 DC 04/27/19 08:50 125 MG Sodium Chloride 1,000 ml @ 1,000 mls/hr Q1H 04/27/19 08:36 04/27/19 09:35 DC 04/27/19 08:50 1,000 MLS/HR Allergies Allergies Allergies Coded Allergies Type Severity Reaction Last Updated Verified DELIA Inhibitors Allergy Intermediate 07/02/17 Yes Physical Exam Physical Exam PHYSICAL EXAM: CONSTITUTIONAL: Well developed, well nourished HEAD: normocephalic, atraumatic EENT: PERRL, EOMI. Conjunctivae normal color, sclerae non-icteric; moist mucous membranes. NECK: Supple, non-tender; no meningismus. LUNGS: There are globally diminished breath sounds, with mildly increased work of breathing. No wheezes, rhonchi, or rales. HEART: Regular rate and rhythm, no murmur CHEST: No deformity; non-tender ABDOMEN: The abdomen is soft, and non-tender, no masses or bruits. EXTREM: Normal ROM; no deformity, no calf tenderness. Normal pulses palpable in all extremities. There is no pedal edema. SKIN: No rash; no diaphoresis NEURO: Alert; normal speech and cognition; CN's grossly intact; strength grossly intact without focal deficit. BACK: No CVA TTP. There is no midline vertebral tenderness to palpation to the thoracic or lumbar spine. Current Patient Data Vital Signs Vital Signs Date Time Temp Pulse Resp B/P (MAP) Pulse Ox O2 Delivery O2 Flow Rate FiO2 04/27/19 09:18 94 BiPAP/CPAP 04/27/19 08:33 97.6 121 23 147/88 (107) 97.6 Lab Values Laboratory Tests Test 04/27/19 08:36 04/27/19 09:00 O2 Saturation 92 % (92-99) Arterial Blood pH 7.40 (7.35-7.45) Arterial Blood pCO2 at Patient Temp 61 mmHg (35-46) *H Arterial Blood pO2 at Patient Temp 66 mmHg (65-108) Arterial Blood HCO3 37 mmol/L (21-28) H Arterial Blood Base Excess 10 mmol/L (-3-3) H FiO2 30% bipap White Blood Count 10.7 x10^3/uL (4.0-11.0) Red Blood Count 3.12 x10^6/uL (4.30-5.70) L Hemoglobin 10.7 g/dL (13.0-17.5) L Hematocrit 32.0 % (39.0-53.0) L Mean Corpuscular Volume 103 fL (79-100) H Mean Corpuscular Hemoglobin 34 pg (25-35) Mean Corpuscular Hemoglobin Concent 34 g/dL (31-37) Red Cell Distribution Width 14.9 % (11.5-14.5) H Platelet Count 157 x10^3/uL (140-400) Neutrophils (%) (Auto) 82 % (31-73) H Lymphocytes (%) (Auto) 12 % (24-48) L Monocytes (%) (Auto) 5 % (0-9) Eosinophils (%) (Auto) 0 % (0-3) Basophils (%) (Auto) 0 % (0-3) Neutrophils # (Auto) 8.8 x10^3/uL (1.8-7.7) H Lymphocytes # (Auto) 1.3 x10^3/uL (1.0-4.8) Monocytes # (Auto) 0.5 x10^3/uL (0.0-1.1) Eosinophils # (Auto) 0.0 x10^3/uL (0.0-0.7) Basophils # (Auto) 0.0 x10^3/uL (0.0-0.2) Sodium Level 142 mmol/L (136-145) Potassium Level 3.6 mmol/L (3.5-5.1) Chloride Level 100 mmol/L (98-107) Carbon Dioxide Level 39 mmol/L (21-32) H Anion Gap 3 (6-14) L Blood Urea Nitrogen 14 mg/dL (8-26) Creatinine 0.6 mg/dL (0.7-1.3) L Estimated GFR (Cockcroft-Gault) 161.2 BUN/Creatinine Ratio 23 (6-20) H Glucose Level 121 mg/dL (70-99) H Calcium Level 10.1 mg/dL (8.5-10.1) Magnesium Level 1.6 mg/dL (1.8-2.4) L Total Bilirubin 0.5 mg/dL (0.2-1.0) Aspartate Amino Transferase (AST) 20 U/L (15-37) Alanine Aminotransferase (ALT) 42 U/L (16-63) Alkaline Phosphatase 80 U/L (46-116) Troponin I Quantitative < 0.017 ng/mL (0.000-0.055) WB-Rsb-Y-Type Natriuretic Peptide 37 pg/mL (0-124) Total Protein 8.2 g/dL (6.4-8.2) Albumin 3.0 g/dL (3.4-5.0) L Albumin/Globulin Ratio 0.6 (1.0-1.7) L Ethyl Alcohol Level < 10 mg/dL (0-10) Laboratory Tests 04/27/19 09:00 Laboratory Tests 04/27/19 09:00 EKG EKG Normal sinus rhythm at a rate of 115 bpm, normal axis, normal intervals. There are no acute ischemic ST/T changes.[] Radiology/Procedures Radiology/Procedures [PROCEDURE: PORTABLE CHEST 1V Exam performed: One view chest HISTORY: Shortness of breath DATE OF SERVICE: 04/25/2019. COMPARISON: Two-view chest from 04/25/2019. Single AP Semiupright portable view chest findings: Allowing for the difference in technique and positioning between the 2 studies, there does not appear to be a significant interval change is a blunting of the right costophrenic angle. Linear right basilar opacity representing right basilar atelectasis appears pronounced. The left lung is clear. There is no pneumothorax. IMPRESSION: Blunting of the right costophrenic angle remains stable. Small right basilar atelectasis. ] Course & Med Decision Making Course & Med Decision Making Pertinent Labs and Imaging studies reviewed. (See chart for details) []The patient's condition remains stable. I spoke with Dr Alexander, who accepted the patient to the hospital for further evaluation and treatment. Dragon Disclaimer Dragon Disclaimer This electronic medical record was generated, in whole or in part, using a voice recognition dictation system. Departure Departure Impression: Primary Impression: COPD exacerbation Disposition: ADMITTED INPATIENT Admitting Physician: Madi. Roman Condition: STABLE Referrals: JJ GIORDANO (PCP) BENJI STANFORD MD Apr 27, 2019 08:41
[2019-04-27] MEDS ORDERED: methylPREDNISolone SOD SUCC PF 125 MG/2 ML VIAL. IV ONE (08:45)
[2019-04-27] MEDS ORDERED: IPRATRPIUM/ALBUTEROL 0.5/2.5MG 3 ML NEBU. NEB ONE (08:45)
[2019-04-27 08:55] LABS: BASE EXCESS ABG 10 mmol/L (-3-3); HCO3 ABG 37 mmol/L (21-28); PO2 ABG 66 mmHg (65-108); SAT O2 ABG 92 % (92-99)
[2019-04-27 09:14] LABS: BASO % 0 % (0-3); EOS % 0 % (0-3); HEMOGLOBIN 10.7 g/dL (13.0-17.5); LYMPH # 1.3 x10^3/uL (1.0-4.8); LYMPH % 12 % (24-48); MEAN CORPUSCULAR HEMOGLOBIN 34 pg (25-35); MEAN CORPUSCULAR HGB CONC 34 g/dL (31-37); MEAN CORPUSCULAR VOLUME 103 fL (79-100); MONO # 0.5 x10^3/uL (0.0-1.1); MONO % 5 % (0-9); NEUT # 8.8 x10^3/uL (1.8-7.7); NEUT % 82 % (31-73); PLATELET COUNT 157 x10^3/uL (140-400); RED BLOOD COUNT 3.12 x10^6/uL (4.30-5.70); RED CELL DISTRIBUTION WIDTH 14.9 % (11.5-14.5); WHITE BLOOD COUNT 10.7 x10^3/uL (4.0-11.0)
--- NOTE | 2019-04-27 09:14 | RAD ---
Exam performed: One view chest HISTORY: Shortness of breath DATE OF SERVICE: 04/25/2019. COMPARISON: Two-view chest from 04/25/2019. Single AP Semiupright portable view chest findings: Allowing for the difference in technique and positioning between the 2 studies, there does not appear to be a significant interval change is a blunting of the right costophrenic angle. Linear right basilar opacity representing right basilar atelectasis appears pronounced. The left lung is clear. There is no pneumothorax. IMPRESSION: Blunting of the right costophrenic angle remains stable. Small right basilar atelectasis. Electronically signed by: Sarah Taylor MD (04/27/2019 9:12 AM) [facility]
[2019-04-27 09:21] LABS: PCO2 ABG 61 mmHg (35-46)
[2019-04-27 09:22] LABS: FIO2 ABG 30% BIPAP
[2019-04-27 09:26] LABS: CALCIUM 10.1 mg/dL (8.5-10.1); CREATININE 0.6 mg/dL (0.7-1.3); GFR 161.2; POTASSIUM 3.6 mmol/L (3.5-5.1)
[2019-04-27 09:45] LABS: ALBUMIN/GLOBULIN RATIO 0.6 (1.0-1.7); MAGNESIUM 1.6 mg/dL (1.8-2.4); TOTAL BILIRUBIN 0.5 mg/dL (0.2-1.0); TOTAL PROTEIN 8.2 g/dL (6.4-8.2)
[2019-04-27] MEDS ORDERED: ACETAMINOPHEN 500 MG TABLET PO ONE (09:45)
[2019-04-27] MEDS ORDERED: MORPHINE SULFATE 4 MG/ML VIAL. IV ONE (10:45)
[2019-04-27] MEDS ORDERED: MELA3TAB56 PO (12:39)
[2019-04-27] MEDS ORDERED: POLY2500 PO (12:45)
[2019-04-27] MEDS ORDERED: ESCITALOPRAM OX10 MG PO (12:45)
[2019-04-27] MEDS ORDERED: MULT1TAB52 PO (12:45)
[2019-04-27] MEDS ORDERED: GABA600T7 PO (12:45)
[2019-04-27] MEDS ORDERED: PRED20TA PO (12:45)
[2019-04-27 12:48] VITALS: BP 158/70
[2019-04-27] MEDS ORDERED: ALBUTEROL SULFATE 2.5 MG/3 ML NEBU. NEB PRN (14:30)
[2019-04-27 15:00] VITALS: BP 103/59
[2019-04-27] MEDS ORDERED: CITALOPRAM 20 MG TABLET. PO SCH (15:00)
[2019-04-27] MEDS ORDERED: MAGNESIUM SULFATE 2GM 50 ML IV ONE (15:00)
[2019-04-27] MEDS: POLYETHYLENE GLYCOL 3350 17 GM PACKET. PO SCH ×2 (15:00→16:23)
[2019-04-27] MEDS: IPRATRPIUM/ALBUTEROL 0.5/2.5MG 3 ML NEBU. NEB SCH ×2 (15:54→20:15)
[2019-04-27] MEDS: methylPREDNISolone SOD SUCC PF 40 MG/ML VIAL. IV SCH ×2 (16:24→23:27)
[2019-04-27] MEDS: PANTOPRAZOLE 40 MG TABLET.DR. PO SCH (16:24)
[2019-04-27] MEDS: ASPIRIN ENTERIC COATED 81 MG TABLET.DR. PO SCH (16:24)
[2019-04-27] MEDS: amLODIPine BESYLATE 5 MG TABLET PO SCH (16:25)
[2019-04-27] MEDS: POTASSIUM CHLORIDE 20 MEQ TABLET.ER. PO SCH (16:25)
[2019-04-27] MEDS: FUROSEMIDE 40 MG TABLET. PO SCH (16:26)
[2019-04-27] MEDS: FINASTERIDE 5 MG TABLET. PO SCH (16:26)
[2019-04-27] MEDS: CITALOPRAM 20 MG TABLET. PO SCH (16:26)
[2019-04-27] MEDS: HYDROcodone/APAP 7.5/325MG 1 TAB TABLET PO PRN (16:27)
[2019-04-27] MEDS: NICOTINE 14MG PATCH. TD SCH (16:29)
--- NOTE | 2019-04-27 16:53 | CONS ---
DATE OF CONSULTATION: 04/27/2019 PULMONARY CONSULTATION HISTORY OF PRESENT ILLNESS: The patient is a 68-year-old male that I am asked to see for shortness of breath. The patient has a long history of smoking 1-1/2 packs of cigarettes per day. He states he quit smoking one month ago. He has severe COPD and chronic respiratory failure. He has had multiple hospitalizations for respiratory failure in the past month. Of note, the patient's nurse informs me that he recently did sign up for hospice because of his respiratory condition and he is do not resuscitate. The patient was recently hospitalized a few weeks ago at [facility] for respiratory failure. He states that since he went home, he has slowly been getting worse. He denies fever or purulent sputum. He denies exposure to chemicals or fumes. He has not had chest pain, although he does complain of back pain and that is chronic. When he came to the Emergency Room, he was noted to be hypoxic on oxygen. He was placed on BiPAP and treated with bronchodilators and steroids. He notes that in the several hours since he presented to the Emergency Room that he is modestly improved. At present, he is on his BiPAP, but will transition back and forth to low flow oxygen. FAMILY HISTORY: Significant for colon cancer, congestive heart failure, hyperlipidemia, and hypertension. SOCIAL HISTORY: See above tobacco smoke exposure. REVIEW OF SYSTEMS: A 12-point review of systems was obtained. It was positive for diarrhea at home. He has not had any blood in his bowel movements. Otherwise, a 12-point review of systems was negative. PHYSICAL EXAMINATION: GENERAL: Reveals a male in mild to moderate distress. He is afebrile. His respiratory rate is 20 per minute with a prolonged exhalation phase, but without accessory muscle use. He can speak in short sentences, but not long sentences. VITAL SIGNS: His blood pressure is 158/70. His oxygen saturation is 98% on 2.5 liters. HEENT: Unremarkable. NECK: There is no JVD or lymphadenopathy. CHEST: He has markedly diminished and symmetrical, breath sounds without rales, rhonchi, wheezes or rubs. CARDIOVASCULAR: He has distant heart sounds with a regular rhythm. I do not appreciate any murmurs or gallops. ABDOMEN: Soft, without masses or organomegaly. EXTREMITIES: There is no cyanosis, clubbing or edema. NEUROLOGIC: He is alert, oriented and appropriate. Cranial nerves, motor, and coordination are all grossly intact. LABORATORY DATA: He had a chest x-ray that was done earlier today in the Emergency Room. It is remarkable for marked hyperexpansion. He does have chronic right pleural changes that are unchanged going back several years. There are no acute infiltrates that I appreciate. He had an arterial blood gas that was obtained on BiPAP and supplemental oxygen. His pH was 7.40. His pCO2 was 61, his pO2 was 66. His white blood cell count was 10,700. His troponin was low. His BNP was low at 37. IMPRESSION: 1. Acute on chronic hypoxic, hypercapnic respiratory failure secondary to chronic obstructive pulmonary disease exacerbation. 2. Severe chronic obstructive pulmonary disease. 3. Tobacco abuse with recent cessation. PLAN: I agree with noninvasive mechanical ventilation and low flow oxygen. I would minimize usage of any respiratory depressants including opioids and diazepam. I agree with his systemic steroids and nebulized bronchodilators. Thank you for the consultation. We will follow along with you. If you have any questions, please do not hesitate to contact me. ERUM MOYER MD DR: KATIE/braden JOB#: [id number] / [id number] CHIRAG
[2019-04-27 19:54] VITALS: BP 113/65
[2019-04-27] MEDS: TAMSULOSIN 0.4 MG CAP.ER.24H. PO SCH (20:47)
[2019-04-27] MEDS: ALPRAZolam 0.5 MG TABLET PO PRN (20:53)
[2019-04-27] MEDS ORDERED: GABAPENTIN 100 MG CAPSULE. PO PRN (21:00)
[2019-04-27] MEDS ORDERED: NON FORMULARY ITEM (Melatonin 1 TAB) PO SCH (21:00)
[2019-04-27 23:34] VITALS: BP 111/60
[2019-04-28 03:05] VITALS: BP 108/72
[2019-04-28] MEDS: HYDROcodone/APAP 7.5/325MG 1 TAB TABLET PO PRN ×2 (04:02→12:58)
--- NOTE | 2019-04-28 06:19 | EKG ---
[facility] [address] [place] [address] Test Date: 2019-04-27 Test Time: 08:29:50 Pat Name: KATARINA JAUREGUI Department: Room: 262 1 Gender: M Yard Switcher: : 1950 Requested By: BENJI STANFORD Order Number: [id number] Reading MD: Dennis Luis Measurements Intervals Wallace Rate: 115 P: 74 CO: 114 QRS: 74 QRSD: 92 T: 73 QT: 308 QTc: 428 Interpretive Statements SINUS TACHYCARDIA Electronically Signed On 05-06-2019 16:50:41 CDT by Dennis Luis
[2019-04-28] MEDS: methylPREDNISolone SOD SUCC PF 40 MG/ML VIAL. IV SCH ×3 (06:33→21:08)
[2019-04-28 07:00] VITALS: BP 106/66
[2019-04-28] MEDS: IPRATRPIUM/ALBUTEROL 0.5/2.5MG 3 ML NEBU. NEB SCH ×5 (07:21→19:33)
[2019-04-28] MEDS: POTASSIUM CHLORIDE 20 MEQ TABLET.ER. PO SCH (08:56)
[2019-04-28] MEDS: ASPIRIN ENTERIC COATED 81 MG TABLET.DR. PO SCH (08:56)
[2019-04-28] MEDS: amLODIPine BESYLATE 5 MG TABLET PO SCH (08:57)
[2019-04-28] MEDS: FINASTERIDE 5 MG TABLET. PO SCH (08:57)
[2019-04-28] MEDS: FUROSEMIDE 40 MG TABLET. PO SCH (08:57)
[2019-04-28] MEDS: TAMSULOSIN 0.4 MG CAP.ER.24H. PO SCH ×2 (08:57→21:08)
[2019-04-28] MEDS: MULTIVITAMIN with MINERAL TABLET. PO SCH (08:58)
[2019-04-28] MEDS: POLYETHYLENE GLYCOL 3350 17 GM PACKET. PO SCH (08:58)
[2019-04-28] MEDS: CITALOPRAM 20 MG TABLET. PO SCH (08:58)
[2019-04-28] MEDS: PANTOPRAZOLE 40 MG TABLET.DR. PO SCH (08:58)
[2019-04-28] MEDS: NICOTINE 14MG PATCH. TD SCH (08:58)
--- NOTE | 2019-04-28 10:11 | PN ---
DATE: 04/28/2019 SUBJECTIVE: The patient is resting, slightly propped up in bed, in no apparent distress, awake, alert, maintaining his oxygen saturation at 97% on 3 liters of oxygen by nasal cannula. He continued to complain of mid back pain that is aggravated by movement and taking a deep breath. Denied any fall or trauma. OBJECTIVE: GENERAL: When I examined him, he looked well and was clearly in no apparent respiratory distress, slightly pale, but no jaundice, cyanosis, or thyromegaly. No jugular venous distention. No limb edema. VITAL SIGNS: His heart rate was 84, blood pressure was 132/73, temperature was 97.6, respiratory rate was 18, and oxygen saturation was 97% on 3 liters of oxygen by nasal cannula. HEAD, EYES, EARS, NOSE, AND THROAT: Showed normocephalic, atraumatic. NECK: Supple. HEART: Showed normal first and second heart sounds. No gallop or murmur. CHEST: Clear to auscultation. No crepitation or rhonchi. ABDOMEN: Distended, soft, nontender. NEUROLOGIC: He is awake, alert, responding appropriately. All cranial nerves are intact. He moves extremities without difficulty, has marked tenderness on percussion at the mid thoracic area. LABORATORY DATA: He has no lab work done this morning. PLAN: My plan is to arrange for him to have an x-ray of the thoracic spine to see if there is any compression fracture or lytic lesion and meanwhile, continue with steroids and bronchodilator. He has no leukocytosis. He has no fever. His sputum is whitish with tinge of blood, and I do not see any reason for antibiotic. JJ ABEBE MD DR: PANDA/braden JOB#: [id number] / [id number]
--- NOTE | 2019-04-28 10:35 | HP ---
ADMIT DATE: HISTORY OF PRESENT ILLNESS: The patient is a 68-year-old -Alger[place] male patient who came to the Emergency Room complaining of shortness of breath. He apparently has advanced chronic obstructive pulmonary disease and stated that he has been having increasing shortness of breath over the last few days. He took his nebulizer treatment at home, he was given 2 by emergency medical service personnel when he moved over to the emergency medical service. Currently, they reported that his oxygen saturation was decreased and was placed on CPAP. He has been on BiPAP here at this facility in the past and was recently discharged about 2 weeks ago from the hospital for another COPD exacerbation. He reports some pain across his upper back associated with coughing, but denies any chest pain. Denied any numbness or weakness. Denied any chills, rigors or fever. He has had some trace hemoptysis, some slight blood-tinged sputum. There are no alleviating or exacerbating factors of his symptoms. He was evaluated in the Emergency Room and was investigated extensively. His chest x-ray showed that there has blunting of the right costophrenic angle, remained stable small right basilar atelectasis. His blood gases showed a pH of 7.4, pCO2 of 61, pO2 of 66, bicarb 37, oxygen saturation was 92% on 10 liters of oxygen. His white cell count was 10,700. His blood alcohol level was less than 10. He was admitted with diagnosis of acute COPD exacerbation and was basically started on IV Solu-Medrol and was continued on all his other medications. PAST MEDICAL HISTORY: Significant for multiple admissions for chronic COPD exacerbation. His other medical problems include hypertension, hyperlipidemia, noncompliance and benign prostatic hypertrophy. PAST SURGICAL HISTORY: Significant for colon cancer. ALLERGIES: HE IS ALLERGIC TO DELIA INHIBITORS cause cough. SOCIAL HISTORY: He is . He continued to smoke and apparently is a heavy drinker. REVIEW OF SYSTEMS: The patient denied any blurring of vision, cataract, glaucoma or macular degeneration. Denied any earache, tinnitus or sensorineural deafness. Denied any nosebleeds, stuffy nose or postnasal drip. Denied any sore throat, toothache, sore tongue, toothache, hoarseness of voice or difficulty swallowing. Denied any hematemesis, melena, hematochezia. Denied any dysuria, frequency or hematuria. Did complain of back pain around the mid thoracic area on both sides. Did complain also of cough with blood-tinged sputum; however, denied any chills, rigors or fever. PHYSICAL EXAMINATION: GENERAL: On arrival to the Emergency Room, he apparently was tachypneic, but there was no pallor, jaundice, cyanosis or thyromegaly. No jugular venous distention. No lower limb edema. VITAL SIGNS: His heart rate was 121, blood pressure 147/88, temperature was 97.6, respiratory rate was 23, and oxygen saturation was 98% on BiPAP machine. HEAD, EYES, EARS, NOSE AND THROAT: Normocephalic, atraumatic. NECK: Supple. HEART: Showed normal first and second heart sounds. No gallop or murmur. CHEST: Clear to auscultation. No crepitation or rhonchi. ABDOMEN: Distended, soft, nontender. NEUROLOGIC: He was awake, alert, responding appropriately. All cranial nerves intact. EXTREMITIES: He moves extremities without difficulty. LABORATORY DATA: On admission showed that his white cell count was 10,700; hemoglobin 11; hematocrit 32; MCV 103 and platelet count of 157,000. His chemistry showed a serum sodium 142, potassium 3.6, chloride 100, bicarbonate 39, anion gap of 3, BUN 14, creatinine 0.6, estimated GFR was 161 mL per minute. His glucose 121, calcium was 10.1, magnesium was 1.6. Total bilirubin, AST, ALT, alkaline phosphatase were normal. His troponin was less than 0.017. Beta natriuretic peptide was 37. Total protein was 8.2 and albumin was 3. His arterial blood gases showed a pH of 7.40, pCO2 of 61, pO2 of 66, bicarbonate 37 and oxygen saturation was 92% on FiO2 of 30% on BiPAP machine. Again, his chest x-ray showed that there is blunting of the right costophrenic angle, linear right basilar opacity representing right basilar atelectasis that is pronounced, the left lung is clear. There is no pneumothorax. The patient was admitted, continued on BiPAP machine, continue all his medications as he is currently on following medications: He is on ipratropium bromide, albuterol sulfate for DuoNeb 4 times a day, Spiriva HandiHaler 1 inhalation once a day, albuterol sulfate 2.5 mg by nebulizer every 6 hours, tamsulosin for Flomax 0.4 mg once a day, amlodipine 5 mg once a day, aspirin 81 mg once a day, hydrocodone/APAP 7.5/325 one tablet twice a day, gabapentin 200 mg 3 times a day, escitalopram oxalate 10 mg once a day, alprazolam 0.5 mg every 8 hours, potassium chloride 20 mEq once a day. He is on furosemide 40 mg once a day. He is on Symbicort 160/4.5 mcg inhaler 1 puff twice a day, omeprazole 20 mg once a day, prednisone 20 mg daily, ergocalciferol 50,000 international unit once every Sunday, multivitamin 1 tablet once a day, finasteride 5 mg once a day, melatonin 3 mg at bedtime, polyethylene glycol 17 grams daily and nicotine 14 mg patch topically once a day. PLAN: I did start him on IV Solu-Medrol and did consult the valet parking attendant. I spoke with Dr. Montgomery and apparently the patient is already on hospice and apparently lives alone and the plan is to arrange for him to be discharged to a nursing home facility on hospice. JJ ABEBE MD DR: PANDA/braden JOB#: [id number] / [id number]
[2019-04-28 10:51] VITALS: BP 123/70
--- NOTE | 2019-04-28 11:56 | PDOC ---
PULMONARY PROGRESS NOTES Subjective soa with exertion Vitals Vital Signs Date Time Temp Pulse Resp B/P (MAP) Pulse Ox O2 Delivery O2 Flow Rate FiO2 04/28/19 11:33 97 Nasal Cannula 3.0 04/28/19 10:51 98.2 105 20 123/70 (87) 98.2 General: Alert, No acute distress HEENT: Other Lungs: Other (decrease bs) Cardiovascular: S1, S2 Abdomen: Soft, Non-tender Neuro Exam: Alert Extremities: No Edema Skin: Warm Labs Laboratory Tests Test 04/27/19 08:36 04/27/19 09:00 O2 Saturation 92 % (92-99) Arterial Blood pH 7.40 (7.35-7.45) Arterial Blood pCO2 at Patient Temp 61 mmHg (35-46) Arterial Blood pO2 at Patient Temp 66 mmHg (65-108) Arterial Blood HCO3 37 mmol/L (21-28) Arterial Blood Base Excess 10 mmol/L (-3-3) FiO2 30% bipap White Blood Count 10.7 x10^3/uL (4.0-11.0) Red Blood Count 3.12 x10^6/uL (4.30-5.70) Hemoglobin 10.7 g/dL (13.0-17.5) Hematocrit 32.0 % (39.0-53.0) Mean Corpuscular Volume 103 fL (79-100) Mean Corpuscular Hemoglobin 34 pg (25-35) Mean Corpuscular Hemoglobin Concent 34 g/dL (31-37) Red Cell Distribution Width 14.9 % (11.5-14.5) Platelet Count 157 x10^3/uL (140-400) Neutrophils (%) (Auto) 82 % (31-73) Lymphocytes (%) (Auto) 12 % (24-48) Monocytes (%) (Auto) 5 % (0-9) Eosinophils (%) (Auto) 0 % (0-3) Basophils (%) (Auto) 0 % (0-3) Neutrophils # (Auto) 8.8 x10^3/uL (1.8-7.7) Lymphocytes # (Auto) 1.3 x10^3/uL (1.0-4.8) Monocytes # (Auto) 0.5 x10^3/uL (0.0-1.1) Eosinophils # (Auto) 0.0 x10^3/uL (0.0-0.7) Basophils # (Auto) 0.0 x10^3/uL (0.0-0.2) Sodium Level 142 mmol/L (136-145) Potassium Level 3.6 mmol/L (3.5-5.1) Chloride Level 100 mmol/L (98-107) Carbon Dioxide Level 39 mmol/L (21-32) Anion Gap 3 (6-14) Blood Urea Nitrogen 14 mg/dL (8-26) Creatinine 0.6 mg/dL (0.7-1.3) Estimated GFR (Cockcroft-Gault) 161.2 BUN/Creatinine Ratio 23 (6-20) Glucose Level 121 mg/dL (70-99) Calcium Level 10.1 mg/dL (8.5-10.1) Magnesium Level 1.6 mg/dL (1.8-2.4) Total Bilirubin 0.5 mg/dL (0.2-1.0) Aspartate Amino Transf (AST/SGOT) 20 U/L (15-37) Alanine Aminotransferase (ALT/SGPT) 42 U/L (16-63) Alkaline Phosphatase 80 U/L (46-116) Troponin I Quantitative < 0.017 ng/mL (0.000-0.055) EK-Vpq-X-Type Natriuretic Peptide 37 pg/mL (0-124) Total Protein 8.2 g/dL (6.4-8.2) Albumin 3.0 g/dL (3.4-5.0) Albumin/Globulin Ratio 0.6 (1.0-1.7) Ethyl Alcohol Level < 10 mg/dL (0-10) Medications Active Scripts Medications Dose Route/Sig Max Daily Dose Days Date Category Polyethylene Glycol 3350 2,500 Gm Powder 17 Gm PO DAILY 04/27/19 Reported Gabapentin 600 Mg Tablet 200 Mg PO TID PRN 04/27/19 Reported Escitalopram Oxalate 10 Mg Tablet 1 Tab PO DAILY 04/27/19 Reported Prednisone 20 Mg Tablet 1 Tab PO DAILY 04/27/19 Reported Multivitamins (Multivitamin) 1 Each Tablet 1 Tab PO DAILY 04/27/19 Reported Melatonin 3 Mg Tablet 1 Tab PO QHS 04/27/19 Reported Furosemide 40 Mg Tablet 40 Mg PO DAILY 30 04/08/19 Rx Klor-Con M20 (Potassium Chloride) 20 Meq Tab.er.prt 20 Meq PO DAILY 30 04/08/19 Rx Symbicort 160-4.5 Mcg Inhaler (Budesonide/Formoterol Fumarate) 10.2 Gm Hfa.aer.ad 1 Puff IH BID 04/04/19 Reported Hydrocodone-Apap 7.5-325 (Hydrocodone Bit/Acetaminophen) 1 Tab Tablet 1 Tab PO BID PRN 04/04/19 Reported Alprazolam 0.5 Mg Tablet 0.5 Mg PO PRN Q8HRS PRN 7 03/13/19 Rx Duoneb 0.5-3(2.5) Mg/3 Ml (Albuterol/Ipratropium) 3 Ml Ampul.neb 3 Ml NEB RTQID 30 03/13/19 Rx Proair Hfa (Albuterol Sulfate) 8.5 Gm Hfa.aer.ad 2.5 Mg NEB PRN Q6HRS PRN 30 03/13/19 Rx [Nicotine 14MG] 1 PATCH Patch 1 Patch TD DAILY 30 08/29/18 Rx Finasteride 5 Mg Tablet 1 Tab PO DAILY 08/25/18 Reported Flomax (Tamsulosin Hcl) 0.4 Mg Cap.er.24h 1 Cap PO BID 08/25/18 Reported Vitamin D2 (Ergocalciferol (Vitamin D2)) 50,000 Unit Capsule 1 Cap PO QM 08/25/18 Reported Spiriva (Tiotropium [place]) 18 Mcg Cap.w.dev 18 Mcg IH DAILY 10/28/13 Reported Omeprazole 20 Mg Capsule. 20 Mg PO DAILY 10/28/13 Reported Aspir 81 (Aspirin) 81 Mg Tablet. 81 Mg PO DAILY 10/28/13 Reported Amlodipine Besylate 5 Mg Tablet 5 Mg PO DAILY 10/28/13 Reported Impression . 1. Acute on chronic hypoxic, hypercapnic respiratory failure secondary to chronic obstructive pulmonary disease exacerbation. 2. Severe chronic obstructive pulmonary disease. 3. Tobacco abuse with recent cessation. Plan . PLAN: I agree with noninvasive mechanical ventilation and low flow oxygen. I would minimize usage of any respiratory depressants including opioids and diazepam. I agree with his systemic steroids and nebulized bronchodilators. Will benefit from skill care will need re-eval of his home trilogy machine by LEE CHOPRA MD Apr 28, 2019 11:56
--- NOTE | 2019-04-28 14:00 | NUR ---
SS following for discharge planning. SS reviewed pt chart. Pt was recently discharged from [facility] on 04/26/2019 with hospice services through [facility]. Pt was admitted at [facility] from 04/08/2019-04/26/2019. Pt is from home and is currently requiring oxygen. SS will continue to follow for discharge planning.
[2019-04-28 15:00] VITALS: BP 101/64
--- NOTE | 2019-04-28 16:22 | RAD ---
Examination: THORACIC SPINE 3V History: Severe mid thoracic pain Comparison/Correlation: 03/08/2019 CT chest without contrast Findings: Total of 3 images of the thoracic spine were obtained. Osteopenia is notable. Mild C6/7 disc space narrowing is present. T9 compression deformity of approximately 25 percent noted. T6 compression deformity is also evident over lesser extent. No displaced fracture or bone destruction. Impression: Compression deformities of the thoracic spine are present. Compression deformity of T9 is similar upon correlation with CT chest without contrast dated 03/08/2019. No significant overall change involving the thoracic spine. Correlation with the recent previous CT chest without contrast exam. Severe osteopenia is present limiting assessment. Electronically signed by: Mayank Vidal MD (04/28/2019 4:19 PM) [facility]
[2019-04-28] MEDS: ERGOCALCIFEROL (VITAMIN D2) 50,000 UNIT CAPSULE. PO SCH (17:26)
[2019-04-28] MEDS: ALPRAZolam 0.5 MG TABLET PO PRN (17:29)
[2019-04-28 19:00] VITALS: BP 105/61
[2019-04-28 23:00] VITALS: BP 109/65
[2019-04-29 03:00] VITALS: BP 115/63
[2019-04-29] MEDS: HYDROcodone/APAP 7.5/325MG 1 TAB TABLET PO PRN ×2 (04:57→22:29)
[2019-04-29] MEDS: methylPREDNISolone SOD SUCC PF 40 MG/ML VIAL. IV SCH ×3 (04:58→22:20)
[2019-04-29 05:35] LABS: HEMATOCRIT 30.1 % (39.0-53.0); HEMOGLOBIN 10.2 g/dL (13.0-17.5); RED BLOOD COUNT 2.95 x10^6/uL (4.30-5.70); RED CELL DISTRIBUTION WIDTH 14.7 % (11.5-14.5); WHITE BLOOD COUNT 8.3 x10^3/uL (4.0-11.0)
[2019-04-29 05:51] LABS: ALBUMIN 2.7 g/dL (3.4-5.0); ALBUMIN/GLOBULIN RATIO 0.5 (1.0-1.7); CALCIUM 9.9 mg/dL (8.5-10.1); CREATININE 0.7 mg/dL (0.7-1.3); GFR 134.9; POTASSIUM 4.3 mmol/L (3.5-5.1); TOTAL BILIRUBIN 0.3 mg/dL (0.2-1.0); TOTAL PROTEIN 7.7 g/dL (6.4-8.2)
[2019-04-29 07:00] VITALS: BP 103/64
[2019-04-29] MEDS: IPRATRPIUM/ALBUTEROL 0.5/2.5MG 3 ML NEBU. NEB SCH ×4 (08:32→20:11)
[2019-04-29] MEDS: POLYETHYLENE GLYCOL 3350 17 GM PACKET. PO SCH (09:00)
[2019-04-29] MEDS: FUROSEMIDE 40 MG TABLET. PO SCH (09:10)
[2019-04-29] MEDS: amLODIPine BESYLATE 5 MG TABLET PO SCH (09:10)
[2019-04-29] MEDS: ASPIRIN ENTERIC COATED 81 MG TABLET.DR. PO SCH (09:10)
[2019-04-29] MEDS: CITALOPRAM 20 MG TABLET. PO SCH (09:10)
[2019-04-29] MEDS: FINASTERIDE 5 MG TABLET. PO SCH (09:11)
[2019-04-29] MEDS: NICOTINE 14MG PATCH. TD SCH (09:14)
[2019-04-29] MEDS: TAMSULOSIN 0.4 MG CAP.ER.24H. PO SCH ×2 (09:15→22:19)
[2019-04-29] MEDS: POTASSIUM CHLORIDE 20 MEQ TABLET.ER. PO SCH (09:15)
[2019-04-29] MEDS: PANTOPRAZOLE 40 MG TABLET.DR. PO SCH (09:15)
[2019-04-29] MEDS: MULTIVITAMIN with MINERAL TABLET. PO SCH (09:15)
--- NOTE | 2019-04-29 10:06 | PN ---
DATE: 04/29/2019 SUBJECTIVE: The patient is resting, slightly propped up in bed, no apparent distress. He stated that his back pain is much improved, has increased his hydrocodone and start him on Xanax yesterday. PHYSICAL EXAMINATION: GENERAL: When I examined him, he looked pale, but no jaundice, cyanosis or thyromegaly. No jugular venous distension. No lower limb edema. VITAL SIGNS: His heart rate was 78, blood pressure 103/64, temperature was 98.1, respiratory rate was 16, and oxygen saturation was 98% on 3 liters of oxygen. HEAD, EYES, EARS, NOSE AND THROAT: Showed normocephalic, atraumatic. NECK: Supple. HEART: Showed normal first and second heart sounds. No gallop, rub or murmur. CHEST: Clear to auscultation. No crepitation or rhonchi. ABDOMEN: Distended, soft, nontender. LABORATORY DATA: Showed a white cell count of 8300; hemoglobin 10; hematocrit 30; MCV 102; and platelet count of 117,000. His chemistry showed a serum sodium 141, potassium 4.3, chloride 102, bicarbonate 38, anion gap of 1, BUN 20, creatinine 0.7, estimated GFR was 134 mL per minute. His glucose 142. Calcium was 9.9. Total bilirubin, AST, ALT, alkaline phosphatase were normal. Total protein was 7.7, albumin was 2.7. Toxic screen was less than 10. ASSESSMENT: 1. Acute on chronic hypoxic hypercapnic respiratory failure secondary to chronic obstructive pulmonary disease exacerbation. 2. Severe chronic obstructive pulmonary disease. 3. Tobacco abuse. 4. Hypertension. 5. Hyperlipidemia. 6. Benign prostatic hypertrophy. 7. Noncompliance. 8. He did complain of mid back pain and his x-ray of the thoracic spine showed that he has T6 compression deformity and also T9 compression deformity of approximately 25%, has mild C6-C7 disk space narrowing present. He has also severe osteopenia and that is limiting the assessment. I will discuss with Dr. Escudero, this is a candidate for vertebral kyphoplasty. As if he can eliminate the cause of his pain, we can discontinue his opioids. JJ ABEBE MD DR: PANDA/braden JOB#: [id number] / [id number]
[2019-04-29 11:00] VITALS: BP 111/64
--- NOTE | 2019-04-29 11:01 | PDOC ---
Provider Note Provider Note IR NOTE Chest radiographs and prior CT scans reviewed. Severe osteopenia and multiple compression fractures are similar. The most significant deformity of t9 is grossly stable from 08/2015. Fractures are grossly unchanged from ct from 8 .3.19. No definitively acute fracture is seen. Would consider MRI to evaluate fracture acuity. Patient also high risk for a procedure requiring significant sedation , in the prone position, given his respiratory function. Would need anesthesia consult for any intervention. CHARLIE FISH MD Apr 29, 2019 11:01
--- NOTE | 2019-04-29 12:33 | PDOC ---
PULMONARY PROGRESS NOTES Subjective soa with exertion sleepy this am Vitals Vital Signs Date Time Temp Pulse Resp B/P (MAP) Pulse Ox O2 Delivery O2 Flow Rate FiO2 04/29/19 12:13 95 Nasal Cannula 3.0 04/29/19 09:15 90 103/64 04/29/19 07:00 98.1 16 98.1 General: No acute distress HEENT: Other Lungs: Other (decrease bs) Cardiovascular: S1, S2 Abdomen: Soft, Non-tender Extremities: No Edema Skin: Warm Labs Laboratory Tests Test 04/29/19 05:15 White Blood Count 8.3 x10^3/uL (4.0-11.0) Red Blood Count 2.95 x10^6/uL (4.30-5.70) Hemoglobin 10.2 g/dL (13.0-17.5) Hematocrit 30.1 % (39.0-53.0) Mean Corpuscular Volume 102 fL (79-100) Mean Corpuscular Hemoglobin 35 pg (25-35) Mean Corpuscular Hemoglobin Concent 34 g/dL (31-37) Red Cell Distribution Width 14.7 % (11.5-14.5) Platelet Count 117 x10^3/uL (140-400) Sodium Level 141 mmol/L (136-145) Potassium Level 4.3 mmol/L (3.5-5.1) Chloride Level 102 mmol/L (98-107) Carbon Dioxide Level 38 mmol/L (21-32) Anion Gap 1 (6-14) Blood Urea Nitrogen 20 mg/dL (8-26) Creatinine 0.7 mg/dL (0.7-1.3) Estimated GFR (Cockcroft-Gault) 134.9 BUN/Creatinine Ratio 29 (6-20) Glucose Level 142 mg/dL (70-99) Calcium Level 9.9 mg/dL (8.5-10.1) Total Bilirubin 0.3 mg/dL (0.2-1.0) Aspartate Amino Transf (AST/SGOT) 14 U/L (15-37) Alanine Aminotransferase (ALT/SGPT) 31 U/L (16-63) Alkaline Phosphatase 72 U/L (46-116) Total Protein 7.7 g/dL (6.4-8.2) Albumin 2.7 g/dL (3.4-5.0) Albumin/Globulin Ratio 0.5 (1.0-1.7) Laboratory Tests Test 04/29/19 05:15 White Blood Count 8.3 x10^3/uL (4.0-11.0) Red Blood Count 2.95 x10^6/uL (4.30-5.70) Hemoglobin 10.2 g/dL (13.0-17.5) Hematocrit 30.1 % (39.0-53.0) Mean Corpuscular Volume 102 fL (79-100) Mean Corpuscular Hemoglobin 35 pg (25-35) Mean Corpuscular Hemoglobin Concent 34 g/dL (31-37) Red Cell Distribution Width 14.7 % (11.5-14.5) Platelet Count 117 x10^3/uL (140-400) Sodium Level 141 mmol/L (136-145) Potassium Level 4.3 mmol/L (3.5-5.1) Chloride Level 102 mmol/L (98-107) Carbon Dioxide Level 38 mmol/L (21-32) Anion Gap 1 (6-14) Blood Urea Nitrogen 20 mg/dL (8-26) Creatinine 0.7 mg/dL (0.7-1.3) Estimated GFR (Cockcroft-Gault) 134.9 BUN/Creatinine Ratio 29 (6-20) Glucose Level 142 mg/dL (70-99) Calcium Level 9.9 mg/dL (8.5-10.1) Total Bilirubin 0.3 mg/dL (0.2-1.0) Aspartate Amino Transf (AST/SGOT) 14 U/L (15-37) Alanine Aminotransferase (ALT/SGPT) 31 U/L (16-63) Alkaline Phosphatase 72 U/L (46-116) Total Protein 7.7 g/dL (6.4-8.2) Albumin 2.7 g/dL (3.4-5.0) Albumin/Globulin Ratio 0.5 (1.0-1.7) Medications Active Scripts Medications Dose Route/Sig Max Daily Dose Days Date Category Polyethylene Glycol 3350 2,500 Gm Powder 17 Gm PO DAILY 04/27/19 Reported Gabapentin 600 Mg Tablet 200 Mg PO TID PRN 04/27/19 Reported Escitalopram Oxalate 10 Mg Tablet 1 Tab PO DAILY 04/27/19 Reported Prednisone 20 Mg Tablet 1 Tab PO DAILY 04/27/19 Reported Multivitamins (Multivitamin) 1 Each Tablet 1 Tab PO DAILY 04/27/19 Reported Melatonin 3 Mg Tablet 1 Tab PO QHS 04/27/19 Reported Furosemide 40 Mg Tablet 40 Mg PO DAILY 30 04/08/19 Rx Klor-Con M20 (Potassium Chloride) 20 Meq Tab.er.prt 20 Meq PO DAILY 30 04/08/19 Rx Symbicort 160-4.5 Mcg Inhaler (Budesonide/Formoterol Fumarate) 10.2 Gm Hfa.aer.ad 1 Puff IH BID 04/04/19 Reported Hydrocodone-Apap 7.5-325 (Hydrocodone Bit/Acetaminophen) 1 Tab Tablet 1 Tab PO BID PRN 04/04/19 Reported Alprazolam 0.5 Mg Tablet 0.5 Mg PO PRN Q8HRS PRN 7 03/13/19 Rx Duoneb 0.5-3(2.5) Mg/3 Ml (Albuterol/Ipratropium) 3 Ml Ampul.neb 3 Ml NEB RTQID 30 03/13/19 Rx Proair Hfa (Albuterol Sulfate) 8.5 Gm Hfa.aer.ad 2.5 Mg NEB PRN Q6HRS PRN 30 03/13/19 Rx [Nicotine 14MG] 1 PATCH Patch 1 Patch TD DAILY 30 08/29/18 Rx Finasteride 5 Mg Tablet 1 Tab PO DAILY 08/25/18 Reported Flomax (Tamsulosin Hcl) 0.4 Mg Cap.er.24h 1 Cap PO BID 08/25/18 Reported Vitamin D2 (Ergocalciferol (Vitamin D2)) 50,000 Unit Capsule 1 Cap PO QM 08/25/18 Reported Spiriva (Tiotropium [place]) 18 Mcg Cap.w.dev 18 Mcg IH DAILY 10/28/13 Reported Omeprazole 20 Mg Capsule. 20 Mg PO DAILY 10/28/13 Reported Aspir 81 (Aspirin) 81 Mg Tablet. 81 Mg PO DAILY 10/28/13 Reported Amlodipine Besylate 5 Mg Tablet 5 Mg PO DAILY 10/28/13 Reported Impression . 1. Acute on chronic hypoxic, hypercapnic respiratory failure secondary to chronic obstructive pulmonary disease exacerbation. 2. Severe chronic obstructive pulmonary disease. 3. Tobacco abuse with recent cessation. Plan . PLAN: I agree with noninvasive mechanical ventilation and low flow oxygen. I would minimize usage of any respiratory depressants including opioids and diazepam. I agree with his systemic steroids and nebulized bronchodilators. Will benefit from skill care will need re-eval of his home trilogy machine by LEE CHOPRA MD Apr 29, 2019 12:33
[2019-04-29] MEDS: ALPRAZolam 0.5 MG TABLET PO PRN (14:23)
[2019-04-29 15:00] VITALS: BP 97/60
[2019-04-29 19:00] VITALS: BP 120/63
[2019-04-29 23:00] VITALS: BP 102/60
[2019-04-30 03:00] VITALS: BP 93/60
[2019-04-30] MEDS: PANTOPRAZOLE 40 MG TABLET.DR. PO SCH (06:31)
[2019-04-30] MEDS: methylPREDNISolone SOD SUCC PF 40 MG/ML VIAL. IV SCH ×3 (06:31→21:48)
[2019-04-30 07:00] VITALS: BP 119/70
[2019-04-30] MEDS: IPRATRPIUM/ALBUTEROL 0.5/2.5MG 3 ML NEBU. NEB SCH ×4 (08:08→20:24)
[2019-04-30] MEDS: POLYETHYLENE GLYCOL 3350 17 GM PACKET. PO SCH (09:00)
[2019-04-30] MEDS: amLODIPine BESYLATE 5 MG TABLET PO SCH (09:47)
[2019-04-30] MEDS: ASPIRIN ENTERIC COATED 81 MG TABLET.DR. PO SCH (09:48)
[2019-04-30] MEDS: MULTIVITAMIN with MINERAL TABLET. PO SCH (09:48)
[2019-04-30] MEDS: TAMSULOSIN 0.4 MG CAP.ER.24H. PO SCH ×2 (09:49→21:47)
[2019-04-30] MEDS: FUROSEMIDE 40 MG TABLET. PO SCH (09:49)
[2019-04-30] MEDS: POTASSIUM CHLORIDE 20 MEQ TABLET.ER. PO SCH (09:49)
[2019-04-30] MEDS: FINASTERIDE 5 MG TABLET. PO SCH (09:50)
[2019-04-30] MEDS: CITALOPRAM 20 MG TABLET. PO SCH (09:50)
[2019-04-30] MEDS: NICOTINE 14MG PATCH. TD SCH (09:51)
[2019-04-30 11:01] VITALS: BP 116/65
[2019-04-30] MEDS: ALPRAZolam 0.5 MG TABLET PO PRN (11:57)
--- NOTE | 2019-04-30 12:31 | NUR ---
Patients daughter called and requested that the pt go to assisted facility. Requested help from social work for discharge planning. Gave daughter Meena's number to connect with her.
[2019-04-30 14:55] VITALS: BP 110/61
[2019-04-30] MEDS: HYDROcodone/APAP 7.5/325MG 1 TAB TABLET PO PRN ×2 (15:05→21:48)
[2019-04-30 19:15] VITALS: BP 118/64
--- NOTE | 2019-04-30 20:17 | NUR ---
RECEIVED CALLS FROM THE FAMILY THIS SHIFT CONCERNING THE PTS CODE STATUS. PT AND DAUGHTER SHERMAN STATED THAT THE PT WOULD NOW LIKE TO BE A FULL CODE. NIGHT NURSE AND DAY NURSE IN ROOM TO HEAR THE CONVERSATION. DR ABEBE TO BE NOTIFIED IN A.M. WHEN HE ROUNDS.
[2019-04-30 23:55] VITALS: BP 103/62
[2019-05-01 03:45] VITALS: BP 99/63
[2019-05-01] MEDS: PANTOPRAZOLE 40 MG TABLET.DR. PO SCH (05:54)
[2019-05-01] MEDS: methylPREDNISolone SOD SUCC PF 40 MG/ML VIAL. IV SCH ×3 (05:54→21:09)
[2019-05-01] MEDS: IPRATRPIUM/ALBUTEROL 0.5/2.5MG 3 ML NEBU. NEB SCH ×4 (06:55→20:00)
[2019-05-01 07:00] VITALS: BP 138/80
[2019-05-01] MEDS: POLYETHYLENE GLYCOL 3350 17 GM PACKET. PO SCH (09:00)
[2019-05-01] MEDS: CITALOPRAM 20 MG TABLET. PO SCH (09:53)
[2019-05-01] MEDS: TAMSULOSIN 0.4 MG CAP.ER.24H. PO SCH ×2 (09:53→21:07)
[2019-05-01] MEDS: POTASSIUM CHLORIDE 20 MEQ TABLET.ER. PO SCH (09:54)
[2019-05-01] MEDS: NICOTINE 14MG PATCH. TD SCH (09:54)
[2019-05-01] MEDS: FINASTERIDE 5 MG TABLET. PO SCH (09:55)
[2019-05-01] MEDS: amLODIPine BESYLATE 5 MG TABLET PO SCH (09:55)
[2019-05-01] MEDS: ASPIRIN ENTERIC COATED 81 MG TABLET.DR. PO SCH (09:55)
[2019-05-01] MEDS: MULTIVITAMIN with MINERAL TABLET. PO SCH (09:55)
[2019-05-01] MEDS: FUROSEMIDE 40 MG TABLET. PO SCH (09:56)
[2019-05-01 11:00] VITALS: BP 114/73
--- NOTE | 2019-05-01 11:32 | PDOC ---
PULMONARY PROGRESS NOTES Subjective soa with exertion Vitals Vital Signs Date Time Temp Pulse Resp B/P (MAP) Pulse Ox O2 Delivery O2 Flow Rate FiO2 05/01/19 09:55 71 138/80 05/01/19 09:10 3.0 05/01/19 08:00 Nasal Cannula 05/01/19 07:00 97.6 22 96 97.6 General: Alert, No acute distress Lungs: Other (decrease bs) Cardiovascular: S1, S2 Abdomen: Soft, Non-tender Extremities: No Edema Skin: Warm Medications Active Scripts Medications Dose Route/Sig Max Daily Dose Days Date Category Polyethylene Glycol 3350 2,500 Gm Powder 17 Gm PO DAILY 04/27/19 Reported Gabapentin 600 Mg Tablet 200 Mg PO TID PRN 04/27/19 Reported Escitalopram Oxalate 10 Mg Tablet 1 Tab PO DAILY 04/27/19 Reported Prednisone 20 Mg Tablet 1 Tab PO DAILY 04/27/19 Reported Multivitamins (Multivitamin) 1 Each Tablet 1 Tab PO DAILY 04/27/19 Reported Melatonin 3 Mg Tablet 1 Tab PO QHS 04/27/19 Reported Furosemide 40 Mg Tablet 40 Mg PO DAILY 30 04/08/19 Rx Klor-Con M20 (Potassium Chloride) 20 Meq Tab.er.prt 20 Meq PO DAILY 30 04/08/19 Rx Symbicort 160-4.5 Mcg Inhaler (Budesonide/Formoterol Fumarate) 10.2 Gm Hfa.aer.ad 1 Puff IH BID 04/04/19 Reported Hydrocodone-Apap 7.5-325 (Hydrocodone Bit/Acetaminophen) 1 Tab Tablet 1 Tab PO BID PRN 04/04/19 Reported Alprazolam 0.5 Mg Tablet 0.5 Mg PO PRN Q8HRS PRN 7 03/13/19 Rx Duoneb 0.5-3(2.5) Mg/3 Ml (Albuterol/Ipratropium) 3 Ml Ampul.neb 3 Ml NEB RTQID 30 03/13/19 Rx Proair Hfa (Albuterol Sulfate) 8.5 Gm Hfa.aer.ad 2.5 Mg NEB PRN Q6HRS PRN 30 03/13/19 Rx [Nicotine 14MG] 1 PATCH Patch 1 Patch TD DAILY 30 08/29/18 Rx Finasteride 5 Mg Tablet 1 Tab PO DAILY 08/25/18 Reported Flomax (Tamsulosin Hcl) 0.4 Mg Cap.er.24h 1 Cap PO BID 08/25/18 Reported Vitamin D2 (Ergocalciferol (Vitamin D2)) 50,000 Unit Capsule 1 Cap PO QM 08/25/18 Reported Spiriva (Tiotropium [place]) 18 Mcg Cap.w.dev 18 Mcg IH DAILY 10/28/13 Reported Omeprazole 20 Mg Capsule. 20 Mg PO DAILY 10/28/13 Reported Aspir 81 (Aspirin) 81 Mg Tablet. 81 Mg PO DAILY 10/28/13 Reported Amlodipine Besylate 5 Mg Tablet 5 Mg PO DAILY 10/28/13 Reported Impression . 1. Acute on chronic hypoxic, hypercapnic respiratory failure secondary to chronic obstructive pulmonary disease exacerbation. 2. Severe chronic obstructive pulmonary disease. 3. Tobacco abuse with recent cessation. Plan . PLAN: 1.I agree with noninvasive mechanical ventilation and low flow oxygen. 2.I would minimize usage of any respiratory depressants including opioids and diazepam. I agree with his systemic steroids and nebulized bronchodilators. 3.Will benefit from skill care 4.will need re-eval of his home trilogy machine by DME 5.Compression Fx/ per LEE HELTON MD May 01, 2019 11:31
--- NOTE | 2019-05-01 11:53 | NUR ---
SS following up with discharge planning. Pt is currently on the BIPAP. Pt is currently on services with [facility]. SS will continue to follow for discharge planning.
[2019-05-01 15:18] VITALS: BP 106/55
[2019-05-01] MEDS: HYDROcodone/APAP 7.5/325MG 1 TAB TABLET PO PRN (19:28)
[2019-05-01 19:49] VITALS: BP 110/72
[2019-05-01 22:42] VITALS: BP 111/62
--- NOTE | 2019-05-01 22:54 | PN ---
DATE: 05/01/2019 SUBJECTIVE: The patient is resting, slightly propped up in bed, in no apparent distress. He was on BiPAP machine, maintaining his oxygen saturation at 99% on FiO2 of 30%. On questioning him, he denied any complaint. Apparently, nursing staff stated he wanted to change his code status to full code. He wants to pursue the MRI and possible vertebroplasty. For some reason, his MRI of the thoracic spine was not done. OBJECTIVE: GENERAL: When I examined him, he looked pale, but no jaundice, cyanosis or thyromegaly. No jugular venous distension. No lower limb edema. VITAL SIGNS: His heart rate was 56, blood pressure was 99/63, temperature 97.9, respiratory rate 20 and oxygen saturation was 99%. The rest of clinical exam is stable. LABORATORY WORK: His most recent lab work showed a BUN of 20 and creatinine 0.7. His most recent white cell count was 8300, hemoglobin 10, hematocrit 30, MCV 102 and platelet count of 117,000. ASSESSMENT: 1. Acute on chronic hypoxic-hypercapnic respiratory failure secondary to severe chronic obstructive pulmonary disease exacerbation. 2. Severe chronic obstructive pulmonary disease. 3. Tobacco abuse. 4. Hypertension. 5. Hyperlipidemia. 6. Benign prostatic hypertrophy. 7. Noncompliance. 8. He has x-rays of thoracic spine which showed that he has T6 compression fracture as well as T9 compression deformity. PLAN: We did consult Dr. Escudero, who recommended doing an MRI. The order was put in. The MRI was not done yet. The patient also wants to change his code status to full code. JJ ABEBE MD DR: PANDA/braden JOB#: [id number] / [id number]
[2019-05-02 02:50] VITALS: BP 115/71
[2019-05-02 07:00] VITALS: BP 118/68
[2019-05-02] MEDS: PANTOPRAZOLE 40 MG TABLET.DR. PO SCH (07:44)
[2019-05-02] MEDS: methylPREDNISolone SOD SUCC PF 40 MG/ML VIAL. IV SCH ×3 (07:45→21:21)
[2019-05-02] MEDS: IPRATRPIUM/ALBUTEROL 0.5/2.5MG 3 ML NEBU. NEB SCH ×4 (07:49→20:29)
[2019-05-02] MEDS: FINASTERIDE 5 MG TABLET. PO SCH (08:46)
[2019-05-02] MEDS: MULTIVITAMIN with MINERAL TABLET. PO SCH (08:46)
[2019-05-02] MEDS: CITALOPRAM 20 MG TABLET. PO SCH (08:47)
[2019-05-02] MEDS: NICOTINE 14MG PATCH. TD SCH (08:47)
[2019-05-02] MEDS: TAMSULOSIN 0.4 MG CAP.ER.24H. PO SCH ×2 (08:47→21:21)
[2019-05-02] MEDS: ASPIRIN ENTERIC COATED 81 MG TABLET.DR. PO SCH (08:47)
[2019-05-02] MEDS: POTASSIUM CHLORIDE 20 MEQ TABLET.ER. PO SCH (08:47)
[2019-05-02] MEDS: amLODIPine BESYLATE 5 MG TABLET PO SCH (08:48)
[2019-05-02] MEDS: FUROSEMIDE 40 MG TABLET. PO SCH (08:48)
[2019-05-02] MEDS: POLYETHYLENE GLYCOL 3350 17 GM PACKET. PO SCH (08:48)
[2019-05-02 10:53] VITALS: BP 117/73
--- NOTE | 2019-05-02 12:20 | PN ---
DATE: 05/02/2019 SUBJECTIVE: The patient is resting, slightly propped up in his bed, in no apparent distress. He is maintaining his oxygen saturation at 94% on BiPAP machine on FiO2 of 40%, continued to have back pain. Apparently, approval for MRI needs to be obtained. Unfortunately, I did not know that. He is scheduled to have his MRI done today to see if the compression fractures of T6 and T9 are acute and whether Dr. Escudero is willing to treat him with vertebroplasty or kyphoplasty. PHYSICAL EXAMINATION: GENERAL: On examining him this morning, he looked well and was clearly in no apparent respiratory distress, pale. No jaundice, cyanosis or thyromegaly. No jugular venous distention. No lower limb edema. VITAL SIGNS: His heart rate was 95, blood pressure was 117/73, temperature was 97.9, respiratory rate 20 and oxygen saturation was 94%. HEAD, EYES, EARS, NOSE AND THROAT: Showed normocephalic, atraumatic. NECK: Supple. HEART: Showed normal first and second heart sounds. No gallop or murmur. CHEST: Showed central trachea, equally reduced expansion, reduced air entry, vesicular sounds. I could not really appreciate any crepitation or rhonchi. ABDOMEN: Distended, soft, nontender. NEUROLOGICAL: He is awake, alert, responding appropriately. All cranial nerves are intact. He moves extremities without difficulty. His intake was 1200, output was 1025. LABORATORY DATA: His most recent lab work: Hemoglobin 10, hematocrit 30 with normal white cell count and platelets. His chemistry showed BUN 20, creatinine 0.7. ASSESSMENT: 1. Jmfxu-[id number]-[id number] hypoxic hypercapnic respiratory failure secondary to severe chronic obstructive pulmonary disease exacerbation. 2. Severe chronic obstructive pulmonary disease. 3. Continued tobacco use. 4. Hypertension. 5. Hyperlipidemia. 6. Benign prostatic hypertrophy. 7. Noncompliance with medication. 8. Back pain with x-ray of thoracic spine showed that he has T6 and T9 compression fractures. The patient was seen by Dr. Escudero, who recommended to do an MRI that is scheduled to be done today. If obviously these are chronic compression fractures and do not warrant vertebroplasty, the patient perhaps can be discharged to a [facility] facility tomorrow. JJ ABEBE MD DR: PANDA/braden JOB#: [id number] / [id number]
--- NOTE | 2019-05-02 12:31 | PDOC ---
PULMONARY PROGRESS NOTES Subjective soa with exertion Vitals Vital Signs Date Time Temp Pulse Resp B/P (MAP) Pulse Ox O2 Delivery O2 Flow Rate FiO2 05/02/19 11:45 97 Nasal Cannula 3.0 05/02/19 10:53 97.9 95 20 117/73 (88) 97.9 General: Alert, No acute distress Lungs: Other (decrease bs) Cardiovascular: S1, S2 Abdomen: Soft, Non-tender Extremities: No Edema Skin: Warm Medications Active Scripts Medications Dose Route/Sig Max Daily Dose Days Date Category Polyethylene Glycol 3350 2,500 Gm Powder 17 Gm PO DAILY 04/27/19 Reported Gabapentin 600 Mg Tablet 200 Mg PO TID PRN 04/27/19 Reported Escitalopram Oxalate 10 Mg Tablet 1 Tab PO DAILY 04/27/19 Reported Prednisone 20 Mg Tablet 1 Tab PO DAILY 04/27/19 Reported Multivitamins (Multivitamin) 1 Each Tablet 1 Tab PO DAILY 04/27/19 Reported Melatonin 3 Mg Tablet 1 Tab PO QHS 04/27/19 Reported Furosemide 40 Mg Tablet 40 Mg PO DAILY 30 04/08/19 Rx Klor-Con M20 (Potassium Chloride) 20 Meq Tab.er.prt 20 Meq PO DAILY 30 04/08/19 Rx Symbicort 160-4.5 Mcg Inhaler (Budesonide/Formoterol Fumarate) 10.2 Gm Hfa.aer.ad 1 Puff IH BID 04/04/19 Reported Hydrocodone-Apap 7.5-325 (Hydrocodone Bit/Acetaminophen) 1 Tab Tablet 1 Tab PO BID PRN 04/04/19 Reported Alprazolam 0.5 Mg Tablet 0.5 Mg PO PRN Q8HRS PRN 7 03/13/19 Rx Duoneb 0.5-3(2.5) Mg/3 Ml (Albuterol/Ipratropium) 3 Ml Ampul.neb 3 Ml NEB RTQID 30 03/13/19 Rx Proair Hfa (Albuterol Sulfate) 8.5 Gm Hfa.aer.ad 2.5 Mg NEB PRN Q6HRS PRN 30 03/13/19 Rx [Nicotine 14MG] 1 PATCH Patch 1 Patch TD DAILY 30 08/29/18 Rx Finasteride 5 Mg Tablet 1 Tab PO DAILY 08/25/18 Reported Flomax (Tamsulosin Hcl) 0.4 Mg Cap.er.24h 1 Cap PO BID 08/25/18 Reported Vitamin D2 (Ergocalciferol (Vitamin D2)) 50,000 Unit Capsule 1 Cap PO QM 08/25/18 Reported Spiriva (Tiotropium [place]) 18 Mcg Cap.w.dev 18 Mcg IH DAILY 10/28/13 Reported Omeprazole 20 Mg Capsule.dr 20 Mg PO DAILY 10/28/13 Reported Aspir 81 (Aspirin) 81 Mg Tablet. 81 Mg PO DAILY 10/28/13 Reported Amlodipine Besylate 5 Mg Tablet 5 Mg PO DAILY 10/28/13 Reported Impression . 1. Acute on chronic hypoxic, hypercapnic respiratory failure secondary to chronic obstructive pulmonary disease exacerbation. 2. Severe chronic obstructive pulmonary disease. 3. Tobacco abuse with recent cessation. Plan . PLAN: 1. BIPAP qhs and prn 2.I would minimize usage of any respiratory depressants including opioids and diazepam. continue systemic steroids and nebulized bronchodilators. 3.Will benefit from skill care 4.will need re-eval of his home trilogy machine by DME 5.Compression Fx/ per IR. High risk for respiratory failure with propofol for kyphoplasty. consider spinal if possible. LEE WALKER MD May 02, 2019 12:31
[2019-05-02] MEDS: HYDROcodone/APAP 7.5/325MG 1 TAB TABLET PO PRN ×2 (14:40→21:21)
[2019-05-02 14:54] VITALS: BP 114/65
[2019-05-02 19:45] VITALS: BP 114/64
[2019-05-02 23:15] VITALS: BP 120/68
[2019-05-03 03:30] VITALS: BP 102/65
[2019-05-03] MEDS: methylPREDNISolone SOD SUCC PF 40 MG/ML VIAL. IV SCH ×3 (06:10→21:00)
[2019-05-03 07:00] VITALS: BP 135/75
[2019-05-03] MEDS: IPRATRPIUM/ALBUTEROL 0.5/2.5MG 3 ML NEBU. NEB SCH ×4 (07:40→19:10)
[2019-05-03] MEDS: NICOTINE 14MG PATCH. TD SCH (08:51)
[2019-05-03] MEDS: FUROSEMIDE 40 MG TABLET. PO SCH (08:52)
[2019-05-03] MEDS: FINASTERIDE 5 MG TABLET. PO SCH (08:53)
[2019-05-03] MEDS: ALPRAZolam 0.5 MG TABLET PO PRN (08:53)
[2019-05-03] MEDS: CITALOPRAM 20 MG TABLET. PO SCH (08:53)
[2019-05-03] MEDS: PANTOPRAZOLE 40 MG TABLET.DR. PO SCH (08:53)
[2019-05-03] MEDS: MULTIVITAMIN with MINERAL TABLET. PO SCH (08:53)
[2019-05-03] MEDS: POTASSIUM CHLORIDE 20 MEQ TABLET.ER. PO SCH (08:53)
[2019-05-03] MEDS: amLODIPine BESYLATE 5 MG TABLET PO SCH (08:54)
[2019-05-03] MEDS: POLYETHYLENE GLYCOL 3350 17 GM PACKET. PO SCH (08:54)
[2019-05-03] MEDS: ASPIRIN ENTERIC COATED 81 MG TABLET.DR. PO SCH (08:56)
[2019-05-03] MEDS: TAMSULOSIN 0.4 MG CAP.ER.24H. PO SCH ×2 (08:58→21:00)
--- NOTE | 2019-05-03 09:48 | PDOC ---
IM PROGRESS NOTES- Subjective Subjective Complaints of pain and dyspnea. Objective Vitals/I&O Vital Signs Date Time Temp Pulse Resp B/P (MAP) Pulse Ox O2 Delivery O2 Flow Rate FiO2 05/03/19 08:54 73 135/75 05/03/19 07:42 99 Nasal Cannula 3.0 05/03/19 07:00 97.8 20 97.8 I & O 05/02/19 05/02/19 05/03/19 15:00 23:00 07:00 Intake Total 240 ml 300 ml 400 ml Output Total 930 ml 400 ml 320 ml Balance -690 ml -100 ml 80 ml Physical Exam Physical Exam General appearance - alert,ill appearing, and in moderate distress and oriented to person, place, and time Mental Status - alert, oriented to person, place, and time, affect appropriate to mood Head - normal Chest -moderate tachypnea with decreased breath sounds at bases Heart - S1 and S2 normal Abdomen - soft, non tender, non distended, Neurological - alert and oriented Extremities - no pedal edema Skin - warm and dry Assessment Assessment 1. Hxqyn-yn-oxrxlwc hypoxic hypercapnic respiratory failure secondary to severe chronic obstructive pulmonary disease exacerbation. 2. Severe chronic obstructive pulmonary disease. 3. Continued tobacco use. 4. Hypertension. 5. Hyperlipidemia. 6. Benign prostatic hypertrophy. 7. Noncompliance with medication. 8. Back pain with x-ray of thoracic spine showed that he has T6 and T9 compression fractures. The patient was seen by Dr. Escudero, who recommended to do an MRI that is scheduled to be done today. Patient wants to continue aggressive care and the is now a full code. Term as well as short-term prognosis of this patient is extremely poor. [facility] with [facility]. However he stayed alone at night at home and became very nervous and was readmitted to the hospital for dyspnea. He now wants to continue aggressive care. Trilogy settings were checked at the critical access hospital. Plan Plan For more details regarding further plans, please refer to the orders. ZARINA DAVILA MD May 03, 2019 09:48
[2019-05-03 11:00] VITALS: BP 122/72
[2019-05-03] MEDS: HYDROcodone/APAP 7.5/325MG 1 TAB TABLET PO PRN ×2 (14:35→21:00)
[2019-05-03 15:00] VITALS: BP 113/74
[2019-05-03 19:50] VITALS: BP 122/67
[2019-05-03 23:40] VITALS: BP 135/76
[2019-05-04 03:20] VITALS: BP 120/73
[2019-05-04] MEDS: HYDROcodone/APAP 7.5/325MG 1 TAB TABLET PO PRN ×3 (05:13→22:53)
[2019-05-04] MEDS: methylPREDNISolone SOD SUCC PF 40 MG/ML VIAL. IV SCH ×3 (05:13→22:53)
[2019-05-04 07:00] VITALS: BP 140/80
[2019-05-04] MEDS: IPRATRPIUM/ALBUTEROL 0.5/2.5MG 3 ML NEBU. NEB SCH ×4 (08:10→20:09)
[2019-05-04] MEDS: TAMSULOSIN 0.4 MG CAP.ER.24H. PO SCH ×2 (08:35→20:28)
[2019-05-04] MEDS: MULTIVITAMIN with MINERAL TABLET. PO SCH (08:35)
[2019-05-04] MEDS: FINASTERIDE 5 MG TABLET. PO SCH (08:35)
[2019-05-04] MEDS: CITALOPRAM 20 MG TABLET. PO SCH (08:35)
[2019-05-04] MEDS: ALPRAZolam 0.5 MG TABLET PO PRN ×2 (08:35→20:27)
[2019-05-04] MEDS: PANTOPRAZOLE 40 MG TABLET.DR. PO SCH (08:35)
[2019-05-04] MEDS: ASPIRIN ENTERIC COATED 81 MG TABLET.DR. PO SCH (08:35)
[2019-05-04] MEDS: NICOTINE 14MG PATCH. TD SCH (08:36)
[2019-05-04] MEDS: POTASSIUM CHLORIDE 20 MEQ TABLET.ER. PO SCH (08:36)
[2019-05-04] MEDS: POLYETHYLENE GLYCOL 3350 17 GM PACKET. PO SCH (08:37)
[2019-05-04] MEDS: FUROSEMIDE 40 MG TABLET. PO SCH (08:37)
[2019-05-04] MEDS: amLODIPine BESYLATE 5 MG TABLET PO SCH (08:37)
--- NOTE | 2019-05-04 09:07 | PDOC ---
IM PROGRESS NOTES- Subjective Subjective Complaints of pain and dyspnea. Objective Vitals/I&O Vital Signs Date Time Temp Pulse Resp B/P (MAP) Pulse Ox O2 Delivery O2 Flow Rate FiO2 05/04/19 08:37 82 140/81 05/04/19 08:12 96 Nasal Cannula 3.0 05/04/19 05:13 18 05/04/19 03:20 98.0 98.0 I & O 05/03/19 05/03/19 05/04/19 15:00 23:00 07:00 Intake Total 240 ml Output Total 400 ml Balance -160 ml Physical Exam Physical Exam General appearance - alert,ill appearing, and in moderate distress and oriented to person, place, and time Mental Status - alert, oriented to person, place, and time, affect appropriate to mood Head - normal Chest -moderate tachypnea with decreased breath sounds at bases Heart - S1 and S2 normal Abdomen - soft, non tender, non distended, Neurological - alert and oriented Extremities - no pedal edema Skin - warm and dry Upper back- pain with movement. Assessment Assessment 1. Likqk-ia-dccgyjf hypoxic hypercapnic respiratory failure secondary to severe chronic obstructive pulmonary disease exacerbation. 2. Severe chronic obstructive pulmonary disease. 3. Continued tobacco use. 4. Hypertension. 5. Hyperlipidemia. 6. Benign prostatic hypertrophy. 7. Noncompliance with medication. 8. Back pain with x-ray of thoracic spine showed that he has T6 and T9 compression fractures. The patient was seen by Dr. Escudero, who recommended to do an MRI . MRI still pending. Discussed with staff about getting an MRI done. Patient wants to continue aggressive care and the is now a full code. Term as well as short-term prognosis of this patient is extremely poor. [facility] with hospice. However he stayed alone at night at home and became very nervous and was readmitted to the hospital for dyspnea. He now wants to continue aggressive care. Trilogy settings were checked at the [facility]. Plan Plan For more details regarding further plans, please refer to the orders. ZARINA DAVILA MD May 04, 2019 09:07
[2019-05-04 11:00] VITALS: BP 108/78
[2019-05-04 15:00] VITALS: BP 126/59
[2019-05-04 19:30] VITALS: BP 119/70
[2019-05-04 23:20] VITALS: BP 111/69
[2019-05-05 03:15] VITALS: BP 113/79
[2019-05-05 04:56] LABS: BASO % 0 % (0-3); EOS % 0 % (0-3); HEMATOCRIT 31.2 % (39.0-53.0); HEMOGLOBIN 10.5 g/dL (13.0-17.5); LYMPH # 0.1 x10^3/uL (1.0-4.8); LYMPH % 2 % (24-48); MEAN CORPUSCULAR HEMOGLOBIN 34 pg (25-35); MEAN CORPUSCULAR HGB CONC 34 g/dL (31-37); MEAN CORPUSCULAR VOLUME 102 fL (79-100); MONO # 0.5 x10^3/uL (0.0-1.1); MONO % 7 % (0-9); NEUT # 5.7 x10^3/uL (1.8-7.7); NEUT % 91 % (31-73); PLATELET COUNT 142 x10^3/uL (140-400); RED BLOOD COUNT 3.06 x10^6/uL (4.30-5.70); RED CELL DISTRIBUTION WIDTH 14.5 % (11.5-14.5); WHITE BLOOD COUNT 6.2 x10^3/uL (4.0-11.0)
[2019-05-05 05:18] LABS: ALBUMIN 2.4 g/dL (3.4-5.0); ALBUMIN/GLOBULIN RATIO 0.5 (1.0-1.7); CALCIUM 9.4 mg/dL (8.5-10.1); CREATININE 0.7 mg/dL (0.7-1.3); GFR 134.9; POTASSIUM 4.1 mmol/L (3.5-5.1); TOTAL BILIRUBIN 0.2 mg/dL (0.2-1.0); TOTAL PROTEIN 6.8 g/dL (6.4-8.2)
[2019-05-05] MEDS: methylPREDNISolone SOD SUCC PF 40 MG/ML VIAL. IV SCH ×3 (06:31→20:58)
[2019-05-05 07:00] VITALS: BP 114/55
[2019-05-05] MEDS: IPRATRPIUM/ALBUTEROL 0.5/2.5MG 3 ML NEBU. NEB SCH ×4 (08:09→20:21)
[2019-05-05] MEDS: TAMSULOSIN 0.4 MG CAP.ER.24H. PO SCH ×2 (08:30→20:55)
[2019-05-05] MEDS: POTASSIUM CHLORIDE 20 MEQ TABLET.ER. PO SCH (08:30)
[2019-05-05] MEDS: CITALOPRAM 20 MG TABLET. PO SCH (08:30)
[2019-05-05] MEDS: FINASTERIDE 5 MG TABLET. PO SCH (08:30)
[2019-05-05] MEDS: ALPRAZolam 0.5 MG TABLET PO PRN ×2 (08:30→20:55)
[2019-05-05] MEDS: MULTIVITAMIN with MINERAL TABLET. PO SCH (08:30)
[2019-05-05] MEDS: PANTOPRAZOLE 40 MG TABLET.DR. PO SCH (08:30)
[2019-05-05] MEDS: ASPIRIN ENTERIC COATED 81 MG TABLET.DR. PO SCH (08:30)
[2019-05-05] MEDS: amLODIPine BESYLATE 5 MG TABLET PO SCH (08:31)
[2019-05-05] MEDS: NICOTINE 14MG PATCH. TD SCH (08:32)
[2019-05-05] MEDS: POLYETHYLENE GLYCOL 3350 17 GM PACKET. PO SCH (08:33)
[2019-05-05] MEDS: FUROSEMIDE 40 MG TABLET. PO SCH (08:33)
--- NOTE | 2019-05-05 09:10 | PDOC ---
PROGRESS NOTES Subjective Subjective c/o back pain Objective Objective Vital Signs Date Time Temp Pulse Resp B/P (MAP) Pulse Ox O2 Delivery O2 Flow Rate FiO2 05/05/19 08:31 89 124/78 05/05/19 08:10 97 Nasal Cannula 3.0 05/05/19 03:15 97.4 22 97.4 l Intake and Output 05/05/19 07:00 Intake Total 1298 ml Output Total 1175 ml Balance 123 ml Intake Oral 1298 ml Output Urine Total 1175 ml Physical Exam Abdomen: Normal bowel sounds, Soft Heart: Regular rate, Normal S1 Extremities: No clubbing General: Alert HEENT: Atraumatic Lungs: Other (dec breath sound , mild wheezing) MUSCULOSKELETAL: No deformity, Osteoarthritic changes both hands Neck: No JVD Neuro: Normal speech Psych/Mental Status: Mood NL Skin: No significant lesion COMMENT upper lumbar spine muscle spasm Diagnosis Problem List Problems Medical Problems: (1) Acute on chronic respiratory failure with hypoxia and hypercapnia Status: Acute (2) COPD exacerbation Status: Acute Assessment Assessment 1. Trcgz-ug-wldxcld hypoxic hypercapnic respiratory failure secondary to severe chronic obstructive pulmonary disease exacerbation. 2. Severe chronic obstructive pulmonary disease. 3. Continued tobacco use. 4. Hypertension. 5. Hyperlipidemia. 6. Benign prostatic hypertrophy. 7. Noncompliance with medication. 8. Back pain with x-ray of thoracic spine showed that he has T6 and T9 compression fractures. Plan: Pt not able to tolerate MRI cannot stay flat and still ,will do ct spine Iv solumedrol for copd. BIPAP and oxygen. The patient was seen by Dr. Escudero, who recommended to do an MRI . MRI still pending. Discussed with staff about getting an MRI done. Patient wants to continue aggressive care and the is now a full code. Term as well as short-term prognosis of this patient is extremely poor. He was recently discharged from [facility] to home with hospice. However he stayed alone at night at home and became very nervous and was readmitted to the hospital for dyspnea. He now wants to continue aggressive care. Trilogy settings were checked at the [facility]. Plan Plan of Care Problems Medical Problems: (1) Acute on chronic respiratory failure with hypoxia and hypercapnia Status: Acute (2) COPD exacerbation Status: Acute Comment Review of Relevant I have reviewed the following items mario (where applicable) has been applied. Labs Laboratory Tests Test 05/05/19 04:25 White Blood Count 6.2 x10^3/uL (4.0-11.0) Red Blood Count 3.06 x10^6/uL (4.30-5.70) Hemoglobin 10.5 g/dL (13.0-17.5) Hematocrit 31.2 % (39.0-53.0) Mean Corpuscular Volume 102 fL (79-100) Mean Corpuscular Hemoglobin 34 pg (25-35) Mean Corpuscular Hemoglobin Concent 34 g/dL (31-37) Red Cell Distribution Width 14.5 % (11.5-14.5) Platelet Count 142 x10^3/uL (140-400) Neutrophils (%) (Auto) 91 % (31-73) Lymphocytes (%) (Auto) 2 % (24-48) Monocytes (%) (Auto) 7 % (0-9) Eosinophils (%) (Auto) 0 % (0-3) Basophils (%) (Auto) 0 % (0-3) Neutrophils # (Auto) 5.7 x10^3/uL (1.8-7.7) Lymphocytes # (Auto) 0.1 x10^3/uL (1.0-4.8) Monocytes # (Auto) 0.5 x10^3/uL (0.0-1.1) Eosinophils # (Auto) 0.0 x10^3/uL (0.0-0.7) Basophils # (Auto) 0.0 x10^3/uL (0.0-0.2) Sodium Level 139 mmol/L (136-145) Potassium Level 4.1 mmol/L (3.5-5.1) Chloride Level 100 mmol/L (98-107) Carbon Dioxide Level 38 mmol/L (21-32) Anion Gap 1 (6-14) Blood Urea Nitrogen 19 mg/dL (8-26) Creatinine 0.7 mg/dL (0.7-1.3) Estimated GFR (Cockcroft-Gault) 134.9 BUN/Creatinine Ratio 27 (6-20) Glucose Level 172 mg/dL (70-99) Calcium Level 9.4 mg/dL (8.5-10.1) Total Bilirubin 0.2 mg/dL (0.2-1.0) Aspartate Amino Transf (AST/SGOT) 13 U/L (15-37) Alanine Aminotransferase (ALT/SGPT) 35 U/L (16-63) Alkaline Phosphatase 91 U/L (46-116) Total Protein 6.8 g/dL (6.4-8.2) Albumin 2.4 g/dL (3.4-5.0) Albumin/Globulin Ratio 0.5 (1.0-1.7) Vitals/I & O Vital Sign - Last 24 Hours 05/04/19 05/04/19 05/04/19 05/04/19 11:00 12:18 15:00 16:10 Temp 98.3 98.2 98.3 98.2 Pulse 77 80 Resp 16 18 B/P (MAP) 108/78 (88) 126/59 (81) Pulse Ox 95 96 98 96 O2 Delivery Nasal Cannula Nasal Cannula O2 Flow Rate 3.0 3.0 3.0 3.0 05/04/19 05/04/19 05/04/19 05/04/19 16:16 17:16 19:30 19:50 Temp 98.9 98.9 Pulse 74 Resp 20 B/P (MAP) 119/70 (86) Pulse Ox 96 96 97 O2 Delivery Nasal Cannula Nasal Cannula Nasal Cannula Nasal Cannula O2 Flow Rate 3.0 3.0 3.0 3.0 05/04/19 05/04/19 05/04/19 05/04/19 20:00 20:12 22:53 23:20 Temp 97.7 97.7 Pulse 68 Resp 20 22 B/P (MAP) 111/69 (83) Pulse Ox 96 96 97 O2 Delivery Nasal Cannula Nasal Cannula BiPAP/CPAP O2 Flow Rate 3.0 3.0 3.0 05/04/19 05/05/19 05/05/19 05/05/19 23:53 00:48 02:15 03:15 Temp 97.4 97.4 Pulse 89 Resp 20 22 B/P (MAP) 113/79 (90) Pulse Ox 98 95 95 98 O2 Delivery BiPAP/CPAP BiPAP/CPAP BiPAP/CPAP BiPAP/CPAP 05/05/19 05/05/19 05/05/19 04:04 08:10 08:31 Pulse 89 B/P (MAP) 124/78 Pulse Ox 95 97 O2 Delivery BiPAP/CPAP Nasal Cannula O2 Flow Rate 3.0 Intake and Output 05/04/19 05/04/19 05/05/19 15:00 23:00 07:00 Intake Total 298 ml 180 ml 820 ml Output Total 375 ml 800 ml Balance -77 ml -620 ml 820 ml DAMIÁN BALL MD May 05, 2019 09:10
[2019-05-05 10:24] LABS: % BANDS 1 % (0-9); % MONOS 7 % (0-10); % SEGS 92 % (35-66); PLT ESTIMATE ADEQUATE (ADEQUATE)
--- NOTE | 2019-05-05 10:36 | NUR ---
pt left for ct at approx 1015 and returned to the floor at 1037.
[2019-05-05 11:00] VITALS: BP 125/74
[2019-05-05] MEDS: HYDROcodone/APAP 7.5/325MG 1 TAB TABLET PO PRN ×2 (11:18→17:43)
--- NOTE | 2019-05-05 11:19 | PDOC ---
PULMONARY PROGRESS NOTES Subjective soa with exertion Vitals Vital Signs Date Time Temp Pulse Resp B/P (MAP) Pulse Ox O2 Delivery O2 Flow Rate FiO2 05/05/19 08:31 89 124/78 05/05/19 08:10 97 Nasal Cannula 3.0 05/05/19 07:00 98.0 18 98.0 General: Alert, No acute distress Lungs: Other (decrease bs) Cardiovascular: S1, S2 Abdomen: Soft, Non-tender Extremities: No Edema Skin: Warm Labs Laboratory Tests Test 05/05/19 04:25 White Blood Count 6.2 x10^3/uL (4.0-11.0) Red Blood Count 3.06 x10^6/uL (4.30-5.70) Hemoglobin 10.5 g/dL (13.0-17.5) Hematocrit 31.2 % (39.0-53.0) Mean Corpuscular Volume 102 fL (79-100) Mean Corpuscular Hemoglobin 34 pg (25-35) Mean Corpuscular Hemoglobin Concent 34 g/dL (31-37) Red Cell Distribution Width 14.5 % (11.5-14.5) Platelet Count 142 x10^3/uL (140-400) Neutrophils (%) (Auto) 91 % (31-73) Lymphocytes (%) (Auto) 2 % (24-48) Monocytes (%) (Auto) 7 % (0-9) Eosinophils (%) (Auto) 0 % (0-3) Basophils (%) (Auto) 0 % (0-3) Neutrophils # (Auto) 5.7 x10^3/uL (1.8-7.7) Lymphocytes # (Auto) 0.1 x10^3/uL (1.0-4.8) Monocytes # (Auto) 0.5 x10^3/uL (0.0-1.1) Eosinophils # (Auto) 0.0 x10^3/uL (0.0-0.7) Basophils # (Auto) 0.0 x10^3/uL (0.0-0.2) Segmented Neutrophils % 92 % (35-66) Band Neutrophils % 1 % (0-9) Monocytes % 7 % (0-10) Platelet Estimate Adequate (ADEQUATE) Sodium Level 139 mmol/L (136-145) Potassium Level 4.1 mmol/L (3.5-5.1) Chloride Level 100 mmol/L (98-107) Carbon Dioxide Level 38 mmol/L (21-32) Anion Gap 1 (6-14) Blood Urea Nitrogen 19 mg/dL (8-26) Creatinine 0.7 mg/dL (0.7-1.3) Estimated GFR (Cockcroft-Gault) 134.9 BUN/Creatinine Ratio 27 (6-20) Glucose Level 172 mg/dL (70-99) Calcium Level 9.4 mg/dL (8.5-10.1) Total Bilirubin 0.2 mg/dL (0.2-1.0) Aspartate Amino Transf (AST/SGOT) 13 U/L (15-37) Alanine Aminotransferase (ALT/SGPT) 35 U/L (16-63) Alkaline Phosphatase 91 U/L (46-116) Total Protein 6.8 g/dL (6.4-8.2) Albumin 2.4 g/dL (3.4-5.0) Albumin/Globulin Ratio 0.5 (1.0-1.7) Laboratory Tests Test 05/05/19 04:25 White Blood Count 6.2 x10^3/uL (4.0-11.0) Red Blood Count 3.06 x10^6/uL (4.30-5.70) Hemoglobin 10.5 g/dL (13.0-17.5) Hematocrit 31.2 % (39.0-53.0) Mean Corpuscular Volume 102 fL (79-100) Mean Corpuscular Hemoglobin 34 pg (25-35) Mean Corpuscular Hemoglobin Concent 34 g/dL (31-37) Red Cell Distribution Width 14.5 % (11.5-14.5) Platelet Count 142 x10^3/uL (140-400) Neutrophils (%) (Auto) 91 % (31-73) Lymphocytes (%) (Auto) 2 % (24-48) Monocytes (%) (Auto) 7 % (0-9) Eosinophils (%) (Auto) 0 % (0-3) Basophils (%) (Auto) 0 % (0-3) Neutrophils # (Auto) 5.7 x10^3/uL (1.8-7.7) Lymphocytes # (Auto) 0.1 x10^3/uL (1.0-4.8) Monocytes # (Auto) 0.5 x10^3/uL (0.0-1.1) Eosinophils # (Auto) 0.0 x10^3/uL (0.0-0.7) Basophils # (Auto) 0.0 x10^3/uL (0.0-0.2) Segmented Neutrophils % 92 % (35-66) Band Neutrophils % 1 % (0-9) Monocytes % 7 % (0-10) Platelet Estimate Adequate (ADEQUATE) Sodium Level 139 mmol/L (136-145) Potassium Level 4.1 mmol/L (3.5-5.1) Chloride Level 100 mmol/L (98-107) Carbon Dioxide Level 38 mmol/L (21-32) Anion Gap 1 (6-14) Blood Urea Nitrogen 19 mg/dL (8-26) Creatinine 0.7 mg/dL (0.7-1.3) Estimated GFR (Cockcroft-Gault) 134.9 BUN/Creatinine Ratio 27 (6-20) Glucose Level 172 mg/dL (70-99) Calcium Level 9.4 mg/dL (8.5-10.1) Total Bilirubin 0.2 mg/dL (0.2-1.0) Aspartate Amino Transf (AST/SGOT) 13 U/L (15-37) Alanine Aminotransferase (ALT/SGPT) 35 U/L (16-63) Alkaline Phosphatase 91 U/L (46-116) Total Protein 6.8 g/dL (6.4-8.2) Albumin 2.4 g/dL (3.4-5.0) Albumin/Globulin Ratio 0.5 (1.0-1.7) Medications Active Scripts Medications Dose Route/Sig Max Daily Dose Days Date Category Polyethylene Glycol 3350 2,500 Gm Powder 17 Gm PO DAILY 04/27/19 Reported Gabapentin 600 Mg Tablet 200 Mg PO TID PRN 04/27/19 Reported Escitalopram Oxalate 10 Mg Tablet 1 Tab PO DAILY 04/27/19 Reported Prednisone 20 Mg Tablet 1 Tab PO DAILY 04/27/19 Reported Multivitamins (Multivitamin) 1 Each Tablet 1 Tab PO DAILY 04/27/19 Reported Melatonin 3 Mg Tablet 1 Tab PO QHS 04/27/19 Reported Furosemide 40 Mg Tablet 40 Mg PO DAILY 30 04/08/19 Rx Klor-Con M20 (Potassium Chloride) 20 Meq Tab.er.prt 20 Meq PO DAILY 30 04/08/19 Rx Symbicort 160-4.5 Mcg Inhaler (Budesonide/Formoterol Fumarate) 10.2 Gm Hfa.aer.ad 1 Puff IH BID 04/04/19 Reported Hydrocodone-Apap 7.5-325 (Hydrocodone Bit/Acetaminophen) 1 Tab Tablet 1 Tab PO BID PRN 04/04/19 Reported Alprazolam 0.5 Mg Tablet 0.5 Mg PO PRN Q8HRS PRN 7 03/13/19 Rx Duoneb 0.5-3(2.5) Mg/3 Ml (Albuterol/Ipratropium) 3 Ml Ampul.neb 3 Ml NEB RTQID 30 03/13/19 Rx Proair Hfa (Albuterol Sulfate) 8.5 Gm Hfa.aer.ad 2.5 Mg NEB PRN Q6HRS PRN 30 03/13/19 Rx [Nicotine 14MG] 1 PATCH Patch 1 Patch TD DAILY 30 08/29/18 Rx Finasteride 5 Mg Tablet 1 Tab PO DAILY 08/25/18 Reported Flomax (Tamsulosin Hcl) 0.4 Mg Cap.er.24h 1 Cap PO BID 08/25/18 Reported Vitamin D2 (Ergocalciferol (Vitamin D2)) 50,000 Unit Capsule 1 Cap PO QM 08/25/18 Reported Spiriva (Tiotropium [place]) 18 Mcg Cap.w.dev 18 Mcg IH DAILY 10/28/13 Reported Omeprazole 20 Mg Capsule. 20 Mg PO DAILY 10/28/13 Reported Aspir 81 (Aspirin) 81 Mg Tablet. 81 Mg PO DAILY 10/28/13 Reported Amlodipine Besylate 5 Mg Tablet 5 Mg PO DAILY 10/28/13 Reported Impression . 1. Acute on chronic hypoxic, hypercapnic respiratory failure secondary to chronic obstructive pulmonary disease exacerbation. 2. Severe chronic obstructive pulmonary disease. 3. Tobacco abuse with recent cessation. 4. Compression deformity of T9 Plan . PLAN: 1. BIPAP qhs and prn 2.I would minimize usage of any respiratory depressants including opioids and diazepam. continue systemic steroids and nebulized bronchodilators. 3.Will benefit from skill care 4.will need re-eval of his home trilogy machine by DME 5.Compression Fx/ per IR. High risk for respiratory failure with propofol for kyphoplasty. consider spinal if possible. LEE WALKER MD May 05, 2019 11:19
--- NOTE | 2019-05-05 13:28 | NUR ---
SS following up with discharge planning. SS discussed with pt's RN and palliative care. SS phoned and faxed referral to [facility], ; fax [phone]. Pt accepted at [facility] SS will continue to follow for discharge planning.
--- NOTE | 2019-05-05 14:28 | RAD ---
Examination: CT LUMBAR SPINE WO CONTRAST, CT THORACIC SPINE WO CONTRAST History: Compression fractures Comparison/Correlation: 04/27/2019 thoracic spine 03/08/2019 3 View X ray exam, 03/08/2019 CT chest without contrast, 10/06/2016 CT abdomen and pelvis without and with contrast Findings: Axial images of the thoracic and lumbar spine were obtained. Sagittal and coronal reformatted images were provided. T3 vertebral body compression deformity of approximately 50 percent is noted. T5 vertebral body compression deformity of 50 percent noted. Severe T9 compression fracture with vertebra plana appearance and loss of vertebral body height of at least 90 percent is evident upon comparison to recent prior CT chest without contrast exam. Severe left neural foraminal narrowing at T8-9 is present. Neural foraminal narrowing at T9-T10 is present to a lesser extent. T10 vertebral body height loss of less than 25 percent noted. L2 vertebral body height loss of approximately 25 percent is evident. Schmorl's nodes appear to involve L4 and L5 at the superior endplate. Central disc protrusion at L4-5 is present with effacement of the thecal sac. Mild concentric disc bulge at all 5-S1 is present. Osteopenia is present. Impression: Decreased of T3 and T5 vertebral body compression height is noted with compression fractures since 03/08/2019 CT chest without contrast. T9 vertebra plana is unchanged compared 03/08/2019 CT chest without contrast. The lumbar spine spine is unchanged upon correlation with 10/06/2016 CT abdomen and pelvis without and with contrast. Central disc protrusion at L4-L5 again seen. PQRS Compliance Statement: One or more of the following individualized dose reduction techniques were utilized for this examination: 1. Automated exposure control 2. Adjustment of the mA and/or kV according to patient size 3. Use of iterative reconstruction technique Electronically signed by: Mayank Vidal MD (05/05/2019 2:26 PM) [facility]
[2019-05-05 15:00] VITALS: BP 100/55
[2019-05-05] MEDS: ERGOCALCIFEROL (VITAMIN D2) 50,000 UNIT CAPSULE. PO SCH (17:43)
[2019-05-05 19:50] VITALS: BP 126/69
[2019-05-05 23:05] VITALS: BP 115/64
[2019-05-06 03:35] VITALS: BP 108/70
[2019-05-06] MEDS: methylPREDNISolone SOD SUCC PF 40 MG/ML VIAL. IV SCH (06:19)
[2019-05-06 07:00] VITALS: BP 142/77
[2019-05-06] MEDS: HYDROcodone/APAP 7.5/325MG 1 TAB TABLET PO PRN ×2 (07:06→18:15)
[2019-05-06] MEDS: CITALOPRAM 20 MG TABLET. PO SCH (08:14)
[2019-05-06] MEDS: TAMSULOSIN 0.4 MG CAP.ER.24H. PO SCH (08:14)
[2019-05-06] MEDS: PANTOPRAZOLE 40 MG TABLET.DR. PO SCH (08:14)
[2019-05-06] MEDS: amLODIPine BESYLATE 5 MG TABLET PO SCH (08:14)
[2019-05-06] MEDS: ASPIRIN ENTERIC COATED 81 MG TABLET.DR. PO SCH (08:14)
[2019-05-06] MEDS: POTASSIUM CHLORIDE 20 MEQ TABLET.ER. PO SCH (08:14)
[2019-05-06] MEDS: FINASTERIDE 5 MG TABLET. PO SCH (08:15)
[2019-05-06] MEDS: MULTIVITAMIN with MINERAL TABLET. PO SCH (08:15)
[2019-05-06] MEDS: FUROSEMIDE 40 MG TABLET. PO SCH (08:15)
[2019-05-06] MEDS: NICOTINE 14MG PATCH. TD SCH (08:16)
[2019-05-06] MEDS: POLYETHYLENE GLYCOL 3350 17 GM PACKET. PO SCH (08:16)
[2019-05-06] MEDS: IPRATRPIUM/ALBUTEROL 0.5/2.5MG 3 ML NEBU. NEB SCH ×3 (08:28→15:27)
--- NOTE | 2019-05-06 09:54 | PDOC ---
PULMONARY PROGRESS NOTES Subjective soa with exertion Vitals Vital Signs Date Time Temp Pulse Resp B/P (MAP) Pulse Ox O2 Delivery O2 Flow Rate FiO2 05/06/19 08:28 97 Nasal Cannula 2.0 05/06/19 08:14 73 142/77 05/06/19 07:06 26 05/06/19 07:00 97.7 97.7 General: Alert, No acute distress Lungs: Other (decrease bs) Cardiovascular: S1, S2 Abdomen: Soft, Non-tender Extremities: No Edema Skin: Warm Labs Laboratory Tests Test 05/05/19 04:25 White Blood Count 6.2 x10^3/uL (4.0-11.0) Red Blood Count 3.06 x10^6/uL (4.30-5.70) Hemoglobin 10.5 g/dL (13.0-17.5) Hematocrit 31.2 % (39.0-53.0) Mean Corpuscular Volume 102 fL (79-100) Mean Corpuscular Hemoglobin 34 pg (25-35) Mean Corpuscular Hemoglobin Concent 34 g/dL (31-37) Red Cell Distribution Width 14.5 % (11.5-14.5) Platelet Count 142 x10^3/uL (140-400) Neutrophils (%) (Auto) 91 % (31-73) Lymphocytes (%) (Auto) 2 % (24-48) Monocytes (%) (Auto) 7 % (0-9) Eosinophils (%) (Auto) 0 % (0-3) Basophils (%) (Auto) 0 % (0-3) Neutrophils # (Auto) 5.7 x10^3/uL (1.8-7.7) Lymphocytes # (Auto) 0.1 x10^3/uL (1.0-4.8) Monocytes # (Auto) 0.5 x10^3/uL (0.0-1.1) Eosinophils # (Auto) 0.0 x10^3/uL (0.0-0.7) Basophils # (Auto) 0.0 x10^3/uL (0.0-0.2) Segmented Neutrophils % 92 % (35-66) Band Neutrophils % 1 % (0-9) Monocytes % 7 % (0-10) Platelet Estimate Adequate (ADEQUATE) Sodium Level 139 mmol/L (136-145) Potassium Level 4.1 mmol/L (3.5-5.1) Chloride Level 100 mmol/L (98-107) Carbon Dioxide Level 38 mmol/L (21-32) Anion Gap 1 (6-14) Blood Urea Nitrogen 19 mg/dL (8-26) Creatinine 0.7 mg/dL (0.7-1.3) Estimated GFR (Cockcroft-Gault) 134.9 BUN/Creatinine Ratio 27 (6-20) Glucose Level 172 mg/dL (70-99) Calcium Level 9.4 mg/dL (8.5-10.1) Total Bilirubin 0.2 mg/dL (0.2-1.0) Aspartate Amino Transf (AST/SGOT) 13 U/L (15-37) Alanine Aminotransferase (ALT/SGPT) 35 U/L (16-63) Alkaline Phosphatase 91 U/L (46-116) Total Protein 6.8 g/dL (6.4-8.2) Albumin 2.4 g/dL (3.4-5.0) Albumin/Globulin Ratio 0.5 (1.0-1.7) Medications Active Scripts Medications Dose Route/Sig Max Daily Dose Days Date Category Polyethylene Glycol 3350 2,500 Gm Powder 17 Gm PO DAILY 04/27/19 Reported Gabapentin 600 Mg Tablet 200 Mg PO TID PRN 04/27/19 Reported Escitalopram Oxalate 10 Mg Tablet 1 Tab PO DAILY 04/27/19 Reported Prednisone 20 Mg Tablet 1 Tab PO DAILY 04/27/19 Reported Multivitamins (Multivitamin) 1 Each Tablet 1 Tab PO DAILY 04/27/19 Reported Melatonin 3 Mg Tablet 1 Tab PO QHS 04/27/19 Reported Furosemide 40 Mg Tablet 40 Mg PO DAILY 30 04/08/19 Rx Klor-Con M20 (Potassium Chloride) 20 Meq Tab.er.prt 20 Meq PO DAILY 30 04/08/19 Rx Symbicort 160-4.5 Mcg Inhaler (Budesonide/Formoterol Fumarate) 10.2 Gm Hfa.aer.ad 1 Puff IH BID 04/04/19 Reported Hydrocodone-Apap 7.5-325 (Hydrocodone Bit/Acetaminophen) 1 Tab Tablet 1 Tab PO BID PRN 04/04/19 Reported Alprazolam 0.5 Mg Tablet 0.5 Mg PO PRN Q8HRS PRN 7 03/13/19 Rx Duoneb 0.5-3(2.5) Mg/3 Ml (Albuterol/Ipratropium) 3 Ml Ampul.neb 3 Ml NEB RTQID 30 03/13/19 Rx Proair Hfa (Albuterol Sulfate) 8.5 Gm Hfa.aer.ad 2.5 Mg NEB PRN Q6HRS PRN 30 03/13/19 Rx [Nicotine 14MG] 1 PATCH Patch 1 Patch TD DAILY 30 08/29/18 Rx Finasteride 5 Mg Tablet 1 Tab PO DAILY 08/25/18 Reported Flomax (Tamsulosin Hcl) 0.4 Mg Cap.er.24h 1 Cap PO BID 08/25/18 Reported Vitamin D2 (Ergocalciferol (Vitamin D2)) 50,000 Unit Capsule 1 Cap PO QM 08/25/18 Reported Spiriva (Tiotropium [place]) 18 Mcg Cap.w.dev 18 Mcg IH DAILY 10/28/13 Reported Omeprazole 20 Mg Capsule. 20 Mg PO DAILY 10/28/13 Reported Aspir 81 (Aspirin) 81 Mg Tablet. 81 Mg PO DAILY 10/28/13 Reported Amlodipine Besylate 5 Mg Tablet 5 Mg PO DAILY 10/28/13 Reported Impression . 1. Acute on chronic hypoxic, hypercapnic respiratory failure secondary to chronic obstructive pulmonary disease exacerbation. 2. Severe chronic obstructive pulmonary disease. 3. Tobacco abuse with recent cessation. 4. Compression deformity of T9 Plan . 1. BIPAP qhs and prn 2.I would minimize usage of any respiratory depressants including opioids and diazepam. continue systemic steroids and nebulized bronchodilators. 3.Will benefit from skill care post dc 4.will need re-eval of his home trilogy machine by DME 5.Compression Fx/ per IR. High risk for respiratory failure with propofol for kyphoplasty. consider spinal/ nerve block if possible.Patient willing to take risk LEE WALKER MD May 06, 2019 09:54
[2019-05-06] MEDS ORDERED: methylPREDNISolone SOD SUCC PF 40 MG/ML VIAL. IV SCH ×2 (10:15→18:00)
--- NOTE | 2019-05-06 10:17 | PDOC ---
PROGRESS NOTES Subjective Subjective feeling better today Objective Objective Vital Signs Date Time Temp Pulse Resp B/P (MAP) Pulse Ox O2 Delivery O2 Flow Rate FiO2 05/06/19 08:28 97 Nasal Cannula 2.0 05/06/19 08:14 73 142/77 05/06/19 07:06 26 05/06/19 07:00 97.7 97.7 Intake and Output 05/06/19 07:00 Intake Total 540 ml Output Total 2050 ml Balance -1510 ml Intake Oral 540 ml Output Urine Total 2050 ml Physical Exam Abdomen: Normal bowel sounds, Soft Heart: Regular rate, Normal S1 Extremities: No clubbing General: Alert HEENT: Atraumatic Lungs: Other (dec breath sound , mild wheezing) MUSCULOSKELETAL: No deformity, Osteoarthritic changes both hands Neck: No JVD Neuro: Normal speech Psych/Mental Status: Mood NL Skin: No significant lesion COMMENT upper lumbar spine muscle spasm Diagnosis Problem List Problems Medical Problems: (1) Acute on chronic respiratory failure with hypoxia and hypercapnia Status: Acute (2) COPD exacerbation Status: Acute Assessment Assessment 1. Tqiji-dt-vrbdgia hypoxic hypercapnic respiratory failure secondary to severe chronic obstructive pulmonary disease exacerbation. 2. Severe chronic obstructive pulmonary disease. 3. Continued tobacco use. 4. Hypertension. 5. Hyperlipidemia. 6. Benign prostatic hypertrophy. 7. Noncompliance with medication. 8. Back pain with x-ray of thoracic spine showed that he has T6 and T9 compression fractures. Plan:ct mild compression fractures spine. will consult pain clinic Pt not able to tolerate MRI cannot stay flat and still ,will do ct spine Iv solumedrol for copd. BIPAP and oxygen. The patient was seen by Dr. Escudero, who recommended to do an MRI . MRI still pending. Discussed with staff about getting an MRI done. Patient wants to continue aggressive care and the is now a full code. Term as well as short-term prognosis of this patient is extremely poor. He was recently discharged from [facility] to home with hospice. However he stayed alone at night at home and became very nervous and was readmitted to the hospital for dyspnea. He now wants to continue aggressive care. Trilogy settings were checked at the [facility]. Plan Plan of Care Problems Medical Problems: (1) Acute on chronic respiratory failure with hypoxia and hypercapnia Status: Acute (2) COPD exacerbation Status: Acute Comment Review of Relevant I have reviewed the following items mario (where applicable) has been applied. Vitals/I & O Vital Sign - Last 24 Hours 05/05/19 05/05/19 05/05/19 05/05/19 11:00 11:18 12:01 12:18 Temp 98.1 98.1 Pulse 92 Resp 16 B/P (MAP) 125/74 (91) Pulse Ox 99 97 97 O2 Delivery Nasal Cannula Nasal Cannula Nasal Cannula Nasal Cannula O2 Flow Rate 3.0 3.0 3.0 3.0 05/05/19 05/05/19 05/05/19 05/05/19 15:00 16:14 17:43 18:43 Temp 97.0 97.0 Pulse 81 Resp 20 B/P (MAP) 100/55 (70) Pulse Ox 96 99 99 99 O2 Delivery BiPAP/CPAP BiPAP/CPAP Nasal Cannula Nasal Cannula O2 Flow Rate 30.0 30.0 30.0 05/05/19 05/05/19 05/05/19 05/05/19 19:50 19:52 20:00 20:21 Temp 97.9 97.9 Pulse 85 Resp 20 B/P (MAP) 126/69 (88) Pulse Ox 94 92 O2 Delivery Nasal Cannula Nasal Cannula BiPAP/CPAP O2 Flow Rate 3.0 3.0 3.0 05/05/19 05/05/19 05/06/19 05/06/19 23:05 23:56 01:57 03:05 Temp 97.3 97.3 Pulse 81 Resp 22 B/P (MAP) 115/64 (81) Pulse Ox 97 99 99 100 O2 Delivery BiPAP/CPAP BiPAP/CPAP BiPAP/CPAP BiPAP/CPAP 05/06/19 05/06/19 05/06/19 05/06/19 03:35 07:00 07:06 08:00 Temp 97.2 97.7 97.2 97.7 Pulse 69 72 Resp 20 20 26 B/P (MAP) 108/70 (83) 142/77 (98) Pulse Ox 98 97 98 O2 Delivery BiPAP/CPAP Nasal Cannula Nasal Cannula Nasal Cannula O2 Flow Rate 3.0 3.0 3.0 05/06/19 05/06/19 05/06/19 08:13 08:14 08:28 Pulse 73 B/P (MAP) 142/77 Pulse Ox 99 97 O2 Delivery Nasal Cannula Nasal Cannula O2 Flow Rate 2.0 2.0 Intake and Output 05/05/19 05/05/19 05/06/19 15:00 23:00 07:00 Intake Total 540 ml Output Total 900 ml 400 ml 750 ml Balance -900 ml -400 ml -210 ml DAMIÁN BALL MD May 06, 2019 10:17
[2019-05-06 11:00] VITALS: BP 142/71
[2019-05-06] MEDS ORDERED: LIDOCAINE (700MG/PATCH) PATCH. TD SCH (12:30)
[2019-05-06] MEDS ORDERED: oxyCODONE ER 10 MG TAB.ER.12H PO SCH (13:00)
--- NOTE | 2019-05-06 13:11 | CONS ---
DATE OF CONSULTATION: 05/06/2019 ATTENDING PHYSICIAN: Salas Mcdonald MD REASON FOR CONSULTATION: The patient was seen at the request of Dr. Mcdonald for rehab evaluation. HISTORY OF PRESENT ILLNESS: This is a 68-year-old right-handed male known to me. The patient with chronic obstructive pulmonary disease. The patient was discharged to home recently from his stay at long-term acute care unit. He was admitted on 04/28/2019 with increased shortness of breath. He was found with acute respiratory failure. The patient with known hypertension, hyperlipidemia, noncompliance, and benign prostatic hypertrophy, status post carcinoma of colon. KNOWN ALLERGIC TO DELIA INHIBITORS, WHICH CAUSE COUGH. The patient has been living at home with his daughter. He still smokes and apparently heavy drinker. The patient complains of upper back pain, more so with cough. 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 The patient denies any specific new injury. The patient denies any tingling or numbness sensation in the extremities. PHYSICAL EXAMINATION: Today revealed a middle-aged male. He is alert, oriented to place and person, follows commands appropriately. He gets short of breath even while talking and his heart rate goes up with any activity. The patient had generalized muscle weakness. Muscle strength overall being 3/5-3+/5 grade muscle strength. Deep tendon reflexes are decreased overall. He had significant tenderness to palpation over upper thoracic spine, more so over the paraspinal muscles, left side more than right side. He requires help with bed mobility. I have not tested his transfers or ambulation skills at this time. He is breathing through BiPAP. ASSESSMENT: Fupyc-km-bakkmyg respiratory failure with hypoxia and hypercapnia, COPD exacerbation in a patient with severe chronic obstructive pulmonary disease, continued tobacco use, hypertension, hyperlipidemia, benign prostatic hypertrophy, noncompliance with medication, upper back pain from multiple thoracic vertebral body compression fractures with associated posterior shoulder girdle muscle strain. Clinical evidence of peripheral neuropathy. RECOMMENDATIONS: Agree with the plan for physical therapy and occupational therapy. I am not sure kyphoplasty is going to be of much help, especially at T9 area where the compression fracture is really bad. He might be better off taking stronger pain medication and we can even try thoracic epidural steroid injection, but at present time, he seems to be insistent on trying kyphoplasty. Dr. Mcdonald, I appreciate asking me to participate in the care of this interesting patient. I will be glad to follow him with you as needed for his rehabilitation. GRIFFIN RODRIGUEZ MD DR: KANG/braden JOB#: [id number] / [id number]
[2019-05-06] MEDS ORDERED: methylPREDNISolone ACETATE 40 MG/ML VIAL. ONE (13:52)
[2019-05-06] MEDS ORDERED: methylPREDNISolone ACETATE 80 MG/ML VIAL. ONE (13:53)
[2019-05-06] MEDS ORDERED: METH40VI IV (14:37)
--- NOTE | 2019-05-06 14:39 | SNU/HH DC ---
DISCHARGE ORDERS DISCHARGE INFORMATION: DISCHARGE DATE: May 06, 2019 FINAL DIAGNOSIS Problems Medical Problems: (1) Acute on chronic respiratory failure with hypoxia and hypercapnia Status: Acute (2) COPD exacerbation Status: Acute CONDITION ON DISCHARGE: Stable CODE STATUS: Code Status: Full LTAC: ADMIT TO LTAC: Yes POST DISCHARGE ORDERS: ACTIVITY ORDERS: Activity as tolerated WEIGHT BEARING STATUS: No restrictions, As tolerated DIET AFTER DISCHARGE: Cardiac WOUND/INCISION CARE: Change dressing CHECKS AFTER DISCHARGE: CHECKS AFTER DISCHARGE: Check blood press - daily TREATMENT/EQUIPMENT ORDERS: ADAPTIVE EQUIPMENT NEEDED: Walker, Wheelchair RESPIRATORY EQUIPMENT NEEDED: Oxygen, Nebulizer, CPAP, BiPAP Physical Therapy For: Evalulation/Treatment Occupational Therapy For: Evaluation/Treatment DISCHARGE MEDICATIONS: Home Meds Active Scripts Methylprednisolone Sod Succ/Pf (SOLU-MEDROL 40 MG VIAL) 40 Mg/1 Ml Vial, 40 MG IV Q12H for copd for 7 Days, EACH Prov:DAMIÁN BALL MD 05/06/19 Furosemide (FUROSEMIDE) 40 Mg Tablet, 40 MG PO DAILY for diuretic for 30 Days, #30 TAB Prov:DAMIÁN BALL MD 04/08/19 Potassium Chloride (KLOR-CON M20) 20 Meq Tab.er.prt, 20 MEQ PO DAILY for replacement for 30 Days, #30 TAB.SR Prov:DAMIÁN BALL MD 04/08/19 Alprazolam (ALPRAZOLAM) 0.5 Mg Tablet, 0.5 MG PO PRN Q8HRS PRN for ANXIETY/AGITATION, 1ST CHOICE for 7 Days, TAB Prov:DAMIÁN BALL MD 03/13/19 Ipratropium/Albuterol Sulfate (DUONEB 0.5-3(2.5) MG/3 ML) 3 Ml Ampul.neb, 3 ML NEB RTQID for copd for 30 Days, #120 EACH Prov:DAMIÁN BALL MD 03/13/19 Albuterol Sulfate (Proair Hfa) 8.5 Gm Hfa.aer.ad, 2.5 MG NEB PRN Q6HRS PRN for SHORTNESS OF BREATH for 30 Days, INHALER Prov:DAMIÁN BALL MD 03/13/19 [Nicotine 14MG] 1 PATCH PATCH No Conflict Check, 1 PATCH TD DAILY for smoking for 30 Days Prov:DAMIÁN BALL MD 08/29/18 Reported Medications Polyethylene Glycol 3350 (POLYETHYLENE GLYCOL 3350) 2,500 Gm Powder, 17 GM PO DAILY for constipation, #527 GM 11 Refills 04/27/19 Gabapentin (GABAPENTIN) 600 Mg Tablet, 200 MG PO TID PRN for g, TAB 04/27/19 Escitalopram Oxalate (ESCITALOPRAM OXALATE) 10 Mg Tablet, 1 TAB PO DAILY for depression, #30 TAB 3 Refills 04/27/19 Multivitamin (MULTIVITAMINS) 1 Each Tablet, 1 TAB PO DAILY for supp, #90 TAB 3 Refills 04/27/19 Melatonin (MELATONIN) 3 Mg Tablet, 1 TAB PO QHS for insomnia, #30 TAB 2 Refills 04/27/19 Budesonide/Formoterol Fumarate (SYMBICORT 160-4.5 MCG INHALER) 10.2 Gm Hfa.aer.ad, 1 PUFF IH BID for COPD, INHALER 04/04/19 Hydrocodone Bit/Acetaminophen (HYDROCODONE-APAP 7.5-325 ) 1 Tab Tablet, 1 TAB PO BID PRN for PAIN, TAB 0 Refills 04/04/19 Finasteride (FINASTERIDE) 5 Mg Tablet, 1 TAB PO DAILY for BPH, #30 TAB 11 Refills 08/25/18 Tamsulosin Hcl (FLOMAX) 0.4 Mg Cap.er.24h, 1 CAP PO BID for BPH, #30 CAP 11 Refills 08/25/18 Ergocalciferol (Vitamin D2) (VITAMIN D2) 50,000 Unit Capsule, 1 CAP PO QM for bone loss prevention, #4 CAP 5 Refills 08/25/18 Tiotropium [place] (SPIRIVA) 18 Mcg Cap.w.dev, 18 MCG IH DAILY 10/28/13 Omeprazole (OMEPRAZOLE) 20 Mg Capsule.dr, 20 MG PO DAILY 10/28/13 Aspirin (ASPIR 81) 81 Mg Tablet.dr, 81 MG PO DAILY, TAB 10/28/13 Amlodipine Besylate (AMLODIPINE BESYLATE) 5 Mg Tablet, 5 MG PO DAILY 10/28/13 Discontinued Reported Medications Prednisone (PREDNISONE) 20 Mg Tablet, 1 TAB PO DAILY for s, #5 TAB 04/27/19 DAMIÁN BALL MD May 06, 2019 14:39
[2019-05-06 15:00] VITALS: BP 112/68
--- NOTE | 2019-05-06 15:21 | PDOC ---
SUBJECTIVE Subjective back pain and short of breath OBJECTIVE Objective 68 yo male c/o back pain with history of chronic respiratory failure with hypoxia and hypercapnia, COPD exacerbation with severe chronic obstructive pulmonary disease, continued tobacco use, hypertension, hyperlipidemia, benign prostatic hypertrophy, noncompliance with medication, upper back pain from multiple thoracic vertebral body compression fractures. Vital Signs Vital Signs Date Time Temp Pulse Resp B/P (MAP) Pulse Ox O2 Delivery O2 Flow Rate FiO2 05/06/19 12:03 100 BiPAP/CPAP 05/06/19 11:00 98.0 100 22 142/71 (94) 94 Nasal Cannula 3.0 98.0 05/06/19 08:28 97 Nasal Cannula 2.0 05/06/19 08:14 73 142/77 05/06/19 08:13 99 Nasal Cannula 2.0 05/06/19 08:00 Nasal Cannula 3.0 05/06/19 07:06 26 98 Nasal Cannula 3.0 05/06/19 07:00 97.7 72 20 142/77 (98) 97 Nasal Cannula 3.0 97.7 05/06/19 03:35 97.2 69 20 108/70 (83) 98 BiPAP/CPAP 97.2 05/06/19 03:05 100 BiPAP/CPAP 05/06/19 01:57 99 BiPAP/CPAP 05/05/19 23:56 99 BiPAP/CPAP 05/05/19 23:05 97.3 81 22 115/64 (81) 97 BiPAP/CPAP 97.3 05/05/19 20:21 92 BiPAP/CPAP 05/05/19 20:00 Nasal Cannula 3.0 05/05/19 19:52 3.0 05/05/19 19:50 97.9 85 20 126/69 (88) 94 Nasal Cannula 3.0 97.9 05/05/19 18:43 99 Nasal Cannula 30.0 05/05/19 17:43 99 Nasal Cannula 30.0 05/05/19 16:14 99 BiPAP/CPAP I & O Intake and Output 05/06/19 07:00 Intake Total 540 ml Output Total 2050 ml Balance -1510 ml Intake Oral 540 ml Output Urine Total 2050 ml PHYSICAL EXAM Physical Exam A&O HEENT NCAT BS-distant bilat back -midline,+ tender mid/low T spine no rad LE dtrs 1+ bilat ASSESSMENT/PLAN Assessment/Plan Plan: risks/benefits discussed-TESI today JOANNA GUTIERREZ MD May 06, 2019 15:21
--- NOTE | 2019-05-06 15:24 | PDOC4 ---
OPERATIVE NOTE Date: Date: May 06, 2019 Pre-Op Diagnosis: T comp fxs Post-Op Diagnosis: same Procedure Performed: JOAQUIN Surgeon: Mo Anesthesia Type: Local Blood Loss: min Specimans Obtained: none Complications: none Operative Note: Sterile prep /drape sitting position,T-9/10 TESI pfns lucho technique, neg asp 10cc pfns+120mg depomedrol Pt mehul well JOANNA GUTIERREZ MD May 06, 2019 15:24
--- NOTE | 2019-05-06 16:08 | NUR ---
SS following up with discharge planning. Discharge orders received for [facility], [facility], ; fax [phone]. SS phoned and faxed discharge orders to [facility]. Pt will discharge today and go to [facility] at 1830 via [facility] transport. Pt, pt's RN, and pt's daughter notified.
--- NOTE | 2019-05-06 19:00 | NUR ---
Discharge Note: ISIDRO JAUREGUI [facility] Discharge instructions and discharge home medications reviewed with KRISSY Hampton and a copy given to [facility] transportation. All questions have been answered and understanding verbalized.
[2019-05-06] MEDS ORDERED: PATCH REMOVAL. MC SCH (21:00)
== END 2019-05-06 19:00 | DRG 190 ==
LOC: ER 08:28 → CVICU 10:15 → 2 SOUTH 12:35
PROVIDERS: ADMIT Internal Medicine; ATTEND Internal Medicine
PROC: 5A09357 Assistance with Respiratory Ventilation, Less than 24 Consecutive Hours, Continuous Positive Airway Pressure (ICD-10-PCS; 2019-04-27)
PROC: 5A09357 Assistance with Respiratory Ventilation, Less than 24 Consecutive Hours, Continuous Positive Airway Pressure (ICD-10-PCS; 2019-04-28)
PROC: 5A09357 Assistance with Respiratory Ventilation, Less than 24 Consecutive Hours, Continuous Positive Airway Pressure (ICD-10-PCS; 2019-04-30)
PROC: 5A09357 Assistance with Respiratory Ventilation, Less than 24 Consecutive Hours, Continuous Positive Airway Pressure (ICD-10-PCS; 2019-05-01)
PROC: 5A09357 Assistance with Respiratory Ventilation, Less than 24 Consecutive Hours, Continuous Positive Airway Pressure (ICD-10-PCS; 2019-05-02)
PROC: 5A09357 Assistance with Respiratory Ventilation, Less than 24 Consecutive Hours, Continuous Positive Airway Pressure (ICD-10-PCS; 2019-05-03)
PROC: 5A09357 Assistance with Respiratory Ventilation, Less than 24 Consecutive Hours, Continuous Positive Airway Pressure (ICD-10-PCS; 2019-05-04)
PROC: 5A09357 Assistance with Respiratory Ventilation, Less than 24 Consecutive Hours, Continuous Positive Airway Pressure (ICD-10-PCS; 2019-05-05)
PROC: 3E0S33Z Introduction of Anti-inflammatory into Epidural Space, Percutaneous Approach (ICD-10-PCS; principal; 2019-05-06)
PROC: 5A09357 Assistance with Respiratory Ventilation, Less than 24 Consecutive Hours, Continuous Positive Airway Pressure (ICD-10-PCS; 2019-05-06)
DX: J44.1 Chronic obstructive pulmonary disease with (acute) exacerbation (principal); J96.21 Acute and chronic respiratory failure with hypoxia; J96.22 Acute and chronic respiratory failure with hypercapnia; J98.11 Atelectasis; M48.54XA Collapsed vertebra, not elsewhere classified, thoracic region, initial encounter for fracture; E78.5 Hyperlipidemia, unspecified; G62.9 Polyneuropathy, unspecified; I11.0 Hypertensive heart disease with heart failure; I50.9 Heart failure, unspecified; N40.0 Benign prostatic hyperplasia without lower urinary tract symptoms; M10.9 Gout, unspecified; F17.210 Nicotine dependence, cigarettes, uncomplicated; Z66 Do not resuscitate; Z96.22 Myringotomy tube(s) status; M81.0 Age-related osteoporosis without current pathological fracture; E78.00 Pure hypercholesterolemia, unspecified; Z85.038 Personal history of other malignant neoplasm of large intestine; Z88.8 Allergy status to other drugs, medicaments and biological substances; Z91.14 Patient's other noncompliance with medication regimen; Z91.19 Patient's noncompliance with other medical treatment and regimen; Z80.0 Family history of malignant neoplasm of digestive organs; Z82.49 Family history of ischemic heart disease and other diseases of the circulatory system
CPT/HCPCS: 36415; 36600; 71045; 72072; 72128; 72131; 80053; 82805; 83735; 83880; 84484; 85007; 85025; 85027; 93005; 94640; 94660; 94760; 96361; 96374; G0480; J1030; J1040; J2270; J2920; J2930; J3475; J7030; J7620; 99285-25; G0378

== ENCOUNTER 2019-08-30 21:38 | Inpatient (IN) | payer MEDICARE ==
[~2019-08-30] VITALS: Ht 172.7 cm; Wt 83.6 kg
[~2019-08-30 21:38] MED LIST changes: +ALBU2.5V8 IH; +DICL100G18 TP; +ESCITALOPRAM OX10 MG PO; +GABA600T7 PO; +LACT1CAP19 PO; +MELA3TAB56 PO; +METH40VI IV; +MORP-15 PO; +MULT1TAB52 PO; -OMEP20CA10 PO; +OMEP20CA16 PO; +POLY2500 PO; -POTA20TA82 PO
[2019-08-30] MEDS ORDERED: ALBUTEROL SULFATE 2.5 MG/3 ML NEBU. ONE (21:40)
[2019-08-30] MEDS ORDERED: IPRATRPIUM/ALBUTEROL 0.5/2.5MG 3 ML NEBU. ONE (21:41)
[2019-08-30] MEDS ORDERED: MORPHINE SULFATE 4 MG/ML VIAL. IV/SQ PRN (21:45)
[2019-08-30] MEDS ORDERED: IPRATRPIUM/ALBUTEROL 0.5/2.5MG 3 ML NEBU. NEB ONE (21:45)
[2019-08-30] MEDS ORDERED: ALBUTEROL SULFATE 2.5 MG/3 ML NEBU. CONT NEB ONE (21:45)
[2019-08-30] MEDS ORDERED: MAGNESIUM SULFATE 2GM 50 ML IV ONE (22:00)
[2019-08-30] MEDS ORDERED: methylPREDNISolone SOD SUCC PF 125 MG/2 ML VIAL. IV ONE (22:00)
[2019-08-30 22:07] LABS: BASO # 0.1 x10^3/uL (0.0-0.2); BASO % 1 % (0-3); EOS # 0.1 x10^3/uL (0.0-0.7); EOS % 1 % (0-3); HEMATOCRIT 35.5 % (39.0-53.0); HEMOGLOBIN 11.4 g/dL (13.0-17.5); LYMPH # 2.2 x10^3/uL (1.0-4.8); LYMPH % 22 % (24-48); MEAN CORPUSCULAR HEMOGLOBIN 32 pg (25-35); MEAN CORPUSCULAR HGB CONC 32 g/dL (31-37); MEAN CORPUSCULAR VOLUME 98 fL (79-100); MONO # 0.8 x10^3/uL (0.0-1.1); MONO % 8 % (0-9); NEUT # 6.8 x10^3/uL (1.8-7.7); NEUT % 68 % (31-73); PLATELET COUNT 244 x10^3/uL (140-400); RED CELL DISTRIBUTION WIDTH 14.9 % (11.5-14.5)
--- NOTE | 2019-08-30 22:13 | RAD ---
Exam: Chest one view INDICATION: Dyspnea TECHNIQUE: Dental view of the chest Comparisons: 08/22/2019 FINDINGS: The cardiomediastinal silhouette and pulmonary vessels are within normal limits. Tortuosity of the aorta again noted. Trace right-sided pleural effusion. There are strandy opacities at the left lung base. IMPRESSION: 1. Strandy opacity at the left lung base, may relate to atelectasis versus developing consolidative process. 2. Trace right-sided pleural effusion. Electronically signed by: Danna Fuentes MD (08/30/2019 10:10 PM) [id number]
[2019-08-30 22:59] LABS: CALCIUM 9.6 mg/dL (8.5-10.1); CREATININE 0.7 mg/dL (0.7-1.3); GFR 134.9; POTASSIUM 3.9 mmol/L (3.5-5.1)
[2019-08-30 23:02] LABS: ALBUMIN 2.8 g/dL (3.4-5.0); ALBUMIN/GLOBULIN RATIO 0.6 (1.0-1.7); TOTAL BILIRUBIN 0.3 mg/dL (0.2-1.0); TOTAL PROTEIN 7.2 g/dL (6.4-8.2)
[2019-08-30 23:04] LABS: INFLUENZA A PATIENT NEGATIVE (NEGATIVE); INFLUENZA B PATIENT NEGATIVE (NEGATIVE)
[2019-08-30] MEDS ORDERED: IV NORMAL SALINE 500ML BAG 500 ML IV ONE (23:15)
--- NOTE | 2019-08-30 23:27 | PHYS DOC ---
Past Medical History Past Medical History: Cancer, CHF, COPD, High Cholesterol, Hypertension, Other Additional Past Medical Histor: GOUT, COLON CA, ENLARGED PROSTATE Past Surgical History: Colectomy Additional Past Surgical Histo: colon cancer Alcohol Use: Sober Drug Use: None Adult General Chief Complaint Chief Complaint: SHORTNESS OF BREATH HPI HPI Patient is a 68 year old male who presents with complaint of severe respiratory distress via EMS. EMS reports that patient had called earlier in the day and patient was given a nebulizer treatment after which she refused transport, stating that he was feeling better. Patient had reported to EMS that symptoms had recurred approximately 30 minutes before calling them and upon their arrival patient was in severe distress. Patient was given another breathing treatment while in route and was placed on CPAP. Unable to obtain additional history due to severity of patient condition.[] Review of Systems Review of Systems Constitutional: Denies fever or chills [] Respiratory: Positive cough and shortness of breath [] Cardiovascular: No additional information not addressed in HPI [] GI: Denies abdominal pain, nausea, vomiting or diarrhea [] Integument: Denies rash or skin lesions [] Neurologic: Denies headache, focal weakness or sensory changes [] All other systems were reviewed and found to be within normal limits, except as documented in this note. Current Medications Current Medications Current Medications Medications (Trade) Dose Ordered Sig/Nilo Start Time Stop Time Status Last Admin Dose Admin Albuterol Sulfate (Ventolin Neb Soln) 7.5 mg 1X ONCE 08/30/19 21:45 08/30/19 21:53 DC 08/30/19 21:49 7.5 MG Albuterol/ Ipratropium (Duoneb) 3 ml 1X ONCE 08/30/19 21:45 08/30/19 21:53 DC 08/30/19 21:49 3 ML Lorazepam (Ativan Inj) 2 mg 1X ONCE 08/30/19 23:30 08/30/19 23:31 UNV Magnesium Sulfate 50 ml @ 25 mls/hr 1X ONCE 08/30/19 22:00 08/30/19 23:59 08/30/19 22:11 25 MLS/HR Methylprednisolone Sodium Succinate (SOLU-Medrol 125MG VIAL) 125 mg 1X ONCE 08/30/19 22:00 08/30/19 22:01 DC 08/30/19 22:10 125 MG Morphine Sulfate (Morphine Sulfate) 4 mg PRN Q15MIN PRN 08/30/19 21:45 08/31/19 21:44 Sodium Chloride 500 ml @ 500 mls/hr 1X ONCE 08/30/19 23:15 08/31/19 00:14 08/30/19 23:12 500 MLS/HR Allergies Allergies Allergies Coded Allergies Type Severity Reaction Last Updated Verified DELIA Inhibitors Allergy Intermediate 07/02/17 Yes Physical Exam Physical Exam Constitutional: Well developed, well nourished, in moderate respiratory distress, non-toxic appearance. [] HENT: Normocephalic, atraumatic, bilateral external ears normal, oropharynx moist, no oral exudates, nose normal. [] Eyes: PERRLA, EOMI, conjunctiva normal, no discharge. [] Neck: Normal range of motion, no tenderness, supple, no stridor. [] Cardiovascular: Tachycardic rate with regular rhythm[] Lungs & Thorax: Markedly diminished breath sounds are noted bilaterally with very faint end expiratory wheezing to auscultation [] Abdomen: Bowel sounds normal, soft, no tenderness. [] Skin: Warm, dry, no erythema, no rash. [] Extremities: No tenderness, no cyanosis, no clubbing, ROM intact. [] Neurologic: Alert and oriented X 3, no focal deficits noted. [] Current Patient Data Vital Signs Vital Signs Date Time Temp Pulse Resp B/P (MAP) Pulse Ox O2 Delivery O2 Flow Rate FiO2 08/30/19 23:00 97 26 87/59 (68) 97 BiPAP/CPAP 08/30/19 21:38 97.2 15.0 97.2 Lab Values Laboratory Tests Test 08/30/19 21:50 08/30/19 22:32 08/30/19 22:40 White Blood Count 10.0 x10^3/uL (4.0-11.0) Red Blood Count 3.60 x10^6/uL (4.30-5.70) L Hemoglobin 11.4 g/dL (13.0-17.5) L Hematocrit 35.5 % (39.0-53.0) L Mean Corpuscular Volume 98 fL (79-100) Mean Corpuscular Hemoglobin 32 pg (25-35) Mean Corpuscular Hemoglobin Concent 32 g/dL (31-37) Red Cell Distribution Width 14.9 % (11.5-14.5) H Platelet Count 244 x10^3/uL (140-400) Neutrophils (%) (Auto) 68 % (31-73) Lymphocytes (%) (Auto) 22 % (24-48) L Monocytes (%) (Auto) 8 % (0-9) Eosinophils (%) (Auto) 1 % (0-3) Basophils (%) (Auto) 1 % (0-3) Neutrophils # (Auto) 6.8 x10^3/uL (1.8-7.7) Lymphocytes # (Auto) 2.2 x10^3/uL (1.0-4.8) Monocytes # (Auto) 0.8 x10^3/uL (0.0-1.1) Eosinophils # (Auto) 0.1 x10^3/uL (0.0-0.7) Basophils # (Auto) 0.1 x10^3/uL (0.0-0.2) Sodium Level 141 mmol/L (136-145) Potassium Level 3.9 mmol/L (3.5-5.1) Chloride Level 101 mmol/L (98-107) Carbon Dioxide Level 36 mmol/L (21-32) H Anion Gap 4 (6-14) L Blood Urea Nitrogen 11 mg/dL (8-26) Creatinine 0.7 mg/dL (0.7-1.3) Estimated GFR (Cockcroft-Gault) 134.9 BUN/Creatinine Ratio 16 (6-20) Glucose Level 118 mg/dL (70-99) H Calcium Level 9.6 mg/dL (8.5-10.1) Total Bilirubin 0.3 mg/dL (0.2-1.0) Aspartate Amino Transferase (AST) 17 U/L (15-37) Alanine Aminotransferase (ALT) 17 U/L (16-63) Alkaline Phosphatase 161 U/L (46-116) H Troponin I Quantitative < 0.017 ng/mL (0.000-0.055) ZR-Kik-A-Type Natriuretic Peptide 25 pg/mL (0-124) Total Protein 7.2 g/dL (6.4-8.2) Albumin 2.8 g/dL (3.4-5.0) L Albumin/Globulin Ratio 0.6 (1.0-1.7) L Influenza Type A Antigen Negative (NEGATIVE) Influenza Type B Antigen Negative (NEGATIVE) Laboratory Tests 08/30/19 21:50 Laboratory Tests 08/30/19 22:32 EKG EKG EKG demonstrates sinus tachycardia with a rate of 115.[] Radiology/Procedures Radiology/Procedures [] Impressions: PROCEDURE: PORTABLE CHEST 1V Exam: Chest one view INDICATION: Dyspnea TECHNIQUE: Dental view of the chest Comparisons: 08/22/2019 FINDINGS: The cardiomediastinal silhouette and pulmonary vessels are within normal limits. Tortuosity of the aorta again noted. Trace right-sided pleural effusion. There are strandy opacities at the left lung base. IMPRESSION: 1. Strandy opacity at the left lung base, may relate to atelectasis versus developing consolidative process. 2. Trace right-sided pleural effusion. Electronically signed by: Danna Fuentes MD (08/30/2019 10:10 PM) [facility] [place] Course & Med Decision Making Course & Med Decision Making Pertinent Labs and Imaging studies reviewed. (See chart for details) [] Dragon Disclaimer Dragon Disclaimer This electronic medical record was generated, in whole or in part, using a voice recognition dictation system. Departure Departure Impression: Primary Impression: Acute on chronic respiratory failure with hypoxia and hypercapnia Disposition: ADMITTED INPATIENT Admitting Physician: Salas Mcdonald Condition: IMPROVED Referrals: JJ GIORDANO (PCP) TIFFANY FLORIAN Jr. DO Aug 30, 2019 23:27
[2019-08-30] MEDS ORDERED: MORPHINE SULFATE 2 MG/ML VIAL. IV PRN (23:45)
[2019-08-30] MEDS ORDERED: ONDANSETRON PF 4 MG/2 ML VIAL. IV PRN (23:45)
[2019-08-31] VITALS (7 sets, daily range): BP systolic 105–149; BP diastolic 61–80
[2019-08-31 00:17] LABS: BASE EXCESS ABG 10 mmol/L (-3-3); HCO3 ABG 38 mmol/L (21-28); PO2 ABG 168 mmHg (65-108); SAT O2 ABG 99 % (92-99)
[2019-08-31 00:18] LABS: PCO2 ABG 69 mmHg (35-46)
[2019-08-31 04:05] LABS: BASO % 0 % (0-3); EOS % 0 % (0-3); HEMATOCRIT 32.1 % (39.0-53.0); HEMOGLOBIN 10.4 g/dL (13.0-17.5); LYMPH # 0.3 x10^3/uL (1.0-4.8); LYMPH % 3 % (24-48); MEAN CORPUSCULAR HEMOGLOBIN 32 pg (25-35); MEAN CORPUSCULAR HGB CONC 32 g/dL (31-37); MEAN CORPUSCULAR VOLUME 98 fL (79-100); MONO # 0.1 x10^3/uL (0.0-1.1); MONO % 1 % (0-9); NEUT # 8.7 x10^3/uL (1.8-7.7); NEUT % 96 % (31-73); PLATELET COUNT 210 x10^3/uL (140-400); RED BLOOD COUNT 3.29 x10^6/uL (4.30-5.70); RED CELL DISTRIBUTION WIDTH 14.3 % (11.5-14.5); WHITE BLOOD COUNT 9.1 x10^3/uL (4.0-11.0)
[2019-08-31 04:19] LABS: CALCIUM 9.8 mg/dL (8.5-10.1); CREATININE 0.8 mg/dL (0.7-1.3); GFR 115.6; POTASSIUM 4.7 mmol/L (3.5-5.1)
[2019-08-31 05:23] LABS: % LYMPHS 5 % (24-48); % SEGS 95 % (35-66); PLT ESTIMATE ADEQUATE (ADEQUATE)
--- NOTE | 2019-08-31 07:52 | CONS ---
DATE OF CONSULTATION: 08/31/2019 I was asked to see this 68-year-old gentleman for acute on chronic respiratory failure. HISTORY OF PRESENT ILLNESS: He does have history of more than [id number] smoking, quit smoking about a year ago. He has chronic respiratory failure, is on oxygen 3 liters per minute via nasal cannula. He started to have increased shortness of breath, cough, sputum production and wheezing about 2 days ago. He is not sure if he had fever or chills. He has nasal congestion. He denies nausea, vomiting or diarrhea. He has had chest tightness. He was brought to Emergency Room via EMS, was placed on BiPAP. He is currently on oxygen. PAST MEDICAL HISTORY: COPD, chronic respiratory failure, CHF, hypercholesterolemia, hypertension, history of colon cancer, status post colectomy. ALLERGIES: DELIA INHIBITOR. MEDICATIONS: Currently, he is on DuoNeb. Solu-Medrol was given in the Emergency Room. SOCIAL HISTORY: History of more than [id number] smoking, stopped smoking a year ago. FAMILY HISTORY: Hypertension. REVIEW OF SYSTEMS: As mentioned as above, other systems are otherwise negative. PHYSICAL EXAMINATION: GENERAL: This is an overweight gentleman. VITAL SIGNS: His O2 saturation is 96% on 4 liters of oxygen, respiratory rate 24, heart rate 100, blood pressure 142/80, temperature 97.8. HEENT: Normocephalic, atraumatic. Pupils equal, round, reactive to light. Shallow oropharynx. Nose is clear. NECK: There is no JVD, lymphadenopathy or thyromegaly. CARDIOVASCULAR: Regular rate and rhythm. Distant heart sounds. PMI is nondisplaced. CHEST: Inspection is normal. LUNGS: Diminished breath sounds. A few end-expiratory wheezing, dullness at the bases. ABDOMEN: Soft. Bowel sounds are good. There is no mass. EXTREMITIES: There is edema. LYMPHATICS: There is no lymphadenopathy. NEUROLOGIC: Alert and oriented. SKIN: Chronic changes. LABORATORY DATA: I reviewed the following lab data: WBC 9.1, hemoglobin 10.4, platelets 210. Sodium 141, potassium 4.7, chloride 102, CO2 of 36, glucose 198, BUN 11, creatinine 0.8. Troponin less than 0.01. BNP 25. ABG: pH 7.36, pCO2 of 69, pO2 of 168. Influenza A and B negative. Chest x-ray shows opacity in right and left lung base, atelectasis versus infiltrate. Trace effusion on the right side. IMPRESSION: 1. Acute on chronic respiratory failure, multifactorial in etiology, including acute exacerbation of chronic obstructive pulmonary disease, acute bronchitis. 2. Acute exacerbation of chronic obstructive pulmonary disease. 3. Acute bronchitis. 4. Abnormal chest x-ray. 5. History of colon cancer. 6. Hypertension. 7. History of congestive heart failure. PLAN AND RECOMMENDATIONS: 1. Titrate FiO2 to keep O2 saturation 92%. 2. Continue BiPAP p.r.n. during day, continuously at night. He does have BiPAP machine at home. 3. Start doxycycline. 4. Start Solu-Medrol 40 mg IV every 8. 5. Change bronchodilator to every 4 hours. 6. His symptoms started when he was on prednisone 5 mg daily. 7. Lovenox for DVT prophylaxis. 8. Protonix for stress ulcer prophylaxis. 9. Avoid irritants causing increased shortness of breath and bronchospasm. 10. The findings and recommendations were discussed with the patient and RN. I have answered all of his questions. He understood and agreed to proceed with the plan. Thank you very much for allowing me to participate in care of this very nice gentleman. SHERI LORENZANA M.D. RIOS CORRAL/braden JOB#: [id number] / [id number]
[2019-08-31] MEDS ORDERED: IPRATRPIUM/ALBUTEROL 0.5/2.5MG 3 ML NEBU. NEB SCH ×2 (08:00→13:00)
[2019-08-31] MEDS: IPRATRPIUM/ALBUTEROL 0.5/2.5MG 3 ML NEBU. NEB SCH ×4 (08:00→19:40)
[2019-08-31] MEDS: methylPREDNISolone SOD SUCC PF 40 MG/ML VIAL. IV SCH ×3 (08:47→20:01)
[2019-08-31] MEDS: DOXYCYCLINE HYCLATE 100 MG TABLET PO SCH ×2 (08:47→20:02)
[2019-08-31] MEDS: ENOXAPARIN 40 MG/0.4 ML SYRINGE. SQ SCH (08:48)
[2019-08-31] MEDS ORDERED: ALBUTEROL SULFATE 2.5 MG/3 ML NEBU. NEB PRN (09:15)
--- NOTE | 2019-08-31 10:21 | NUR ---
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
[2019-08-31] MEDS: POLYETHYLENE GLYCOL 3350 17 GM PACKET. PO SCH (11:04)
[2019-08-31] MEDS: PANTOPRAZOLE 40 MG TABLET.DR. PO SCH (11:04)
[2019-08-31] MEDS: LACTOBACILLUS RHAMNOSUS GG 1 CAPSULE. PO SCH ×2 (11:04→20:02)
[2019-08-31] MEDS: BUDESONIDE 0.5 MG/2 ML NEBU. NEB SCH ×2 (11:04→19:40)
[2019-08-31] MEDS: MORPHINE ER 15 MG TABLET.ER PO SCH ×2 (11:04→20:02)
[2019-08-31] MEDS: GABAPENTIN 100 MG CAPSULE. PO SCH ×3 (11:05→20:02)
[2019-08-31] MEDS: FINASTERIDE 5 MG TABLET. PO SCH (11:05)
[2019-08-31] MEDS: ASPIRIN ENTERIC COATED 81 MG TABLET.DR. PO SCH (11:05)
[2019-08-31] MEDS: TAMSULOSIN 0.4 MG CAP.ER.24H. PO SCH ×2 (11:05→20:01)
[2019-08-31] MEDS: FUROSEMIDE 40 MG TABLET. PO SCH (11:05)
[2019-08-31] MEDS: POTASSIUM CHLORIDE 20 MEQ TABLET.ER. PO SCH (11:05)
[2019-08-31] MEDS: CITALOPRAM 20 MG TABLET. PO SCH (11:05)
[2019-08-31] MEDS: MULTIVITAMIN with MINERAL TABLET. PO SCH (11:05)
[2019-08-31] MEDS: amLODIPine BESYLATE 5 MG TABLET PO SCH (11:06)
[2019-08-31] MEDS: NICOTINE 14MG PATCH. TD SCH (11:09)
[2019-08-31] MEDS: DICLOFENAC SODIUM 1% TOPICAL GEL 100GM TUBE. TP SCH ×4 (11:19→20:01)
--- NOTE | 2019-08-31 12:16 | PDOC ---
Provider Note Provider Note Pt seen.H&P dictated.#[id number]. DAMIÁN BALL MD Aug 31, 2019 12:16
--- NOTE | 2019-08-31 12:31 | HP ---
ADMIT DATE: 08/31/2019 LOCATION: [facility]. ATTENDING PHYSICIAN: Salas Ball MD REASON FOR ADMISSION TO THE HOSPITAL: COPD with acute exacerbation, hypercapnic respiratory failure. HISTORY OF PRESENT ILLNESS: The patient is a 68-year-old male, patient of Dr. Hernandez, with history of chronic COPD, on home oxygen, has a CPAP at home and he was having shortness of breath with wheezing, got progressively worse, came to the Emergency Room, did not improve with breathing treatment, was placed on BiPAP. Blood gas shows pCO2 of 69, pH 7.36, pO2 168. The patient was admitted to the hospital, was given IV Solu-Medrol, breathing treatments. Pulmonary was consulted. PAST MEDICAL HISTORY: Has a history of COPD, hypertension, hyperlipidemia, diastolic heart failure, history of colon cancer. PAST SURGICAL HISTORY: Surgery done for colon. ALLERGIES: DELIA INHIBITORS CAUSE SWELLING. MEDICATIONS AT HOME: Albuterol inhaler, amlodipine 5 mg daily, aspirin 81 mg daily, Symbicort twice a day, Voltaren gel daily, vitamin D 50,000 once a week, escitalopram 10 mg daily, finasteride 5 mg daily, Lasix 40 mg daily, gabapentin 600 mg 3 times daily, DuoNeb 4 times daily, lactobacillus p.r.n., melatonin 3 mg daily, morphine 15 mg twice a day, omeprazole 20 mg daily, MiraLax 17 g daily, potassium 20 mEq daily, Flomax 0.4 daily, Spiriva 1 daily, nicotine patch daily. PERSONAL HISTORY: Smoked for at least 30 years 2-3 packs, quit recently. Denies alcohol, denies street drugs. FAMILY HISTORY: Positive for diabetes, lung problems, heart problems. REVIEW OF SYMPTOMS: Complains of cough, wheezing. Denies any fever. The patient had flu and pneumonia shots. Rest of the 14-system was reviewed and negative. PHYSICAL EXAMINATION: GENERAL: The patient is in slight distress. He is on BiPAP. VITAL SIGNS: Temperature 97, pulse 124, respirations 28, blood pressure 122/84, 96 on BiPAP 15% flow. HEENT: Head is atraumatic. Pupils equal. Oral cavity, slight congestion, posterior pharynx noted. NECK: Supple. Thyroid not enlarged. JVD not elevated. CHEST: COPD pattern. CARDIOVASCULAR: S1, S2. LUNGS: Bilateral wheezing at the bases. ABDOMEN: Soft, bowel sounds present, no mass palpable. Scar of previous abdominal surgery. EXTERNAL GENITALIA: No Heard. RECTAL: Deferred. EXTREMITIES: No calf tenderness. Slight trace edema at the ankle. NEUROLOGIC: Cranial nerves intact. Power 5/5 in all extremities. LABORATORY DATA: Show a white count of 10, hemoglobin 11.4, platelets 244. Electrolytes are sodium 141, potassium 3.9, chloride 101, bicarbonate 36, BUN 11, creatinine 0.7, glucose 118. LFTs were normal. Troponin was negative. Influenza A and B were negative. Blood gas shows pH 7.36, pCO2 of 69, pO2 168, bicarbonate 38 on 100% oxygen at 10 liters, 99% saturation. Chest x-ray shows atelectasis, tiny effusion. FINAL IMPRESSION: 1. Acute hypercapnic respiratory failure. 2. Chronic obstructive pulmonary disease. 3. Hypertension. 4. Hyperlipidemia. 5. Steroid-induced diabetes. 6. Chronic diastolic heart failure. 7. Ex-smoker. PLAN: At this time was admit to hospital. Given oxygen, breathing treatments, IV Solu-Medrol. The patient was placed on BiPAP for hypercapnic respiratory failure and Pulmonary consult and see how he improves in the next 24-[address]. SALAS BALL MD DR: CHELE/braden JOB#: [id number] / [id number] JJ Magdaleno
--- NOTE | 2019-08-31 16:54 | EKG ---
[facility] [address] [place] [address] Test Date: 2019-08-30 Test Time: 21:47:38 Pat Name: KATARINA JAUREGUI Department: Room: Gender: M Motel Keeper: : 1950 Requested By: TIFFANY FLORIAN Order Number: [id number] Reading MD: Measurements Intervals [place] Rate: 114 P: 90 OR: 114 QRS: 70 QRSD: 84 T: 68 QT: 318 QTc: 441 Interpretive Statements SINUS TACHYCARDIA ATRIAL PREMATURE COMPLEX(ES) R-S TRANSITION ZONE IN V LEADS DISPLACED TO THE RIGHT OTHERWISE NORMAL ECG No previous ECG available for comparison
[2019-08-31] MEDS ORDERED: DOXYCYCLINE HYCLATE 100 MG TABLET PO SCH (21:00)
[2019-08-31] MEDS ORDERED: NON FORMULARY ITEM (Melatonin 1 TAB) PO SCH (21:00)
[2019-09-01] MEDS: IPRATRPIUM/ALBUTEROL 0.5/2.5MG 3 ML NEBU. NEB SCH ×7 (00:23→23:20)
[2019-09-01 03:15] VITALS: BP 104/61
[2019-09-01] MEDS: methylPREDNISolone SOD SUCC PF 40 MG/ML VIAL. IV SCH ×3 (05:31→21:09)
[2019-09-01 07:00] VITALS: BP 111/67
[2019-09-01] MEDS: BUDESONIDE 0.5 MG/2 ML NEBU. NEB SCH ×2 (07:22→19:55)
[2019-09-01] MEDS: PANTOPRAZOLE 40 MG TABLET.DR. PO SCH (07:30)
--- NOTE | 2019-09-01 07:35 | PDOC ---
PULMONARY PROGRESS NOTES Vitals Vital Signs Date Time Temp Pulse Resp B/P (MAP) Pulse Ox O2 Delivery O2 Flow Rate FiO2 09/01/19 07:22 99 BiPAP/CPAP 09/01/19 03:44 4.0 09/01/19 03:15 97.6 82 22 104/61 (75) 97.6 General: Alert, No acute distress HEENT: Other Lungs: Other Cardiovascular: S1, S2 Abdomen: Soft, Non-tender Extremities: No Edema Labs Laboratory Tests Test 08/30/19 21:50 08/30/19 21:55 08/30/19 22:32 08/30/19 22:40 White Blood Count 10.0 x10^3/uL (4.0-11.0) Red Blood Count 3.60 x10^6/uL (4.30-5.70) Hemoglobin 11.4 g/dL (13.0-17.5) Hematocrit 35.5 % (39.0-53.0) Mean Corpuscular Volume 98 fL (79-100) Mean Corpuscular Hemoglobin 32 pg (25-35) Mean Corpuscular Hemoglobin Concent 32 g/dL (31-37) Red Cell Distribution Width 14.9 % (11.5-14.5) Platelet Count 244 x10^3/uL (140-400) Neutrophils (%) (Auto) 68 % (31-73) Lymphocytes (%) (Auto) 22 % (24-48) Monocytes (%) (Auto) 8 % (0-9) Eosinophils (%) (Auto) 1 % (0-3) Basophils (%) (Auto) 1 % (0-3) Neutrophils # (Auto) 6.8 x10^3/uL (1.8-7.7) Lymphocytes # (Auto) 2.2 x10^3/uL (1.0-4.8) Monocytes # (Auto) 0.8 x10^3/uL (0.0-1.1) Eosinophils # (Auto) 0.1 x10^3/uL (0.0-0.7) Basophils # (Auto) 0.1 x10^3/uL (0.0-0.2) O2 Saturation 99 % (92-99) Arterial Blood pH 7.36 (7.35-7.45) Arterial Blood pCO2 at Patient Temp 69 mmHg (35-46) Arterial Blood pO2 at Patient Temp 168 mmHg (65-108) Arterial Blood HCO3 38 mmol/L (21-28) Arterial Blood Base Excess 10 mmol/L (-3-3) Sodium Level 141 mmol/L (136-145) Potassium Level 3.9 mmol/L (3.5-5.1) Chloride Level 101 mmol/L (98-107) Carbon Dioxide Level 36 mmol/L (21-32) Anion Gap 4 (6-14) Blood Urea Nitrogen 11 mg/dL (8-26) Creatinine 0.7 mg/dL (0.7-1.3) Estimated GFR (Cockcroft-Gault) 134.9 BUN/Creatinine Ratio 16 (6-20) Glucose Level 118 mg/dL (70-99) Calcium Level 9.6 mg/dL (8.5-10.1) Total Bilirubin 0.3 mg/dL (0.2-1.0) Aspartate Amino Transf (AST/SGOT) 17 U/L (15-37) Alanine Aminotransferase (ALT/SGPT) 17 U/L (16-63) Alkaline Phosphatase 161 U/L (46-116) Troponin I Quantitative < 0.017 ng/mL (0.000-0.055) UJ-Kmz-M-Type Natriuretic Peptide 25 pg/mL (0-124) Total Protein 7.2 g/dL (6.4-8.2) Albumin 2.8 g/dL (3.4-5.0) Albumin/Globulin Ratio 0.6 (1.0-1.7) Influenza Type A Antigen Negative (NEGATIVE) Influenza Type B Antigen Negative (NEGATIVE) Test 08/31/19 04:00 White Blood Count 9.1 x10^3/uL (4.0-11.0) Red Blood Count 3.29 x10^6/uL (4.30-5.70) Hemoglobin 10.4 g/dL (13.0-17.5) Hematocrit 32.1 % (39.0-53.0) Mean Corpuscular Volume 98 fL (79-100) Mean Corpuscular Hemoglobin 32 pg (25-35) Mean Corpuscular Hemoglobin Concent 32 g/dL (31-37) Red Cell Distribution Width 14.3 % (11.5-14.5) Platelet Count 210 x10^3/uL (140-400) Neutrophils (%) (Auto) 96 % (31-73) Lymphocytes (%) (Auto) 3 % (24-48) Monocytes (%) (Auto) 1 % (0-9) Eosinophils (%) (Auto) 0 % (0-3) Basophils (%) (Auto) 0 % (0-3) Neutrophils # (Auto) 8.7 x10^3/uL (1.8-7.7) Lymphocytes # (Auto) 0.3 x10^3/uL (1.0-4.8) Monocytes # (Auto) 0.1 x10^3/uL (0.0-1.1) Eosinophils # (Auto) 0.0 x10^3/uL (0.0-0.7) Basophils # (Auto) 0.0 x10^3/uL (0.0-0.2) Segmented Neutrophils % 95 % (35-66) Lymphocytes % 5 % (24-48) Platelet Estimate Adequate (ADEQUATE) Sodium Level 141 mmol/L (136-145) Potassium Level 4.7 mmol/L (3.5-5.1) Chloride Level 102 mmol/L (98-107) Carbon Dioxide Level 36 mmol/L (21-32) Anion Gap 3 (6-14) Blood Urea Nitrogen 11 mg/dL (8-26) Creatinine 0.8 mg/dL (0.7-1.3) Estimated GFR (Cockcroft-Gault) 115.6 Glucose Level 198 mg/dL (70-99) Calcium Level 9.8 mg/dL (8.5-10.1) Medications Active Scripts Medications Dose Route/Sig Max Daily Dose Days Date Category Dose Instructions Prednisone 50 Mg Tablet 1 Tab PO DAILY 4 08/23/19 Rx Culturelle (Lactobacillus Rhamnosus Gg) 1 Each Cap.sprink 1 Cap PO BID 15 08/23/19 Rx Doxycycline Hyclate 100 Mg Tablet 100 Mg PO BID 30 08/23/19 Rx Duoneb 0.5-3(2.5) Mg/3 Ml (Albuterol/Ipratropium) 3 Ml Ampul.neb 3 Ml NEB QID 30 08/23/19 Rx Voltaren (Diclofenac Sodium) 100 Gm Gel..gram. 1 Gm TP QID 30 08/03/19 Reported apply to affected area(s) Furosemide 40 Mg Tablet 1 Tab PO DAILY 08/02/19 Reported Morphine Sulfate Er (Morphine Sulfate) 15 Mg Tablet.er 1 Tab PO BID 08/02/19 Reported Polyethylene Glycol 3350 2,500 Gm Powder 17 Gm PO DAILY 04/27/19 Reported Gabapentin 600 Mg Tablet 200 Mg PO TID 04/27/19 Reported Escitalopram Oxalate 10 Mg Tablet 1 Tab PO DAILY 04/27/19 Reported Multivitamins (Multivitamin) 1 Each Tablet 1 Tab PO DAILY 04/27/19 Reported Melatonin 3 Mg Tablet 1 Tab PO QHS 04/27/19 Reported Klor-Con M20 (Potassium Chloride) 20 Meq Tab.er.prt 20 Meq PO DAILY 30 04/08/19 Rx Symbicort 160-4.5 Mcg Inhaler (Budesonide/Formoterol Fumarate) 10.2 Gm Hfa.aer.ad 1 Puff IH BID 04/04/19 Reported Proair Hfa (Albuterol Sulfate) 8.5 Gm Hfa.aer.ad 2.5 Mg NEB PRN Q6HRS PRN 30 03/13/19 Rx [Nicotine 14MG] 1 PATCH Patch 1 Patch TD DAILY 30 08/29/18 Rx Finasteride 5 Mg Tablet 1 Tab PO DAILY 08/25/18 Reported Flomax (Tamsulosin Hcl) 0.4 Mg Cap.er.24h 1 Cap PO BID 08/25/18 Reported Vitamin D2 (Ergocalciferol (Vitamin D2)) 50,000 Unit Capsule 1 Cap PO QM 08/25/18 Reported Spiriva (Tiotropium Sublimity) 18 Mcg Cap.w.dev 18 Mcg IH DAILY 10/28/13 Reported Omeprazole 20 Mg Capsule. 20 Mg PO DAILY 10/28/13 Reported Aspir 81 (Aspirin) 81 Mg Tablet.dr 81 Mg PO DAILY 10/28/13 Reported Amlodipine Besylate 5 Mg Tablet 5 Mg PO DAILY 10/28/13 Reported Impression . IMPRESSION: 1. Acute on chronic respiratory failure, multifactorial in etiology, including acute exacerbation of chronic obstructive pulmonary disease, acute bronchitis. 2. Acute exacerbation of chronic obstructive pulmonary disease. 3. Acute bronchitis. 4. Abnormal chest x-ray. 5. History of colon cancer. 6. Hypertension. 7. History of congestive heart failure. Plan . BETTER TODAY WILL CONTINUE BIPAP STEROIDS MAY NEED SNU WILL ASK PT TO SEE PT STEROIDS IV DOXY AVOID SECOND HAND SMOKE DAMION THAO MD Sep 01, 2019 07:35
[2019-09-01] MEDS: POLYETHYLENE GLYCOL 3350 17 GM PACKET. PO SCH (09:00)
[2019-09-01] MEDS ORDERED: NON FORMULARY ITEM (Tiotropium Bromide (Spiriva) 18 MCG) IH SCH (09:00)
[2019-09-01] MEDS ORDERED: ERGOCALCIFEROL (VITAMIN D2) 50,000 UNIT CAPSULE. PO SCH (09:00)
[2019-09-01] MEDS ORDERED: NON FORMULARY ITEM (Tiotropium Bromide (Spiriva) 1 CAP) IH SCH (09:00)
[2019-09-01] MEDS: ENOXAPARIN 40 MG/0.4 ML SYRINGE. SQ SCH (09:17)
[2019-09-01] MEDS: GABAPENTIN 100 MG CAPSULE. PO SCH ×3 (09:17→21:08)
[2019-09-01] MEDS: ASPIRIN ENTERIC COATED 81 MG TABLET.DR. PO SCH (09:17)
[2019-09-01] MEDS: NICOTINE 14MG PATCH. TD SCH (09:17)
[2019-09-01] MEDS: DOXYCYCLINE HYCLATE 100 MG TABLET PO SCH ×2 (09:17→21:08)
[2019-09-01] MEDS: FUROSEMIDE 40 MG TABLET. PO SCH (09:18)
[2019-09-01] MEDS: POTASSIUM CHLORIDE 20 MEQ TABLET.ER. PO SCH (09:18)
[2019-09-01] MEDS: FINASTERIDE 5 MG TABLET. PO SCH (09:19)
[2019-09-01] MEDS: CITALOPRAM 20 MG TABLET. PO SCH (09:19)
[2019-09-01] MEDS: LACTOBACILLUS RHAMNOSUS GG 1 CAPSULE. PO SCH ×2 (09:19→21:08)
[2019-09-01] MEDS: TAMSULOSIN 0.4 MG CAP.ER.24H. PO SCH ×2 (09:19→21:08)
[2019-09-01] MEDS: MULTIVITAMIN with MINERAL TABLET. PO SCH (09:19)
[2019-09-01] MEDS: MORPHINE ER 15 MG TABLET.ER PO SCH ×2 (09:20→21:08)
[2019-09-01] MEDS: amLODIPine BESYLATE 5 MG TABLET PO SCH (09:20)
[2019-09-01] MEDS: DICLOFENAC SODIUM 1% TOPICAL GEL 100GM TUBE. TP SCH ×4 (09:21→21:12)
--- NOTE | 2019-09-01 09:42 | PDOC ---
PROGRESS NOTES Subjective Subjective improving off bipap in day time Objective Objective Vital Signs Date Time Temp Pulse Resp B/P (MAP) Pulse Ox O2 Delivery O2 Flow Rate FiO2 09/01/19 09:20 20 Nasal Cannula 09/01/19 09:20 110 111/67 09/01/19 07:22 99 09/01/19 07:00 98.1 4.0 98.1 Intake and Output 09/01/19 07:00 Intake Total 1060 ml Output Total 750 ml Balance 310 ml Intake Oral 1060 ml Output Urine Total 750 ml # Voids 1 # Bowel Movements 1 Physical Exam Abdomen: Normal bowel sounds, Soft Heart: Regular rate, Normal S1, Normal S2 Extremities: No clubbing General: Alert HEENT: Atraumatic Lungs: Other (minimal wheezing) MUSCULOSKELETAL: No deformity, Osteoarthritic changes both hands Neuro: Normal speech Psych/Mental Status: Mental status NL Skin: No breakdown Diagnosis Problem List Problems Medical Problems: (1) Acute on chronic respiratory failure with hypoxia and hypercapnia Status: Acute Assessment Assessment Problems Medical Problems: (1) Acute on chronic respiratory failure with hypoxia and hypercapnia Status: Acute FINAL IMPRESSION: 1. Acute hypercapnic respiratory failure. 2. Chronic obstructive pulmonary disease. 3. Hypertension. 4. Hyperlipidemia. 5. Steroid-induced diabetes. 6. Chronic diastolic heart failure. 7. Ex-smoker. PLAN: BIPAP at night ,off day time iv steroids tid duoneb qid. labs ok cxr -neg, pul consult appreciated At this time was admit to hospital. Given oxygen, breathing treatments, IV Solu-Medrol. The patient was placed on BiPAP for hypercapnic respiratory failure and Pulmonary consult and see how he improves in the next 24-48 hours. Plan Plan of Care Problems Medical Problems: (1) Acute on chronic respiratory failure with hypoxia and hypercapnia Status: Acute Comment Review of Relevant I have reviewed the following items mario (where applicable) has been applied. Medications Current Medications Albuterol/ Ipratropium (Duoneb) 3 ml QID NEB ; Start 08/31/19 at 13:00; Status UNV Doxycycline Hyclate (Vibra-Tab) 100 mg BID PO ; Start 08/31/19 at 21:00; Status UNV Ergocalciferol (Vitamin D2) 50,000 unit Mo@0900 PO Last administered on 09/01/19at 09:26; Start 09/01/19 at 09:00 Non-Formulary Medication (Melatonin ) 1 tab QHS PO ; Start 08/31/19 at 21:00; Status UNV Non-Formulary Medication (Tiotropium [place] (Spiriva)) 1 cap DAILY IH ; Start 09/01/19 at 09:00; Status UNV Non-Formulary Medication (Tiotropium [place] (Spiriva)) 18 mcg DAILY IH ; Start 09/01/19 at 09:00; Status UNV Vitals/I & O Vital Sign - Last 24 Hours 08/31/19 08/31/19 08/31/19 08/31/19 10:56 11:06 11:08 11:11 Temp 98.0 98.0 Pulse 105 105 Resp 24 B/P (MAP) 149/80 (103) 149/80 Pulse Ox 96 98 98 O2 Delivery Nasal Cannula Nasal Cannula Nasal Cannula O2 Flow Rate 4.0 4.0 4.0 08/31/19 08/31/19 08/31/19 08/31/19 11:24 15:04 15:07 15:48 Temp 97.9 97.9 Pulse 110 Resp 20 24 B/P (MAP) 105/63 (77) Pulse Ox 96 98 94 O2 Delivery BiPAP/CPAP Nasal Cannula Nasal Cannula O2 Flow Rate 4.0 4.0 08/31/19 08/31/19 08/31/19 08/31/19 19:42 19:43 19:50 20:00 Temp 97.9 97.9 Pulse 103 Resp 22 B/P (MAP) 121/66 (84) Pulse Ox 95 95 97 O2 Delivery Nasal Cannula Nasal Cannula Nasal Cannula Bi-pap O2 Flow Rate 4.0 4.0 4.0 4.0 08/31/19 08/31/19 08/31/19 09/01/19 20:02 20:25 22:45 00:02 Temp 98.0 98.0 Pulse 100 Resp 22 22 20 B/P (MAP) 116/61 (79) Pulse Ox 95 99 95 95 O2 Delivery Nasal Cannula BiPAP/CPAP Nasal Cannula Nasal Cannula O2 Flow Rate 4.0 3.0 3.0 09/01/19 09/01/19 09/01/19 09/01/19 00:25 00:26 03:15 03:44 Temp 97.6 97.6 Pulse 82 Resp 22 B/P (MAP) 104/61 (75) Pulse Ox 100 99 96 100 O2 Delivery Nasal Cannula BiPAP/CPAP Nasal Cannula Nasal Cannula O2 Flow Rate 4.0 3.0 4.0 09/01/19 09/01/19 09/01/19 09/01/19 07:00 07:22 09:20 09:20 Temp 98.1 98.1 Pulse 110 110 Resp 24 20 B/P (MAP) 111/67 (82) 111/67 Pulse Ox 97 99 O2 Delivery Nasal Cannula BiPAP/CPAP Nasal Cannula O2 Flow Rate 4.0 Intake and Output 08/31/19 08/31/19 09/01/19 15:00 23:00 07:00 Intake Total 340 ml 120 ml 600 ml Output Total 750 ml Balance 340 ml -630 ml 600 ml DAMIÁN BALL MD Sep 01, 2019 09:42
[2019-09-01] MEDS: PROMETHAZINE 6.25 MG/5 ML SYRUP. PEG PRN (09:59)
[2019-09-01] MEDS: FLUTICASONE 50MCG/NASAL SPRAY 16GM BOTTLE. NS SCH (09:59)
[2019-09-01 10:49] VITALS: BP 103/60
--- NOTE | 2019-09-01 14:25 | NUR ---
SS following for discharge planning. SS reviewed pt chart. Pt is from home and is currently requiring oxygen. Pt has home oxygen at home through [facility] and has had previous services with [facility], ; fax [phone]. PT/OT ordered. SS will continue to follow for discharge planning.
[2019-09-01 15:00] VITALS: BP 103/56
[2019-09-01 19:45] VITALS: BP 125/64
[2019-09-01 23:00] VITALS: BP 93/51
[2019-09-02 02:45] VITALS: BP 112/62
[2019-09-02] MEDS: IPRATRPIUM/ALBUTEROL 0.5/2.5MG 3 ML NEBU. NEB SCH ×6 (03:40→23:15)
[2019-09-02] MEDS: methylPREDNISolone SOD SUCC PF 40 MG/ML VIAL. IV SCH ×2 (05:38→20:43)
[2019-09-02 07:00] VITALS: BP 107/60
[2019-09-02] MEDS: BUDESONIDE 0.5 MG/2 ML NEBU. NEB SCH ×2 (07:13→20:20)
[2019-09-02] MEDS: FLUTICASONE 50MCG/NASAL SPRAY 16GM BOTTLE. NS SCH (08:16)
[2019-09-02] MEDS: ENOXAPARIN 40 MG/0.4 ML SYRINGE. SQ SCH (08:16)
[2019-09-02] MEDS: MULTIVITAMIN with MINERAL TABLET. PO SCH (08:17)
[2019-09-02] MEDS: ASPIRIN ENTERIC COATED 81 MG TABLET.DR. PO SCH (08:17)
[2019-09-02] MEDS: TAMSULOSIN 0.4 MG CAP.ER.24H. PO SCH ×2 (08:17→20:40)
[2019-09-02] MEDS: GABAPENTIN 100 MG CAPSULE. PO SCH ×3 (08:17→20:40)
[2019-09-02] MEDS: NICOTINE 14MG PATCH. TD SCH (08:17)
[2019-09-02] MEDS: POTASSIUM CHLORIDE 20 MEQ TABLET.ER. PO SCH (08:18)
[2019-09-02] MEDS: CITALOPRAM 20 MG TABLET. PO SCH (08:18)
[2019-09-02] MEDS: FUROSEMIDE 40 MG TABLET. PO SCH (08:18)
[2019-09-02] MEDS: FINASTERIDE 5 MG TABLET. PO SCH (08:18)
[2019-09-02] MEDS: DOXYCYCLINE HYCLATE 100 MG TABLET PO SCH ×2 (08:18→20:41)
[2019-09-02] MEDS: LACTOBACILLUS RHAMNOSUS GG 1 CAPSULE. PO SCH ×2 (08:18→20:40)
[2019-09-02] MEDS: POLYETHYLENE GLYCOL 3350 17 GM PACKET. PO SCH (08:19)
[2019-09-02] MEDS: MORPHINE ER 15 MG TABLET.ER PO SCH ×2 (08:19→20:40)
[2019-09-02] MEDS: PANTOPRAZOLE 40 MG TABLET.DR. PO SCH (08:19)
[2019-09-02] MEDS: amLODIPine BESYLATE 5 MG TABLET PO SCH (08:19)
[2019-09-02] MEDS: DICLOFENAC SODIUM 1% TOPICAL GEL 100GM TUBE. TP SCH ×4 (08:20→20:42)
--- NOTE | 2019-09-02 08:41 | PDOC ---
PULMONARY PROGRESS NOTES Subjective PT STILL SOA NO CHEST PAIN Vitals Vital Signs Date Time Temp Pulse Resp B/P (MAP) Pulse Ox O2 Delivery O2 Flow Rate FiO2 09/02/19 08:19 100 107/60 09/02/19 07:16 100 Nasal Cannula 4.0 09/02/19 02:45 98.1 22 98.1 ROS: No Nausea, No Chest Pain, No Abdominal Pain, No Increase Cough General: Alert, Moderate Distress HEENT: Other Lungs: Wheezing Cardiovascular: S1, S2 Abdomen: Soft, Non-tender Neuro Exam: Alert Extremities: No Edema Medications Active Scripts Medications Dose Route/Sig Max Daily Dose Days Date Category Dose Instructions Prednisone 50 Mg Tablet 1 Tab PO DAILY 4 08/23/19 Rx Culturelle (Lactobacillus Rhamnosus Gg) 1 Each Cap.sprink 1 Cap PO BID 15 08/23/19 Rx Doxycycline Hyclate 100 Mg Tablet 100 Mg PO BID 30 08/23/19 Rx Duoneb 0.5-3(2.5) Mg/3 Ml (Albuterol/Ipratropium) 3 Ml Ampul.neb 3 Ml NEB QID 30 08/23/19 Rx Voltaren (Diclofenac Sodium) 100 Gm Gel..gram. 1 Gm TP QID 30 08/03/19 Reported apply to affected area(s) Furosemide 40 Mg Tablet 1 Tab PO DAILY 08/02/19 Reported Morphine Sulfate Er (Morphine Sulfate) 15 Mg Tablet.er 1 Tab PO BID 08/02/19 Reported Polyethylene Glycol 3350 2,500 Gm Powder 17 Gm PO DAILY 04/27/19 Reported Gabapentin 600 Mg Tablet 200 Mg PO TID 04/27/19 Reported Escitalopram Oxalate 10 Mg Tablet 1 Tab PO DAILY 04/27/19 Reported Multivitamins (Multivitamin) 1 Each Tablet 1 Tab PO DAILY 04/27/19 Reported Melatonin 3 Mg Tablet 1 Tab PO QHS 04/27/19 Reported Klor-Con M20 (Potassium Chloride) 20 Meq Tab.er.prt 20 Meq PO DAILY 30 04/08/19 Rx Symbicort 160-4.5 Mcg Inhaler (Budesonide/Formoterol Fumarate) 10.2 Gm Hfa.aer.ad 1 Puff IH BID 04/04/19 Reported Proair Hfa (Albuterol Sulfate) 8.5 Gm Hfa.aer.ad 2.5 Mg NEB PRN Q6HRS PRN 30 03/13/19 Rx [Nicotine 14MG] 1 PATCH Patch 1 Patch TD DAILY 30 08/29/18 Rx Finasteride 5 Mg Tablet 1 Tab PO DAILY 08/25/18 Reported Flomax (Tamsulosin Hcl) 0.4 Mg Cap.er.24h 1 Cap PO BID 08/25/18 Reported Vitamin D2 (Ergocalciferol (Vitamin D2)) 50,000 Unit Capsule 1 Cap PO QM 08/25/18 Reported Spiriva (Tiotropium [place]) 18 Mcg Cap.w.dev 18 Mcg IH DAILY 10/28/13 Reported Omeprazole 20 Mg Capsule.dr 20 Mg PO DAILY 10/28/13 Reported Aspir 81 (Aspirin) 81 Mg Tablet.dr 81 Mg PO DAILY 10/28/13 Reported Amlodipine Besylate 5 Mg Tablet 5 Mg PO DAILY 10/28/13 Reported Impression . IMPRESSION: 1. Acute on chronic respiratory failure, multifactorial in etiology, including acute exacerbation of chronic obstructive pulmonary disease, acute bronchitis. 2. Acute exacerbation of chronic obstructive pulmonary disease. 3. Acute bronchitis. 4. Abnormal chest x-ray. 5. History of colon cancer. 6. Hypertension. 7. History of congestive heart failure. Plan . PT STILL SOA NOT ABLE TO FINISH FULL SENTENCES CONTINUE BIPAPA STEROIDS PT DAILY STEROIDS IV DOXY AVOID SECOND HAND SMOKE DAMION THAO MD Sep 02, 2019 08:41
--- NOTE | 2019-09-02 10:01 | PDOC ---
PROGRESS NOTES Subjective Subjective less wheezing off BIPAP Objective Objective Vital Signs Date Time Temp Pulse Resp B/P (MAP) Pulse Ox O2 Delivery O2 Flow Rate FiO2 09/02/19 08:19 100 107/60 09/02/19 08:00 Bi-pap 4.0 09/02/19 07:16 100 09/02/19 07:00 97.1 22 97.1 Intake and Output 09/02/19 07:00 Intake Total 1500 ml Output Total 1600 ml Balance -100 ml Intake Oral 1500 ml Output Urine Total 1600 ml # Bowel Movements 1 Physical Exam Abdomen: Normal bowel sounds, Soft Heart: Regular rate, Normal S1, Normal S2 Extremities: No clubbing General: Alert HEENT: Atraumatic Lungs: Other (minimal wheezing) MUSCULOSKELETAL: No deformity, Osteoarthritic changes both hands Neuro: Normal speech Psych/Mental Status: Mental status NL Skin: No breakdown Diagnosis Problem List Problems Medical Problems: (1) Acute on chronic respiratory failure with hypoxia and hypercapnia Status: Acute Assessment Assessment Problems Medical Problems: (1) Acute on chronic respiratory failure with hypoxia and hypercapnia Status: Acute FINAL IMPRESSION: 1. Acute hypercapnic respiratory failure.BIPAP. 2. Chronic obstructive pulmonary disease. 3. Hypertension. 4. Hyperlipidemia. 5. Steroid-induced diabetes. 6. Chronic diastolic heart failure. 7. Ex-smoker. PLAN: OFF BIPAP . iv steroids dec to bid duoneb qid. labs ok cxr -neg, pt/ot home soon pul consult appreciated At this time was admit to hospital. Given oxygen, breathing treatments, IV Solu-Medrol. The patient was placed on BiPAP for hypercapnic respiratory failure and Pulmonary consult and see how he improves in the next 24-48 hours. Plan Plan of Care Problems Medical Problems: (1) Acute on chronic respiratory failure with hypoxia and hypercapnia Status: Acute Comment Review of Relevant I have reviewed the following items mario (where applicable) has been applied. Medications Current Medications Fluticasone Propionate (Flonase) 2 spray DAILY NS Last administered on 09/02/19at 08:16; Start 09/01/19 at 10:00 Vitals/I & O Vital Sign - Last 24 Hours 09/01/19 09/01/19 09/01/19 09/01/19 10:03 10:49 11:25 13:20 Temp 99.0 99.0 Pulse 99 Resp 20 20 B/P (MAP) 103/60 (74) Pulse Ox 97 98 96 O2 Delivery Nasal Cannula Nasal Cannula Nasal Cannula O2 Flow Rate 4.0 3.5 4.0 09/01/19 09/01/19 09/01/19 09/01/19 15:00 15:20 19:45 19:55 Temp 98.8 97.2 98.8 97.2 Pulse 101 103 Resp 20 22 B/P (MAP) 103/56 (72) 125/64 (84) Pulse Ox 98 97 95 99 O2 Delivery Nasal Cannula Nasal Cannula BiPAP/CPAP BiPAP/CPAP O2 Flow Rate 4.0 4.0 09/01/19 09/01/19 09/01/19 09/01/19 20:00 21:08 22:05 23:00 Temp 98.2 98.2 Pulse 93 Resp 22 22 B/P (MAP) 93/51 (65) Pulse Ox 99 96 O2 Delivery Bi-pap Nasal Cannula BiPAP/CPAP Nasal Cannula O2 Flow Rate 4.0 4.0 3.0 09/01/19 09/02/19 09/02/19 09/02/19 23:20 01:08 02:45 03:40 Temp 98.1 98.1 Pulse 82 Resp 20 22 B/P (MAP) 112/62 (79) Pulse Ox 98 O2 Delivery Nasal Cannula BiPAP/CPAP Nasal Cannula BiPAP/CPAP O2 Flow Rate 4.0 3.0 09/02/19 09/02/19 09/02/19 09/02/19 07:00 07:14 07:16 08:00 Temp 97.1 97.1 Pulse 69 Resp 22 B/P (MAP) 107/60 (76) Pulse Ox 100 100 100 O2 Delivery Nasal Cannula Nasal Cannula Nasal Cannula Bi-pap O2 Flow Rate 3.0 4.0 4.0 4.0 09/02/19 08:19 Pulse 100 B/P (MAP) 107/60 Intake and Output 09/01/19 09/01/19 09/02/19 15:00 23:00 07:00 Intake Total 480 ml 360 ml 660 ml Output Total 800 ml 800 ml Balance -320 ml -440 ml 660 ml DAMIÁN BALL MD Sep 02, 2019 10:00
[2019-09-02 11:00] VITALS: BP 109/62
[2019-09-02] MEDS: ALPRAZolam 0.25 MG TABLET PO PRN (12:32)
[2019-09-02] MEDS: PROMETHAZINE 6.25 MG/5 ML SYRUP. PEG PRN ×2 (12:32→21:28)
[2019-09-02 15:00] VITALS: BP 114/58
[2019-09-02 19:35] VITALS: BP 112/67
[2019-09-02 23:00] VITALS: BP 108/66
[2019-09-03] MEDS: IPRATRPIUM/ALBUTEROL 0.5/2.5MG 3 ML NEBU. NEB SCH ×6 (02:46→23:34)
[2019-09-03 03:25] VITALS: BP 93/61
[2019-09-03] MEDS: PANTOPRAZOLE 40 MG TABLET.DR. PO SCH (06:27)
[2019-09-03 07:00] VITALS: BP 125/66
[2019-09-03] MEDS: BUDESONIDE 0.5 MG/2 ML NEBU. NEB SCH ×2 (07:16→19:49)
[2019-09-03] MEDS: MULTIVITAMIN with MINERAL TABLET. PO SCH (08:15)
[2019-09-03] MEDS: LACTOBACILLUS RHAMNOSUS GG 1 CAPSULE. PO SCH ×2 (08:15→21:03)
[2019-09-03] MEDS: FINASTERIDE 5 MG TABLET. PO SCH (08:15)
[2019-09-03] MEDS: amLODIPine BESYLATE 5 MG TABLET PO SCH (08:15)
[2019-09-03] MEDS: GABAPENTIN 100 MG CAPSULE. PO SCH ×3 (08:15→21:03)
[2019-09-03] MEDS: POTASSIUM CHLORIDE 20 MEQ TABLET.ER. PO SCH (08:15)
[2019-09-03] MEDS: FUROSEMIDE 40 MG TABLET. PO SCH (08:15)
[2019-09-03] MEDS: methylPREDNISolone SOD SUCC PF 40 MG/ML VIAL. IV SCH ×2 (08:16→21:04)
[2019-09-03] MEDS: ASPIRIN ENTERIC COATED 81 MG TABLET.DR. PO SCH (08:16)
[2019-09-03] MEDS: FLUTICASONE 50MCG/NASAL SPRAY 16GM BOTTLE. NS SCH (08:16)
[2019-09-03] MEDS: CITALOPRAM 20 MG TABLET. PO SCH (08:16)
[2019-09-03] MEDS: TAMSULOSIN 0.4 MG CAP.ER.24H. PO SCH ×2 (08:16→21:03)
[2019-09-03] MEDS: DOXYCYCLINE HYCLATE 100 MG TABLET PO SCH ×2 (08:16→21:03)
[2019-09-03] MEDS: MORPHINE ER 15 MG TABLET.ER PO SCH ×2 (08:17→21:03)
[2019-09-03] MEDS: NICOTINE 14MG PATCH. TD SCH (08:17)
[2019-09-03] MEDS: ENOXAPARIN 40 MG/0.4 ML SYRINGE. SQ SCH (08:18)
[2019-09-03] MEDS: DICLOFENAC SODIUM 1% TOPICAL GEL 100GM TUBE. TP SCH ×4 (08:20→21:00)
[2019-09-03] MEDS: POLYETHYLENE GLYCOL 3350 17 GM PACKET. PO SCH (08:21)
--- NOTE | 2019-09-03 10:07 | PDOC ---
PROGRESS NOTES Subjective Subjective pt feels better improving Objective Objective Vital Signs Date Time Temp Pulse Resp B/P (MAP) Pulse Ox O2 Delivery O2 Flow Rate FiO2 09/03/19 08:17 96 Nasal Cannula 3.0 09/03/19 08:15 81 125/66 09/03/19 07:00 97.4 22 97.4 Intake and Output 09/03/19 07:00 Intake Total 810 ml Output Total 475 ml Balance 335 ml Intake Oral 810 ml Output Urine Total 475 ml # Voids 1 # Bowel Movements 1 Physical Exam Abdomen: Normal bowel sounds, Soft Heart: Regular rate, Normal S1, Normal S2 Extremities: No clubbing General: Alert HEENT: Atraumatic Lungs: Other (minimal wheezing) MUSCULOSKELETAL: No deformity, Osteoarthritic changes both hands Neuro: Normal speech Psych/Mental Status: Mental status NL Skin: No breakdown Diagnosis Problem List Problems Medical Problems: (1) Acute on chronic respiratory failure with hypoxia and hypercapnia Status: Acute Assessment Assessment Problems Medical Problems: (1) Acute on chronic respiratory failure with hypoxia and hypercapnia Status: Acute FINAL IMPRESSION: 1. Acute hypercapnic respiratory failure requiring BIPAP. 2. Chronic obstructive pulmonary disease. 3. Hypertension. 4. Hyperlipidemia. 5. Steroid-induced diabetes. 6. Chronic diastolic heart failure. 7. Ex-smoker. PLAN: continue tapering iv steroids. OFF BIPAP on Nasal canula . iv steroids dec todaily duoneb qid. labs ok cxr -neg, pt/ot home soon Plan Plan of Care Problems Medical Problems: (1) Acute on chronic respiratory failure with hypoxia and hypercapnia Status: Acute Comment Review of Relevant I have reviewed the following items mario (where applicable) has been applied. Medications Current Medications Alprazolam (Xanax) 0.25 mg PRN Q8HRS PRN PO ANXIETY / AGITATION Last administered on 09/02/19at 12:32; Start 09/02/19 at 12:00 Methylprednisolone Sodium Succinate (SOLU-Medrol 40MG VIAL) 40 mg Q12HR IV Last administered on 09/03/19at 08:16; Start 09/02/19 at 21:00 Vitals/I & O Vital Sign - Last 24 Hours 09/02/19 09/02/19 09/02/19 09/02/19 11:00 11:44 15:00 15:28 Temp 98.0 98.3 98.0 98.3 Pulse 87 98 Resp 22 22 B/P (MAP) 109/62 (78) 114/58 (76) Pulse Ox 97 99 96 99 O2 Delivery Nasal Cannula Nasal Cannula Nasal Cannula Nasal Cannula O2 Flow Rate 3.0 4.0 3.0 4.0 09/02/19 09/02/19 09/02/19 09/02/19 19:20 19:35 20:25 20:40 Temp 97.8 97.8 Pulse 82 Resp 22 18 B/P (MAP) 112/67 (82) Pulse Ox 97 99 99 O2 Delivery Bi-pap Nasal Cannula Nasal Cannula Nasal Cannula O2 Flow Rate 4.0 3.0 4.0 4.0 09/02/19 09/02/19 09/02/19 09/03/19 22:53 23:00 23:15 00:40 Temp 97.1 97.1 Pulse 89 Resp 22 18 B/P (MAP) 108/66 (80) Pulse Ox 100 98 98 O2 Delivery BiPAP/CPAP BiPAP/CPAP BiPAP/CPAP BiPAP/CPAP 09/03/19 09/03/19 09/03/19 09/03/19 02:47 03:25 05:31 07:00 Temp 97.0 97.4 97.0 97.4 Pulse 73 81 Resp 20 22 B/P (MAP) 93/61 (72) 125/66 (85) Pulse Ox 100 99 100 99 O2 Delivery BiPAP/CPAP BiPAP/CPAP BiPAP/CPAP BiPAP/CPAP 09/03/19 09/03/19 09/03/19 09/03/19 07:16 08:00 08:15 08:17 Pulse 81 B/P (MAP) 125/66 Pulse Ox 98 96 O2 Delivery Nasal Cannula Nasal Cannula Nasal Cannula O2 Flow Rate 3.0 3.0 3.0 Intake and Output 09/02/19 09/02/19 09/03/19 15:00 23:00 07:00 Intake Total 200 ml 250 ml 360 ml Output Total 350 ml 125 ml Balance 200 ml -100 ml 235 ml DAMIÁN BALL MD Sep 03, 2019 10:07
--- NOTE | 2019-09-03 10:58 | RAD ---
EXAM: CHEST 2 VIEWS. HISTORY: Chronic obstructive pulmonary disease. COMPARISON: 08/30/2019. FINDINGS: Frontal and lateral views of the chest are obtained. Hyperinflation is consistent with chronic obstructive pulmonary disease. Blunting of the right costophrenic angle is unchanged and may represent scarring rather than a small pleural effusion. Interstitial and airspace opacities in both bases have increased. There is no pneumothorax. The heart is not enlarged. The aorta is calcified and tortuous. There are moderate to severe compression deformities throughout the thoracic spine. IMPRESSION: 1. Increased bibasilar atelectasis or infiltrate superimposed on chronic obstructive pulmonary disease. 2. Blunting of the right costophrenic angle is likely from scarring rather than a small pleural effusion. Electronically signed by: Elijah Rodgers MD (09/03/2019 10:55 AM) [facility]
[2019-09-03 11:00] VITALS: BP 105/61
[2019-09-03] MEDS: PROMETHAZINE 6.25 MG/5 ML SYRUP. PEG PRN (12:23)
[2019-09-03] MEDS: ALPRAZolam 0.25 MG TABLET PO PRN (12:23)
[2019-09-03 15:00] VITALS: BP 110/59
--- NOTE | 2019-09-03 15:11 | PDOC ---
PULMONARY PROGRESS NOTES Subjective PT BETTER TODAY Vitals Vital Signs Date Time Temp Pulse Resp B/P (MAP) Pulse Ox O2 Delivery O2 Flow Rate FiO2 09/03/19 12:23 97 Nasal Cannula 3.0 09/03/19 11:00 97.7 102 22 105/61 (76) 97.7 ROS: No Nausea, No Chest Pain, No Abdominal Pain, No Increase Cough General: Alert, Moderate Distress HEENT: Other Lungs: Wheezing Cardiovascular: S1, S2 Abdomen: Soft, Non-tender Neuro Exam: Alert Extremities: No Edema Medications Active Scripts Medications Dose Route/Sig Max Daily Dose Days Date Category Dose Instructions Prednisone 50 Mg Tablet 1 Tab PO DAILY 4 08/23/19 Rx Culturelle (Lactobacillus Rhamnosus Gg) 1 Each Cap.sprink 1 Cap PO BID 15 08/23/19 Rx Doxycycline Hyclate 100 Mg Tablet 100 Mg PO BID 30 08/23/19 Rx Duoneb 0.5-3(2.5) Mg/3 Ml (Albuterol/Ipratropium) 3 Ml Ampul.neb 3 Ml NEB QID 30 08/23/19 Rx Voltaren (Diclofenac Sodium) 100 Gm Gel..gram. 1 Gm TP QID 30 08/03/19 Reported apply to affected area(s) Furosemide 40 Mg Tablet 1 Tab PO DAILY 08/02/19 Reported Morphine Sulfate Er (Morphine Sulfate) 15 Mg Tablet.er 1 Tab PO BID 08/02/19 Reported Polyethylene Glycol 3350 2,500 Gm Powder 17 Gm PO DAILY 04/27/19 Reported Gabapentin 600 Mg Tablet 200 Mg PO TID 04/27/19 Reported Escitalopram Oxalate 10 Mg Tablet 1 Tab PO DAILY 04/27/19 Reported Multivitamins (Multivitamin) 1 Each Tablet 1 Tab PO DAILY 04/27/19 Reported Melatonin 3 Mg Tablet 1 Tab PO QHS 04/27/19 Reported Klor-Con M20 (Potassium Chloride) 20 Meq Tab.er.prt 20 Meq PO DAILY 30 04/08/19 Rx Symbicort 160-4.5 Mcg Inhaler (Budesonide/Formoterol Fumarate) 10.2 Gm Hfa.aer.ad 1 Puff IH BID 04/04/19 Reported Proair Hfa (Albuterol Sulfate) 8.5 Gm Hfa.aer.ad 2.5 Mg NEB PRN Q6HRS PRN 30 03/13/19 Rx [Nicotine 14MG] 1 PATCH Patch 1 Patch TD DAILY 30 08/29/18 Rx Finasteride 5 Mg Tablet 1 Tab PO DAILY 08/25/18 Reported Flomax (Tamsulosin Hcl) 0.4 Mg Cap.er.24h 1 Cap PO BID 08/25/18 Reported Vitamin D2 (Ergocalciferol (Vitamin D2)) 50,000 Unit Capsule 1 Cap PO QM 08/25/18 Reported Spiriva (Tiotropium [place]) 18 Mcg Cap.w.dev 18 Mcg IH DAILY 10/28/13 Reported Omeprazole 20 Mg Capsule. 20 Mg PO DAILY 10/28/13 Reported Aspir 81 (Aspirin) 81 Mg Tablet. 81 Mg PO DAILY 10/28/13 Reported Amlodipine Besylate 5 Mg Tablet 5 Mg PO DAILY 10/28/13 Reported Impression . IMPRESSION: 1. Acute on chronic respiratory failure, multifactorial in etiology, including acute exacerbation of chronic obstructive pulmonary disease, acute bronchitis. 2. Acute exacerbation of chronic obstructive pulmonary disease. 3. Acute bronchitis. 4. Abnormal chest x-ray. 5. History of colon cancer. 6. Hypertension. 7. History of congestive heart failure. Plan . ANTICIPATE DC IN AM 09/[address] BALL PT HAS HOME TRILOGY STEROIDS ORAL PT DAILY DOXY AVOID SECOND HAND SMOKE DAMION THAO MD Sep 03, 2019 15:11
[2019-09-03 19:18] VITALS: BP 120/67
[2019-09-03 22:57] VITALS: BP 97/61
[2019-09-04 03:02] VITALS: BP 97/59
[2019-09-04] MEDS: IPRATRPIUM/ALBUTEROL 0.5/2.5MG 3 ML NEBU. NEB SCH ×5 (03:33→20:08)
[2019-09-04 07:00] VITALS: BP 106/62
[2019-09-04] MEDS: BUDESONIDE 0.5 MG/2 ML NEBU. NEB SCH ×2 (07:23→20:08)
[2019-09-04] MEDS ORDERED: methylPREDNISolone SOD SUCC PF 40 MG/ML VIAL. IV SCH (09:00)
[2019-09-04] MEDS: POLYETHYLENE GLYCOL 3350 17 GM PACKET. PO SCH (09:00)
[2019-09-04] MEDS: MULTIVITAMIN with MINERAL TABLET. PO SCH (09:15)
[2019-09-04] MEDS: POTASSIUM CHLORIDE 20 MEQ TABLET.ER. PO SCH (09:15)
[2019-09-04] MEDS: amLODIPine BESYLATE 5 MG TABLET PO SCH (09:15)
[2019-09-04] MEDS: TAMSULOSIN 0.4 MG CAP.ER.24H. PO SCH ×2 (09:15→20:39)
[2019-09-04] MEDS: FINASTERIDE 5 MG TABLET. PO SCH (09:15)
[2019-09-04] MEDS: predniSONE 10 MG TABLET PO SCH (09:15)
[2019-09-04] MEDS: GABAPENTIN 100 MG CAPSULE. PO SCH ×3 (09:15→20:39)
[2019-09-04] MEDS: ASPIRIN ENTERIC COATED 81 MG TABLET.DR. PO SCH (09:15)
[2019-09-04] MEDS: PANTOPRAZOLE 40 MG TABLET.DR. PO SCH (09:16)
[2019-09-04] MEDS: LACTOBACILLUS RHAMNOSUS GG 1 CAPSULE. PO SCH ×2 (09:16→20:39)
[2019-09-04] MEDS: FUROSEMIDE 40 MG TABLET. PO SCH (09:16)
[2019-09-04] MEDS: MORPHINE ER 15 MG TABLET.ER PO SCH ×2 (09:16→20:39)
[2019-09-04] MEDS: CITALOPRAM 20 MG TABLET. PO SCH (09:16)
[2019-09-04] MEDS: DOXYCYCLINE HYCLATE 100 MG TABLET PO SCH ×2 (09:16→20:39)
[2019-09-04] MEDS: NICOTINE 14MG PATCH. TD SCH (09:16)
[2019-09-04] MEDS: FLUTICASONE 50MCG/NASAL SPRAY 16GM BOTTLE. NS SCH (09:17)
[2019-09-04] MEDS: ENOXAPARIN 40 MG/0.4 ML SYRINGE. SQ SCH (09:17)
[2019-09-04] MEDS: DICLOFENAC SODIUM 1% TOPICAL GEL 100GM TUBE. TP SCH ×4 (09:31→20:40)
--- NOTE | 2019-09-04 10:39 | PDOC ---
PROGRESS NOTES Subjective Subjective feeling better Objective Objective Vital Signs Date Time Temp Pulse Resp B/P (MAP) Pulse Ox O2 Delivery O2 Flow Rate FiO2 09/04/19 09:16 99 Nasal Cannula 3.0 09/04/19 09:15 89 106/62 09/04/19 07:00 98.0 22 98.0 Intake and Output 09/04/19 07:00 Intake Total 1220 ml Output Total 1425 ml Balance -205 ml Intake Oral 1220 ml Output Urine Total 1425 ml # Bowel Movements 2 Physical Exam Abdomen: Normal bowel sounds, Soft Heart: Regular rate, Normal S1, Normal S2 Extremities: No clubbing General: Alert HEENT: Atraumatic Lungs: Other (minimal wheezing) MUSCULOSKELETAL: No deformity, Osteoarthritic changes both hands Neuro: Normal speech Psych/Mental Status: Mental status NL Skin: No breakdown Diagnosis Problem List Problems Medical Problems: (1) Acute on chronic respiratory failure with hypoxia and hypercapnia Status: Acute Assessment Assessment Problems Medical Problems: (1) Acute on chronic respiratory failure with hypoxia and hypercapnia Status: Acute FINAL IMPRESSION: 1. Acute hypercapnic respiratory failure requiring BIPAP. 2. Chronic obstructive pulmonary disease. 3. Hypertension. 4. Hyperlipidemia. 5. Steroid-induced diabetes. 6. Chronic diastolic heart failure. 7. Ex-smoker. PLAN: po prednisone. d/c home tomorrow continue tapering iv steroids. OFF BIPAP on Nasal canula . iv steroids dec todaily duoneb qid. labs ok cxr -copd with scarring pt/ot Plan Plan of Care Problems Medical Problems: (1) Acute on chronic respiratory failure with hypoxia and hypercapnia Status: Acute Comment Review of Relevant I have reviewed the following items mario (where applicable) has been applied. Medications Current Medications Methylprednisolone Sodium Succinate (SOLU-Medrol 40MG VIAL) 40 mg DAILY IV ; Start 09/04/19 at 09:00; Stop 09/03/19 at 15:13; Status DC Prednisone (Prednisone) 30 mg DAILY PO Last administered on 09/04/19at 09:15; Start 09/04/19 at 09:00 Vitals/I & O Vital Sign - Last 24 Hours 09/03/19 09/03/19 09/03/19 09/03/19 11:00 11:54 12:23 15:00 Temp 97.7 98.1 97.7 98.1 Pulse 102 92 Resp 22 22 B/P (MAP) 105/61 (76) 110/59 (76) Pulse Ox 97 97 97 O2 Delivery BiPAP/CPAP Nasal Cannula Nasal Cannula Nasal Cannula O2 Flow Rate 3.0 3.0 4.0 09/03/19 09/03/19 09/03/19 09/03/19 15:29 19:18 19:52 19:53 Temp 98.0 98.0 Pulse 97 Resp 22 B/P (MAP) 120/67 (84) Pulse Ox 99 100 100 O2 Delivery Nasal Cannula Nasal Cannula Nasal Cannula Nasal Cannula O2 Flow Rate 3.0 4.0 3.0 3.0 09/03/19 09/03/19 09/03/19 09/03/19 20:00 21:03 22:57 23:36 Temp 97.9 97.9 Pulse 67 Resp 14 24 B/P (MAP) 97/61 (73) Pulse Ox 100 100 99 O2 Delivery Nasal Cannula Nasal Cannula BiPAP/CPAP BiPAP/CPAP O2 Flow Rate 3.0 3.0 09/04/19 09/04/19 09/04/19 09/04/19 01:03 02:14 03:02 03:34 Temp 97.3 97.3 Pulse 73 Resp 18 17 B/P (MAP) 97/59 (72) Pulse Ox 98 99 98 99 O2 Delivery BiPAP/CPAP BiPAP/CPAP BiPAP/CPAP Nasal Cannula O2 Flow Rate 3.0 09/04/19 09/04/19 09/04/19 09/04/19 07:00 07:25 08:00 09:15 Temp 98.0 98.0 Pulse 89 89 Resp 22 B/P (MAP) 106/62 (77) 106/62 Pulse Ox 99 99 O2 Delivery Nasal Cannula Nasal Cannula Nasal Cannula O2 Flow Rate 3.0 3.0 3.0 09/04/19 09:16 Pulse Ox 99 O2 Delivery Nasal Cannula O2 Flow Rate 3.0 Intake and Output 09/03/19 09/03/19 09/04/19 15:00 23:00 07:00 Intake Total 600 ml 500 ml 120 ml Output Total 425 ml 300 ml 700 ml Balance 175 ml 200 ml -580 ml DAMIÁN BALL MD Sep 04, 2019 10:39
[2019-09-04 11:00] VITALS: BP 120/67
--- NOTE | 2019-09-04 11:30 | NUR ---
SS following up with discharge planning. PT/OT recommending home healthcare. [phone], and has home oxygen with [facility]. SS will continue to follow for discharge planning.
[2019-09-04] MEDS: ALPRAZolam 0.25 MG TABLET PO PRN (14:41)
[2019-09-04 15:00] VITALS: BP 97/61
--- NOTE | 2019-09-04 17:02 | PDOC ---
PULMONARY PROGRESS NOTES Subjective LESS SOA TODAY Vitals Vital Signs Date Time Temp Pulse Resp B/P (MAP) Pulse Ox O2 Delivery O2 Flow Rate FiO2 09/04/19 15:39 98 Nasal Cannula 3.0 09/04/19 15:00 98.0 77 22 97/61 (73) 98.0 ROS: No Nausea, No Chest Pain, No Abdominal Pain, No Increase Cough General: Alert, Moderate Distress HEENT: Other Lungs: Wheezing Cardiovascular: S1, S2 Abdomen: Soft, Non-tender Neuro Exam: Alert Extremities: No Edema Medications Active Scripts Medications Dose Route/Sig Max Daily Dose Days Date Category Dose Instructions Prednisone 50 Mg Tablet 1 Tab PO DAILY 4 08/23/19 Rx Culturelle (Lactobacillus Rhamnosus Gg) 1 Each Cap.sprink 1 Cap PO BID 15 08/23/19 Rx Doxycycline Hyclate 100 Mg Tablet 100 Mg PO BID 30 08/23/19 Rx Duoneb 0.5-3(2.5) Mg/3 Ml (Albuterol/Ipratropium) 3 Ml Ampul.neb 3 Ml NEB QID 30 08/23/19 Rx Voltaren (Diclofenac Sodium) 100 Gm Gel..gram. 1 Gm TP QID 30 08/03/19 Reported apply to affected area(s) Furosemide 40 Mg Tablet 1 Tab PO DAILY 08/02/19 Reported Morphine Sulfate Er (Morphine Sulfate) 15 Mg Tablet.er 1 Tab PO BID 08/02/19 Reported Polyethylene Glycol 3350 2,500 Gm Powder 17 Gm PO DAILY 04/27/19 Reported Gabapentin 600 Mg Tablet 200 Mg PO TID 04/27/19 Reported Escitalopram Oxalate 10 Mg Tablet 1 Tab PO DAILY 04/27/19 Reported Multivitamins (Multivitamin) 1 Each Tablet 1 Tab PO DAILY 04/27/19 Reported Melatonin 3 Mg Tablet 1 Tab PO QHS 04/27/19 Reported Klor-Con M20 (Potassium Chloride) 20 Meq Tab.er.prt 20 Meq PO DAILY 30 04/08/19 Rx Symbicort 160-4.5 Mcg Inhaler (Budesonide/Formoterol Fumarate) 10.2 Gm Hfa.aer.ad 1 Puff IH BID 04/04/19 Reported Proair Hfa (Albuterol Sulfate) 8.5 Gm Hfa.aer.ad 2.5 Mg NEB PRN Q6HRS PRN 30 8/8/19 Rx [Nicotine 14MG] 1 PATCH Patch 1 Patch TD DAILY 30 08/29/18 Rx Finasteride 5 Mg Tablet 1 Tab PO DAILY 08/25/18 Reported Flomax (Tamsulosin Hcl) 0.4 Mg Cap.er.24h 1 Cap PO BID 08/25/18 Reported Vitamin D2 (Ergocalciferol (Vitamin D2)) 50,000 Unit Capsule 1 Cap PO QM 08/25/18 Reported Spiriva (Tiotropium [place]) 18 Mcg Cap.w.dev 18 Mcg IH DAILY 10/28/13 Reported Omeprazole 20 Mg Capsule.dr 20 Mg PO DAILY 10/28/13 Reported Aspir 81 (Aspirin) 81 Mg Tablet.dr 81 Mg PO DAILY 10/28/13 Reported Amlodipine Besylate 5 Mg Tablet 5 Mg PO DAILY 10/28/13 Reported Impression . IMPRESSION: 1. Acute on chronic respiratory failure, multifactorial in etiology, including acute exacerbation of chronic obstructive pulmonary disease, acute bronchitis. 2. Acute exacerbation of chronic obstructive pulmonary disease. 3. Acute bronchitis. 4. Abnormal chest x-ray. 5. History of colon cancer. 6. Hypertension. 7. History of congestive heart failure. Plan . ANTICIPATE DC IN AM SPOKE WITH PT NEEDS OUT PT THERAPY PT HAS HOME TRILOGY STEROIDS ORAL PT DAILY DOXY AVOID SECOND HAND SMOKE DAMION THAO MD Sep 04, 2019 17:02
[2019-09-04 19:02] VITALS: BP 108/61
[2019-09-04 22:49] VITALS: BP 93/61
[2019-09-05 03:29] VITALS: BP 93/58
[2019-09-05] MEDS: IPRATRPIUM/ALBUTEROL 0.5/2.5MG 3 ML NEBU. NEB SCH ×4 (04:00→12:14)
[2019-09-05] MEDS: PANTOPRAZOLE 40 MG TABLET.DR. PO SCH (06:06)
[2019-09-05] MEDS: BUDESONIDE 0.5 MG/2 ML NEBU. NEB SCH (07:15)
[2019-09-05 07:30] VITALS: BP 84/56
--- NOTE | 2019-09-05 08:27 | PDOC ---
PULMONARY PROGRESS NOTES Subjective LESS SOA TODAY Vitals Vital Signs Date Time Temp Pulse Resp B/P (MAP) Pulse Ox O2 Delivery O2 Flow Rate FiO2 09/05/19 07:30 97.8 71 20 84/56 (65) 100 Nasal Cannula 3.0 97.8 ROS: No Nausea, No Chest Pain, No Abdominal Pain, No Increase Cough General: Alert, Moderate Distress HEENT: Other Lungs: Wheezing Cardiovascular: S1, S2 Abdomen: Soft, Non-tender Neuro Exam: Alert Extremities: No Edema Medications Active Scripts Medications Dose Route/Sig Max Daily Dose Days Date Category Dose Instructions Prednisone 50 Mg Tablet 1 Tab PO DAILY 4 08/23/19 Rx Culturelle (Lactobacillus Rhamnosus Gg) 1 Each Cap.sprink 1 Cap PO BID 15 08/23/19 Rx Doxycycline Hyclate 100 Mg Tablet 100 Mg PO BID 30 08/23/19 Rx Duoneb 0.5-3(2.5) Mg/3 Ml (Albuterol/Ipratropium) 3 Ml Ampul.neb 3 Ml NEB QID 30 08/23/19 Rx Voltaren (Diclofenac Sodium) 100 Gm Gel..gram. 1 Gm TP QID 30 08/03/19 Reported apply to affected area(s) Furosemide 40 Mg Tablet 1 Tab PO DAILY 08/02/19 Reported Morphine Sulfate Er (Morphine Sulfate) 15 Mg Tablet.er 1 Tab PO BID 08/02/19 Reported Polyethylene Glycol 3350 2,500 Gm Powder 17 Gm PO DAILY 04/27/19 Reported Gabapentin 600 Mg Tablet 200 Mg PO TID 04/27/19 Reported Escitalopram Oxalate 10 Mg Tablet 1 Tab PO DAILY 04/27/19 Reported Multivitamins (Multivitamin) 1 Each Tablet 1 Tab PO DAILY 04/27/19 Reported Melatonin 3 Mg Tablet 1 Tab PO QHS 04/27/19 Reported Klor-Con M20 (Potassium Chloride) 20 Meq Tab.er.prt 20 Meq PO DAILY 30 04/08/19 Rx Symbicort 160-4.5 Mcg Inhaler (Budesonide/Formoterol Fumarate) 10.2 Gm Hfa.aer.ad 1 Puff IH BID 04/04/19 Reported Proair Hfa (Albuterol Sulfate) 8.5 Gm Hfa.aer.ad 2.5 Mg NEB PRN Q6HRS PRN 30 03/13/19 Rx [Nicotine 14MG] 1 PATCH Patch 1 Patch TD DAILY 30 08/29/18 Rx Finasteride 5 Mg Tablet 1 Tab PO DAILY 08/25/18 Reported Flomax (Tamsulosin Hcl) 0.4 Mg Cap.er.24h 1 Cap PO BID 08/25/18 Reported Vitamin D2 (Ergocalciferol (Vitamin D2)) 50,000 Unit Capsule 1 Cap PO QM 08/25/18 Reported Spiriva (Tiotropium [place]) 18 Mcg Cap.w.dev 18 Mcg IH DAILY 10/28/13 Reported Omeprazole 20 Mg Capsule.dr 20 Mg PO DAILY 10/28/13 Reported Aspir 81 (Aspirin) 81 Mg Tablet.dr 81 Mg PO DAILY 10/28/13 Reported Amlodipine Besylate 5 Mg Tablet 5 Mg PO DAILY 10/28/13 Reported Impression . IMPRESSION: 1. Acute on chronic respiratory failure, multifactorial in etiology, including acute exacerbation of chronic obstructive pulmonary disease, acute bronchitis. 2. Acute exacerbation of chronic obstructive pulmonary disease. 3. Acute bronchitis. 4. Abnormal chest x-ray. 5. History of colon cancer. 6. Hypertension. 7. History of congestive heart failure. Plan . DC TODAY FOLLOW UP IN OFFICE HOME TRILOGY DAMION THAO MD Sep 05, 2019 08:27
[2019-09-05] MEDS: DOXYCYCLINE HYCLATE 100 MG TABLET PO SCH (08:34)
[2019-09-05] MEDS: FLUTICASONE 50MCG/NASAL SPRAY 16GM BOTTLE. NS SCH (08:34)
[2019-09-05] MEDS: ENOXAPARIN 40 MG/0.4 ML SYRINGE. SQ SCH (08:34)
[2019-09-05] MEDS: NICOTINE 14MG PATCH. TD SCH (08:34)
[2019-09-05] MEDS: CITALOPRAM 20 MG TABLET. PO SCH (08:35)
[2019-09-05] MEDS: ASPIRIN ENTERIC COATED 81 MG TABLET.DR. PO SCH (08:35)
[2019-09-05] MEDS: MORPHINE ER 15 MG TABLET.ER PO SCH (08:35)
[2019-09-05] MEDS: LACTOBACILLUS RHAMNOSUS GG 1 CAPSULE. PO SCH (08:35)
[2019-09-05] MEDS: POLYETHYLENE GLYCOL 3350 17 GM PACKET. PO SCH (08:35)
[2019-09-05] MEDS: MULTIVITAMIN with MINERAL TABLET. PO SCH (08:35)
[2019-09-05] MEDS: POTASSIUM CHLORIDE 20 MEQ TABLET.ER. PO SCH (08:35)
[2019-09-05] MEDS: FINASTERIDE 5 MG TABLET. PO SCH (08:35)
[2019-09-05] MEDS: predniSONE 10 MG TABLET PO SCH (08:35)
[2019-09-05] MEDS: TAMSULOSIN 0.4 MG CAP.ER.24H. PO SCH (08:35)
[2019-09-05] MEDS: GABAPENTIN 100 MG CAPSULE. PO SCH (08:35)
[2019-09-05] MEDS: DICLOFENAC SODIUM 1% TOPICAL GEL 100GM TUBE. TP SCH (08:36)
[2019-09-05] MEDS: amLODIPine BESYLATE 5 MG TABLET PO SCH (09:00)
[2019-09-05] MEDS ORDERED: IV NORMAL SALINE 500ML BAG 500 ML IV ONE (09:45)
--- NOTE | 2019-09-05 10:08 | PDOC ---
PROGRESS NOTES Subjective Subjective feels better ready to go home Objective Objective Vital Signs Date Time Temp Pulse Resp B/P (MAP) Pulse Ox O2 Delivery O2 Flow Rate FiO2 09/05/19 08:35 100 Nasal Cannula 3.0 09/05/19 07:30 97.8 71 20 84/56 (65) 97.8 Intake and Output 09/05/19 07:00 Intake Total 780 ml Output Total 700 ml Balance 80 ml Intake Oral 780 ml Output Urine Total 700 ml # Voids 2 # Bowel Movements 5 Physical Exam Abdomen: Normal bowel sounds, Soft Heart: Regular rate, Normal S1, Normal S2 Extremities: No clubbing General: Alert HEENT: Atraumatic Lungs: Other (minimal wheezing) MUSCULOSKELETAL: No deformity, Osteoarthritic changes both hands Neuro: Normal speech Psych/Mental Status: Mental status NL Skin: No breakdown Diagnosis Problem List Problems Medical Problems: (1) Acute on chronic respiratory failure with hypoxia and hypercapnia Status: Acute Assessment Assessment Problems Medical Problems: (1) Acute on chronic respiratory failure with hypoxia and hypercapnia Status: Acute FINAL IMPRESSION: 1. Acute hypercapnic respiratory failure requiring BIPAP. 2. Chronic obstructive pulmonary disease. 3. Hypertension. 4. Hyperlipidemia. 5. Steroid-induced diabetes. 6. Chronic diastolic heart failure. 7. Ex-smoker. 8.Mild hypotension. PLAN: d/c home on po prednisone+doxycycline. fluid bolus 500 ccx1 OFF BIPAP on Nasal canula . duoneb qid. cxr -copd with scarring pt/ot. spoke with RN. f/u pcp in 1 week poor prognosis. stable at time of discharge. Plan Plan of Care Problems Medical Problems: (1) Acute on chronic respiratory failure with hypoxia and hypercapnia Status: Acute Comment Review of Relevant I have reviewed the following items mario (where applicable) has been applied. Medications Current Medications Sodium Chloride 500 ml @ 500 mls/hr 1X ONCE IV ; Start 09/05/19 at 09:45; Stop 09/05/19 at 10:44 Vitals/I & O Vital Sign - Last 24 Hours 09/04/19 09/04/19 09/04/19 09/04/19 11:00 11:12 13:13 15:00 Temp 98.2 98.0 98.2 98.0 Pulse 89 77 Resp 20 22 B/P (MAP) 120/67 (84) 97/61 (73) Pulse Ox 98 99 99 99 O2 Delivery Nasal Cannula Nasal Cannula Nasal Cannula BiPAP/CPAP O2 Flow Rate 3.0 3.0 3.0 09/04/19 09/04/19 09/04/19 09/04/19 15:39 19:02 19:27 20:11 Temp 98.1 98.1 Pulse 92 Resp 22 B/P (MAP) 108/61 (77) Pulse Ox 98 94 99 O2 Delivery Nasal Cannula Nasal Cannula Nasal Cannula BiPAP/CPAP O2 Flow Rate 3.0 3.0 3.0 09/04/19 09/04/19 09/05/19 09/05/19 20:39 22:49 00:09 00:39 Temp 98.0 98.0 Pulse 95 Resp 21 16 16 B/P (MAP) 93/61 (72) Pulse Ox 99 99 99 99 O2 Delivery BiPAP/CPAP BiPAP/CPAP BiPAP/CPAP BiPAP/CPAP 09/05/19 09/05/19 09/05/19 09/05/19 03:29 04:36 07:16 07:30 Temp 98.0 97.8 98.0 97.8 Pulse 69 71 Resp 15 20 B/P (MAP) 93/58 (70) 84/56 (65) Pulse Ox 99 99 97 100 O2 Delivery BiPAP/CPAP BiPAP/CPAP Nasal Cannula Nasal Cannula O2 Flow Rate 3.0 3.0 09/05/19 09/05/19 08:00 08:35 Pulse Ox 100 O2 Delivery Nasal Cannula Nasal Cannula O2 Flow Rate 3.0 3.0 Intake and Output 09/04/19 09/04/19 09/05/19 15:00 23:00 07:00 Intake Total 280 ml 500 ml Output Total 200 ml 300 ml 200 ml Balance 80 ml -300 ml 300 ml DAMIÁN BALL MD Sep 05, 2019 10:08
[2019-09-05] MEDS ORDERED: PRED-220 PO (10:11)
[2019-09-05] MEDS ORDERED: DOXY100T PO (10:11)
[2019-09-05 10:27] VITALS: BP 94/51
--- NOTE | 2019-09-05 12:01 | NUR ---
SS following up with discharge planning. Discharge order on the chart for home with self care. SS contacted Dr. Mcdonald and requested home healthcare orders as pt is current on services with [facility], ; fax [phone]. Referral phoned and faxed to [facility]. SS will await discharge orders for home healthcare and will proceed accordingly.
[2019-09-05 12:41] VITALS: BP 104/56
--- NOTE | 2019-09-05 13:23 | NUR ---
Discharge Note: [facility] Discharge instructions and discharge home medications reviewed with Patient and a copy given. All questions have been answered and understanding verbalized.
--- NOTE | 2019-09-05 15:10 | SNU/HH DC ---
DISCHARGE WITH HOME HEALTH DISCHARGE INFORMATION: Discharge Date: Sep 05, 2019 Final Diagnosis: Problems Medical Problems: (1) Acute on chronic respiratory failure with hypoxia and hypercapnia Status: Acute Condition on Discharge: Stable CODE STATUS: Code Status: Full HOME HEALTH: Face to Face: I certify this patient is under my care and that I, or a nurse practitioner or physician's help desk assistant working with me, had a face to face encounter that meets the physician face to face encounter requirements with this patient on []. Medical Complications: COPD RN For Eval/Treatment: Yes Physical Therapy For: Evalulation/Treatment Occupational Therapy For: Evaluation/Treatment Home Health Aide For: Self-care FOOD PREPARER For: Community Resources Pt Meets Homebound Status: Poor coordination w/ amb. POST DISCHARGE ORDERS: Activity Instructions for Disc: Activity as tolerated Weight Bearing Status after Di: No restrictions DIET AFTER DISCHARGE: Regular Wound/Incision Care: Change dressing CHECKS AFTER DISCHARGE: Checks after discharge: Check blood press - daily, Weigh Yourself Daily FOLLOW-UP: Follow Up With: Primary Care Physician in 1 week TREATMENT/EQUIPMENT ORDERS: Adaptive Equipment Issued: None Discharge Respiratory Equipmen: Oxygen CERTIFICATION STATEMENT: Certification Statement: Certification Statement: Based on the above finding, I certify that this patient is confined to the home and needs intermittent fci care, physical therapy and/or speech therapy, or continues to need occupational therapy.~ This patient is under my care, and I have initiated the establishment of the plan of care.~ This patient will be followed by myself or a community physician who will periodically review the plan of care. Home Meds Active Scripts Prednisone (PREDNISONE ) 10 Mg Tablet, 30 MG PO DAILY for copd for 3 Days, #9 TAB Prov:DAMIÁN BALL MD 09/05/19 Doxycycline Hyclate (DOXYCYCLINE HYCLATE) 100 Mg Tablet, 100 MG PO BID for copd for 7 Days, #14 TAB Prov:DAMIÁN BALL MD 09/05/19 Lactobacillus Rhamnosus Gg (CULTURELLE) 1 Each Cap.sprink, 1 CAP PO BID for probiotics for 15 Days, #30 CAP Prov:ELEONORA BARRAZA MD 08/23/19 Ipratropium/Albuterol Sulfate (DUONEB 0.5-3(2.5) MG/3 ML) 3 Ml Ampul.neb, 3 ML NEB QID for SOA for 30 Days, #120 EACH Prov:ELEONORA BARRAZA MD 08/23/19 Potassium Chloride (KLOR-CON M20) 20 Meq Tab.er.prt, 20 MEQ PO DAILY for replacement for 30 Days, #30 TAB.SR Prov:DAMIÁN BALL MD 04/08/19 Albuterol Sulfate (Proair Hfa) 8.5 Gm Hfa.aer.ad, 2.5 MG NEB PRN Q6HRS PRN for SHORTNESS OF BREATH for 30 Days, INHALER Prov:DAMIÁN BALL MD 03/13/19 Reported Medications Diclofenac Sodium (VOLTAREN) 100 Gm Gel..gram., 1 GM TP QID for pain for 30 Days, #1 EACH 0 Refills apply to affected area(s) 08/03/19 Furosemide (FUROSEMIDE) 40 Mg Tablet, 1 TAB PO DAILY for SWELLING, #30 TAB 5 Refills 08/02/19 Morphine Sulfate (MORPHINE SULFATE ER) 15 Mg Tablet.er, 1 TAB PO BID for PAIN, #60 TAB 08/02/19 Polyethylene Glycol 3350 (POLYETHYLENE GLYCOL 3350) 2,500 Gm Powder, 17 GM PO DAILY for constipation, #527 GM 11 Refills 04/27/19 Gabapentin (GABAPENTIN) 600 Mg Tablet, 200 MG PO TID for PAIN, TAB 04/27/19 Escitalopram Oxalate (ESCITALOPRAM OXALATE) 10 Mg Tablet, 1 TAB PO DAILY for depression, #30 TAB 3 Refills 04/27/19 Multivitamin (MULTIVITAMINS) 1 Each Tablet, 1 TAB PO DAILY for supp, #90 TAB 3 Refills 04/27/19 Melatonin (MELATONIN) 3 Mg Tablet, 1 TAB PO QHS for insomnia, #30 TAB 2 Refills 04/27/19 Budesonide/Formoterol Fumarate (SYMBICORT 160-4.5 MCG INHALER) 10.2 Gm Hfa.aer.ad, 1 PUFF IH BID for COPD, INHALER 04/04/19 Finasteride (FINASTERIDE) 5 Mg Tablet, 1 TAB PO DAILY for BPH, #30 TAB 11 Refills 08/25/18 Tamsulosin Hcl (FLOMAX) 0.4 Mg Cap.er.24h, 1 CAP PO BID for BPH, #30 CAP 11 Refills 08/25/18 Ergocalciferol (Vitamin D2) (VITAMIN D2) 50,000 Unit Capsule, 1 CAP PO QM for bone loss prevention, #4 CAP 5 Refills 08/25/18 Tiotropium [place] (SPIRIVA) 18 Mcg Cap.w.dev, 18 MCG IH DAILY 10/28/13 Omeprazole (OMEPRAZOLE) 20 Mg Capsule.dr, 20 MG PO DAILY 10/28/13 Aspirin (ASPIR 81) 81 Mg Tablet.dr, 81 MG PO DAILY, TAB 10/28/13 Amlodipine Besylate (AMLODIPINE BESYLATE) 5 Mg Tablet, 5 MG PO DAILY 10/28/13 Discontinued Scripts Prednisone (PREDNISONE) 50 Mg Tablet, 1 TAB PO DAILY for COPD for 4 Days, #4 TAB Prov:ELEONORA BARRAZA MD 08/23/19 Doxycycline Hyclate (DOXYCYCLINE HYCLATE) 100 Mg Tablet, 100 MG PO BID for COPD for 30 Days, #60 TAB Prov:ELEONORA BARRAZA MD 08/23/19 [Nicotine 14MG] 1 PATCH PATCH No Conflict Check, 1 PATCH TD DAILY for smoking for 30 Days Prov:DAMIÁN BALL MD 08/29/18 DAMIÁN BALL MD Sep 05, 2019 15:10
--- NOTE | 2019-09-09 21:40 | PDOC ---
Provider Note Provider Note Discharge summary dictated.#[id number]. DAMIÁN BALL MD Sep 09, 2019 21:39
--- NOTE | 2019-09-09 21:50 | DS ---
DATE OF DISCHARGE: 09/05/2019 REASON FOR ADMISSION TO THE HOSPITAL: 1. COPD with acute exacerbation. 2. Hypercapnic respiratory failure. CONSULTATIONS: Dahiana Go MD PROCEDURES DONE: None. COMPLICATIONS NOTED: None. HOSPITAL COURSE: The patient is a 68-year-old male with chronic COPD, hypertension, hyperlipidemia and steroid-induced diabetes. She came with acute shortness of breath, bilateral wheezing with hypercapnic respiratory failure. The patient was put on BiPAP, was given oxygen, breathing treatments and IV Solu-Medrol and also oral antibiotic. Chest x-ray was negative. Influenza was negative. CBC/chem profile was unremarkable. Blood gas shows pH 7.36, pCO2 of 69, pO2 of 168, bicarb 38, 99% saturation. The patient did improve over time. Was weaned off the BiPAP, was on oxygen and the patient was seen by physical therapy rehab and the patient did not want to go to snf, wanted to go back home. The patient was discharged. DAMIÁN BALL MD DR: CHELE/nts JOB#: [id number] / [id number]
== END 2019-09-05 13:19 | disposition home health service (06) | DRG 190 ==
LOC: ER 21:38 → 2 SOUTH 08-31 00:30
PROVIDERS: ADMIT Internal Medicine; ATTEND Internal Medicine
PROC: 5A09357 Assistance with Respiratory Ventilation, Less than 24 Consecutive Hours, Continuous Positive Airway Pressure (ICD-10-PCS; 2019-08-31)
PROC: 5A09357 Assistance with Respiratory Ventilation, Less than 24 Consecutive Hours, Continuous Positive Airway Pressure (ICD-10-PCS; 2019-08-31)
PROC: 5A09357 Assistance with Respiratory Ventilation, Less than 24 Consecutive Hours, Continuous Positive Airway Pressure (ICD-10-PCS; 2019-09-01)
PROC: 5A09357 Assistance with Respiratory Ventilation, Less than 24 Consecutive Hours, Continuous Positive Airway Pressure (ICD-10-PCS; 2019-09-02)
PROC: 5A09357 Assistance with Respiratory Ventilation, Less than 24 Consecutive Hours, Continuous Positive Airway Pressure (ICD-10-PCS; 2019-09-03)
PROC: 5A09357 Assistance with Respiratory Ventilation, Less than 24 Consecutive Hours, Continuous Positive Airway Pressure (ICD-10-PCS; principal; 2019-09-04)
DX: J44.1 Chronic obstructive pulmonary disease with (acute) exacerbation (principal); J96.21 Acute and chronic respiratory failure with hypoxia; J96.22 Acute and chronic respiratory failure with hypercapnia; I50.32 Chronic diastolic (congestive) heart failure; J44.0 Chronic obstructive pulmonary disease with (acute) lower respiratory infection; E09.9 Drug or chemical induced diabetes mellitus without complications; E78.00 Pure hypercholesterolemia, unspecified; E78.5 Hyperlipidemia, unspecified; I11.0 Hypertensive heart disease with heart failure; J20.9 Acute bronchitis, unspecified; M10.9 Gout, unspecified; R07.89 Other chest pain; N40.0 Benign prostatic hyperplasia without lower urinary tract symptoms; T38.0X5A Adverse effect of glucocorticoids and synthetic analogues, initial encounter; Z82.49 Family history of ischemic heart disease and other diseases of the circulatory system; Z83.3 Family history of diabetes mellitus; Z85.038 Personal history of other malignant neoplasm of large intestine; Z87.891 Personal history of nicotine dependence; Z90.49 Acquired absence of other specified parts of digestive tract; Z99.81 Dependence on supplemental oxygen; Y92.89 Other specified places as the place of occurrence of the external cause
CPT/HCPCS: 36415; 36600; 71045; 71046; 80048; 80053; 82805; 83880; 84484; 85007; 85025; 87804; 93005; 94640; 94644; 94660; 94760; 96365; 96375; J1650; J2060; J2920; J2930; J3475; J7040; J7512; J7613; J7620; J7626; 97116; 97530; 97535; 99285-25; G0378